=== PATIENT | female | born 1940 | race Caucasian/White ===

== ENCOUNTER 2017-06-10 11:48 | Outpatient (RCR) | payer MEDICARE, OTHER, SELFPAY ==
[2017-06-08 00:40] VITALS: BP 94/60; PULSE 75; O2SAT 94; BMI 27.4
== END 2017-07-08 23:59 ==
LOC: PR 11:48
PROVIDERS: Family Provider Family Medicine; PCP Family Medicine; Visit Provider Internal Medicine Critical Care Medicine
DX: J44.9 Chronic obstructive pulmonary disease, unspecified (principal); F17.201 Nicotine dependence, unspecified, in remission; R06.09 Other forms of dyspnea; J30.9 Allergic rhinitis, unspecified
CPT/HCPCS: 97150; G0424

== ENCOUNTER → 2017-09-11 10:51 | Outpatient (CLI) | payer MEDICARE, OTHER, SELFPAY ==
[2017-09-16 09:10] LABS: Alternaria tenuis <0.10 kU/L (Class 0); Ash, White <0.10 kU/L (Class 0); Aspergillus fumigatus <0.10 kU/L (Class 0); Bermuda Grass <0.10 kU/L (Class 0); Birch <0.10 kU/L (Class 0); Black Walnut <0.10 kU/L (Class 0); Cat Hair / Dander,Stand <0.10 kU/L (Class 0); Cedar, Mountain <0.10 kU/L (Class 0); Cladosporium herbarum <0.10 kU/L (Class 0); Cockroach, American <0.10 kU/L (Class 0); Cottonwood <0.10 kU/L (Class 0); D farinae Mite <0.10 kU/L (Class 0); D pteronyssinus <0.10 kU/L (Class 0); Dog Epithelia <0.10 kU/L (Class 0); Elm, American White <0.10 kU/L (Class 0); Immunoglobulin E 31 IU/mL (0-100); Maple/Box Elder <0.10 kU/L (Class 0); Mulberry, White <0.10 kU/L (Class 0); Oak, White <0.10 kU/L (Class 0); Pecan <0.10 kU/L (Class 0); Penicillium Notatum <0.10 kU/L (Class 0); Pigweed, Rough <0.10 kU/L (Class 0); Ragweed, Short/Common <0.10 kU/L (Class 0); Russian Thistle <0.10 kU/L (Class 0); Sheep Sorrel <0.10 kU/L (Class 0); Sycamore, American <0.10 kU/L (Class 0); Timothy Grass <0.10 kU/L (Class 0)
[2017-09-16 11:23] LABS: Mouse Urine <0.10 kU/L (Class 0)
== END ==
PROVIDERS: Family Provider Family Medicine; PCP Family Medicine; Visit Provider Internal Medicine Critical Care Medicine
DX: J30.9 Allergic rhinitis, unspecified (principal)
CPT/HCPCS: 36415; 82785; 86003

== ENCOUNTER 2017-10-26 07:31 | Day surgery (SDC) | payer MEDICARE, OTHER, SELFPAY ==
[2017-10-26] VITALS (7 sets, daily range): BP systolic 146–171; BP diastolic 86–118; PULSE 77–85; RESP 18; TEMP 36.4–36.7; O2SAT 93–99; BMI 28.4
--- NOTE | 2017-10-26 08:50 | RAD_ITS ---
STUDY: X-RAY - LUMBAR SPINE REASON FOR EXAM: Female, 76 years old. Radiofrequency ablation. TECHNIQUE: 7 coned-down view(s) of the lumbar spine were obtained intraoperatively. COMPARISON: None FINDINGS: Intraoperative imaging provided for right L3-S1 radiofrequency ablation. RAD/L/S Spine Min 4 Views IMPRESSION: Intraoperative imaging provided for right L3-S1 radiofrequency ablation. Electronically Signed: Ari Ward MD at 10:43 EDT Tel [phone], Service support ,
[2017-10-26] MEDS: MethylPREDNISolone Acetate 80 MG/ML Vial (09:00)
[2017-10-26] MEDS: Bupivacaine 0.25% 30 ML Vial (09:00)
--- NOTE | 2017-10-26 12:44 | PCM.OPRPT ---
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 Report of Operation Date of Procedure: 10/26/17 Pre-Operative Diagnosis: Lumbosacral spondylosis, lumbosacral degenerative disc disease, lumbar facet arthropathy Post-Operative Diagnosis: Lumbosacral spondylosis, lumbosacral degenerative disc disease, lumbar facet arthropathy Surgery/Procedure Performed:: Right-sided lumbar radiofrequency ablation of the medial branch L3, L4, L5, S1 Description of Surgical Findings:: PROCEDURE: Right-sided radiofrequency ablation of the medial branch L3, L4, L5, S1 PREOPERATIVE DIAGNOSES: Lumbosacral spondylosis, lumbosacral degenerative disc disease, lumbar facet arthropathy POSTOPERATIVE DIAGNOSES: Lumbosacral spondylosis, lumbosacral degenerative disc disease, lumbar facet arthropathy ANESTHESIA: MAC COMPLICATIONS: None BLOOD LOSS: Minimal PROCEDURE IN DETAIL: History and physical today was reviewed. Risks and benefits of procedure explained. The patient understood, agreed to the procedure and informed consent was obtained. IV inserted per routine protocol. The patient was taken to the operating room, placed in the prone position with a pillow positioned underneath the abdomen. The right side of the lower back was prepped and draped in a sterile fashion using iodine x 3. Under fluoroscopy guidance, on an oblique view, the L3 through S1 vertebral bodies were visualized. The skin and subcutaneous tissue was anesthetized with approximately 10 mL of 1% lidocaine using a 25-gauge regular needle. Under direct visualization with fluoroscopy at approximately 25-degree angle, starting on the right L3, ending on the right S1 passing through the L4-L5 using a 20-gauge 15 cm with a 10 mm curved active tip radiofrequency ablation needle the needle passed through the skin. The tip of the needle was maneuvered and directed towards the superior and medial gutter of the transverse process at the vicinity of the medial branch. Once the tip of the needle was in contact with the bone, the needle pulled approximately 2 mm up the bone. The stylet of each needle was then removed. After negative aspiration of blood with CSF and confirmation of AP as well as oblique view, radiofrequency ablation probe was then inserted at each level. Impedance was then recorded at L3 to be 304, at L4 302, at L5 289, at S1 278 ohm. Motor-evoked potential was then initiated to 1.5 volt without any motor response at each corresponding level. The probe was then removed intact and a total of 6 mL preservative-free 1% lidocaine was injected in divided doses between those 4 levels after negative aspiration of blood with CSF. The radiofrequency ablation probe was then reinserted after confirmation of AP, oblique as well as lateral view. Radiofrequency ablation was then initiated to 80 degrees Celsius for 90 seconds at each level. Once concluded, the probe was then removed intact and a total of 6 mL of preservative-free 0.25% Marcaine with 40 mg Depo-Medrol was injected in divided doses between those 4 levels. The needles were then removed intact. The patient experienced no signs or symptoms of intrathecal, intravascular injection. The patient experienced no paraesthesia. The procedure was completed without any apparent difficulty, any complication. The patient appeared to tolerate well. Sensory as well as motor exam was unchanged from prior to procedure. ASSESSMENT AND PLAN: This is a 76-year-old Female with lumbosacral spondylosis, lumbosacral degenerative disc disease, lumbar facet arthropathy, status post right-sided radiofrequency ablation of the medial branch L3 through S1. The patient will continue her current medications. The patient will follow up in approximately 2 weeks for reevaluation.
== END 2017-10-26 09:59 | disposition home or self-care (01) ==
LOC: SDC 07:32 → AC 07:32
PROVIDERS: Family Provider Family Medicine; PCP Family Medicine; Visit Provider Anesthesiology Pain Medicine
PROC: (CPT 64635; principal; 2017-10-26 08:45)
DX: M51.16 Intervertebral disc disorders with radiculopathy, lumbar region (principal); M47.26 Other spondylosis with radiculopathy, lumbar region; M53.3 Sacrococcygeal disorders, not elsewhere classified; M79.1 Myalgia; E03.9 Hypothyroidism, unspecified; E55.9 Vitamin D deficiency, unspecified; J44.9 Chronic obstructive pulmonary disease, unspecified; F41.9 Anxiety disorder, unspecified; F32.9 Major depressive disorder, single episode, unspecified; E78.00 Pure hypercholesterolemia, unspecified; I10 Essential (primary) hypertension; Z87.891 Personal history of nicotine dependence; Z79.51 Long term (current) use of inhaled steroids; Z79.891 Long term (current) use of opiate analgesic; Z79.899 Other long term (current) drug therapy
CPT/HCPCS: 01936; 64635; 64636; 72110; 76000; J7120

== ENCOUNTER → 2018-05-04 10:44 | Outpatient (CLI) | payer MEDICARE, OTHER, SELFPAY ==
[2018-05-04 11:26] VITALS: PULSE 100; PULSE 102; PULSE 104; PULSE 82; PULSE 88; PULSE 90; PULSE 91; PULSE 99; O2SAT 89; O2SAT 90; O2SAT 96
--- NOTE | 2018-05-04 16:08 | PCM.PSN.6M ---
PSN 6 Minute Walk Test - 6 Minute Walk Test 6 Minute Walk Test: 6 Minute Walk Test PSN:6-Minute Walk Test Start: 05/04/18 11:17 Freq: Status: Active Protocol: RESP.6MINW Document 05/04/18 11:26 JLA (Rec: 05/04/18 11:30 JLA [id number]) 6 Minute Walk Test Date Performed 05/04/18 Time Performed 11:00 Height 5 ft 4 in Weight: 69.539 kg Weight in Pounds 153.[address]: Chano Bowman Assistive device used: Cane Pre-test Oxygen Delivery Method Room Air Pulse Ox (%) 96 Pulse Rate (60-100 beats/min) 82 Dyspnea Julien Scale (0-10) 0 Exertion Julien Scale (6-20) 6 1st minute Oxygen Delivery Method Room Air Pulse Ox (%) 90 Pulse Rate (60-100 beats/min) 88 2nd minute Oxygen Delivery Method Room Air Pulse Ox (%) 90 Pulse Rate (60-100 beats/min) 99 3rd minute Oxygen Delivery Method Room Air Pulse Ox (%) 89 Pulse Rate (60-100 beats/min) 100 4th minute Oxygen Delivery Method Room Air Pulse Ox (%) 90 Pulse Rate (60-100 beats/min) 102 H 5th minute Oxygen Delivery Method Room Air Pulse Rate (60-100 beats/min) 90 Dyspnea Julien Scale (0-10) 102 6th minute Oxygen Delivery Method Room Air Pulse Ox (%) 89 Pulse Rate (60-100 beats/min) 104 H Dyspnea Julien Scale (0-10) 2 Exertion Julien Scale (6-20) 13 Post-test Oxygen Delivery Method Room Air Pulse Ox (%) 96 Pulse Rate (60-100 beats/min) 91 Full Laps Walked 9 Partial Lap, Number of Tiles Walked 0 Total Distance Walked (ft) 531 - Interpretation Interpretation: The patient was able to ambulate only 531 feet over the course of 6 minutes on room air with the assistance of a cane. The patient did have significant desaturation from a baseline of 96%, to as low as 89% with ambulation. Some reflexive tachycardia was noted. These findings are consistent with a respiratory limitation exercise tolerance. - Recommendations Recommendations: No supplemental oxygen is indicated at this time. However, patient will need to be followed closely given level of desaturation.
--- OUTSIDE RECORDS SUMMARY | 2018-06-16 02:30 | XMS RPT_ITS ---
:1940 Author Organization OHIP Support Name Relationship Address Phone ROMERODIONICIO Unavailable [address] + [address] [place] [address] R Unavailable Unavailable Unavailable ROMERO, DIONICIO Unavailable [address] + [address] [place] [address] R Unavailable Unavailable Unavailable ROMERO, DIONICIO Unavailable [address] + [address] [place] [address] R Unavailable Unavailable Unavailable ROMERO, DIONICIO Unavailable [address] + [address] [place] [address] R Unavailable Unavailable Unavailable ROMERO, DIONICIO Unavailable [address] + [address] [place] [address] R Unavailable Unavailable Unavailable ROMERO, DIONICIO Unavailable [address] + [address] [place] [address] R Unavailable Unavailable Unavailable ROMERO, DIONICIO Unavailable [address] + [address] [place] [address] R Unavailable Unavailable Unavailable ROMERO, DIONICIO Unavailable [address] [phone] [address] [place] [address] R Unavailable Unavailable Unavailable ROMERO, DIONICIO Unavailable [address] [phone] [address] [place] [address] R Unavailable Unavailable Unavailable ROMERO, DIONICOI Unavailable [address] [phone] [address] [place] [address] R Unavailable Unavailable Unavailable ROMERO, DIONICIO Unavailable [address] [phone] [address] [place] [address] R Unavailable Unavailable Unavailable ROMERO, DIONICIO Unavailable [address] + [place] [address] ROMERO, DIONICIO Unavailable [address] + [place] [address] ROMERO, DIONICIO Unavailable [address] [phone] [address] [place] [address] R Unavailable Unavailable Unavailable ROMERO, DIONICIO Unavailable [address] [phone] [address] [place] [address] R Unavailable Unavailable Unavailable ROMERO, DIONICIO Unavailable [address] [phone] [address] [place] [address] R Unavailable Unavailable Unavailable ROMERO, DIONICIO Unavailable [address] + [address] [place] [address] R Unavailable Unavailable Unavailable Care Team Providers Name Role Phone DEIRDRE VENTURA, JESSICA Bates Attending Unavailable DEIRDRE VENTURA, JESSICA Bates Referring Unavailable CEBUL , DOUG Lacey III Primary Care Unavailable CEBUL III, DOUG Lacey Attending Unavailable CEBUL III, DOUG A Referring Unavailable CEBUL III, DOUG A Referring Unavailable CEBUL III, DOUG Lacey Attending Unavailable CEBUL III, DOUG A Referring Unavailable CEBUL III, DOUG A Referring Unavailable Cebul Cipriano Attending Unavailable Cebul III, Doug Primary Care Unavailable Cebul Cipriano Attending Unavailable Cebul III, Doug Primary Care Unavailable Melodiebul Cipriano Consulting Unavailable Chano Bowman D.O. Attending Unavailable Chano Bowman D.O. Referring Unavailable Cebul III, Doug Primary Care Unavailable Chano Bowman D.O. Attending Unavailable Chano Bowman D.O. Referring Unavailable Cebul III, Doug Primary Care Unavailable Win Espinosa Attending Unavailable Chano Bowman D.O. Referring Unavailable CebulCipriano Attending Unavailable Cebul III, Doug Referring Unavailable Nahomy Arvizu Attending Unavailable Chano Bowman D.O. Attending Unavailable Cebul III, Doug Referring Unavailable Chano Bowman D.O. Attending Unavailable Cebul III, Doug Primary Care Unavailable Star Ardon Attending Unavailable Star Ardon Referring Unavailable Cebul III, Doug Primary Care Unavailable Chano Bowman D.O. Attending Unavailable Cebul III, Doug Referring Unavailable Chano Bowman D.O. Attending Unavailable Chano Bowman D.O. Referring Unavailable Cebul III, Doug Primary Care Unavailable CebulCipriano Attending Unavailable Cebul III, Doug Referring Unavailable Chano Bowman D.O. Attending Unavailable Chano Bowman D.O. Referring Unavailable Doug Ruiz III Primary Care Unavailable Chano Bowman D.O. Attending Unavailable Chano Bowman D.O. Referring Unavailable Doug Ruiz III Primary Care Unavailable PROBLEMS PROBLEMS DATE TYPE CONDITION / CODE ATTENDING STATUS SOURCE 05/19/2018 Unknown R92.8 - Other Cipriano Ruiz Active [place] abnormal and Community inconclusive Hospital findings on Repository diagnostic imaging of breast / R92.8(ICD-10) 05/05/2018 Active Inconclusive NA Active [facility] mammogram / [facility] [place] R92.2(ICD-10) Repository 05/21/2018 Unknown J44.9 - Chronic Win Espinosa Active [place] obstructive Community pulmonary disease, Hospital unspecified / Repository J44.9(ICD-10) 04/15/2018 Active Encounter for NA Active [facility] screening [facility] [place] mammogram for Repository malignant neoplasm of breast / Z12.31(ICD-10) 11/11/2017 Active Other fci NA Active [facility] (current) drug [place] therapy / Repository Z79.899(ICD-10) 11/11/2017 Active Hypothyroidism, NA Active [facility] unspecified / [place] E03.9(ICD-10) Repository 11/11/2017 Active Chronic NA Active [facility] obstructive [place] pulmonary disease, Repository unspecified / J44.9(ICD-10) 09/11/2017 Unknown J30.9 - Allergic Chano Bowman, Active [place] rhinitis, D.O. Community unspecified / Hospital J30.9(ICD-10) Repository 09/11/2017 Unknown F17.201 - Nicotine Chano Bowman, Active [place] dependence, [facility] Community unspecified, in Hospital remission / Repository F17.201(ICD-10) 06/08/2017 Unknown R06.09 - Other Chano Bowman, Active [place] forms of dyspnea / D.O. Community R06.09(ICD-10) Hospital Repository 05/07/2017 Unknown CHRONIC Chano Brown, Active [place] OBSTRUCTIVE D.O. Community PULMONARY DISEASE, Hospital UNSPECIFIED / Repository J44.9(ICD-10) 05/07/2017 Unknown NICOTINE Chano Bowman, Active [place] DEPENDENCE, D.O. Community UNSPECIFIED, IN Hospital REMISSION / Repository F17.201(ICD-10) 05/07/2017 Unknown OTHER FORMS OF Chano Brown, Active [place] DYSPNEA / D.O. Community R06.09(ICD-10) Hospital Repository 05/07/2017 Unknown ALLERGIC RHINITIS, Chano Bowman, Active [place] UNSPECIFIED / D.O. Community J30.9(ICD-10) Hospital Repository PROCEDURES PROCEDURES No Procedure Records FoundRESULTS RESULTS SURGERY VISIT REPORT Observed: 05/25/2018 Status: F Source: [place] 4:42 PM [facility] REPOSITORY [facility] [address] [place] [address]. [address] [place] [address] OFFICE VISIT Date of Service: 05/25/18 MR#: [id number] Acct: [id number] Name: JOSETTE ROMERO Rep #: [id number] : 1940 Provider: Cipriano Ruiz MD Age/Sex: 77/F Location: [facility] Status: Signed Intake Intake Visit Reasons: breast path Chief Complaint: abn mammo/us right breast Aluminum Siding Mechanic Required: No Is patient in pain?: No Allergies acetaminophen [From Tavist] Allergy (Verified 05/25/18 15:35) Unknown clemastine fumarate [From Tavist] Allergy (Verified 05/25/18 15:35) Unknown fosfomycin tromethamine [From Monurol] Allergy (Verified 05/25/18 15:35) Unknown pseudoephedrine HCl [From Tavist] Allergy (Verified 05/25/18 15:35) Unknown celecoxib [From Celebrex] Adverse Reaction (Verified 05/25/18 15:35) Upset Stomach doxycycline Adverse Reaction (Verified 05/25/18 15:35) Other simvastatin [From Zocor] Adverse Reaction (Verified 05/25/18 15:35) Pain in joints Medications Atorvastatin Calcium [Lipitor] 20 mg PO QHS 09/09/14 [History Confirmed 05/14/18] Bimatoprost [Lumigan Opthalmic] 1 drp EACH EYE QHS 09/09/14 [History Confirmed 05/14/18] Levothyroxine [Synthroid] 112 mcg PO DAILY 09/09/14 [History Confirmed 05/14/18] Calcium Carb/Vitamin D [Os-Shiva 500MG + D] 1 tab PO TIDCM #30 tab 09/14/14 [Rx Confirmed 05/14/18] Senna/Docusate Sodium [Senokot-S] 1 tab PO BID PRN 05/22/17 [History Confirmed 05/14/18] montelukast 10 mg tablet 10 mg PO QDAY #90 tab 09/11/17 [Rx Confirmed 05/14/18] Lisinopril [Prinivil] 10 mg PO DAILY 10/22/17 [History Confirmed 05/14/18] budesonide-formoterol HFA 160 mcg-4.5 mcg/actuation aerosol inhaler 2 puff INHALATION BID #3 ea 10/28/17 [Rx Confirmed 05/14/18] tiotropium bromide 2.5 mcg/actuation mist for inhalation 2 puff INHALATION QDAY #3 ea 10/28/17 [Rx Confirmed 05/14/18] tizanidine PO BID PRN 12/15/17 [History Confirmed 05/14/18] albuterol sulfate HFA 90 mcg/actuation aerosol inhaler 2 puff INHALATION Q4H PRN PRN #1 inhaler 12/18/17 [Rx Confirmed 05/14/18] albuterol sulfate 2.5 mg/3 mL (0.083 %) solution for nebulization 2.5 mg INHALATION Q6H PRN #120 vial 03/18/18 [Rx Confirmed 05/14/18] alendronate 70 mg tablet 70 mg PO QWEEK 05/14/18 [History Confirmed 05/14/18] bimatoprost 0.01 % eye drops 1 drp OPHTHALMIC QPM 05/14/18 [History Confirmed 05/14/18] buspirone 5 mg tablet 5 mg PO TID 05/14/18 [History Confirmed 05/14/18] citalopram 10 mg tablet 10 mg PO DAILY 05/14/18 [History Confirmed 05/14/18] hydrocortisone 1 % topical cream 1 applic TOPICAL BID 05/14/18 [History Confirmed 05/14/18] lactulose 20 gram oral packet 20 g PO BID 05/14/18 [History Confirmed 05/14/18] latanoprost 0.005 % eye drops 1 drp OPHTHALMIC QPM 05/14/18 [History Confirmed 05/14/18] melatonin 5 mg capsule mg PO cap 05/14/18 [History Confirmed 05/14/18] tolterodine ER 4 mg capsule,extended release 24 hr 4 mg PO DAILY 05/14/18 [History Confirmed 05/14/18] Is last menstrual period known: No Post menopausal: Yes Patient : No PFSH Medical History Abnormal mammogram of right breast (Acute) Hip fracture requiring operative repair (Resolved) Pure hypercholesterolemia (Chronic) Pleural effusion (Acute) Osteoarthritis (Chronic) Glaucoma (Chronic) Essential (primary) hypertension (Chronic) Diverticulosis of colon (without mention of hemorrhage) (Chronic) Other disorders of bone and cartilage (Chronic) Benign positional vertigo (Chronic) Apical lung scarring (Chronic) Anxiety (Chronic) Allergic rhinitis (Chronic) MIRELES (dyspnea on exertion) (Chronic) Tobacco dependence in remission (Chronic) Closed fracture of left hip requiring operative repair (Acute) COPD, mild (Chronic) MCI (mild cognitive impairment) (Chronic) Depression (Chronic) Hyperlipidemia (Chronic) Hypothyroidism (Chronic) Broken wrist (Acute) Cracked pelvis (Acute) Fracture of vertebra (Acute) Tailbone injury (Acute) Surgical History History of arthroscopic knee surgery (Acute) History of colonoscopy (Acute) History of hemorrhoidectomy (Acute) Status post hip surgery (Acute) Family History Father Heart disease Myocardial infarction Mother Breast cancer Aunt Breast cancer Daughter Breast cancer Social History Smoking Status: Former smoker how long ago did patient quit smokin, 1p/day second hand exposure: Yes alcohol intake: current alcohol intake frequency: a few times a month Alcohol type: wine substance use type: does not use HPI HPI HPI: JOSETTE ROMERO, is a 77 F who presents to the office today for surgical follow-up status post stereotactic needle core right breast biopsy. I saw this patient on May 14, 2018 with the following report HPI HPI: JOSETTE ROMERO, is a 77 F who presents to the office today for for surgical consultation regarding an abnormal mammogram with microcalcifications on the right. The patient is referred by Dr. Doug Ruiz III and a written copy of my surgical consult recommendations will be returned to him. The patient especially requests me to assist. 77-year-old female. Mother and a maternal aunt had breast cancer. The patient is G0. Menarche at age 16. No previous breast biopsies. No nipple discharge. No bleeding. She does take hormone replacement therapy and is adamant that she requires that. The patient had screening mammograms at the [facility]. Unremarkable on the left. On the right there is felt to be clustered calcifications on April 27 8018 she had diagnostic right mammogram. Coarse heterogenous pleomorphic calcifications in the 12:00 upper mid right breast. BI-RADS Category 4. Low suspicion Subsequently on May 19, 2018 I performed a stereotactic core right breast biopsy. Multiple microcalcifications were obtained in the specimen. Final pathology was notable for invasive ductal carcinoma nuclear grade 2 0.4 cm in greatest length. Focal microcalcifications. Estrogen receptor was 43% week. Progesterone receptor 0. HER-2/anthony 3+. She presents back today with her and daughter to discuss treatment options. It is of note that her daughter also has had breast cancer which was treated with a mastectomy sentinel lymph node biopsy. She has experience with the techniques. ROS General General: No weight change, appetite, fatigue, colon cancer, breast cancer or weakness HEENT HEENT: No difficulty swallowing, eye injury, eye surgery, swollen glands or hoarseness Endo Endocrine: Yes thyroid disease; no diabetes mellitus, thyroid cancer, Hair loss, heat intolerance or cold intolerance Breast Breast: Yes abnormal mammogram and abnormal US; no left breast lump, right breast lump, nipple discharge, breast pain or breast enlargement Musc Musculoskeletal: Yes back problems and arthritis; no rheumatoid arthritis, gout or joint pain Cardio Cardiovascular: Yes high blood pressure; no murmur, pacemaker, heart disease, atrial fibrillation, heart attack, heart stent, palpitations, shortness of breat with exertion or chest pain Psych Psychiatric: Yes depression and anxiety; no hearing voices Resp Respiratory: Yes shortness of breath, No sleep apnea, No cough, Yes COPD, No asthma, No emphysema, No wheezing Gastro Gastrointestinal: No abdominal pain, No nausea or vomiting, No diarrhea, No constipation, No blood in stool, No acid reflux, Yes hemorrhoids, No ulcers, No gallbladder problem, No black,tarry stools Fitz Hematologic: No blood thinners, No blood disorders, No bleeding, No anemia, No blood clots Neuro Neurologic: No weakness Exam Const General: cooperative, anxious Nutritional Appearance: average body habitus Orientation: alert, awake, oriented x3 HENMT Head: normal to inspection Chest Breast Palpation: No nipple discharge Other: Right breast: Very small 3 mm eschar upper mid right breast at biopsy site. Mild induration. No erythema. No palpable supraclavicular or axillary adenopathy. Left breast: No focal mass. No nipple discharge. No axillary or clavicular adenopathy Resp Other: Increased anterior posterior diameter. Diminished respiratory excursion. Clear with few scattered dry rales Cardio Rate: regular rate Rhythm: regular rhythm Heart Sounds: no murmurs GI Palpation: no hepatosplenomegaly Auscultation: normal bowel sounds Skin Other: Skin abrasion superficial laceration left upper arm clean Extrem General: no clubbing, cyanosis or edema Psych Other: Extraordinarily anxious Assessment AND Plan Problems 1. Malignant neoplasm of central portion of right breast in female, estrogen receptor positive C50.111; Z17.0 Plan 77-year-old female. She states that 24 hours after her breast biopsy she had nausea vomiting and hallucinations. She states that she tripped against a door causing the abrasion to the left arm. She wonders whether this is related to the Betadine prep that was used for her right stereotactic needle core biopsy or the 1% lidocaine. She did not have any immediate symptoms at the time of the procedure or within that same day. I have discussed her findings. The patient is very anxious because of her COPD and is not sure that she can tolerate surgery. She is not currently on oxygen at this time in the office. The vast majority of the microcalcifications were removed during stereotactic biopsy. I suspect that this is a very small focus. I do not believe that a mastectomy would be appropriate. I have offered her a stereotactic wire localization with lumpectomy and right axillary sentinel lymph node biopsy. In detail I have discussed the technique, benefits, risks, alternatives. The stereotactic wire localization will need to be performed with alcohol prep and no local anesthetic. I would anticipate not using any local anesthetic during the operative procedure. We would need to use care in the degree of vital dye utilized. She has had an opportunity to ask and have questions answered. At this point we will schedule and proceed at her discretion. She requests that this not be performed prior to the holidays. I appreciate the opportunity of assisting with her surgical care CC: Dr. Doug Ruiz, III Cipriano Ruiz M.D., F.A.C.S. Coding Level of Care Code Off vis,est,level 3 Diagnoses Malignant neoplasm of central portion of right breast in female, estrogen receptor positive C50.111; Z17.0 Breast location: central portion of breast Estrogen receptor status: positive Patient sex: female 05/25/18 1642 <Electronically signed by Cipriano Ruiz MD> Date Cipriano Ruiz MD Cosigner Signature: Date (if applicable) CC: Doug Ruiz III, MD OPERATIVE REPORT Observed: 05/19/2018 Status: F Source: [place] 11:22 AM [facility] Medical Records Department [address] [place] [address] Operative Report 05/19/18 1119 MR#: [id number] Acct: [id number] Name: JOSETTE ROMERO Rep #: [id number] : 1940 77 From: Cipriano Ruiz MD PCP: Doug Ruiz III, MD Status: REG CLI Y Location: [facility] Problem List (1) Abnormal mammogram of right breast Status: Acute Report of Operation Date of Procedure: 05/19/18 Pre-Operative Diagnosis: Microcalcifications upper mid right breast Post-Operative Diagnosis: Same Surgery/Procedure Performed:: Stereotactic needle core biopsy upper mid right breast Description of Surgical Findings:: Timeout and informed consent was obtained. 71-year-old female was taken to the stereotactic room placed on the table.The right breast was placed in the cc view. On fast view was obtained demonstrating the microcalcifications in question. Stereotactic images are obtained. Digital information is obtained on a single target site. The breast was prepped with Betadine. 1% lidocaine was used as a local anesthetic. A total of 8 cc was used. A small stab incision was created. An 8-gauge resolve needle was advanced to prefer depth. Prefire films were obtained demonstrating good localization. Device was fired. 5 cores were obtained. Specimen mammograms are obtained with multiple cores with calcifications consistent with the preoperative imaging. The cores were immediately placed within formalin. A mini marking clip was left at the 12 o'clock position. Final direct view demonstrating the marking clip to be in good position with now relative absence of the vast majority of the microcalcifications. She was released from the device. Pressure was held for hemostasis. Steri-Strips Telfa OpSite dressing applied. Ice pack applied. She was given activity wound care instructions. Further office follow-up can be based upon final pathology. Progress and prognosis are felt to be good. Cipriano Ruiz M.D., F.A.C.S. Type of Anesthesia:: Local 05/19/181121 <Electronically signed by Cipriano Ruiz MD> Date Cipriano Ruiz MD CC: Doug Ruiz III, MD; Cipriano Ruiz MD Signed BREAST BIOPSY Observed: 05/19/2018 Status: F Source: [facility] (CHOOSE SITE) 11:10 AM [facility] REPOSITORY Patient: JOSETTE ROMERO : 1940 (77/F) Acct Num: [id number] Phys: Cipriano Ruiz MD Unit Num: [id number] Loc: [facility] Specimen: [id number] Received: 05/19/18 - 114 Spec Type: BREAST BX TISSUES 1 TISSUES: Right breast, NOS COMMENT 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 Immunohistochemistry ([id number]) supports the above diagnosis. ER/MT/Hei0qwa studies are being performed on sections of tumor and the results from this study will be reported separately ([id number]). Case has been reviewed in consultation with Dr. Jerome who concurs with the above diagnosis. IDC:AM GROSS DESCRIPTION Received is one container labeled with the patient's name and not further designated. The specimen consists of multiple elongated fragments of lundberg-yellow fibroadipose tissue that in aggregate measure 5 x 3 x 0.1 cm. The entire specimen is submitted in two cassettes. / ROWENA:laura 05/19/18 TC:0 CPT: 41374 HEADER OPERATION: Right breast stereotactic biopsy PRE-OP DIAGNOSIS: Right breast calcifications upper mid breast TISSUE SUBMITTED: Right breast core tissue ISCHEMIC TIME: 1 minute FIXATION TIME: 8.5 hours MICROSCOPIC DESCRIPTION Slides are reviewed. MICROSCOPIC DIAGNOSIS Right breast, calcifications upper mid breast, stereotactic core biopsy: Invasive ductal carcinoma, nuclear grade 2 (0.4 cm in greatest length). Focal microcalcifications. See comment. SJ:laura 05/20/18 Signed Alvin Anaya 05/21/18 <signature on file> Performed By: #### PBRBX #### [facility] [address] [place], [address] IMMUNOHISTOCHEMISTRY Observed: 05/19/2018 Status: F Source: [place] 12:00 AM [facility] REPOSITORY Patient: JOSETTE ROMERO : 1940 (77/F) Acct Num: [id number] Phys: Sara VENTURA,Cipriano Unit Num: [id number] Loc: [facility] Specimen: [id number] Received: 05/20/18 - 1321 Spec Type: IMMUNO TISSUES 1 TISSUES: Right breast, NOS SPECIMEN INFORMATION: Tissue Source: Right breast Clinical Info: Right breast calcifications upper mid breast Specimen Number: [id number] #2 CPT code: 91835, 42826 x6, 25220 x3 METHODOLOGY: Deparaffinized sections of prefer/formalin-fixed tissue or PAP/DQ stained slides are incubated with monoclonal/polyclonal antibodies/oligonucleotide probes. Localization is made via biotin free immunoperoxidase method. Appropriate controls are performed and reacted as expected. Results on target cell population are indicated in the following table: RESULTS: ANTIBODY / CLONE RESULT Block 2 E-Cad (ECH-6) positive CK8 (67tcjeB19) positive CK5-6 (D5 AND 1684) negative Ki-67 (30-9) positive, low P53 (DO-7) positive, weak P40 (BC28) negative Calponin-1 (CC182V) negative MORPHOMETRIC ANALYSIS ER (clone 6F11) 43%, weak MT (clone 16/1E2) 0 Her-2Neu (clone CB11) 3+ The prognostic test for HER2 is performed on formalin-fixed paraffin embedded tissue. A 3+ (positive) staining pattern is defined as intense, homogeneous, complete, circumferential membranous staining in >10% of contiguous tumor cells. A similar weak (2+) staining pattern is interpreted as equivocal. BRETT follow- up testing is recommended for all equivocal cases. Positivity/negativity for ER/ MT is reported if > or < 1% of the tumor cells are immuno- reactive, respectively. The ASCO/CAP criteria is used for scoring. Reference: Journal of Clinical Oncology, 2013; 31:9748-0546 AND 2010; 16:2784- 2795. Duration of fixation : 8.5 Hrs; Sample Adequate: Yes. These assays have not been validated on decalcified tissues. Results should be interpreted with caution given the likelihood of false negativity on decalcified specimens. These tests were developed and their performance characteristics determined by [facility]. They may not have been cleared or approved by the U.S. Food and Drug Administration. The FDA has determined that such clearance or approval is not necessary. INTERPRETATION: Right breast calcifications upper mid breast, stereotactic core biopsy: Invasive ductal carcinoma, nuclear grade 2. Positive for estrogen receptors (favorable prognostic indicator). Negative for progesterone receptors (unfavorable prognostic indicator). Positive for overexpression of DRL2woc. SJ:laura 05/21/18 PHYSICIAN [facility] INSTIT[facility] [address] [address] Signed Alvin Anaya 05/21/18 <signature on file> Performed By: #### PIMM #### [facility] [address] [place] [address]. [place], [place], [address] SURGERY VISIT REPORT Observed: 05/14/2018 Status: F Source: [place] 2:27 PM [facility] REPOSITORY [facility] [address] [place] [address]. [address] [place] [address] OFFICE VISIT Date of Service: 05/14/18 MR#: [id number] Acct: [id number] Name: JOSETTE ROMERO Rep #: [id number] : 1940 Provider: Cipriano Ruiz MD Age/Sex: 77/F Location: [facility] Status: Signed Intake Vital Signs05/14/18 Height 5 ft 4 in 05/14/18 Weight: 157 lb 12 oz 05/14/18 Body Mass Index (BMI) 27.1 05/14/18 Blood Pressure 127/78 H Intake Visit Reasons: Rt Breast Abn Mammo [facility] 05/05 to bring disc Chief Complaint: abn mammo/us right breast Aluminum Siding Mechanic Required: No Is patient in pain?: No Allergies acetaminophen [From Tavist] Allergy (Verified 05/14/18 13:56) Unknown clemastine fumarate [From Tavist] Allergy (Verified 05/14/18 13:56) Unknown fosfomycin tromethamine [From Monurol] Allergy (Verified 05/14/18 13:56) Unknown pseudoephedrine HCl [From Tavist] Allergy (Verified 05/14/18 13:56) Unknown celecoxib [From Celebrex] Adverse Reaction (Verified 05/14/18 13:56) Upset Stomach doxycycline Adverse Reaction (Verified 05/14/18 13:56) Other simvastatin [From Zocor] Adverse Reaction (Verified 05/14/18 13:56) Pain in joints Medications Atorvastatin Calcium [Lipitor] 20 mg PO QHS 09/09/14 [History Confirmed 05/14/18] Bimatoprost [Lumigan Opthalmic] 1 drp EACH EYE QHS 09/09/14 [History Confirmed 05/14/18] Levothyroxine [Synthroid] 112 mcg PO DAILY 09/09/14 [History Confirmed 05/14/18] Calcium Carb/Vitamin D [Os-Shiva 500MG + D] 1 tab PO TIDCM #30 tab 09/14/14 [Rx Confirmed 05/14/18] Senna/Docusate Sodium [Senokot-S] 1 tab PO BID PRN 05/22/17 [History Confirmed 05/14/18] montelukast 10 mg tablet 10 mg PO QDAY #90 tab 09/11/17 [Rx Confirmed 05/14/18] Lisinopril [Prinivil] 10 mg PO DAILY 10/22/17 [History Confirmed 05/14/18] budesonide-formoterol HFA 160 mcg-4.5 mcg/actuation aerosol inhaler 2 puff INHALATION BID #3 ea 10/28/17 [Rx Confirmed 05/14/18] tiotropium bromide 2.5 mcg/actuation mist for inhalation 2 puff INHALATION QDAY #3 ea 10/28/17 [Rx Confirmed 05/14/18] tizanidine PO BID PRN 12/15/17 [History Confirmed 05/14/18] albuterol sulfate HFA 90 mcg/actuation aerosol inhaler 2 puff INHALATION Q4H PRN PRN #1 inhaler 12/18/17 [Rx Confirmed 05/14/18] albuterol sulfate 2.5 mg/3 mL (0.083 %) solution for nebulization 2.5 mg INHALATION Q6H PRN #120 vial 03/18/18 [Rx Confirmed 05/14/18] alendronate 70 mg tablet 70 mg PO QWEEK 05/14/18 [History Confirmed 05/14/18] bimatoprost 0.01 % eye drops 1 drp OPHTHALMIC QPM 05/14/18 [History Confirmed 05/14/18] buspirone 5 mg tablet 5 mg PO TID 05/14/18 [History Confirmed 05/14/18] citalopram 10 mg tablet 10 mg PO DAILY 05/14/18 [History Confirmed 05/14/18] hydrocortisone 1 % topical cream 1 applic TOPICAL BID 05/14/18 [History Confirmed 05/14/18] lactulose 20 gram oral packet 20 g PO BID 05/14/18 [History Confirmed 05/14/18] latanoprost 0.005 % eye drops 1 drp OPHTHALMIC QPM 05/14/18 [History Confirmed 05/14/18] melatonin 5 mg capsule mg PO cap 05/14/18 [History Confirmed 05/14/18] tolterodine ER 4 mg capsule,extended release 24 hr 4 mg PO DAILY 05/14/18 [History Confirmed 05/14/18] Is last menstrual period known: No Post menopausal: Yes Patient : No PFSH Medical History Abnormal mammogram of right breast (Acute) Hip fracture requiring operative repair (Resolved) Pure hypercholesterolemia (Chronic) Pleural effusion (Acute) Osteoarthritis (Chronic) Glaucoma (Chronic) Essential (primary) hypertension (Chronic) Diverticulosis of colon (without mention of hemorrhage) (Chronic) Other disorders of bone and cartilage (Chronic) Benign positional vertigo (Chronic) Apical lung scarring (Chronic) Anxiety (Chronic) Allergic rhinitis (Chronic) MIRELES (dyspnea on exertion) (Chronic) Tobacco dependence in remission (Chronic) Closed fracture of left hip requiring operative repair (Acute) COPD, mild (Chronic) MCI (mild cognitive impairment) (Chronic) Depression (Chronic) Hyperlipidemia (Chronic) Hypothyroidism (Chronic) Broken wrist (Acute) Cracked pelvis (Acute) Fracture of vertebra (Acute) Tailbone injury (Acute) Surgical History History of arthroscopic knee surgery (Acute) History of colonoscopy (Acute) History of hemorrhoidectomy (Acute) Status post hip surgery (Acute) Family History Father Heart disease Myocardial infarction Mother Breast cancer Aunt Breast cancer Daughter Breast cancer Social History Smoking Status: Former smoker how long ago did patient quit smokin, 1p/day second hand exposure: Yes alcohol intake: current alcohol intake frequency: a few times a month Alcohol type: wine substance use type: does not use HPI HPI HPI: JOSETTE ROMERO, is a 77 F who presents to the office today for for surgical consultation regarding an abnormal mammogram with microcalcifications on the right. The patient is referred by Dr. Doug Ruiz III and a written copy of my surgical consult recommendations will be returned to him. The patient especially requests me to assist. 77-year-old female. Mother and a maternal aunt had breast cancer. The patient is G0. Menarche at age 16. No previous breast biopsies. No nipple discharge. No bleeding. She does take hormone replacement therapy and is adamant that she requires that. The patient had screening mammograms at the [facility]. Unremarkable on the left. On the right there is felt to be clustered calcifications on April 27 8018 she had diagnostic right mammogram. Coarse heterogenous pleomorphic calcifications in the 12:00 upper mid right breast. BI-RADS Category 4. Low suspicion ROS General General: No weight change, appetite, fatigue, colon cancer, breast cancer or weakness HEENT HEENT: No difficulty swallowing, eye injury, eye surgery, swollen glands or hoarseness Endo Endocrine: Yes thyroid disease; no diabetes mellitus, thyroid cancer, Hair loss, heat intolerance or cold intolerance Breast Breast: Yes abnormal mammogram and abnormal US; no left breast lump, right breast lump, nipple discharge, breast pain or breast enlargement Musc Musculoskeletal: Yes back problems and arthritis; no rheumatoid arthritis, gout or joint pain Cardio Cardiovascular: Yes high blood pressure; no murmur, pacemaker, heart disease, atrial fibrillation, heart attack, heart stent, palpitations, shortness of breat with exertion or chest pain Psych Psychiatric: Yes depression and anxiety; no hearing voices Resp Respiratory: Yes shortness of breath, No sleep apnea, No cough, Yes COPD, No asthma, No emphysema, No wheezing Gastro Gastrointestinal: No abdominal pain, No nausea or vomiting, No diarrhea, No constipation, No blood in stool, No acid reflux, Yes hemorrhoids, No ulcers, No gallbladder problem, No black,tarry stools Fitz Hematologic: No blood thinners, No blood disorders, No bleeding, No anemia, No blood clots Neuro Neurologic: No weakness Exam Chest Breast Palpation: No nipple discharge Other: Bilateral breasts: No focal mass no nipple discharge no axillary or clavicular adenopathy Cardio Heart Sounds: no murmurs Assessment AND Plan Problems 1. Abnormal mammogram of right breast R92.8 Plan I recommended the patient is sterile technique occur upper mid right breast biopsy and in detail discussed the technique, benefits, risks and alternatives. The patient is very much interested in returning to using her hormone replacement at your earliest convenience. I discussed with her that we would have to await pathology. She has had an opting to ask and have questions answered. We will schedule and expedite her care. Cc: Dr. Doug Ruiz M.D., F.A.C.S. Coding Level of Care Code Prob focused, straight fwd Diagnoses Abnormal mammogram of right breast R92.8 05/14/18 1427 <Electronically signed by Cipriano Ruiz MD> Date Cipriano Ruiz MD Cosigner Signature: Date (if applicable) CC: Doug Ruiz III, MD PROGRESS Observed: 05/05/2018 Status: COMPLETED Source: [place] 1:42 PM [facility] REPOSITORY HNO ID: [id number] Author: Anastacia Knightelizabeth Burnham Service: (none) Author Type: (none) Type: Progress Notes Filed: 05/05/2018 1:43 PM Note Text: Radiology Service Progress Note PATIENT NAME: Josette Romero DATE OF SERVICE: May 05, 2018 TIME: 1:42 PM PATIENT IDENTITY VERIFICATION COMPLETED USING TWO (2) METHODS: Patient confirmed name verbally and Date of . PATIENT GENDER DATA: Female. status: : No status: NO. PATIENT RELEVANT IMPLANT DATA REVIEWED: Not Applicable RADIOLOGY DEPARTMENT: [facility] diagnostic mammogram PERIPHERAL IV DATA: Not applicable SIGNED BY: Anastacia Burnham May 05, 2018 1:42 PM CNCO Observed: 05/05/2018 Status: COMPLETED Source: [place] 1:29 PM [facility] RE[facility]IT[facility] HNO ID: [id number] Author: Mammography Coordinator Service: (none) Author Type: Physician Type: Letter Filed: 05/06/2018 11:32 PM Note Text: May 05, 2018 PID: [id number] Josette Romero [address] [place], [place] [id number] Dear Ms. Romero, Your recent breast imaging exam on 05/05/2018 showed an abnormal area. At this time we recommend further evaluation. This does not necessarily mean that there is a serious problem in your breast, but it should not be ignored. Please contact your physician as soon as possible to discuss the results of this exam and decide what the next steps in your medical care should be. If you have already been notified of these findings, please disregard this letter. Thank you for allowing us to help in meeting your health care needs. Sincerely, Dr. Amato Interpreting Radiologist [facility] (Abnormal) [facility] RT Observed: 05/05/2018 Status: F Source: [place] 11:22 AM [facility] REPOSITORY * * *Final Report* * * DATE OF EXAM: May 05 2018 11:22AM [facility] 0626 - [facility] RT / PROCEDURE REASON: Inconclusive mammogram * * * * Physician Interpretation * * * * RESULT: #[id number] - [facility] RT UNILATERAL RIGHT DIGITAL DIAGNOSTIC MAMMOGRAM WITH CAD: 05/05/2018 HISTORY: Inconclusive Mammogram /Call back/abnormal mamm: Right Diagnostic Mammogram. RESULT: TECHNIQUE: The study was acquired using full field digital technology and interpreted from soft copy. Current study was also evaluated with a Computer Aided Detection (CAD). Comparison is made to exams dated: 04/15/2018 mammogram and 12/24/2015 mammogram - [facility]. There are scattered fibroglandular elements in right breast. There are a clustered coarse heterogeneous pleomorphic calcifications in the right breast at 12 o'clock middle depth. No other significant masses or calcifications are seen in the breast. IMPRESSION: SUSPICIOUS OF MALIGNANCY The clustered coarse heterogeneous pleomorphic calcifications in the right breast are at a low suspicion for malignancy. A stereotactic biopsy is recommended. SUMMARY: The patient indicated that she would contact her primary care physician in order to make the biopsy appt with Dr. Chiang. Santo humphreys/lucy:05/05/2018 13:29:12 Installation Coordinator(s): Anastacia Degroot RT(R)(M), [facility] letter sent: Abnormal Mammogram BI-RADS: 4a Suspicious abnormality - low suspicion for malignancy Multiple national specialty organizations have released breast cancer screening guidelines for women at average risk for developing breast cancer - guidelines that are based on both evidence and opinion, yet differ on when to start and how often to screen for breast cancer. With representation from Breast Imaging, Internal Medicine, Women's Health, Family Medicine, and Medical/Surgical Oncology, the [facility] has carefully reviewed the data and reached the following consensus: 1) All women should engage in shared decision-making with their providers to decide when to start and how often to screen; 2) All women should have the opportunity to start screening mammography at age 40; 3) For women ages 45-55, we recommend annual screening mammograms; 4) For women ages 55 and over, we support both the transition from an annual to a biennial interval if this aligns more with patient's values and preferences, or continuation with annual screening; 5) All women should discuss with their providers when to stop screening mammograms. Surveying Technician: Lucy Transcribe Date/Time: May 05 2018 11:22A Dictated by: SANTO AMATO MD This examination was interpreted and the report reviewed and electronically signed by: SANTO AMATO MD on May 05 2018 1:29PM EST [id number] 6 MINUTE WALK TEST Observed: 05/05/2018 Status: F Source: [place] 5:47 AM [facility] REPOSITORY [facility] Pulmonary Services/Neurology [address] [place] [address] MR#: [id number] Acct: [id number] Name: JOSETTE ROMERO Rep #: [id number] : 1940 77 From: Win Espinosa MD Referring Dr: Chano Bowman D.O. Date: Ordering Dr: Sex: F C Location: PSN PSN 6 Minute Walk Test - 6 Minute Walk Test 6 Minute Walk Test: 6 Minute Walk Test PSN:6-Minute Walk Test Start: 05/04/18 11:17 Freq: Status: Active Protocol: [id number] Document 05/04/18 11:26 JLA (Rec: 05/04/18 11:30 JLA [id number]) 6 Minute Walk Test Date Performed 05/04/18 Time Performed 11:00 Height 5 ft 4 in Weight: 69.539 kg Weight in Pounds 153.[address]: Chano Bowman Assistive device used: Cane Pre-test Oxygen Delivery Method Room Air Pulse Ox (%) 96 Pulse Rate (60-100 beats/min) 82 Dyspnea Julien Scale (0-10) 0 Exertion Julien Scale (6-20) 6 1st minute Oxygen Delivery Method Room Air Pulse Ox (%) 90 Pulse Rate (60-100 beats/min) 88 2nd minute Oxygen Delivery Method Room Air Pulse Ox (%) 90 Pulse Rate (60-100 beats/min) 99 3rd minute Oxygen Delivery Method Room Air Pulse Ox (%) 89 Pulse Rate (60-100 beats/min) 100 4th minute Oxygen Delivery Method Room Air Pulse Ox (%) 90 Pulse Rate (60-100 beats/min) 102 H 5th minute Oxygen Delivery Method Room Air Pulse Rate (60-100 beats/min) 90 Dyspnea Julien Scale (0-10) 102 6th minute Oxygen Delivery Method Room Air Pulse Ox (%) 89 Pulse Rate (60-100 beats/min) 104 H Dyspnea Julien Scale (0-10) 2 Exertion Julien Scale (6-20) 13 Post-test Oxygen Delivery Method Room Air Pulse Ox (%) 96 Pulse Rate (60-100 beats/min) 91 Full Laps Walked 9 Partial Lap, Number of Tiles Walked 0 Total Distance Walked (ft) 531 - Interpretation Interpretation: The patient was able to ambulate only 531 feet over the course of 6 minutes on room air with the assistance of a cane. The patient did have significant desaturation from a baseline of 96%, to as low as 89% with ambulation. Some reflexive tachycardia was noted. These findings are consistent with a respiratory limitation exercise tolerance. - Recommendations Recommendations: No supplemental oxygen is indicated at this time. However, patient will need to be followed closely given level of desaturation. 05/05/18 0547 <Electronically signed by Win Espinosa MD> Date Win Espinosa MD CC: Date Dictated: 05/04/18 1608 Date Transcribed: 05/04/181607 Surveying Technician: Win Espinosa Signed CNCO Observed: 04/15/2018 Status: COMPLETED Source: [place] 12:19 PM [facility] [place] REPOSITORY [facility] ID: [id number] Author: Mammography Coordinator Service: (none) Author Type: Physician Type: Letter Filed: 04/19/2018 11:50 PM Note Text: April 15, 2018 PID: [id number] Josette Romero [address] [place] [address] Dear Ms. Romero, Your recent breast imaging exam on 04/15/2018 showed a possible finding that requires additional imaging studies for a complete evaluation. Most such findings are probably benign (not cancer). Please call [phone] or [phone] to schedule an appointment for your additional imaging if you have not already done so. Your breast images and report will be kept on file here as part of your permanent medical record and are available for your continuing care. Thank you for allowing us to help in meeting your health care needs. Sincerely, Dr. Shahid Interpreting Radiologist [facility] (Additional imaging) JUAN [facility] SCREENING Observed: 04/15/2018 Status: F Source: [place] [id number]:35 AM [facility] REPOSITORY * * *Final Report* * * DATE OF EXAM: Apr 15 2018 10:35AM [facility] 0581 - [facility] SCREENING / PROCEDURE REASON: Screening for breast cancer * * * * Physician Interpretation * * * * RESULT: #[id number] - [facility] SCREENING BILATERAL DIGITAL SCREENING MAMMOGRAM WITH CAD: 04/15/2018 HISTORY: Screening Mammogram - patient reports NO breast symptoms /priors available for comparison. RESULT: TECHNIQUE: The study was acquired using full field digital technology and interpreted from soft copy. Current study was also evaluated with a Computer Aided Detection (CAD). Comparison is made to exams dated: 12/24/2015 mammogram and 08/10/2012 mammogram - [facility]. There are scattered fibroglandular elements in both breasts. There is a cluster of calcifications in the right breast upper inner aspect middle depth. No other significant masses, calcifications, or other findings are seen in either breast. IMPRESSION: INCOMPLETE: NEEDS ADDITIONAL IMAGING EVALUATION The cluster of calcifications in the right breast is indeterminate. Magnification views are recommended. There is a possible focal asymmetry associated with the calcifications. Missy Shahid M.D., jr/penrad:04/15/2018 12:19:25 Installation Coordinator: Lesley BURNHAM(George)(Isaac), [facility] letter sent: Additional Imaging Needed Mammogram BI-RADS: 0 Incomplete: needs additional imaging evaluation If this report indicates you need additional imaging, and it has NOT yet been performed, please call , to schedule. We sincerely thank you for choosing the [facility] for your breast imaging needs. Multiple national specialty organizations have released breast cancer screening guidelines for women at average risk for developing breast cancer - guidelines that are based on both evidence and opinion, yet differ on when to start and how often to screen for breast cancer. With representation from Breast Imaging, Internal Medicine, Women's Health, Family Medicine, and Medical/Surgical Oncology, the [facility] has carefully reviewed the data and reached the following consensus: 1) All women should engage in shared decision-making with their providers to decide when to start and how often to screen; 2) All women should have the opportunity to start screening mammography at age 40; 3) For women ages 45-55, we recommend annual screening mammograms; 4) For women ages 55 and over, we support both the transition from an annual to a biennial interval if this aligns more with patient's values and preferences, or continuation with annual screening; 5) All women should discuss with their providers when to stop screening mammograms. Surveying Technician: Lucy Transcribe Date/Time: Apr 15 2018 10:09A Dictated by: MISSY SHAHID MD This examination was interpreted and the report reviewed and electronically signed by: MISSY SHAHID MD on Apr 15 2018 12:19PM EST [id number] PROGRESS Observed: 04/15/2018 Status: COMPLETED Source: [place] 10:14 AM [facility] REPOSIT[facility] HNO ID: [id number] Author: Aliyah Burnham Service: (none) Author Type: (none) Type: Progress Notes Filed: 04/15/2018 10:16 AM Note Text: Radiology Service Progress Note PATIENT NAME: Josette Romero DATE OF SERVICE: April 15, 2018 TIME: 10:14 AM PATIENT IDENTITY VERIFICATION COMPLETED USING TWO (2) METHODS: Patient confirmed name verbally and Date of . PATIENT GENDER DATA: Female. status: : No status: NO. PATIENT RELEVANT IMPLANT DATA REVIEWED: Not Applicable RADIOLOGY DEPARTMENT: [facility] DATA: Not applicable SIGNED BY: Aliyah Burnham April 15, 2018 10:14 AM PROGRESS Observed: 03/25/2018 Status: COMPLETED Source: [place] 10:27 AM [facility] REPOSIT[facility] HNO ID: [id number] Author: Doug Ruiz III Service: (none) Author Type: Physician Type: Progress Notes Filed: 03/25/2018 12:21 PM Note Text: SUBJECTIVE: This is a 77 year old female that is here today for 1. flu shot and discussed shingles shot 2. mother and aunt had breast cancer. discussion re: need for screening mamms. Pt is interested in treating positive results 3. hypertension-- 4. difficulty staying asleep but not taking melatonin prior to sleep 5. has tried OTC meds for rectal pain w/o benefit. Insurance co will not pay for prescription med unless all OTC have been tried and unsuccessfu. Epic suggests that a covered option exists--written in orders 6. LS spine arthritis under care of Dr Espinal for pain management. 7. celexa 10mg daily was tried for tx of hot flashes, but she had no benefit after 1 wk and stopped the med (mostly due to listed possible side effects though she did not have any side effects). She has hot flashes with sweating affecting sleep. PAST MEDICAL HISTORY Diagnosis Date - Adjustment reaction with anxiety and depression 10/11/2013 - Allergic rhinitis - Apical lung scarring 03/16/2014 - BPV (benign positional vertigo) 10/11/2013 - Chronic obstructive pulmonary disease (COPD) (HCC) - Disorder of bone and cartilage, unspecified - Diverticulosis of colon (without mention of hemorrhage) - Essential hypertension 04/14/2016 - Glaucoma - Pleural effusion, right 03/16/2014 - Pure hypercholesterolemia - Tobacco dependence in remission - Unspecified hypothyroidism Current Outpatient Prescriptions on File Prior to Visit: citalopram hydrobromide (CELEXA) 10 mg tablet Take 1 tablet by mouth once daily. lactulose (DUPHALAC, CONSTULOSE) 10 gram/15 mL solution TAKE 30 ML BY MOUTH TWICE DAILY NEEDED (CONSTIPATION). tiZANidine (ZANAFLEX) 2 mg tablet busPIRone (BUSPAR) 5 mg tablet Take 1 tablet by mouth three times daily. as needed for anxiety hydrocortisone (HEMORRHOIDAL HC) 25 mg suppository 1 SUPPOSITORY BY RECTAL ROUTE TWICE DAILY NEEDED (HEMMORRHOIDS/RECTAL PAIN). levothyroxine (SYNTHROID) 112 mcg tablet TAKE 1 TABLET BY MOUTH EVERY DAY lisinopril (PRINIVIL) 10 mg tablet Take 1 tablet by mouth once daily. atorvastatin (LIPITOR) 20 mg tablet TAKE 1 TABLET BY MOUTH ONCE DAILY. latanoprost (XALATAN) 0.005 % ophthalmic solution 1 Drop daily at bedtime. brimonidine 0.2 % drop, timolol maleate 0.5 % drop 1 Drop once daily. budesonide-formoterol (SYMBICORT) 160-4.5 mcg/actuation inhaler Inhale 2 Puffs as instructed twice daily. montelukast (SINGULAIR) 10 mg tablet Take 1 tablet by mouth daily at bedtime. fluticasone (FLONASE) 50 mcg/actuation nasal spray Use 2 Sprays in each nostril once daily. tolterodine ER (DETROL LA) 4 mg 24 hr capsule Take 1 capsule by mouth once daily. Melatonin 5 mg tab 5 mg by mouth 1-2 hours prior to bedtime TIOTROPIUM BROMIDE (SPIRIVA RESPIMAT INHALATION) Inhale as instructed. COMPOUNDED PRESCRIPTION Nebulizer supplies: Dx: J44.9 ipratropium-albuterol (DUONEB) 0.5 mg-3 mg(2.5 mg base)/3 mL nebu Inhale 3 mL as instructed four times daily. DX: J44.9 albuterol HFA (PROAIR HFA) 90 mcg/actuation inhaler Inhale 2 Puffs as instructed every 4 hours as needed. For wheezing/shortness of breath. atorvastatin (LIPITOR) 20 mg tablet Take 20 mg by mouth once daily. tidkgtt-ijtmrmrkq-ipsijww D3 500 mg(1,250mg) -200 unit per tablet Take 1 tablet by mouth three times daily. oxyCODONE ER (OXYCONTIN) 20 mg 12 hr tablet Take 1 tablet by mouth every 12 hours. alendronate (FOSAMAX) 70 mg tablet Take 1 tablet by mouth once each week. COMPOUNDED PRESCRIPTION 1 Each four times daily. NEBULIZER FOR HOME USE. DX: J44.9 ibuprofen (MOTRIN) 600 mg tablet Take 1 tablet by mouth every 6 hours as needed for Pain. Bimatoprost (LUMIGAN) 0.01 % OPHTHALMIC Drop 1 drop bith eyes at night. No current facility-administered medications on file prior to visit. FAMILY HISTORY Problem Relation Age of Onset - Heart Father 54 [place] - Breast Cancer Mother - Breast Cancer Maternal Aunt - Breast Cancer Daughter - None Brother - None Brother - None Brother Social History Substance Use Topics - Smoking status: Former Smoker Packs/day: 0.50 Years: 20.00 Types: Cigarettes Quit date: 09/09/2014 - Smokeless tobacco: Never Used Comment: 4 or 5 cigs qd - Alcohol use Yes Comment: occasionally BP 127/90 Pulse 95 Resp 18 Wt 71.2 kg (157 lb) BMI 27.81 kg/m? . OBJECTIVE: APPEARANCE Well appearing, alert, in no acute distress, well-hydrated, well nourished. and Appearance: well dressed well groomed, cooperative and pleasant Behavior: good eye contact Speech: fluent and coherent Mood: euthymic Affect: appropriate Perceptions: none Thought process: goal directed Thought Content: normal Intelligence level: normal Insight: good Judgment: good ASSESSMENT: COPD--stable hypertension--at goal post menopause with hot flashes int. hemorrhoids with rectal pain ch insomnia LS spine degenerative dis. FHx of breast ca PLAN: recommend shingrix when available screening mammograms melatonin 10mg every evening hydroxyzine 25mg as needed for resistant insomnia premarin 0.3mg daily flu shot given hydrocortisone-pramipaxole 1 % cream per rectum daily as needed return to office 6 mos and as needed 30 min visit--all questions answered GOOD Carcamo MD Observed: 03/25/2018 Status: COMPLETED Source: [place] 10:20 AM [facility] Office Visit (FAMPWS) JOSETTE ROMERO ([id number]) 1940 F Date Time Provider Department 03/25/18 10:20 AM DOUG RUIZ III During your visit today, we recorded the following information about you: Pulse Respiration Blood pressure Weight 95/minute 18/minute 127/90 71.2 kg [facility] [place] [place] 03/25/2018 12:21 PM Signed 77 year old female here for INACTIVATED INFLUENZA VACCINE. 7293-9859 Season Patient is identified by name and date of : Yes [] CONTRAINDICATIONS color enhanced section Age less than 6 months? No Allergy to eggs, chicken, chicken feathers, or chicken dander? No Allergy to thimerosal (a preservative) or formaldehyde, gelatin? No History of severe reaction to any vaccine component or a previous dose of influenza vaccination? No History of Guillain-[place] Syndrome within 6 weeks after a previous influenza vaccine? No Patient is not moderately or severely ill? No Current temperature greater or equal to 100.4F? No History of Bone Marrow Transplant prior 6 months or solid organ transplant in the past 3 months ? No History of fainting after a prior injection or medical procedure? No- ? If patient has fainted in the past, the CDC recommends sitting or lying down for 15 minutes after the vaccination. [] VERIFICATION color enhanced section Was the answer Yes for any of the above contraindications? No contraindications present. Acceptable to proceed with vaccine. Patient/guardian agrees the above answers are true to the best of their knowledge? Yes Flu vaccine information sheet given? Yes See immunization activity in [facility] for details of immunizations adminstered today. Patient age: [age] year old For The 5214-6103 Flu Season 6-35 months old: Fluzone 0.25 ml - IM (Preservative Free) 3 years of age: Fluzone 0.5 ml - IM (Preservative Free) 3 years and older: Fluzone 0.5 ml- IM-(with Preservatives) 65+ years old: 2-49 years old Fluzone High-Dose 0.5 ml - IM (Preservative Free) FLUMIST- intranasal REMEMBER: If patient is less than 9 years of age and this is the first vaccine of Influenza to be received in any flu season, they should receive a second dose in one months time. Doug Ruiz III MD 03/25/2018 12:21 PM Signed SUBJECTIVE: This is a 77 year old female that is here today for 1. flu shot and discussed shingles shot 2. mother and aunt had breast cancer. discussion re: need for screening mamms. Pt is interested in treating positive results 3. hypertension-- 4. difficulty staying asleep but not taking melatonin prior to sleep 5. has tried OTC meds for rectal pain w/o benefit. Insurance co will not pay for prescription med unless all OTC have been tried and unsuccessfu. [facility] suggests that a covered option exists--written in orders 6. LS spine arthritis under care of Dr Espinal for pain management. 7. celexa 10mg daily was tried for tx of hot flashes, but she had no benefit after 1 wk and stopped the med (mostly due to listed possible side effects though she did not have any side effects). She has hot flashes with sweating affecting sleep. PAST MEDICAL HISTORY Diagnosis Date - Adjustment reaction with anxiety and depression 10/11/2013 - Allergic rhinitis - Apical lung scarring 03/16/2014 - BPV (benign positional vertigo) 10/11/2013 - Chronic obstructive pulmonary disease (COPD) (HCC) - Disorder of bone and cartilage, unspecified - Diverticulosis of colon (without mention of hemorrhage) - Essential hypertension 04/14/2016 - Glaucoma - Pleural effusion, right 03/16/2014 - Pure hypercholesterolemia - Tobacco dependence in remission - Unspecified hypothyroidism Current Outpatient Prescriptions on File Prior to Visit: citalopram hydrobromide (CELEXA) 10 mg tablet Take 1 tablet by mouth once daily. lactulose (DUPHALAC, CONSTULOSE) 10 gram/15 mL solution TAKE 30 ML BY MOUTH TWICE DAILY NEEDED (CONSTIPATION). tiZANidine (ZANAFLEX) 2 mg tablet busPIRone (BUSPAR) 5 mg tablet Take 1 tablet by mouth three times daily. as needed for anxiety hydrocortisone (HEMORRHOIDAL HC) 25 mg suppository 1 SUPPOSITORY BY RECTAL ROUTE TWICE DAILY NEEDED (HEMMORRHOIDS/RECTAL PAIN). levothyroxine (SYNTHROID) 112 mcg tablet TAKE 1 TABLET BY MOUTH EVERY DAY lisinopril (PRINIVIL) 10 mg tablet Take 1 tablet by mouth once daily. atorvastatin (LIPITOR) 20 mg tablet TAKE 1 TABLET BY MOUTH ONCE DAILY. latanoprost (XALATAN) 0.005 % ophthalmic solution 1 Drop daily at bedtime. brimonidine 0.2 % drop, timolol maleate 0.5 % drop 1 Drop once daily. budesonide-formoterol (SYMBICORT) 160-4.5 mcg/actuation inhaler Inhale 2 Puffs as instructed twice daily. montelukast (SINGULAIR) 10 mg tablet Take 1 tablet by mouth daily at bedtime. fluticasone (FLONASE) 50 mcg/actuation nasal spray Use 2 Sprays in each nostril once daily. tolterodine ER (DETROL LA) 4 mg 24 hr capsule Take 1 capsule by mouth once daily. Melatonin 5 mg tab 5 mg by mouth 1-2 hours prior to bedtime TIOTROPIUM BROMIDE (SPIRIVA RESPIMAT INHALATION) Inhale as instructed. COMPOUNDED PRESCRIPTION Nebulizer supplies: Dx: J44.9 ipratropium-albuterol (DUONEB) 0.5 mg-3 mg(2.5 mg base)/3 mL nebu Inhale 3 mL as instructed four times daily. DX: J44.9 albuterol HFA (PROAIR HFA) 90 mcg/actuation inhaler Inhale 2 Puffs as instructed every 4 hours as needed. For wheezing/shortness of breath. atorvastatin (LIPITOR) 20 mg tablet Take 20 mg by mouth once daily. ckucnju-fijjfonec-ratnpww D3 500 mg(1,250mg) -200 unit per tablet Take 1 tablet by mouth three times daily. oxyCODONE ER (OXYCONTIN) 20 mg 12 hr tablet Take 1 tablet by mouth every 12 hours. alendronate (FOSAMAX) 70 mg tablet Take 1 tablet by mouth once each week. COMPOUNDED PRESCRIPTION 1 Each four times daily. NEBULIZER FOR HOME USE. DX: J44.9 ibuprofen (MOTRIN) 600 mg tablet Take 1 tablet by mouth every 6 hours as needed for Pain. Bimatoprost (LUMIGAN) 0.01 % OPHTHALMIC Drop 1 drop bith eyes at night. No current facility-administered medications on file prior to visit. FAMILY HISTORY Problem Relation Age of Onset - Heart Father 54 ND - Breast Cancer Mother - Breast Cancer Maternal Aunt - Breast Cancer Daughter - None Brother - None Brother - None Brother Social History Substance Use Topics - Smoking status: Former Smoker Packs/day: 0.50 Years: 20.00 Types: Cigarettes Quit date: 09/09/2014 - Smokeless tobacco: Never Used Comment: 4 or 5 cigs qd - Alcohol use Yes Comment: occasionally BP 127/90 Pulse 95 Resp 18 Wt 71.2 kg (157 lb) BMI 27.81 kg/m? . OBJECTIVE: APPEARANCE Well appearing, alert, in no acute distress, well- hydrated, well nourished. and Appearance: well dressed well groomed, cooperative and pleasant Behavior: good eye contact Speech: fluent and coherent Mood: euthymic Affect: appropriate Perceptions: none Thought process: goal directed Thought Content: normal Intelligence level: normal Insight: good Judgment: good ASSESSMENT: COPD--stable hypertension--at goal post menopause with hot flashes int. hemorrhoids with rectal pain ch insomnia LS spine degenerative dis. FHx of breast ca PLAN: recommend shingrix when available screening mammograms melatonin 10mg every evening hydroxyzine 25mg as needed for resistant insomnia premarin 0.3mg daily flu shot given hydrocortisone-pramipaxole 1 % cream per rectum daily as needed return to office 6 mos and as needed 30 min visit--all questions answered GOOD Carcamo MD, III MD 03/25/2018 11:01 AM Signed PLAN: recommend shingrix when available screening mammograms melatonin 10mg every evening hydroxyzine 25mg as needed for resistant insomnia premarin 0.3mg daily flu shot given hydrocortisone-pramipaxole 1 % cream per rectum daily as needed return to office 6 mos and as needed Doug Ruiz III MD Referring Provider: SELF [[id number]] Allergies As of Date: 03/25/2018 Noted Allergy Reaction CELEBREX (CELECOXIB) 05/13/2005 DICLOFENAC 05/01/2017 1 - Mental Status Change DOXYCYCLINE 05/13/2005 2 - Rash Comments: photosensitivity MONUROL (FOSFOMYCIN TROMETHAMINE) 05/13/2005 TAVIST D [Other] 05/13/2005 ZOCOR (SIMVASTATIN) 05/13/2005 14 - Other: See Comments Comments: bone pain Date Reviewed: 03/25/2018 Reviewed by: Gerri ([facility]) KRYS Alcaraz - Fully Assessed Reason for Visit: Recheck [92] Flu shot [Other] Imm/Inj [58] Cmt: Flu Vaccine Reason For Visit History Recorded Primary Visit Diagnosis:Chronic insomnia [F51.04] Other Visit Diagnoses:Need for vaccination [Z23] Screening for breast cancer [Z12.31] Internal hemorrhoids [K64.8] Hot flash, menopausal [N95.1] Chronic obstructive pulmonary disease, unspecified COPD type (HCC) [J44.9] Order(s):INFLUENZA SEASONAL HIGH DOSE AGE 65+ [05141SGT] Order #: [id number] JUAN RAMON SCREENING [[id number]] Order #: [id number] FUTURE hydrOXYzine HCl (ATARAX) 25 mg tabletTake 1 tablet by mouth at bedtime as needed (sleep).Disp: 30 tabletRfl: 3 hydrocortisone (PROCTOCORT) 1 % crpe1 application by RECTAL route twice daily as needed.Disp: 28.4 gRfl: 3 estrogens conjugated (PREMARIN) 0.3 mg tabletTake 1 tablet by mouth once daily.Disp: 30 tabletRfl: 3 Prescriptions as of 03/25/2018 Sig: CITALOPRAM 10 MG TABLET Take 1 tablet by mouth once d* LACTULOSE 10 GRAM/15 ML ORAL * TAKE 30 ML BY MOUTH TWICE DELMAR* TIZANIDINE 2 MG TABLET BUSPIRONE 5 MG TABLET Take 1 tablet by mouth three * HYDROCORTISONE ACETATE 25 MG * 1 SUPPOSITORY BY RECTAL ROUTE* LEVOTHYROXINE 112 MCG TABLET TAKE 1 TABLET BY MOUTH EVERY * LISINOPRIL 10 MG TABLET Take 1 tablet by mouth once d* ATORVASTATIN 20 MG TABLET TAKE 1 TABLET BY MOUTH ONCE D* LATANOPROST 0.005 % EYE DROPS 1 Drop daily at bedtime. BRIMONIDINE 0.2% - TIMOLOL 0.* 1 Drop once daily. BUDESONIDE-FORMOTEROL HFA 160* Inhale 2 Puffs as instructed * MONTELUKAST 10 MG TABLET Take 1 tablet by mouth daily * FLUTICASONE 50 MCG/ACTUATION * Use 2 Sprays in each nostril * TOLTERODINE ER 4 MG CAPSULE,E* Take 1 capsule by mouth once * MELATONIN 5 MG TABLET 5 mg by mouth 1-2 hours prior* SPIRIVA RESPIMAT INHALATION Inhale as instructed. COMPOUNDED PRESCRIPTION Nebulizer supplies: Dx: J* IPRATROPIUM-ALBUTEROL 0.5 MG-* Inhale 3 mL as instructed fou* ALBUTEROL SULFATE HFA 90 MCG/* Inhale 2 Puffs as instructed * ATORVASTATIN 20 MG TABLET Take 20 mg by mouth once bk* CALCIUM CARBONATE 500 MG (1,2* Take 1 tablet by mouth three * OXYCODONE ER 20 MG TABLET,CRU* Take 1 tablet by mouth every * ALENDRONATE 70 MG TABLET Take 1 tablet by mouth once e* COMPOUNDED PRESCRIPTION 1 Each four times daily. NEBU* IBUPROFEN 600 MG TABLET Take 1 tablet by mouth every * BIMATOPROST 0.01 % EYE DROPS 1 drop bith eyes at night. HYDROXYZINE HCL 25 MG TABLET Take 1 tablet by mouth at bed* HYDROCORTISONE 1 % TOPICAL CR* 1 application by RECTAL route* CONJUGATED ESTROGENS 0.3 MG T* Take 1 tablet by mouth once d* Problem List As Of Date 03/25/2018 Noted Resolved Hypothyroidism [E03.9] Osteoporosis [M81.0] INVALID FOR* Vitamin D deficiency [E55.9] INVALID FOR* COPD (chronic obstructive pulmonary disease) (H*INVALID FOR* Adjustment reaction with anxiety and depression*INVALID FOR* BPV (benign positional vertigo) [H81.10] INVALID FOR* Pleural effusion, right [J90] INVALID FOR*07/04/2016 Apical lung scarring [J98.4] INVALID FOR* Hyperlipidemia LDL goal <100 [E78.5] INVALID FOR* Family history of breast cancer in mother [Z80.*INVALID FOR* Vertebral compression fracture (HCC) [M48.50XA] INVALID FOR*11/11/2016 Diverticulosis of large intestine without hemor*INVALID FOR* Impaired fasting glucose [R73.01] INVALID FOR* Chronic prescription opiate use [Z79.891] INVALID FOR* Essential hypertension [I10] INVALID FOR* Degeneration of lumbar intervertebral disc [M51*INVALID FOR* Lumbar spondylosis [M47.816] INVALID FOR* Hot flashes [R23.2] INVALID FOR* Closed fracture of hip (HCC) [S72.009A] INVALID FOR* 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] INVALID FOR* Diverticulosis of colon [K57.30] INVALID FOR* Glaucoma [H40.9] INVALID FOR* Mild cognitive disorder [F09] INVALID FOR* Osteoarthritis [M19.90] INVALID FOR* Disorder of bone and cartilage [M89.9, M94.9] INVALID FOR* Pure hypercholesterolemia [E78.00] INVALID FOR* Other instructions from your clinician: PLAN: recommend shingrix when available screening mammograms melatonin 10mg every evening hydroxyzine 25mg as needed for resistant insomnia premarin 0.3mg daily flu shot given hydrocortisone-pramipaxole 1 % cream per rectum daily as needed return to office 6 mos and as needed Doug Ruiz III MD Prescriptions ordered this encounter Disp Refills Start End HYDROXYZINE HCL 25 MG TABLET 30 t* 3 03/25/2018 Route: ORAL Sig: Take 1 tablet by mouth at bedtime as needed (sleep). HYDROCORTISONE 1 % TOPICAL CREAM WIT* 28.4* 3 03/25/2018 Route: RECTAL Si application by RECTAL route twice daily as needed. CONJUGATED ESTROGENS 0.3 MG TABLET 30 t* 3 03/25/2018 Route: ORAL Sig: Take 1 tablet by mouth once daily. Encounter Status:Closed by DOUG RUIZ III, MD on 03/25/18 PROGRESS Observed: 03/25/2018 Status: COMPLETED Source: [place] 10:19 AM [facility] HNO ID: [id number] Author: Gerri Alcaraz MA Service: (none) Author Type: Pointer Helper Type: Progress Notes Filed: 03/25/2018 12:21 PM Note Text: 77 year old female here for INACTIVATED INFLUENZA VACCINE. [id number] Season Patient is identified by name and date of : Yes [] CONTRAINDICATIONS color enhanced section Age less than 6 months? No Allergy to eggs, chicken, chicken feathers, or chicken dander? No Allergy to thimerosal (a preservative) or formaldehyde, gelatin? No History of severe reaction to any vaccine component or a previous dose of influenza vaccination? No History of Guillain-[place] Syndrome within 6 weeks after a previous influenza vaccine? No Patient is not moderately or severely ill? No Current temperature greater or equal to 100.4F? No History of Bone Marrow Transplant prior 6 months or solid organ transplant in the past 3 months ? No History of fainting after a prior injection or medical procedure? No- ? If patient has fainted in the past, the CDC recommends sitting or lying down for 15 minutes after the vaccination. [] VERIFICATION color enhanced section Was the answer Yes for any of the above contraindications? No contraindications present. Acceptable to proceed with vaccine. Patient/guardian agrees the above answers are true to the best of their knowledge? Yes Flu vaccine information sheet given? Yes See immunization activity in [facility] for details of immunizations adminstered today. Patient age: [age] year old For The Flu Season 6-35 months old: Fluzone 0.25 ml - IM (Preservative Free) 3 years of age: Fluzone 0.5 ml - IM (Preservative Free) 3 years and older: Fluzone 0.5 ml- IM-(with Preservatives) 65+ years old: 2-49 years old Fluzone High-Dose 0.5 ml - IM (Preservative Free) FLUMIST- intranasal REMEMBER: If patient is less than 9 years of age and this is the first vaccine of Influenza to be received in any flu season, they should receive a second dose in one months time. PULMONARY VISIT REPORT Observed: 12/15/2017 Status: F Source: [place] 2:08 PM [facility] [address] [place] [address] OFFICE VISIT Date of Service: 12/15/17 MR#: [id number] Acct: [id number] Name: JOSETTE ROMERO Cecily Rep #: [id number] : 1940 Provider: Chano Bowman D.O. Age/Sex: 77/F Location: [facility] Status: Signed Assessment AND Plan 1. COPD (chronic obstructive pulmonary disease) J44.9 Plan The patient has stable stage IV COPD on her current triple therapy inhaler regimen. This will be continued without change. She is not a candidate for re- enrollment in pulmonary rehabilitation. I have recommended that the patient repeat a 6 minute walk test prior to her follow-up office visit with us. 2. Allergic rhinitis J30.9 Plan Continue Singulair and Flonase. 3. Tobacco dependence in remission F17.201 Plan Ongoing tobacco cessation strongly encouraged. Plan Detail Follow Up 6 Months (DMB) HPI HPI Comments Details: The patient is a 77-year-old female who presents to the clinic today for a routine scheduled follow-up office visit. If you recall, the patient initially presented to me in 2016 as a transfer of care from her previous pulmonary provider, Dr. House. She has a smoking history that includes 1 pack per day 20 years, having quit completely in September 2014. She has a chronic, nonproductive cough, along with seasonal allergic rhinitis. She is currently on a triple therapy inhaler regimen, with Symbicort and Spiriva. Pulmonary function testing completed in April 2015 revealed the presence of a very severe large airways obstructive ventilatory defect with associated response to aerosolized bronchodilators. PFTs from February 2017 revealed a partially reversible very severe large airways obstructive ventilatory defect with asymmetric reduction in diffusing capacity and air trapping. 6 minute walk test revealed significant oxygen desaturation from 98-90% with ambulation. There was also evidence of impaired walk distance. The patient was previously enrolled in pulmonary rehab but experienced a mechanical fall half-way through the program and had to be discharged. She was told that she could not re- enroll in the program without a significant change in her pulmonary function. The patient did have a negative RAST test completed in September 2017. Patient reports overall stability in her breathing quality. She remains compliant with her triple therapy inhaler regimen including Symbicort, Spiriva and as needed albuterol. Her rescue inhaler use is quite infrequent in nature. She does report a great deal of fatigue when she exerts herself physically. Her weight has been stable. She denies chest pain, dizziness or lightheadedness. 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: No Accompanied by: Self Is patient in pain?: No Allergies acetaminophen [From Tavist] Allergy (Verified 12/15/17 13:37) Unknown clemastine fumarate [From Tavist] Allergy (Verified 12/15/17 13:37) Unknown fosfomycin tromethamine [From Monurol] Allergy (Verified 12/15/17 13:37) Unknown pseudoephedrine HCl [From Tavist] Allergy (Verified 12/15/17 13:37) Unknown celecoxib [From Celebrex] Adverse Reaction (Verified 12/15/17 13:37) Upset Stomach doxycycline Adverse Reaction (Verified 12/15/17 13:37) Other simvastatin [From Zocor] Adverse Reaction (Verified 12/15/17 13:37) Pain in joints Medications Atorvastatin Calcium [Lipitor] 20 mg PO QHS 09/09/14 [History Confirmed 12/15/17] Bimatoprost [Lumigan Opthalmic] 1 drp EACH EYE QHS 09/09/14 [History Confirmed 12/15/17] Levothyroxine [Synthroid] 112 mcg PO DAILY 09/09/14 [History Confirmed 12/15/17] Calcium Carb/Vitamin D [Os-Shiva 500MG + D] 1 tab PO TIDCM #30 tab 09/14/14 [Rx Confirmed 12/15/17] Albuterol Inhaler [Ventolin Hfa] 2 puff INHALATION Q4H PRN PRN #1 inhaler 09/27/14 [Rx Confirmed 12/15/17] Hydrocodone Bitart/Apap 5-325 [Berea 5/325] 1 - 2 tab PO Q8H PRN PRN #12 tab 05/22/17 [Rx Confirmed 12/15/17] Senna/Docusate Sodium [Senokot-S] 1 tab PO BID PRN 05/22/17 [History Confirmed 12/15/17] montelukast 10 mg tablet 10 mg PO QDAY #90 tab 09/11/17 [Rx Confirmed 12/15/17] fluticasone 50 mcg/actuation nasal spray,suspension 2 spray INTRANASAL QDAY #16 g 09/25/17 [Rx Confirmed 12/15/17] Albuterol Aerosols [Ventolin Aerosols] 2.5 mg INHALATION Q6H PRN PRN 10/22/17 [History Confirmed 12/15/17] Lisinopril [Prinivil] 10 mg PO DAILY 10/22/17 [History Confirmed 12/15/17] budesonide-formoterol HFA 160 mcg-4.5 mcg/actuation aerosol inhaler 2 puff INHALATION BID #3 ea 10/28/17 [Rx Confirmed 12/15/17] tiotropium bromide 2.5 mcg/actuation mist for inhalation 2 puff INHALATION QDAY #3 ea 10/28/17 [Rx Confirmed 12/15/17] tizanidine PO BID PRN 12/15/17 [History Confirmed 12/15/17] [facility] Medical History Pure hypercholesterolemia (Chronic) Pleural effusion (Acute) Osteoarthritis (Chronic) Glaucoma (Chronic) Essential (primary) hypertension (Chronic) Diverticulosis of colon (without mention of hemorrhage) (Chronic) Other disorders of bone and cartilage (Chronic) Benign positional vertigo (Chronic) Apical lung scarring (Chronic) Anxiety (Chronic) Allergic rhinitis (Chronic) MIRELES (dyspnea on exertion) (Chronic) Tobacco dependence in remission (Chronic) Closed fracture of left hip requiring operative repair (Acute) COPD, mild (Chronic) MCI (mild cognitive impairment) (Chronic) Depression (Chronic) Hyperlipidemia (Chronic) Hypothyroidism (Chronic) Broken wrist (Acute) Cracked pelvis (Acute) Fracture of vertebra (Acute) Tailbone injury (Acute) Surgical History Hip fracture requiring operative repair (Resolved) Family History Father Heart disease Myocardial infarction Mother Breast cancer Aunt Breast cancer Daughter Breast cancer Social History Smoking Status: Former smoker how long ago did patient quit smokin, 1p/day second hand exposure: Yes alcohol intake: current alcohol intake frequency: a few times a month Alcohol type: wine substance use type: does not use Review of Systems Const CONSTITUTIONAL: Positive fatigue; negative anorexia, body ache, chills, daytime sleepiness, fever(s), night sweats, oral thrush, stops breathing during sleep, weight loss, sleeping in chair, weight loss, weight gain, frequent colds, seasonal allergies, other, headache(s) or orthopnea EETM Ear Nose Throat Mouth: Positive hearing normal and nasal discharge; negative hard of hearing, hoarseness, dry mouth in morning, change in vision, itchy eyes, eye pain, swallowing Difficulty, ear pain, nose bleed, headache(s), mouth pain, nasal congestion, post nasal drip, sinus pain, sinus pressure, sore throat or other Cardio Cardiovascular: Negative chest pain, chest pain at rest, chest pain with activity, irregular heart rhythm, edema, shortness of breath when lying down, palpitations, murmur or other Resp Respiratory: Positive as per HPI, shortness of breath shortness of breath: Positive with activity, wheezing, cough cough: Positive non-productive and inhalers; negative pain with cough, chest congestion, chest tightness, pain on inspiration, increase use of rescue inhalers, snoring, apnea or other Gastro Gastrointestional: Negative bloody stools, change in appetite, difficulty swallowing, reflux, hematemesis, melena stool, loose stool, constipation or other Genitourinary: Negative blood in urine, nocturia, pain with urination or other Musc Musculoskeletal: Negative body pain, back pain, neck pain or other Skin/Breast Skin/Breast: Negative dry skin, itching, rash, unusual bruising, breast lump or other Neuro Neurological: Negative restless legs, confusion, weakness or other Psych Psychocological: Negative abnormal sleep pattern, anxiety, thoughts of hurting self/others, hopelessness or other Lymph Lymphatic: Negative easy bleeding, easy bruising, swollen lymph nodes or other Exam Const Constitutional: Positive conversant, cooperative, in no acute respiratory distress, well developed, well nourished and good hygiene Head Head: Positive normocephalic and atraumatic; negative cyanosis of lips/distal nose Eyes Eye: Positive clear conjunctiva; negative nystagmus or scleral abnormality Ears Ear: Positive hearing normal and external ears normal; negative hard of hearing Nose Nose: Positive external nose normal; negative epistaxis Mouth Mouth: Positive oral mucosae normal and posterior oropharynx is adequate; negative no lesions or post nasal drip Mallampati Score: II: Mallampati Score Neck Neck: Positive normal visual inspection and trachea midline; negative lymphadenopathy Chest Wall Chest: Positive symmetric chest movement Normal AP diameter. Resp lung sounds: Positive diminished diminished: Positive global and prolonged expiratory time; negative wheezes, rhonchi or rales Cardio Cardiac: Positive regular rate, regular rhythm, S1 normal and S2 normal; negative rub, gallop or murmur GI GI: Positive normal bowel sounds Soft without distention Genitourinary: Positive deferred Musc Musculoskeletal: Positive using an assistive device for ambulation Skin Pulmonary Skin Exam: Positive intact; negative lesion, ulcers, dermal atrophy or rash Pulses Pulse: Yes Pedal pulses present: Extremities Extremities: No clubbing, No cyanosis, No edema Neuro Neurologic: Yes conversant, Yes no focal neuro deficits, Yes cooperative Lymph Lymphatic: No lymphadenopathy Psych Appearance: Positive grossly normal Mental Status: Positive mental status grossly normal Mood: Positive congruent mood Affect: Positive normal affect Coding Level of Care Code Off vis,est,level 3 Diagnoses COPD (chronic obstructive pulmonary disease) J44.9 Allergic rhinitis J30.9 Tobacco dependence in remission F17.201 12/15/17 1408 <Electronically signed by Chano Bowman DO> Date Chano Brown DO Cosigner Signature: Date (if applicable) CC: Doug Ruiz III, MD PROGRESS Observed: 11/14/2017 Status: COMPLETED Source: [place] 3:07 PM [facility] [place] REPOSITORY O ID: [id number] Author: Doug Ruiz III Service: (none) Author Type: Physician Type: Progress Notes Filed: 11/14/2017 3:07 PM Note Text: Josette, The lab results are normal. It may be that estrogen deficiency is causing your hot flashes. Let us try a low dose of citalopram 10mg daily for the next 3 weeks to see if it makes a difference with your symptoms. This does not contain estrogen and therefore would not increase risk for breast, uterine, or ovarian cancer. Prescription will be sent to the local pharmacy. Give us a progress report in 3-4 weeks. SED RATE WESTERGREN Collected: 11/11/2017 Status: F Source: [place] 3:21 PM [facility] REPOSITORY TYPE CODE TESTS RESULT OUT OF REFERENCE UNITS RANGE LAB WSR 0-20 mm/hr Sed Rate Westergren 2 Performed By: #### WSR, TSH, FT4 #### [facility] [address] [phone] TSH Collected: 11/11/2017 Status: F Source: [place] 3:21 PM [facility] REPOSITORY TYPE CODE TESTS RESULT OUT OF RANGE REFERENCE UNITS LAB TSH 0.400-5.500 uU/mL TSH 3.980 Performed By: #### WSR, TSH, FT4 #### [facility] [address] [place] [address] FREE T4 Collected: 11/11/2017 Status: F Source: [place] 3:21 PM [facility] REPOSITORY TYPE CODE TESTS RESULT OUT OF RANGE REFERENCE UNITS LAB FT4 0.9-1.7 ng/dL High Free T4 1.8 Performed By: #### WSR, TSH, FT4 #### [facility] [address] [address] HEMOGLOBIN A1C Collected: 11/11/2017 Status: F Source: [place] 3:21 PM [facility] REPOSITORY TYPE CODE TESTS RESULT OUT OF REFERENCE UNITS RANGE LAB HGBA1C 4.3-5.6 % High Hemoglobin A1c 6.1 LAB HBA0 mg/dL Est. Average Glucose 128 Result Comment: eAG: (Estimated average glucose) is a calculated value from HgbA1c and is wholesale representative of the average blood glucose level in the last 2-3 month period. Performed By: #### HBA1C #### [facility] [address] [place], [place] [address] CNOV Observed: 11/11/2017 Status: COMPLETED Source: [place] 2:40 PM [facility] REPOSITORY Office Visit (FAMPWS) JOSETTE ROMERO ([id number]) 1940 F Date Time Provider Department 11/11/17 2:40 PM DOUG RUIZ III During your visit today, we recorded the following information about you: Pulse Respiration Blood pressure Weight 80/minute 20/minute 124/72 70.8 kg Doug Ruiz III MD 11/11/2017 6:55 PM Signed SUBJECTIVE: This is a 76 year old female that is here today for 1. hot flashes, episodically. Difficulty sleeping due to hot flash. s/p thyroidectomy--admits to regularly take potassium med. Face turns brilliant red 2. hypertension 3. hyperlipidemia 4. ch constipation 5. recent paint mixer machine scared her about being on ativan and hydrocodone.(3-4 /day). s/p nerve ablation in back with modest benefit in pain control. 6. ch anxiety--does not use ativan daily. 7. allergies--on rescue inhaler prn 8. easy fatigability. Known COPD, s/p pul. rehab. SpO2 98 while awake. PAST MEDICAL HISTORY Diagnosis Date - Adjustment reaction with anxiety and depression 10/11/2013 - Allergic rhinitis - Apical lung scarring 03/16/2014 - BPV (benign positional vertigo) 10/11/2013 - Chronic obstructive pulmonary disease (COPD) (HCC) - Disorder of bone and cartilage, unspecified - Diverticulosis of colon (without mention of hemorrhage) - Essential hypertension 04/14/2016 - Glaucoma - Pleural effusion, right 03/16/2014 - Pure hypercholesterolemia - Tobacco dependence in remission - Unspecified hypothyroidism Current Outpatient Prescriptions on File Prior to Visit: hydrocortisone (HEMORRHOIDAL HC) 25 mg suppository 1 SUPPOSITORY BY RECTAL ROUTE TWICE DAILY NEEDED (HEMMORRHOIDS/RECTAL PAIN). levothyroxine (SYNTHROID) 112 mcg tablet TAKE 1 TABLET BY MOUTH EVERY DAY lisinopril (PRINIVIL) 10 mg tablet Take 1 tablet by mouth once daily. atorvastatin (LIPITOR) 20 mg tablet TAKE 1 TABLET BY MOUTH ONCE DAILY. latanoprost (XALATAN) 0.005 % ophthalmic solution 1 Drop daily at bedtime. brimonidine 0.2 % drop, timolol maleate 0.5 % drop 1 Drop once daily. budesonide-formoterol (SYMBICORT) 160-4.5 mcg/actuation inhaler Inhale 2 Puffs as instructed twice daily. montelukast (SINGULAIR) 10 mg tablet Take 1 tablet by mouth daily at bedtime. fluticasone (FLONASE) 50 mcg/actuation nasal spray Use 2 Sprays in each nostril once daily. tolterodine ER (DETROL LA) 4 mg 24 hr capsule Take 1 capsule by mouth once daily. Melatonin 5 mg tab 5 mg by mouth 1-2 hours prior to bedtime TIOTROPIUM BROMIDE (SPIRIVA RESPIMAT INHALATION) Inhale as instructed. lactulose (DUPHALAC, CONSTULOSE) 10 gram/15 mL solution TAKE 30 ML BY MOUTH TWICE DAILY NEEDED (CONSTIPATION). COMPOUNDED PRESCRIPTION Nebulizer supplies: Dx: J44.9 ipratropium-albuterol (DUONEB) 0.5 mg-3 mg(2.5 mg base)/3 mL nebu Inhale 3 mL as instructed four times daily. DX: J44.9 albuterol HFA (PROAIR HFA) 90 mcg/actuation inhaler Inhale 2 Puffs as instructed every 4 hours as needed. For wheezing/shortness of breath. atorvastatin (LIPITOR) 20 mg tablet Take 20 mg by mouth once daily. nzsnjac-yxbtmgllc-eyohryd D3 500 mg(1,250mg) -200 unit per tablet Take 1 tablet by mouth three times daily. oxyCODONE ER (OXYCONTIN) 20 mg 12 hr tablet Take 1 tablet by mouth every 12 hours. alendronate (FOSAMAX) 70 mg tablet Take 1 tablet by mouth once each week. COMPOUNDED PRESCRIPTION 1 Each four times daily. NEBULIZER FOR HOME USE. DX: J44.9 ibuprofen (MOTRIN) 600 mg tablet Take 1 tablet by mouth every 6 hours as needed for Pain. Bimatoprost (LUMIGAN) 0.01 % OPHTHALMIC Drop 1 drop bith eyes at night. baclofen (LIORESAL) 10 mg tablet Take 1 tablet by mouth twice daily. (Patient not taking: Reported on 11/11/2017 ) No current facility-administered medications on file prior to visit. FAMILY HISTORY Problem Relation Age of Onset - Heart Father 54 ND - Breast Cancer Mother - Breast Cancer Maternal Aunt - Breast Cancer Daughter - None Brother - None Brother - None Brother Social History Substance Use Topics - Smoking status: Former Smoker Packs/day: 0.50 Years: 20.00 Types: Cigarettes Quit date: 09/09/2014 - Smokeless tobacco: Never Used Comment: 4 or 5 cigs qd - Alcohol use Yes Comment: occasionally BP 124/72 Pulse 80 Resp 20 Wt 70.8 kg (156 lb) BMI 27.63 kg/m? . OBJECTIVE: APPEARANCE Well appearing, alert, in no acute distress, well- hydrated, well nourished. NECK Supple, no adenopathy; thyroid symmetric, normal size, no bruits HEART RRR with normal S1 and S2, no murmurs, no gallops, no JVD appreciated LUNG clear to auscultation ABDOMEN soft, non-tender, non-distended, without organomegaly or palpable masses, no tenderness to palpation Appearance: well dressed well groomed, cooperative and pleasant Behavior: good eye contact Speech: fluent and coherent Mood: euthymic Affect: appropriate Perceptions: none Thought process: goal directed Thought Content: preoccupations with hot flashes Intelligence level: normal Insight: fair Judgment: fair ASSESSMENT: anxiety hypertension--at goal hyperlipidemia--at goal obesity allergic rhinitis COPD--stable ch prescription opiate use hypothyroidism PLAN: discontinue ativan and start buspirone 5mg three times/day as needed for sleep or anxiety same other medications healthy diet and regular exercise T4, TSH, ESR GOOD Carcamo MD, III MD 11/11/2017 3:06 PM Addendum PLAN: discontinue ativan and start buspirone 5mg three times/day as needed for sleep or anxiety same other medications healthy diet and regular exercise T4, TSH Doug Ruiz III MD Referring Provider: DOUG RUIZ III [[id number]] Allergies As of Date: 11/11/2017 Noted Allergy Reaction CELEBREX (CELECOXIB) 05/13/2005 DICLOFENAC 05/01/2017 1 - Mental Status Change DOXYCYCLINE 05/13/2005 2 - Rash Comments: photosensitivity MONUROL (FOSFOMYCIN TROMETHAMINE) 05/13/2005 TAVIST D [Other] 05/13/2005 ZOCOR (SIMVASTATIN) 05/13/2005 14 - Other: See Comments Comments: bone pain Date Reviewed: 11/11/2017 Reviewed by: Zuleika Chicas) KRYS Harrison - Fully Assessed Primary Visit Diagnosis:Acquired hypothyroidism [E03.9] Other Visit Diagnoses:Adjustment reaction with anxiety and depression [F43.23] Chronic obstructive pulmonary disease, unspecified COPD type (HCC) [J44.9] Chronic prescription opiate use [Z79.891] Essential hypertension [I10] Order(s):busPIRone (BUSPAR) 5 mg tabletTake 1 tablet by mouth three times daily. as needed for anxietyDisp: 40 tabletRfl: 5 TSH BLD [SQTSH] Order #: [id number] FUTURE T4 FREE/FREE THYROX [SQFT4] Order #: [id number] FUTURE lactulose (DUPHALAC, CONSTULOSE) 10 gram/15 mL solutionTAKE 30 ML BY MOUTH TWICE DAILY NEEDED (CONSTIPATION).Disp: 473 mLRfl: 2 SED RATE WESTERGREN [SQWSR] Order #: [id number] FUTURE Prescriptions as of 11/11/2017 Sig: LACTULOSE 10 GRAM/15 ML ORAL * TAKE 30 ML BY MOUTH TWICE DELMAR* HYDROCORTISONE ACETATE 25 MG * 1 SUPPOSITORY BY RECTAL ROUTE* LEVOTHYROXINE 112 MCG TABLET TAKE 1 TABLET BY MOUTH EVERY * LISINOPRIL 10 MG TABLET Take 1 tablet by mouth once d* ATORVASTATIN 20 MG TABLET TAKE 1 TABLET BY MOUTH ONCE D* LATANOPROST 0.005 % EYE DROPS 1 Drop daily at bedtime. BRIMONIDINE 0.2% - TIMOLOL 0.* 1 Drop once daily. BUDESONIDE-FORMOTEROL HFA 160* Inhale 2 Puffs as instructed * MONTELUKAST 10 MG TABLET Take 1 tablet by mouth daily * FLUTICASONE 50 MCG/ACTUATION * Use 2 Sprays in each nostril * TOLTERODINE ER 4 MG CAPSULE,E* Take 1 capsule by mouth once * MELATONIN 5 MG TABLET 5 mg by mouth 1-2 hours prior* SPIRIVA RESPIMAT INHALATION Inhale as instructed. COMPOUNDED PRESCRIPTION Nebulizer supplies: Dx: J* IPRATROPIUM-ALBUTEROL 0.5 MG-* Inhale 3 mL as instructed fou* ALBUTEROL SULFATE HFA 90 MCG/* Inhale 2 Puffs as instructed * ATORVASTATIN 20 MG TABLET Take 20 mg by mouth once bk* CALCIUM CARBONATE 500 MG (1,2* Take 1 tablet by mouth three * OXYCODONE ER 20 MG TABLET,CRU* Take 1 tablet by mouth every * ALENDRONATE 70 MG TABLET Take 1 tablet by mouth once e* COMPOUNDED PRESCRIPTION 1 Each four times daily. NEBU* IBUPROFEN 600 MG TABLET Take 1 tablet by mouth every * BIMATOPROST 0.01 % EYE DROPS 1 drop bith eyes at night. TIZANIDINE 2 MG TABLET BUSPIRONE 5 MG TABLET Take 1 tablet by mouth three * BACLOFEN 10 MG TABLET Take 1 tablet by mouth twice * Patient not taking: Reported on 11/11/2017 Problem List As Of Date 11/11/2017 Noted Resolved Hypothyroidism [E03.9] Osteoporosis [M81.0] INVALID FOR* Vitamin D deficiency [E55.9] INVALID FOR* COPD (chronic obstructive pulmonary disease) (H*INVALID FOR* Adjustment reaction with anxiety and depression*INVALID FOR* BPV (benign positional vertigo) [H81.10] INVALID FOR* Pleural effusion, right [J90] INVALID FOR*07/04/2016 Apical lung scarring [J98.4] INVALID FOR* Hyperlipidemia LDL goal <100 [E78.5] INVALID FOR* Family history of breast cancer in mother [Z80.*INVALID FOR* Vertebral compression fracture (HCC) [M48.50XA] INVALID FOR*11/11/2016 Diverticulosis of large intestine without hemor*INVALID FOR* Impaired fasting glucose [R73.01] INVALID FOR* Chronic prescription opiate use [Z79.891] INVALID FOR* Essential hypertension [I10] INVALID FOR* Degeneration of lumbar intervertebral disc [M51*INVALID FOR* Lumbar spondylosis [M47.816] INVALID FOR* Other instructions from your clinician: PLAN: discontinue ativan and start buspirone 5mg three times/day as needed for sleep or anxiety same other medications healthy diet and regular exercise T4, TSH Doug Ruiz III MD Prescriptions ordered this encounter Disp Refills Start End BUSPIRONE 5 MG TABLET 40 t* 5 11/11/2017 Route: ORAL Sig: Take 1 tablet by mouth three times daily. as needed for anxiety LACTULOSE 10 GRAM/15 ML ORAL SOLUTION 473 * 2 11/11/2017 Sig: TAKE 30 ML BY MOUTH TWICE DAILY NEEDED (CONSTIPATION). Medications Discontinued During This Encounter lactulose (DUPHALAC, CONSTULOSE) 10 * 473 * 2 03/10/2017 11/11/2017 Sig: TAKE 30 ML BY MOUTH TWICE DAILY NEEDED (CONSTIPATION). Disc: Reason for discontinue is not on file. Encounter Status:Closed by DOUG RUIZ III, MD on 11/11/17 PROGRESS Observed: 11/11/2017 Status: COMPLETED Source: [place] 2:38 PM [facility] [place] REPOSITORY O ID: [id number] Author: Doug Ruiz III Service: (none) Author Type: Physician Type: Progress Notes Filed: 11/11/2017 6:55 PM Note Text: SUBJECTIVE: This is a 76 year old female that is here today for 1. hot flashes, episodically. Difficulty sleeping due to hot flash. s/p thyroidectomy--admits to regularly take potassium med. Face turns brilliant red 2. hypertension 3. hyperlipidemia 4. ch constipation 5. recent paint mixer machine scared her about being on ativan and hydrocodone.(3-4 /day). s/p nerve ablation in back with modest benefit in pain control. 6. ch anxiety--does not use ativan daily. 7. allergies--on rescue inhaler prn 8. easy fatigability. Known COPD, s/p pul. rehab. SpO2 98 while awake. PAST MEDICAL HISTORY Diagnosis Date - Adjustment reaction with anxiety and depression 10/11/2013 - Allergic rhinitis - Apical lung scarring 03/16/2014 - BPV (benign positional vertigo) 10/11/2013 - Chronic obstructive pulmonary disease (COPD) (HCC) - Disorder of bone and cartilage, unspecified - Diverticulosis of colon (without mention of hemorrhage) - Essential hypertension 04/14/2016 - Glaucoma - Pleural effusion, right 03/16/2014 - Pure hypercholesterolemia - Tobacco dependence in remission - Unspecified hypothyroidism Current Outpatient Prescriptions on File Prior to Visit: hydrocortisone (HEMORRHOIDAL HC) 25 mg suppository 1 SUPPOSITORY BY RECTAL ROUTE TWICE DAILY NEEDED (HEMMORRHOIDS/RECTAL PAIN). levothyroxine (SYNTHROID) 112 mcg tablet TAKE 1 TABLET BY MOUTH EVERY DAY lisinopril (PRINIVIL) 10 mg tablet Take 1 tablet by mouth once daily. atorvastatin (LIPITOR) 20 mg tablet TAKE 1 TABLET BY MOUTH ONCE DAILY. latanoprost (XALATAN) 0.005 % ophthalmic solution 1 Drop daily at bedtime. brimonidine 0.2 % drop, timolol maleate 0.5 % drop 1 Drop once daily. budesonide-formoterol (SYMBICORT) 160-4.5 mcg/actuation inhaler Inhale 2 Puffs as instructed twice daily. montelukast (SINGULAIR) 10 mg tablet Take 1 tablet by mouth daily at bedtime. fluticasone (FLONASE) 50 mcg/actuation nasal spray Use 2 Sprays in each nostril once daily. tolterodine ER (DETROL LA) 4 mg 24 hr capsule Take 1 capsule by mouth once daily. Melatonin 5 mg tab 5 mg by mouth 1-2 hours prior to bedtime TIOTROPIUM BROMIDE (SPIRIVA RESPIMAT INHALATION) Inhale as instructed. lactulose (DUPHALAC, CONSTULOSE) 10 gram/15 mL solution TAKE 30 ML BY MOUTH TWICE DAILY NEEDED (CONSTIPATION). COMPOUNDED PRESCRIPTION Nebulizer supplies: Dx: J44.9 ipratropium-albuterol (DUONEB) 0.5 mg-3 mg(2.5 mg base)/3 mL nebu Inhale 3 mL as instructed four times daily. DX: J44.9 albuterol HFA (PROAIR HFA) 90 mcg/actuation inhaler Inhale 2 Puffs as instructed every 4 hours as needed. For wheezing/shortness of breath. atorvastatin (LIPITOR) 20 mg tablet Take 20 mg by mouth once daily. tcrbcsw-gqynsfsrv-pvimezu D3 500 mg(1,250mg) -200 unit per tablet Take 1 tablet by mouth three times daily. oxyCODONE ER (OXYCONTIN) 20 mg 12 hr tablet Take 1 tablet by mouth every 12 hours. alendronate (FOSAMAX) 70 mg tablet Take 1 tablet by mouth once each week. COMPOUNDED PRESCRIPTION 1 Each four times daily. NEBULIZER FOR HOME USE. DX: J44.9 ibuprofen (MOTRIN) 600 mg tablet Take 1 tablet by mouth every 6 hours as needed for Pain. Bimatoprost (LUMIGAN) 0.01 % OPHTHALMIC Drop 1 drop bith eyes at night. baclofen (LIORESAL) 10 mg tablet Take 1 tablet by mouth twice daily. (Patient not taking: Reported on 11/11/2017 ) No current facility-administered medications on file prior to visit. FAMILY HISTORY Problem Relation Age of Onset - Heart Father 54 ND - Breast Cancer Mother - Breast Cancer Maternal Aunt - Breast Cancer Daughter - None Brother - None Brother - None Brother Social History Substance Use Topics - Smoking status: Former Smoker Packs/day: 0.50 Years: 20.00 Types: Cigarettes Quit date: 09/09/2014 - Smokeless tobacco: Never Used Comment: 4 or 5 cigs qd - Alcohol use Yes Comment: occasionally BP 124/72 Pulse 80 Resp 20 Wt 70.8 kg (156 lb) BMI 27.63 kg/m? . OBJECTIVE: APPEARANCE Well appearing, alert, in no acute distress, well-hydrated, well nourished. NECK Supple, no adenopathy; thyroid symmetric, normal size, no bruits HEART RRR with normal S1 and S2, no murmurs, no gallops, no JVD appreciated LUNG clear to auscultation ABDOMEN soft, non-tender, non-distended, without organomegaly or palpable masses, no tenderness to palpation Appearance: well dressed well groomed, cooperative and pleasant Behavior: good eye contact Speech: fluent and coherent Mood: euthymic Affect: appropriate Perceptions: none Thought process: goal directed Thought Content: preoccupations with hot flashes Intelligence level: normal Insight: fair Judgment: fair ASSESSMENT: anxiety hypertension--at goal hyperlipidemia--at goal obesity allergic rhinitis COPD--stable ch prescription opiate use hypothyroidism PLAN: discontinue ativan and start buspirone 5mg three times/day as needed for sleep or anxiety same other medications healthy diet and regular exercise T4, TSH, ESR Doug Ruiz III MD OPERATIVE REPORT Observed: 10/26/2017 Status: F Source: YIMI 12:48 PM [facility] REPOSIT[facility] Medical Records Department [address] [place] [address] Operative Report 10/26/17 1244 MR#: [id number] Acct: [id number] Name: JOSETTE ROMERO Rep #: [id number] : 1940 76 From: Star Ardon MD PCP: Doug Ruiz III, MD [place] [facility] [place] [facility] 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 Report of Operation Date of Procedure: 10/26/17 Pre-Operative Diagnosis: Lumbosacral spondylosis, lumbosacral degenerative disc disease, lumbar facet arthropathy Post-Operative Diagnosis: Lumbosacral spondylosis, lumbosacral degenerative disc disease, lumbar facet arthropathy Surgery/Procedure Performed:: Right-sided lumbar radiofrequency ablation of the medial branch L3, L4, L5, S1 Description of Surgical Findings:: PROCEDURE: Right-sided radiofrequency ablation of the medial branch L3, L4, L5, S1 PREOPERATIVE DIAGNOSES: Lumbosacral spondylosis, lumbosacral degenerative disc disease, lumbar facet arthropathy POSTOPERATIVE DIAGNOSES: Lumbosacral spondylosis, lumbosacral degenerative disc disease, lumbar facet arthropathy ANESTHESIA: MAC COMPLICATIONS: None BLOOD LOSS: Minimal PROCEDURE IN DETAIL: History and physical today was reviewed. Risks and benefits of procedure explained. The patient understood, agreed to the procedure and informed consent was obtained. IV inserted per routine protocol. The patient was taken to the operating room, placed in the prone position with a pillow positioned underneath the abdomen. The right side of the lower back was prepped and draped in a sterile fashion using iodine x 3. Under fluoroscopy guidance, on an oblique view, the L3 through S1 vertebral bodies were visualized. The skin and subcutaneous tissue was anesthetized with approximately 10 mL of 1% lidocaine using a 25-gauge regular needle. Under direct visualization with fluoroscopy at approximately 25-degree angle, starting on the right L3, ending on the right S1 passing through the L4-L5 using a 20-gauge 15 cm with a 10 mm curved active tip radiofrequency ablation needle the needle passed through the skin. The tip of the needle was maneuvered and directed towards the superior and medial gutter of the transverse process at the vicinity of the medial branch. Once the tip of the needle was in contact with the bone, the needle pulled approximately 2 mm up the bone. The stylet of each needle was then removed. After negative aspiration of blood with CSF and confirmation of AP as well as oblique view, radiofrequency ablation probe was then inserted at each level. Impedance was then recorded at L3 to be 304, at L4 302, at L5 289, at S1 278 ohm. Motor-evoked potential was then initiated to 1.5 volt without any motor response at each corresponding level. The probe was then removed intact and a total of 6 mL preservative- free 1% lidocaine was injected in divided doses between those 4 levels after negative aspiration of blood with CSF. The radiofrequency ablation probe was then reinserted after confirmation of AP, oblique as well as lateral view. Radiofrequency ablation was then initiated to 80 degrees Celsius for 90 seconds at each level. Once concluded, the probe was then removed intact and a total of 6 mL of preservative-free 0.25% Marcaine with 40 mg Depo-Medrol was injected in divided doses between those 4 levels. The needles were then removed intact. The patient experienced no signs or symptoms of intrathecal, intravascular injection. The patient experienced no paraesthesia. The procedure was completed without any apparent difficulty, any complication. The patient appeared to tolerate well. Sensory as well as motor exam was unchanged from prior to procedure. ASSESSMENT AND PLAN: This is a 76-year-old Female with lumbosacral spondylosis, lumbosacral degenerative disc disease, lumbar facet arthropathy, status post right-sided radiofrequency ablation of the medial branch L3 through S1. The patient will continue her current medications. The patient will follow up in approximately 2 weeks for reevaluation. 10/26/17 1248 <Electronically signed by Star Ardon MD> Date Star Ardon MD CC: Doug Ruiz III, MD; Star Ardon Signed L/S SPINE MIN 4 Observed: 10/26/2017 Status: F Source: YIMI VIEWS 1:07 AM [facility] REPOSITORY [facility] Imaging Services [address] [place] [address] L/S Spine Min 4 Views MR#: [id number] Acct: [id number] Name: JOSETTE ROMERO Rep #: [id number] : 1940 F 76 From: Ari Ward MD PCP: Doug Ruiz III, MD Status: [facility] Study: L/S Spine Min 4 Views Date of Exam: 10/26/17 Exam# [id number] Ordering Dr: Star Ardon MD STUDY: X-RAY - LUMBAR SPINE REASON FOR EXAM: Female, 76 years old. Radiofrequency ablation. TECHNIQUE: 7 coned-down view(s) of the lumbar spine were obtained intraoperatively. COMPARISON: None FINDINGS: Intraoperative imaging provided for right L3-S1 radiofrequency ablation. RAD/L/S Spine Min 4 Views IMPRESSION: Intraoperative imaging provided for right L3-S1 radiofrequency ablation. Electronically Signed: Ari Ward MD at 10:43 EDT Tel [phone], Service support , CC: Doug Ruiz III, MD; Star Ardon Surveying Technician: Signed CNPTOUTREACH Observed: 10/13/2017 Status: COMPLETED Source: [place] 12:00 AM [facility] REPOSITORY Patient Outreach ([facility]) JOSETTE ROMERO ([id number]) 1940 F Date Time Provider Department 10/13/17 [facility] During your visit today, we recorded the following information about you: Allergies As of Date: 10/13/2017 Noted Allergy Reaction CELEBREX (CELECOXIB) 05/13/2005 DICLOFENAC 05/01/2017 1 - Mental Status Change DOXYCYCLINE 05/13/2005 2 - Rash Comments: photosensitivity MONUROL (FOSFOMYCIN TROMETHAMINE) 05/13/2005 TAVIST D [Other] 05/13/2005 ZOCOR (SIMVASTATIN) 05/13/2005 14 - Other: See Comments Comments: bone pain Date Reviewed: 09/04/2017 Reviewed by: Simone Anderson) Jose - Fully Assessed Visit Diagnosis:Medication management [Z79.899] Order(s):HGB A1C [[id number]] Order #: [id number] FUTURE Prescriptions as of 10/13/2017 Sig: HYDROCORTISONE ACETATE 25 MG * 1 SUPPOSITORY BY RECTAL ROUTE* LORAZEPAM 0.5 MG TABLET Take 1 tablet by mouth twice * LEVOTHYROXINE 112 MCG TABLET TAKE 1 TABLET BY MOUTH EVERY * BACLOFEN 10 MG TABLET Take 1 tablet by mouth twice * Patient not taking: Reported on 11/11/2017 LISINOPRIL 10 MG TABLET Take 1 tablet by mouth once d* ATORVASTATIN 20 MG TABLET TAKE 1 TABLET BY MOUTH ONCE D* LATANOPROST 0.005 % EYE DROPS 1 Drop daily at bedtime. BRIMONIDINE 0.2% - TIMOLOL 0.* 1 Drop once daily. BUDESONIDE-FORMOTEROL HFA 160* Inhale 2 Puffs as instructed * MONTELUKAST 10 MG TABLET Take 1 tablet by mouth daily * FLUTICASONE 50 MCG/ACTUATION * Use 2 Sprays in each nostril * TOLTERODINE ER 4 MG CAPSULE,E* Take 1 capsule by mouth once * MELATONIN 5 MG TABLET 5 mg by mouth 1-2 hours prior* SPIRIVA RESPIMAT INHALATION Inhale as instructed. X LACTULOSE 10 GRAM/15 ML ORAL * TAKE 30 ML BY MOUTH TWICE DELMAR* COMPOUNDED PRESCRIPTION Nebulizer supplies: Dx: J* IPRATROPIUM-ALBUTEROL 0.5 MG-* Inhale 3 mL as instructed fou* ALBUTEROL SULFATE HFA 90 MCG/* Inhale 2 Puffs as instructed * ATORVASTATIN 20 MG TABLET Take 20 mg by mouth once bk* CALCIUM CARBONATE 500 MG (1,2* Take 1 tablet by mouth three * OXYCODONE ER 20 MG TABLET,CRU* Take 1 tablet by mouth every * ALENDRONATE 70 MG TABLET Take 1 tablet by mouth once e* COMPOUNDED PRESCRIPTION 1 Each four times daily. NEBU* IBUPROFEN 600 MG TABLET Take 1 tablet by mouth every * BIMATOPROST 0.01 % EYE DROPS 1 drop bith eyes at night. Problem List As Of Date 10/13/2017 Noted Resolved Hypothyroidism [E03.9] Osteoporosis [M81.0] INVALID FOR* Vitamin D deficiency [E55.9] INVALID FOR* COPD (chronic obstructive pulmonary disease) (H*INVALID FOR* Adjustment reaction with anxiety and depression*INVALID FOR* BPV (benign positional vertigo) [H81.10] INVALID FOR* Pleural effusion, right [J90] INVALID FOR*07/04/2016 Apical lung scarring [J98.4] INVALID FOR* Hyperlipidemia LDL goal <100 [E78.5] INVALID FOR* Family history of breast cancer in mother [Z80.*INVALID FOR* Vertebral compression fracture (HCC) [M48.50XA] INVALID FOR*11/11/2016 Diverticulosis of large intestine without hemor*INVALID FOR* Impaired fasting glucose [R73.01] INVALID FOR* Chronic prescription opiate use [Z79.891] INVALID FOR* Essential hypertension [I10] INVALID FOR* 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 [place] [address] OFFICE VISIT Date of Service: 09/11/17 MR#: [id number] Acct: [id number] Name: JOSETTE ROMERO Rep #: [id number] : 1940 Provider: Chano Bowman D.O. Age/Sex: 76/F Location: [facility].[facility] Status: Signed Assessment AND Plan 1. COPD (chronic obstructive pulmonary disease) J44.9 Plan The patient has evidence of stage IV COPD is currently on a triple therapy inhaler regimen. She was recently treated for an exacerbation and is improving clinically. We will plan to continue her current inhaler regimen. I do feel that the patient would benefit clinically from re-enrollment in pulmonary rehabilitation. At this time, given the advanced stage of her COPD, I do not feel that her FEV1 will have changed much from pulmonary function testing last completed in February 2017. However, the patient was benefiting from pulmonary rehabilitation and had to be discharged from the program prematurely due to a fall that she sustained. Recommend reenrollment in the program if able. 2. Allergic rhinitis J30.9 Plan Continue Flonase and Singulair as prescribed. Given the patient's ongoing complaints of sneezing and itchy/watery eyes, we will also plan to obtain a serum RAST test. Orders Orders: 3. Tobacco dependence in remission F17.201 Plan Ongoing tobacco cessation strongly encouraged. Plan Detail Other Medications Refilled: Follow Up 3 Months (DMB) HPI HPI Comments Details: The patient is a 76-year-old female who presents to the clinic today for a routine scheduled follow-up office visit. If you recall, the patient initially presented to me in 2016 as a transfer of care from her previous pulmonary provider, Dr. House. She has a smoking history that includes 1 pack per day 20 years, having quit completely in September 2014. She has a chronic, nonproductive cough, along with seasonal allergic rhinitis. She is currently on a triple therapy inhaler regimen, with Symbicort and Spiriva. Pulmonary function testing completed in April 2015 revealed the presence of a very severe large airways obstructive ventilatory defect with associated response to aerosolized bronchodilators. PFTs from February 2017 revealed a partially reversible very severe large airways obstructive ventilatory defect with asymmetric reduction in diffusing capacity and air trapping. 6 minute walk test revealed significant oxygen desaturation from 98-90% with ambulation. There was also evidence of impaired walk distance. Today, the patient reports that she was recently seen at the urgent care and treated for presumptive bronchitis with a Z-Juliano and prednisone, which she recently completed. She reports now feeling better from a respiratory standpoint. She has a residual cough which continues. She remains compliant with her triple therapy inhaler regimen. She is requesting a refill of her Singulair. She is also utilizing Flonase in her home environment. She does report sneezing and itchy/watery eyes despite using the aforementioned medications. The patient does have a dog as a pet in her home environment. The patient was previously enrolled in pulmonary rehab but experienced a mechanical fall half-way through the program and had to be discharged. She was told that she could not re-enroll in the program without a significant change in her pulmonary function. She denies the presence of fevers, chills or night sweats. Her weight has been stable. She denies chest pain, dizziness or lightheadedness. Intake Vital Signs09/11/17 Height 5 ft 2 in 09/11/17 Weight: 157 lb Intake Visit Reasons: 6 M FU Accompanied by: Allergies acetaminophen [From Tavist] Allergy (Verified 09/11/17 10:09) Unknown clemastine fumarate [From Tavist] Allergy (Verified 09/11/17 10:09) Unknown fosfomycin tromethamine [From Monurol] Allergy (Verified 09/11/17 10:09) Unknown pseudoephedrine HCl [From Tavist] Allergy (Verified 09/11/17 10:09) Unknown celecoxib [From Celebrex] Adverse Reaction (Verified 09/11/17 10:09) Upset Stomach doxycycline Adverse Reaction (Verified 09/11/17 10:09) Other simvastatin [From Zocor] Adverse Reaction (Verified 09/11/17 10:09) Pain in joints Medications Atorvastatin Calcium [Lipitor] 20 mg PO QHS 09/09/14 [History Confirmed 09/11/17] Bimatoprost [Lumigan Opthalmic] 1 drp EACH EYE QHS 09/09/14 [History Confirmed 09/11/17] Levothyroxine [Synthroid] 112 mcg PO DAILY 09/09/14 [History Confirmed 09/11/17] Calcium Carb/Vitamin D [Os-Shiva 500MG + D] 1 tab PO TIDCM #30 tab 09/14/14 [Rx Confirmed 09/11/17] Lorazepam [Ativan] 0.5 mg PO TID PRN PRN 09/14/14 [History Confirmed 09/11/17] Albuterol Inhaler [Ventolin Hfa] 2 puff INHALATION Q4H PRN PRN #1 inhaler 09/27/14 [Rx Confirmed 09/11/17] Budesonide/Formoterol 160/4.5 [Symbicort 160/4.5 Mcg Inhaler (SP)] 2 puff INHALATION BID 05/22/17 [History Confirmed 09/11/17] Hydrocodone Bitart/Apap 5-325 [Berea 5/325] 1 - 2 tab PO Q8H PRN PRN #12 tab 05/22/17 [Rx Confirmed 09/11/17] Senna/Docusate Sodium [Senokot-S] 1 tab PO BID PRN 05/22/17 [History Confirmed 09/11/17] tiotropium bromide 2.5 mcg/actuation mist for inhalation 2 puff INHALATION QDAY #4 g 08/04/17 [Rx Confirmed 09/11/17] montelukast 10 mg tablet 10 mg PO QDAY #90 tab 09/11/17 [Rx Confirmed 09/11/17] [facility] Medical History Pure hypercholesterolemia (Chronic) Pleural effusion (Acute) Osteoarthritis (Chronic) Glaucoma (Chronic) Essential (primary) hypertension (Chronic) Diverticulosis of colon (without mention of hemorrhage) (Chronic) Other disorders of bone and cartilage (Chronic) Benign positional vertigo (Chronic) Apical lung scarring (Chronic) Anxiety (Chronic) Allergic rhinitis (Chronic) MIRELES (dyspnea on exertion) (Chronic) Tobacco dependence in remission (Chronic) Closed fracture of left hip requiring operative repair (Acute) COPD, mild (Chronic) MCI (mild cognitive impairment) (Chronic) Depression (Chronic) Hyperlipidemia (Chronic) Hypothyroidism (Chronic) Broken wrist (Acute) Cracked pelvis (Acute) Fracture of vertebra (Acute) Tailbone injury (Acute) Surgical History Hip fracture requiring operative repair (Resolved) Family History Father Heart disease Myocardial infarction Mother Breast cancer Aunt Breast cancer Daughter Breast cancer Social History Smoking Status: Former smoker how long ago did patient quit smokin, 1p/day second hand exposure: Yes alcohol intake: current alcohol intake frequency: a few times a month Alcohol type: wine substance use type: does not use Review of Systems Const CONSTITUTIONAL: Negative anorexia, body ache, chills, daytime sleepiness, fever(s), night sweats, oral thrush, stops breathing during sleep, weight loss, sleeping in chair, fatigue, weight loss, weight gain, frequent colds, seasonal allergies, other, headache(s) or orthopnea EETM Ear Nose Throat Mouth: Positive hearing normal; negative hard of hearing, hoarseness, dry mouth in morning, change in vision, itchy eyes, eye pain, swallowing Difficulty, ear pain, nose bleed, headache(s), mouth pain, nasal congestion, nasal discharge, post nasal drip, sinus pain, sinus pressure, sore throat or other Cardio Cardiovascular: Negative chest pain, chest pain at rest, chest pain with activity, irregular heart rhythm, edema, shortness of breath when lying down, palpitations, murmur or other Resp Respiratory: Positive as per HPI, shortness of breath, wheezing and cough cough: Positive productive color: Positive yellow; negative pain with cough, chest congestion, chest tightness, pain on inspiration, inhalers, increase use of rescue inhalers, snoring, apnea or other Gastro Gastrointestional: Negative bloody stools, change in appetite, difficulty swallowing, reflux, hematemesis, melena stool, loose stool, constipation or other Genitourinary: Negative blood in urine, nocturia, pain with urination or other Musc Musculoskeletal: Negative body pain, back pain, neck pain or other Skin/Breast Skin/Breast: Negative dry skin, itching, rash, unusual bruising, breast lump or other Neuro Neurological: Negative restless legs, confusion, weakness or other Psych Psychocological: Negative abnormal sleep pattern, anxiety, thoughts of hurting self/others, hopelessness or other Lymph Lymphatic: Negative easy bleeding, easy bruising, swollen lymph nodes or other Exam Const Constitutional: Positive conversant, cooperative, in no acute respiratory distress, well developed, well nourished and good hygiene Head Head: Positive normocephalic and atraumatic; negative cyanosis of lips/distal nose Eyes Eye: Positive clear conjunctiva; negative nystagmus or scleral abnormality Ears Ear: Positive hearing normal and external ears normal; negative hard of hearing Nose Nose: Positive external nose normal; negative epistaxis Mouth Mouth: Positive oral mucosae normal and posterior oropharynx is adequate; negative no lesions or post nasal drip Mallampati Score: II: Mallampati Score Neck Neck: Positive normal visual inspection and trachea midline; negative lymphadenopathy Chest Wall Chest: Positive symmetric chest movement Normal AP diameter. Resp lung sounds: Positive diminished diminished: Positive global and prolonged expiratory time; negative wheezes, rhonchi or rales Cardio Cardiac: Positive regular rate, regular rhythm, S1 normal and S2 normal; negative rub, gallop or murmur GI GI: Positive normal bowel sounds Soft without distention Genitourinary: Positive deferred Musc Musculoskeletal: Positive using an assistive device for ambulation Skin Pulmonary Skin Exam: Positive intact; negative lesion, ulcers, dermal atrophy or rash Pulses Pulse: Yes Pedal pulses present: Extremities Extremities: No clubbing, No cyanosis, No edema Neuro Neurologic: Yes conversant, Yes no focal neuro deficits, Yes cooperative Lymph Lymphatic: No lymphadenopathy Psych Appearance: Positive grossly normal Mental Status: Positive mental status grossly normal Mood: Positive congruent mood Affect: Positive normal affect Coding Level of Care Code Off vis,est,level 3 Diagnoses COPD (chronic obstructive pulmonary disease) J44.9 Allergic rhinitis J30.9 Tobacco dependence in remission F17.201 09/11/17 1117 <Electronically signed by Chano Bowman DO> Date Chano Bowman DO Cosigner Signature: Date (if applicable) CC: Doug Ruiz III, MD ALLERGEN RESP. AREA 5 Collected: 09/11/2017 Status: F Source: [place] 10:54 AM [facility] REPOS[facility] Order Comment: Reason for Exam: Allergies Reason for exam? Allergies TYPE CODE TESTS RESULT OUT OF RANGE REFERENCE UNITS LAB L5500.8000 0-100 IU/mL Normal TOTAL igE 31 LAB L5500.9900 . Normal RAST COMMENT Comment Result Comment: Levels of Specific IgE Class Description of Class ----- < 0.10 0 Negative 0.10 - 0.31 0/I Equivocal/Low 0.32 - 0.55 I Low 0.56 - 1.40 II Moderate 1.41 - 3.90 III High 3.91 - 19.00 IV Very High 19.01 - 100.00 V Very High >100.00 Very High LAB L5510.0040 Class 0 kU/L CAT HAIR/DANDER Normal <0.10 LAB L5510.0070 Class 0 kU/L DOG EPITHELIA Normal <0.10 LAB L5520.0020 Class 0 kU/L D FARINAE MITE Normal <0.10 LAB L5520.0030 Class 0 kU/L D PTERONYSSINUS Normal <0.10 LAB L5540.0020 Class 0 kU/L BERMUDA GRASS Normal <0.10 LAB L5540.0190 Class 0 kU/L CELESTINO GRASS Normal <0.10 LAB L5550.0020 Class 0 kU/L ALTERNARIA TEN Normal <0.10 LAB L5550.0040 Class 0 kU/L ASPERGILLUS FUM Normal <0.10 LAB L5550.0140 Class 0 kU/L CLADOSPOR HERB Normal <0.10 LAB L5550.0340 Class 0 kU/L PEN Notatum Normal <0.10 LAB L5555.0380 Class 0 kU/L COCKROACH,AMER Normal <0.10 LAB L5555.0410 Class 0 kU/L Mouse Urine Normal <0.10 Result Comment: Performed at: [facility] Lab[address] [id number] Perfume Maker: Tomás Maravilla MD, Phone: [phone] LAB L5560.0050 Class 0 kU/L JUAN, Normal WHITE <0.10 LAB L5560.0100 Class 0 kU/L BIRCH Normal <0.10 LAB L5560.0110 Class 0 kU/L CEDAR, Normal MOUNTAIN <0.10 LAB L5560.0140 Class 0 kU/L Normal COTTONWOOD <0.10 LAB L5560.0170 Class 0 kU/L ELM,AMER Normal WHITE <0.10 LAB L5560.0310 Class 0 kU/L Normal MAPLE/BOX ELDER <0.10 LAB L5560.0371 Class 0 kU/L Normal MULBERRY, WHITE <0.10 LAB L5560.0400 Class 0 kU/L OAK, Normal WHITE <0.10 LAB L5560.0440 Class 0 kU/L PECAN Normal <0.10 LAB L5560.0550 Class 0 kU/L Normal SYCAMORE, AMER <0.10 LAB L5560.0570 Class 0 kU/L BLACK Normal WALNUT <0.10 LAB L5580.0210 Class 0 kU/L PIGWEED, Normal ROUGH <0.10 LAB L5580.0260 Class 0 kU/L RAGWEED Normal SH/COM <0.10 LAB L5580.0320 Class 0 kU/L SHEEP Normal SORREL <0.10 LAB L5580.0360 Class 0 kU/L EGYPTIAN Normal THISTLE <0.10 Performed By: #### L5500.0700 #### [facility] (refer to report for specific site) refer to report for address and phone number PROGRESS Observed: 09/04/2017 Status: COMPLETED Source: [place] 6:01 PM [facility] HNO ID: [id number] Author: Simone Ervin (Na) Jose Service: (none) Author Type: Nurse Practitioner Type: Progress Notes Filed: 09/09/2017 6:04 PM Note Text: Subjective HPI Patient presents with: Cough and Chest Congestion x 4 days Hx of COPD OTC cold/cough medication with minimal relief. Review of Systems Constitutional: Negative for chills, fever and malaise/fatigue. HENT: Positive for congestion and sore throat. Negative for ear pain. Eyes: Negative for discharge and redness. Respiratory: Positive for cough and wheezing. Negative for hemoptysis, sputum production and shortness of breath. Gastrointestinal: Negative for abdominal pain, diarrhea, nausea and vomiting. Skin: Negative for rash. Neurological: Negative for headaches. PAST MEDICAL HISTORY Diagnosis Date - Adjustment reaction with anxiety and depression 10/11/2013 - Apical lung scarring 03/16/2014 - BPV (benign positional vertigo) 10/11/2013 - Chronic obstructive pulmonary disease (COPD) (HCC) - Disorder of bone and cartilage, unspecified - Diverticulosis of colon (without mention of hemorrhage) - Essential hypertension 04/14/2016 - Glaucoma - Pleural effusion, right 03/16/2014 - Pure hypercholesterolemia - Unspecified hypothyroidism PAST SURGICAL HISTORY Procedure Laterality Date - COLONOSCOP W/ OR W/O [facility] SPEC 06/17/91 Colonoscopy - COLONOSCOP W/ OR W/O [facility] SPEC 08/27/2009 Colonoscopy - HEMORRHOIDECT INTER/EXTER SIMP ALLERGIES Celebrex [Celecoxib]; Diclofenac; Doxycycline; Monurol [Fosfomycin Tromethamine]; Tavist D [Other]; Zocor [Simvastatin] MEDICATIONS LORazepam (ATIVAN) 0.5 mg tab Take 1 tablet by mouth twice daily as needed for up to 50 days. baclofen (LIORESAL) 10 mg tablet Take 1 tablet by mouth twice daily. lisinopril (PRINIVIL) 10 mg tablet Take 1 tablet by mouth once daily. atorvastatin (LIPITOR) 20 mg tablet TAKE 1 TABLET BY MOUTH ONCE DAILY. latanoprost (XALATAN) 0.005 % ophthalmic solution 1 Drop daily at bedtime. brimonidine 0.2 % drop, timolol maleate 0.5 % drop 1 Drop once daily. budesonide-formoterol (SYMBICORT) 160-4.5 mcg/actuation inhaler Inhale 2 Puffs as instructed twice daily. montelukast (SINGULAIR) 10 mg tablet Take 1 tablet by mouth daily at bedtime. fluticasone (FLONASE) 50 mcg/actuation nasal spray Use 2 Sprays in each nostril once daily. tolterodine ER (DETROL LA) 4 mg 24 hr capsule Take 1 capsule by mouth once daily. Melatonin 5 mg tab 5 mg by mouth 1-2 hours prior to bedtime TIOTROPIUM BROMIDE (SPIRIVA RESPIMAT INHALATION) Inhale as instructed. lactulose (DUPHALAC, CONSTULOSE) 10 gram/15 mL solution TAKE 30 ML BY MOUTH TWICE DAILY NEEDED (CONSTIPATION). COMPOUNDED PRESCRIPTION Nebulizer supplies: Dx: J44.9 ipratropium-albuterol (DUONEB) 0.5 mg-3 mg(2.5 mg base)/3 mL nebu Inhale 3 mL as instructed four times daily. DX: J44.9 albuterol HFA (PROAIR HFA) 90 mcg/actuation inhaler Inhale 2 Puffs as instructed every 4 hours as needed. For wheezing/shortness of breath. atorvastatin (LIPITOR) 20 mg tablet Take 20 mg by mouth once daily. nrdqtef-sazwkwepx-bspzbum D3 500 mg(1,250mg) -200 unit per tablet Take 1 tablet by mouth three times daily. oxyCODONE ER (OXYCONTIN) 20 mg 12 hr tablet Take 1 tablet by mouth every 12 hours. hydrocortisone (HEMORRHOIDAL HC) 25 mg suppository 1 Suppository by RECTAL route twice daily as needed (Hemmorrhoids/Rectal Pain). levothyroxine (SYNTHROID) 112 mcg tablet TAKE 1 TABLET BY MOUTH EVERY DAY alendronate (FOSAMAX) 70 mg tablet Take 1 tablet by mouth once each week. COMPOUNDED PRESCRIPTION 1 Each four times daily. NEBULIZER FOR HOME USE. DX: J44.9 ibuprofen (MOTRIN) 600 mg tablet Take 1 tablet by mouth every 6 hours as needed for Pain. Bimatoprost (LUMIGAN) 0.01 % OPHTHALMIC Drop 1 drop bith eyes at night. FAMILY HISTORY Problem Relation Age of Onset - Heart Father 54 [place] - Breast Cancer Mother - Breast Cancer Maternal Aunt - Breast Cancer Daughter - None Brother - None Brother - None Brother Social History Substance Use Topics - Smoking status: Former Smoker Packs/day: 0.50 Years: 20.00 Types: Cigarettes Quit date: 09/09/2014 - Smokeless tobacco: Never Used Comment: 4 or 5 cigs qd - Alcohol use Yes Comment: occasionally Objective Physical Exam Constitutional: She is well-developed, well-nourished, and in no distress. HENT: Head: Normocephalic. Right Ear: Tympanic membrane, external ear and ear canal normal. Left Ear: Tympanic membrane, external ear and ear canal normal. Nose: Rhinorrhea present. Right sinus exhibits no maxillary sinus tenderness and no frontal sinus tenderness. Left sinus exhibits no maxillary sinus tenderness and no frontal sinus tenderness. Mouth/Throat: Posterior oropharyngeal erythema (injected with PND) present. Eyes: Conjunctivae are normal. Neck: Normal range of motion. Neck supple. Cardiovascular: Normal rate, regular rhythm and normal heart sounds. Pulmonary/Chest: Effort normal and breath sounds normal. No respiratory distress. She has no wheezes. Abdominal: Soft. She exhibits no distension. There is no tenderness. Lymphadenopathy: She has no cervical adenopathy. Skin: Skin is warm and dry. No rash noted. Nursing note and vitals reviewed. ASSESSMENT/PLAN: 1. COPD with exacerbation (HCC) - ICD9: 491.21, ICD10: J44.1 -Prednisone -Zpak -Bromfed -supportive care, rest, fluids, analgesics PRN -F/u with pcp in 3-5 days or sooner if symptoms are not improving or worsening Prescription instructions reviewed with patient as applicable. Patient advised if symptoms do not improve or if symptoms worsen sooner, to contact their primary care physician. Potential red flag symptoms discussed with the patient. Reviewed appropriate action plan to take if red flag symptoms occur. Patient agreeable to treatment plan. Simone Thomas APRN.CHERISE CNOV Observed: 09/04/2017 Status: COMPLETED Source: [place] 5:30 PM [facility] Office Visit (WSTR) JOSETTE ROMERO ([id number]) 1940 F Date Time Provider Department 09/04/17 5:30 PM SIMONE THOMAS ([employer]BLE MECH[employer]IC HELPER) [facility] During your visit today, we recorded the following information about you: Temperature Pulse Respiration Blood pressure 97.7 degrees 79/minute 16/minute 140/90 Weight 73.5 kg Simone Thomas APRN.CNP 09/09/2017 6:04 PM Signed Subjective HPI Patient presents with: Cough and Chest Congestion x 4 days Hx of COPD OTC cold/cough medication with minimal relief. Review of Systems Constitutional: Negative for chills, fever and malaise/fatigue. HENT: Positive for congestion and sore throat. Negative for ear pain. Eyes: Negative for discharge and redness. Respiratory: Positive for cough and wheezing. Negative for hemoptysis, sputum production and shortness of breath. Gastrointestinal: Negative for abdominal pain, diarrhea, nausea and vomiting. Skin: Negative for rash. Neurological: Negative for headaches. PAST MEDICAL HISTORY Diagnosis Date - Adjustment reaction with anxiety and depression 10/11/2013 - Apical lung scarring 03/16/2014 - BPV (benign positional vertigo) 10/11/2013 - Chronic obstructive pulmonary disease (COPD) (HCC) - Disorder of bone and cartilage, unspecified - Diverticulosis of colon (without mention of hemorrhage) - Essential hypertension 04/14/2016 - Glaucoma - Pleural effusion, right 03/16/2014 - Pure hypercholesterolemia - Unspecified hypothyroidism PAST SURGICAL HISTORY Procedure Laterality Date - COLONOSCOP W/ OR W/O [facility] SPEC 06/17/91 Colonoscopy - COLONOSCOP W/ OR W/O [facility] SPEC 08/27/2009 Colonoscopy - HEMORRHOIDECT INTER/EXTER SIMP ALLERGIES Celebrex [Celecoxib]; Diclofenac; Doxycycline; Monurol [Fosfomycin Tromethamine]; Tavist D [Other]; Zocor [Simvastatin] MEDICATIONS LORazepam (ATIVAN) 0.5 mg tab Take 1 tablet by mouth twice daily as needed for up to 50 days. baclofen (LIORESAL) 10 mg tablet Take 1 tablet by mouth twice daily. lisinopril (PRINIVIL) 10 mg tablet Take 1 tablet by mouth once daily. atorvastatin (LIPITOR) 20 mg tablet TAKE 1 TABLET BY MOUTH ONCE DAILY. latanoprost (XALATAN) 0.005 % ophthalmic solution 1 Drop daily at bedtime. brimonidine 0.2 % drop, timolol maleate 0.5 % drop 1 Drop once daily. budesonide-formoterol (SYMBICORT) 160-4.5 mcg/actuation inhaler Inhale 2 Puffs as instructed twice daily. montelukast (SINGULAIR) 10 mg tablet Take 1 tablet by mouth daily at bedtime. fluticasone (FLONASE) 50 mcg/actuation nasal spray Use 2 Sprays in each nostril once daily. tolterodine ER (DETROL LA) 4 mg 24 hr capsule Take 1 capsule by mouth once daily. Melatonin 5 mg tab 5 mg by mouth 1-2 hours prior to bedtime TIOTROPIUM BROMIDE (SPIRIVA RESPIMAT INHALATION) Inhale as instructed. lactulose (DUPHALAC, CONSTULOSE) 10 gram/15 mL solution TAKE 30 ML BY MOUTH TWICE DAILY NEEDED (CONSTIPATION). COMPOUNDED PRESCRIPTION Nebulizer supplies: Dx: J44.9 ipratropium-albuterol (DUONEB) 0.5 mg-3 mg(2.5 mg base)/3 mL nebu Inhale 3 mL as instructed four times daily. DX: J44.9 albuterol HFA (PROAIR HFA) 90 mcg/actuation inhaler Inhale 2 Puffs as instructed every 4 hours as needed. For wheezing/shortness of breath. atorvastatin (LIPITOR) 20 mg tablet Take 20 mg by mouth once daily. uhpgrbe-kncjiayom-mklgjfz D3 500 mg(1,250mg) -200 unit per tablet Take 1 tablet by mouth three times daily. oxyCODONE ER (OXYCONTIN) 20 mg 12 hr tablet Take 1 tablet by mouth every 12 hours. hydrocortisone (HEMORRHOIDAL HC) 25 mg suppository 1 Suppository by RECTAL route twice daily as needed (Hemmorrhoids/Rectal Pain). levothyroxine (SYNTHROID) 112 mcg tablet TAKE 1 TABLET BY MOUTH EVERY DAY alendronate (FOSAMAX) 70 mg tablet Take 1 tablet by mouth once each week. COMPOUNDED PRESCRIPTION 1 Each four times daily. NEBULIZER FOR HOME USE. DX: J44.9 ibuprofen (MOTRIN) 600 mg tablet Take 1 tablet by mouth every 6 hours as needed for Pain. Bimatoprost (LUMIGAN) 0.01 % OPHTHALMIC Drop 1 drop bith eyes at night. FAMILY HISTORY Problem Relation Age of Onset - Heart Father 54 ND - Breast Cancer Mother - Breast Cancer Maternal Aunt - Breast Cancer Daughter - None Brother - None Brother - None Brother Social History Substance Use Topics - Smoking status: Former Smoker Packs/day: 0.50 Years: 20.00 Types: Cigarettes Quit date: 09/09/2014 - Smokeless tobacco: Never Used Comment: 4 or 5 cigs qd - Alcohol use Yes Comment: occasionally Objective Physical Exam Constitutional: She is well-developed, well-nourished, and in no distress. HENT: Head: Normocephalic. Right Ear: Tympanic membrane, external ear and ear canal normal. Left Ear: Tympanic membrane, external ear and ear canal normal. Nose: Rhinorrhea present. Right sinus exhibits no maxillary sinus tenderness and no frontal sinus tenderness. Left sinus exhibits no maxillary sinus tenderness and no frontal sinus tenderness. Mouth/Throat: Posterior oropharyngeal erythema (injected with PND) present. Eyes: Conjunctivae are normal. Neck: Normal range of motion. Neck supple. Cardiovascular: Normal rate, regular rhythm and normal heart sounds. Pulmonary/Chest: Effort normal and breath sounds normal. No respiratory distress. She has no wheezes. Abdominal: Soft. She exhibits no distension. There is no tenderness. Lymphadenopathy: She has no cervical adenopathy. Skin: Skin is warm and dry. No rash noted. Nursing note and vitals reviewed. ASSESSMENT/PLAN: 1. COPD with exacerbation (HCC) - ICD9: 491.21, ICD10: J44.1 -Prednisone -Zpak -Bromfed -supportive care, rest, fluids, analgesics PRN -F/u with pcp in 3-5 days or sooner if symptoms are not improving or worsening Prescription instructions reviewed with patient as applicable. Patient advised if symptoms do not improve or if symptoms worsen sooner, to contact their primary care physician. Potential red flag symptoms discussed with the patient. Reviewed appropriate action plan to take if red flag symptoms occur. Patient agreeable to treatment plan. AISHWARYA Pratt APRN.CNP 09/04/2017 6:06 PM Signed Understanding COPD What is COPD? COPD stands for chronic obstructive pulmonary (lung) disease. COPD is a general term used for several lung diseases. The most common diseases in this group are chronic bronchitis and emphysema. Chronic asthma may also be included in this group. While some patients with COPD have only chronic bronchitis or emphysema, most patients have a combination of both. COPD adds to the work of the heart. Diseased lungs may reduce the amount of oxygen that goes to the blood. High blood pressure in blood vessels from the heart to the lungs makes it difficult for the heart to pump. Lung disease can also cause the body to produce too many red blood cells which may make the blood thicker and harder to pump. Patients who have COPD with low oxygen levels may develop an enlarged heart (cor pulmonale). This condition weakens the heart and causes increased shortness of breath and swelling in the legs and feet. Chronic bronchitis Chronic bronchitis is irritation and inflammation (swelling) of the lining in the bronchial tubes (air passages). The irritation causes coughing and an excess amount of mucus in the airways. The swelling makes it difficult to get air in and out of the lungs. The small, hair-like structures on the inside of the airways (called cilia) may be damaged by the irritation. The cilia are then unable to help clean mucus from the airways. Bronchitis is generally considered to be chronic when you have: a productive cough (cough up mucus) and shortness of breath that lasts about 3 months or more each year for 2 or more years in a row. Your doctor may define chronic bronchitis differently. Emphysema Emphysema is the destruction, or breakdown, of the robles of the alveoli (air sacs) located at the end of the bronchial tubes. The damaged alveoli are not able to exchange oxygen and carbon dioxide between the lungs and the blood. The bronchioles lose their elasticity and collapse when you exhale, trapping air in the lungs. The trapped air keeps fresh air and oxygen from entering the lungs. Who is affected by COPD? Emphysema and chronic bronchitis affect approximately 16 million people in the [place], or close to 11 percent of the population. Symptoms of COPD ? Shortness of breath ? Shortness of breath with mild exercise (walking, using the stairs, etc.) ? Chronic, productive cough (with mucus) ? A feeling of ANDquot;tightnessANDquot; in the chest ? Wheezing What causes COPD? The two primary causes of COPD are cigarette smoking and alpha1-antitrypsin (AAT) deficiency. Air pollution and occupational dusts may also contribute to COPD, especially when the person exposed to these substances is a cigarette smoker. Cigarette smoke causes COPD by irritating the airways and creating inflammation that narrows the airways, making it more difficult to breathe. Cigarette smoke also causes the cilia to stop working properly so mucus and trapped particles are not cleaned from the airways. As a result, chronic cough and excess mucus production develop, leading to chronic bronchitis. In some people, chronic bronchitis and infections can lead to destruction of the small airways, or emphysema. AAT deficiency, an inherited disorder, can also lead to emphysema. Alpha antitrypsin (AAT) is a protective material produced in the liver and transported to the lungs to help combat inflammation. When there is not enough of the chemical AAT, the body is no longer protected from an enzyme in the white blood cells. How is COPD diagnosed? To diagnose COPD, the physician needs to know: ? Do you smoke? ? Have you had chronic exposure to dust or air pollutants? ? Do other members of your family have lung disease? ? Are you short of breath? ? Do you get short of breath with exercise? ? Do you have chronic cough and/or wheezing? ? Do you cough up excess mucus? To help with the diagnosis, the physician will conduct a thorough physical exam which includes: ? Listening to your lungs and heart ? Checking your blood pressure and pulse ? Examining your nose and throat ? Checking your feet and ankles for swelling Laboratory and other tests Several laboratory and other tests are needed to confirm a diagnosis of COPD. These tests may include: ? Chest X-ray to look for lung changes that could be caused by COPD ? Spirometry and pulmonary function tests (PFTs) to determine lung volume and air flow ? Pulse oximetry to measure the saturation of oxygen in the blood ? Arterial blood gases (ABGs) to determine the amount of oxygen and carbon dioxide in the blood ? Exercise testing to determine if the oxygen level in the blood drops during exercise Treatment In the beginning stages of COPD, there is minimal shortness of breath that may be noticed only during exercise. As the disease progresses, shortness of breath may worsen and you may need to wear an oxygen device. To help control other symptoms of COPD, the following treatments and lifestyle changes may be prescribed. ? Quitting smoking ? Avoiding cigarette smoke and other irritants ? Taking medications including: a. bronchodilators b. anti-inflammatory agents c. oxygen d. antibiotics ? Maintaining a healthy diet ? Following a structured exercise program ? Preventing respiratory infections ? Controlling stress If your COPD progresses, you may be eligible to be evaluated for lung volume reduction surgery or lung transplantation. You may also be eligible to participate in certain clinical trials (research studies). Ask your health care providers about studies being conducted in your hospital. What is the outlook? Although COPD can not be cured, its symptoms can be treated and your quality of life can be improved. Your prognosis or outlook for the future will depend on how well your lungs are functioning, your symptoms, and how well you respond to and follow your treatment plan. Referring Provider: SELF [[id number]] Allergies As of Date: 09/04/2017 Noted Allergy Reaction CELEBREX (CELECOXIB) 05/13/2005 DICLOFENAC 05/01/2017 1 - Mental Status Change DOXYCYCLINE 05/13/2005 2 - Rash Comments: photosensitivity MONUROL (FOSFOMYCIN TROMETHAMINE) 05/13/2005 TAVIST D [Other] 05/13/2005 ZOCOR (SIMVASTATIN) 05/13/2005 14 - Other: See Comments Comments: bone pain Date Reviewed: 09/04/2017 Reviewed by: Simone Ervin (Na) Jose - Fully Assessed Reason for Visit: Cough [28] Chest Congestion [236] Primary Visit Diagnosis:COPD with exacerbation (HCC) [J44.1] Order(s):predniSONE (DELTASONE) 10 mg tabletTake 4 tabs daily for 3 days, then 2 tabs daily for 3 days, then 1 tab daily for 3 days with food.Disp: 21 tabletRfl: 0 azithromycin (ZITHROMAX Z-JULIANO) 250 mg tabletTake 2 tablets day one, then, 1 tablet daily until gone.Disp: 1 PackageRfl: 0 Newhgmutjffrfdz-Acktgtqzb-GF (BROMFED DM) 2-30-10 mg/5 mL syrupTake 10 mL by mouth four times daily as needed for up to 7 days.Disp: 240 mLRfl: 0 Prescriptions as of 09/04/2017 Sig: PREDNISONE 10 MG TABLET Take 4 tabs daily for 3 days,* AZITHROMYCIN 250 MG TABLET Take 2 tablets day one, then,* BROMPHENIRAMINE-PSEUDOEPHEDRI* Take 10 mL by mouth four time* LORAZEPAM 0.5 MG TABLET Take 1 tablet by mouth twice * BACLOFEN 10 MG TABLET Take 1 tablet by mouth twice * LISINOPRIL 10 MG TABLET Take 1 tablet by mouth once d* ATORVASTATIN 20 MG TABLET TAKE 1 TABLET BY MOUTH ONCE D* LATANOPROST 0.005 % EYE DROPS 1 Drop daily at bedtime. BRIMONIDINE 0.2% - TIMOLOL 0.* 1 Drop once daily. BUDESONIDE-FORMOTEROL HFA 160* Inhale 2 Puffs as instructed * MONTELUKAST 10 MG TABLET Take 1 tablet by mouth daily * FLUTICASONE 50 MCG/ACTUATION * Use 2 Sprays in each nostril * TOLTERODINE ER 4 MG CAPSULE,E* Take 1 capsule by mouth once * MELATONIN 5 MG TABLET 5 mg by mouth 1-2 hours prior* SPIRIVA RESPIMAT INHALATION Inhale as instructed. LACTULOSE 10 GRAM/15 ML ORAL * TAKE 30 ML BY MOUTH TWICE DELMAR* COMPOUNDED PRESCRIPTION Nebulizer supplies: Dx: J* IPRATROPIUM-ALBUTEROL 0.5 MG-* Inhale 3 mL as instructed fou* ALBUTEROL SULFATE HFA 90 MCG/* Inhale 2 Puffs as instructed * ATORVASTATIN 20 MG TABLET Take 20 mg by mouth once bk* CALCIUM CARBONATE 500 MG (1,2* Take 1 tablet by mouth three * OXYCODONE ER 20 MG TABLET,CRU* Take 1 tablet by mouth every * HYDROCORTISONE ACETATE 25 MG * 1 Suppository by RECTAL route* LEVOTHYROXINE 112 MCG TABLET TAKE 1 TABLET BY MOUTH EVERY * ALENDRONATE 70 MG TABLET Take 1 tablet by mouth once e* COMPOUNDED PRESCRIPTION 1 Each four times daily. NEBU* IBUPROFEN 600 MG TABLET Take 1 tablet by mouth every * BIMATOPROST 0.01 % EYE DROPS 1 drop bith eyes at night. 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 COPD stands for chronic obstructive pulmonary (lung) disease. COPD is a general term used for several lung diseases. The most common diseases in this group are chronic bronchitis and emphysema. Chronic asthma may also be included in this group. While some patients with COPD have only chronic bronchitis or emphysema, most patients have a combination of both. COPD adds to the work of the heart. Diseased lungs may reduce the amount of oxygen that goes to the blood. High blood pressure in blood vessels from the heart to the lungs makes it difficult for the heart to pump. Lung disease can also cause the body to produce too many red blood cells which may make the blood thicker and harder to pump. Patients who have COPD with low oxygen levels may develop an enlarged heart (cor pulmonale). This condition weakens the heart and causes increased shortness of breath and swelling in the legs and feet. Chronic bronchitis Chronic bronchitis is irritation and inflammation (swelling) of the lining in the bronchial tubes (air passages). The irritation causes coughing and an excess amount of mucus in the airways. The swelling makes it difficult to get air in and out of the lungs. The small, hair-like structures on the inside of the airways (called cilia) may be damaged by the irritation. The cilia are then unable to help clean mucus from the airways. Bronchitis is generally considered to be chronic when you have: a productive cough (cough up mucus) and shortness of breath that lasts about 3 months or more each year for 2 or more years in a row. Your doctor may define chronic bronchitis differently. Emphysema Emphysema is the destruction, or breakdown, of the robles of the alveoli (air sacs) located at the end of the bronchial tubes. The damaged alveoli are not able to exchange oxygen and carbon dioxide between the lungs and the blood. The bronchioles lose their elasticity and collapse when you exhale, trapping air in the lungs. The trapped air keeps fresh air and oxygen from entering the lungs. Who is affected by COPD? Emphysema and chronic bronchitis affect approximately 16 million people in the [place], or close to 11 percent of the population. Symptoms of COPD ? Shortness of breath ? Shortness of breath with mild exercise (walking, using the stairs, etc.) ? Chronic, productive cough (with mucus) ? A feeling of tightness in the chest ? Wheezing What causes COPD? The two primary causes of COPD are cigarette smoking and alpha1-antitrypsin (AAT) deficiency. Air pollution and occupational dusts may also contribute to COPD, especially when the person exposed to these substances is a cigarette smoker. Cigarette smoke causes COPD by irritating the airways and creating inflammation that narrows the airways, making it more difficult to breathe. Cigarette smoke also causes the cilia to stop working properly so mucus and trapped particles are not cleaned from the airways. As a result, chronic cough and excess mucus production develop, leading to chronic bronchitis. In some people, chronic bronchitis and infections can lead to destruction of the small airways, or emphysema. AAT deficiency, an inherited disorder, can also lead to emphysema. Alpha antitrypsin (AAT) is a protective material produced in the liver and transported to the lungs to help combat inflammation. When there is not enough of the chemical AAT, the body is no longer protected from an enzyme in the white blood cells. How is COPD diagnosed? To diagnose COPD, the physician needs to know: ? Do you smoke? ? Have you had chronic exposure to dust or air pollutants? ? Do other members of your family have lung disease? ? Are you short of breath? ? Do you get short of breath with exercise? ? Do you have chronic cough and/or wheezing? ? Do you cough up excess mucus? To help with the diagnosis, the physician will conduct a thorough physical exam which includes: ? Listening to your lungs and heart ? Checking your blood pressure and pulse ? Examining your nose and throat ? Checking your feet and ankles for swelling Laboratory and other tests Several laboratory and other tests are needed to confirm a diagnosis of COPD. These tests may include: ? Chest X-ray to look for lung changes that could be caused by COPD ? Spirometry and pulmonary function tests (PFTs) to determine lung volume and air flow ? Pulse oximetry to measure the saturation of oxygen in the blood ? Arterial blood gases (ABGs) to determine the amount of oxygen and carbon dioxide in the blood ? Exercise testing to determine if the oxygen level in the blood drops during exercise Treatment In the beginning stages of COPD, there is minimal shortness of breath that may be noticed only during exercise. As the disease progresses, shortness of breath may worsen and you may need to wear an oxygen device. To help control other symptoms of COPD, the following treatments and lifestyle changes may be prescribed. ? Quitting smoking ? Avoiding cigarette smoke and other irritants ? Taking medications including: a. bronchodilators b. anti-inflammatory agents c. oxygen d. antibiotics ? Maintaining a healthy diet ? Following a structured exercise program ? Preventing respiratory infections ? Controlling stress If your COPD progresses, you may be eligible to be evaluated for lung volume reduction surgery or lung transplantation. You may also be eligible to participate in certain clinical trials (research studies). Ask your health care providers about studies being conducted in your hospital. What is the outlook? Although COPD can not be cured, its symptoms can be treated and your quality of life can be improved. Your prognosis or outlook for the future will depend on how well your lungs are functioning, your symptoms, and how well you respond to and follow your treatment plan. Prescriptions ordered this encounter Disp Refills Start End PREDNISONE 10 MG TABLET 21 t* 0 09/04/2017 09/13/2017 Sig: Take 4 tabs daily for 3 days, then 2 tabs daily for 3 days, then 1 tab daily for 3 days with food. AZITHROMYCIN 250 MG TABLET 1 Pa* 0 09/04/2017 09/09/2017 Sig: Take 2 tablets day one, then, 1 tablet daily until gone. [id number] 2* 240 * 0 09/04/2017 09/11/2017 Route: ORAL Sig: Take 10 mL by mouth four times daily as needed for up to 7 days. Disposition: Return if symptoms worsen or fail to improve. Follow-up and Disposition History Recorded Encounter Status:Closed by SIMONE THOMAS on 09/09/17 PROGRESS Observed: 08/16/2017 Status: COMPLETED Source: [place] 4:03 PM [facility] REPOSITORY HNO ID: [id number] Author: Nazia (Cherise) Older Service: (none) Author Type: Nurse Practitioner Type: Progress Notes Filed: 08/16/2017 4:39 PM Note Text: CC: Patient presents with: Sore Throat: 3 days HPI: Josette Romero is a 76 year old female who presents to the office with complaint of sore throat since last night. Symptoms are staying the same. Associated symptoms includes rhinorrhea and intermittent right ear pain. Chronic cough, wheezing and SOB secondary to COPD that are no worse than usual Denies nasal congestion, facial pain/pressure, headache, fever. Treatments tried include gargling with salt water and Ibuprofen with temporary relief of symptoms. Sick contacts: no. History of asthma, frequent episodes of bronchitis, chronic bronchitis, bronchiectasis or COPD: Yes COPD Smoker: No Seasonal/environmental allergies: Yes. Takes Claritin and Singulair, symptoms improve temporarily after taking The ROS is otherwise negative. The patient's pmh, medications, allergies, and past visits are reviewed. PHYSICAL EXAM: BP 112/76 Pulse 92 Temp 36.7 ?C (98 ?F) (Tympanic) Resp 24 Wt 70.8 kg (156 lb) BMI 27.63 kg/m2 General appearance: healthy, alert, cooperative, pleasant, in no acute distress Head: Normocephalic Eyes: conjunctiva pink and moist, no icterus, sclera white, non-injected Ears: Right ear: External ear/canal- Normal, TM - clear with good landmarks. Left ear: External ear/canal- Normal, TM - clear with good landmarks Nose: clear, no sinus tenderness. Oropharynx: Posterior pharynx mildly injected. No exudates or tonsillar hypertrophy. Neck:supple and no adenopathy Heart: Negative. RRR without obvious murmur, gallop, or rubs. No ectopy. Lungs: clear to auscultation, without rales or wheeze, good air exchange ASSESSMENT/PLAN: 1. Sore throat - ICD9: 462, ICD10: J02.9 - suspect secondary to post nasal drip - Rapid Strep negative in the office today - Discussed supportive care treatment with fluids, rest and analgesia. - The patient may also use warm salt water gargles, throat lozenges and/or OTC throat spray as needed. - The patient should follow up in 5-7 days if symptoms persist or worsen - RAPID STREP TEST B/O Prescription instructions reviewed with patient as applicable. Potential red flag symptoms discussed with the patient. Reviewed appropriate action plan to take if red flag symptoms occur. Patient agreeable to treatment plan. Nazia Pierre CNP CNOV Observed: 08/16/2017 Status: COMPLETED Source: [place] 3:30 PM [facility] REPOSITORY Office Visit ([facility]) JOSETTE ROMERO ([id number]) 1940 F Date Time Provider Department 08/16/17 3:30 PM NAZIA PIERRE (CHERISE) [facility] During your visit today, we recorded the following information about you: Temperature Pulse Respiration Blood pressure 98 degrees 92/minute 24/minute 112/76 Weight 70.8 kg Nazia Pierre CNP 08/16/2017 4:39 PM Signed CC: Patient presents with: Sore Throat: 3 days HPI: Josette E Heather is a 76 year old female who presents to the office with complaint of sore throat since last night. Symptoms are staying the same. Associated symptoms includes rhinorrhea and intermittent right ear pain. Chronic cough, wheezing and SOB secondary to COPD that are no worse than usual Denies nasal congestion, facial pain/pressure, headache, fever. Treatments tried include gargling with salt water and Ibuprofen with temporary relief of symptoms. Sick contacts: no. History of asthma, frequent episodes of bronchitis, chronic bronchitis, bronchiectasis or COPD: Yes COPD Smoker: No Seasonal/environmental allergies: Yes. Takes Claritin and Singulair, symptoms improve temporarily after taking The ROS is otherwise negative. The patient's pmh, medications, allergies, and past visits are reviewed. PHYSICAL EXAM: BP 112/76 Pulse 92 Temp 36.7 ?C (98 ?F) (Tympanic) Resp 24 Wt 70.8 kg (156 lb) BMI 27.63 kg/m2 General appearance: healthy, alert, cooperative, pleasant, in no acute distress Head: Normocephalic Eyes: conjunctiva pink and moist, no icterus, sclera white, non-injected Ears: Right ear: External ear/canal- Normal, TM - clear with good landmarks. Left ear: External ear/canal- Normal, TM - clear with good landmarks Nose: clear, no sinus tenderness. Oropharynx: Posterior pharynx mildly injected. No exudates or tonsillar hypertrophy. Neck:supple and no adenopathy Heart: Negative. RRR without obvious murmur, gallop, or rubs. No ectopy. Lungs: clear to auscultation, without rales or wheeze, good air exchange ASSESSMENT/PLAN: 1. Sore throat - ICD9: 462, ICD10: J02.9 - suspect secondary to post nasal drip - Rapid Strep negative in the office today - Discussed supportive care treatment with fluids, rest and analgesia. - The patient may also use warm salt water gargles, throat lozenges and/or OTC throat spray as needed. - The patient should follow up in 5-7 days if symptoms persist or worsen - RAPID STREP TEST B/O Prescription instructions reviewed with patient as applicable. Potential red flag symptoms discussed with the patient. Reviewed appropriate action plan to take if red flag symptoms occur. Patient agreeable to treatment plan. CHERISE Thomas CNP 08/16/2017 4:10 PM Signed General: - Home care is usually sufficient. - Use gargles to relieve throat pain. Prepare double-strength tea, hot or cold, or a salt-water solution (1 teaspoon salt in 8 oz. warm water). Use to gargle as often as you wish. - Use a cool-mist, ultrasonic humidifier to increase air moisture. This will relieve the dry, tight feeling in the throat. Clean humidifier daily. - Replace your toothbrush. It may harbor germs. - Until infection is gone, use separate washcloths; don't share food. - It is not abnormal for a viral infection to be symptomatic for a week. Medication: - For minor discomfort, you may use non-prescription drugs such as acetaminophen. Don't give aspirin to a child for any viral illness. Studies link its use with the development of Marshall's syndrome. - Non-prescription throat lozenges may help ease discomfort. Activity: -Limited activity is necessary until symptoms disappear. Diet: - Extra fluids are necessary. Drink at least 8 glasses of fluid daily, more for high fevers. - If swallowing solid food is painful, try a liquid or soft diet for a few days. Notify our office if the following occur during treatment: breathing or swallowing difficulty, fever or severe headache, thick mucus drainage from the nose, skin rash, dark urine, chest pain, or cough that produces green, yellow, brown, or bloody sputum. Referring Provider: SELF [200] Allergies As of Date: 08/16/2017 Noted Allergy Reaction CELEBREX (CELECOXIB) 05/13/2005 DICLOFENAC 05/01/2017 1 - Mental Status Change DOXYCYCLINE 05/13/2005 2 - Rash Comments: photosensitivity MONUROL (FOSFOMYCIN TROMETHAMINE) 05/13/2005 TAVIST D [Other] 05/13/2005 ZOCOR (SIMVASTATIN) 05/13/2005 14 - Other: See Comments Comments: bone pain Date Reviewed: 08/16/2017 Reviewed by: Mariela Lambert LPN - Fully Assessed Reason for Visit: Sore Throat [200] Cmt: 3 days Primary Visit Diagnosis:Sore throat [J02.9] Order(s):RAPID STREP TEST B/O [[id number]] Order #: [id number] Prescriptions as of 08/16/2017 Sig: LORAZEPAM 0.5 MG TABLET Take 1 tablet by mouth twice * BACLOFEN 10 MG TABLET Take 1 tablet by mouth twice * LISINOPRIL 10 MG TABLET Take 1 tablet by mouth once d* ATORVASTATIN 20 MG TABLET TAKE 1 TABLET BY MOUTH ONCE D* LATANOPROST 0.005 % EYE DROPS 1 Drop daily at bedtime. BRIMONIDINE 0.2% - TIMOLOL 0.* 1 Drop once daily. BUDESONIDE-FORMOTEROL HFA 160* Inhale 2 Puffs as instructed * MONTELUKAST 10 MG TABLET Take 1 tablet by mouth daily * FLUTICASONE 50 MCG/ACTUATION * Use 2 Sprays in each nostril * TOLTERODINE ER 4 MG CAPSULE,E* Take 1 capsule by mouth once * MELATONIN 5 MG TABLET 5 mg by mouth 1-2 hours prior* SPIRIVA RESPIMAT INHALATION Inhale as instructed. LACTULOSE 10 GRAM/15 ML ORAL * TAKE 30 ML BY MOUTH TWICE DELMAR* COMPOUNDED PRESCRIPTION Nebulizer supplies: Dx: J* IPRATROPIUM-ALBUTEROL 0.5 MG-* Inhale 3 mL as instructed fou* ALBUTEROL SULFATE HFA 90 MCG/* Inhale 2 Puffs as instructed * ATORVASTATIN 20 MG TABLET Take 20 mg by mouth once bk* CALCIUM CARBONATE 500 MG (1,2* Take 1 tablet by mouth three * OXYCODONE ER 20 MG TABLET,CRU* Take 1 tablet by mouth every * HYDROCORTISONE ACETATE 25 MG * 1 Suppository by RECTAL route* LEVOTHYROXINE 112 MCG TABLET TAKE 1 TABLET BY MOUTH EVERY * ALENDRONATE 70 MG TABLET Take 1 tablet by mouth once e* COMPOUNDED PRESCRIPTION 1 Each four times daily. NEBU* IBUPROFEN 600 MG TABLET Take 1 tablet by mouth every * BIMATOPROST 0.01 % EYE DROPS 1 drop bith eyes at night. Problem List As Of Date 08/16/2017 Noted Resolved Hypothyroidism [E03.9] Osteoporosis [M81.0] INVALID FOR* Vitamin D deficiency [E55.9] INVALID FOR* COPD (chronic obstructive pulmonary disease) (H*INVALID FOR* Adjustment reaction with anxiety and depression*INVALID FOR* BPV (benign positional vertigo) [H81.10] INVALID FOR* Pleural effusion, right [J90] INVALID FOR*07/04/2016 Apical lung scarring [J98.4] INVALID FOR* Hyperlipidemia LDL goal <100 [E78.5] INVALID FOR* Family history of breast cancer in mother [Z80.*INVALID FOR* Vertebral compression fracture (HCC) [M48.50XA] INVALID FOR*11/11/2016 Diverticulosis of large intestine without hemor*INVALID FOR* Impaired fasting glucose [R73.01] INVALID FOR* Chronic prescription opiate use [Z79.891] INVALID FOR* Essential hypertension [I10] INVALID FOR* Degeneration of lumbar intervertebral disc [M51*INVALID FOR* Lumbar spondylosis [M47.816] INVALID FOR* Other instructions from your clinician: General: - Home care is usually sufficient. - Use gargles to relieve throat pain. Prepare double-strength tea, hot or cold, or a salt-water solution (1 teaspoon salt in 8 oz. warm water). Use to gargle as often as you wish. - Use a cool-mist, ultrasonic humidifier to increase air moisture. This will relieve the dry, tight feeling in the throat. Clean humidifier daily. - Replace your toothbrush. It may harbor germs. - Until infection is gone, use separate washcloths; don't share food. - It is not abnormal for a viral infection to be symptomatic for a week. Medication: - For minor discomfort, you may use non-prescription drugs such as acetaminophen. Don't give aspirin to a child for any viral illness. Studies link its use with the development of Marshall's syndrome. - Non-prescription throat lozenges may help ease discomfort. Activity: -Limited activity is necessary until symptoms disappear. Diet: - Extra fluids are necessary. Drink at least 8 glasses of fluid daily, more for high fevers. - If swallowing solid food is painful, try a liquid or soft diet for a few days. Notify our office if the following occur during treatment: breathing or swallowing difficulty, fever or severe headache, thick mucus drainage from the nose, skin rash, dark urine, chest pain, or cough that produces green, yellow, brown, or bloody sputum. Encounter Status:Closed by NAZIA PIERRE CNP on 08/16/17 MT - INDIVIDUAL Observed: 06/11/2017 Status: F Source: [facility] [facility] 6:47 AM [facility] Pulmonary Rehab Reports [address] [place] [address] MT - Individual Treatment Plan MR#: [id number] Acct: [id number] Name: JOSETTE ROMERO Rep #: [id number] : 1940 76 From: Kole Stone FRAMING MANAGER, [employer] D[employer] TRAINING INSTRUCTOR, BS PCP: Sara FUNK MD,Doug Exercise - 60-Day Assessment - Current Level Mode:: Treadmill, NuStep, Arm Ergometer Frequency (x/week): 3 - Has missed since 05/20/17 due to wrist fracture Duration:: 35 Aerobic Exercise [30-60 min 3-7x/week]:: Not progressing Target heart rate: 102 - THRR 87-102 max HR 109 Julien MET Level:: 4 - Home Exercise Home Exercise:: No Disease Management - 60-Day - Medications Medication list reviewed:: Yes Taking medications 100% of the time:: Met Medication reassessment: Yes Pt demonstrates correct technique timing for MDI, Yes Pt demonstrates correct technique timing for DPI, Yes Pt demonstrates correct technique timing for NEB, Yes Pt demonstrates correct technique timing for spacer - Bronchial Hygiene Bronchial Hygiene Plan: Yes Pt demonstrates correctly for effective cough - returned demnstration of proper stock cough technique., Yes Pt demo correct for device - returns demonstration of acapella use, Yes Pt demo correct for improved hydration, Yes Pt demo correct for hand hygiene, Yes Pt demo correct for verbalize when to call MD Psychosocial - 60-Day - Assessment Depression reassess: Management of stress: Met, Management of depression: Met, Practicing interventions: Met Tobacco - 60-Day Assessment - Program Goals Tobacco Program Goals: Complete smoking cessation. Attend education classes. Improve Knowledge Test score - Stage of Change Stages of Change:: Action - Learning Barriers Learning Barriers: Participates in education - Family Support Do you have family support?: Yes - Tobacco Use Tobacco Use: Non-smoker Do you use smokeless tobacco?: No - Intervention Smoking Cessation Referral:: No Individual Education/Counseling:: No Education Schedule Given:: Yes - Education Gave Education Materials For:: Pulmonary Disease, Risk Factors, Breathing Techniques, Medical Compliance, Pulmonary A AND P, Exacerbation Signs AND Symptoms, Stress AND Relaxation Nutrition/Wt Mgmt - 60-Day - Weight Management Weight Assessment:: Wt stable Weight:: 71.62 kg Weight Goals Progress:: Not progressing Patient Health Questionnaire 60-Day Re-eval Assessment 1. Little interest or pleasure in doing things: Not at all 2. Feeling down, depressed, or hopeless: Not at all 3. Trouble falling or staying asleep, or sleeping too much: Not at all 4. Feeling tired or having little energy: Not at all 5. Poor appetite or overeating: Not at all 6. Feeling bad about yourself -- or that you are a failure or have let yourself or your family down: Not at all 7. Trouble concentrating on things, such as reading the newspaper or watching television: Not at all 8. Moving or speaking so slowly that other people could have noticed. Or the opposite - being so fidgety or restless that you have been moving around a lot more than usual: Not at all 9. Thoughts that you would be better off , or of hurting yourself in some way: Not at all How difficult have these problems made it for you to do your work, take care of things at home, or get along with other people?: Not difficult at all Total Score: 0 COPD Assessment Test [CAT] - Questions Never cough = 0, Cough all the time = 5: 0 No phlegm = 0, Chest full of phlegm = 5: 1 No chest tightness = 0, Chest very tight = 5: 0 No breathless w/exertion = 0, Very breathless w/exertion = 5: 1 No limitations w/activity = 0, Very limited w/activity = 5: 1 Confident leaving home = 0, Not at all confident = 5: 0 Sleep soundly = 0, Don't sleep soundly = 5: 0 Lots of energy = 0, No energy at all = 5: 1 Total CAT score:: 4 Self-Efficacy 60-Day Re-eval Assessment We would like to know how confident you are in doing certain activities. Please select your confidence level for:: Select your confidence level for the following using the scale 1-10 where 1 is not at all confident and 10 is totally confident. Your score is the average of all 6 responses. Fatigue: How confident are you that you can keep the fatigue caused by your disease from interfering with the things you want to do? Select Number: 10 Physical Discomfort or Pain: How confident are you that you can keep the physical discomfort or pain of your disease from interfering with the things you want to do? Select Number: 9 Emotional Distress: How confident are you that you can keep the emotional distress caused by your disease from interfering with the things you want to do? Select Number: 10 Other Symptoms or Health Problems: How confident are you that you can keep other symptoms or health problems from interfering with the things you want to do? Select Number: 10 Different Tasks and Activities: How confident are you that you can do the different tasks and activities needed to manage your health condition so as to reduce your need to see a doctor? Select Number: 10 Medication: How confident are you that you can do things other than just taking medication to reduce how much your illness affects your everyday life? Select Number: 10 Total Score:: 9 06/04/17 0718 <Electronically signed by Kole Stone CRT, RCP, BS> Date Kole Stone CRT, RCP, DINESH Outcome assessment reviewed. Exercise plan approved as documented. Treatment plan and goals support patient needs/abilities. Continue with current plan. I certify the patient demonstrates improvement and remains willing and capable of participation. the patient continues to benefit from pulmonary services/training. The patient may continue at current intensity, endurance and modality and progress per protocol. 06/11/17 0647<Electronically signed by Todd Manrique MD> Cosigner Signature: Date Todd Manrique MD CC: Signed OBSOLETE Observed: 06/02/2017 Status: COMPLETED Source: [place] 12:00 AM [facility] Refill ([facility]) JOSETTE ROMERO ([id number]) 1940 F Date Time Provider Department 06/02/17 [facility] During your visit today, we recorded the following information about you: Erica White Psr 06/02/2017 10:46 AM Signed Patient has been identified by name and date of : Yes RX INSTRUCTIONS: patient has 1 tab left Patient aware RX will be sent to pharmacy. No need to notify patient. Erica White Psr Vijay Vásquez, SIGNALS ANALYST, SIGNALS ANALYST 06/02/2017 11:58 AM Signed Ok to fill as written. [facility] website checked and validated. All prescriptions have been APPROPRIATELY filled. No suspicious activity was identified.- 06/02/2017 by CHERISE Dotson CNP Kathryn Rowland Ma 06/02/2017 12:17 PM Signed The following prescriptions have been called to [facility] pharmacy 06/02/2017 at 12:17 PM by Emily Reveles Ma. I spoke with MARGARITO in the pharmacy. Signed Prescriptions Disp Refills LORazepam (ATIVAN) 0.5 mg tab 100 tablet 0 Sig: Take 1 tablet by mouth twice daily as needed for up to 50 days. TONY Class: C-IV ROMMEL: No Authorizing Provider: VIJAY VÁSQUEZ (CHERISE) Allergies As of Date: 06/02/2017 Noted Allergy Reaction CELEBREX (CELECOXIB) 05/13/2005 DICLOFENAC 05/01/2017 1 - Mental Status Change DOXYCYCLINE 05/13/2005 2 - Rash Comments: photosensitivity MONUROL (FOSFOMYCIN TROMETHAMINE) 05/13/2005 BRYCE Cavazos [Other] 05/13/2005 ZOCOR (SIMVASTATIN) 05/13/2005 14 - Other: See Comments Comments: bone pain Date Reviewed: 05/01/2017 Reviewed by: Natty Hinojosa Ma - Fully Assessed Reason for Visit: Refill Request [94] Primary Visit Diagnosis:Adjustment reaction with anxiety and depression [F43.23] Order(s):LORazepam (ATIVAN) 0.5 mg tabTake 1 tablet by mouth twice daily as needed for up to 50 days.Disp: 100 tabletRfl: 0 Prescriptions as of 06/02/2017 Sig: LORAZEPAM 0.5 MG TABLET Take 1 tablet by mouth twice * BACLOFEN 10 MG TABLET Take 1 tablet by mouth twice * LISINOPRIL 10 MG TABLET Take 1 tablet by mouth once d* ATORVASTATIN 20 MG TABLET TAKE 1 TABLET BY MOUTH ONCE D* LATANOPROST 0.005 % EYE DROPS 1 Drop daily at bedtime. BRIMONIDINE 0.2% - TIMOLOL 0.* 1 Drop once daily. BUDESONIDE-FORMOTEROL HFA 160* Inhale 2 Puffs as instructed * MONTELUKAST 10 MG TABLET Take 1 tablet by mouth daily * FLUTICASONE 50 MCG/ACTUATION * Use 2 Sprays in each nostril * TOLTERODINE ER 4 MG CAPSULE,E* Take 1 capsule by mouth once * MELATONIN 5 MG TABLET 5 mg by mouth 1-2 hours prior* SPIRIVA RESPIMAT INHALATION Inhale as instructed. LACTULOSE 10 GRAM/15 ML ORAL * TAKE 30 ML BY MOUTH TWICE DELMAR* COMPOUNDED PRESCRIPTION Nebulizer supplies: Dx: J* IPRATROPIUM-ALBUTEROL 0.5 MG-* Inhale 3 mL as instructed fou* ALBUTEROL SULFATE HFA 90 MCG/* Inhale 2 Puffs as instructed * ATORVASTATIN 20 MG TABLET Take 20 mg by mouth once bk* CALCIUM CARBONATE 500 MG (1,2* Take 1 tablet by mouth three * OXYCODONE ER 20 MG TABLET,CRU* Take 1 tablet by mouth every * HYDROCORTISONE ACETATE 25 MG * 1 Suppository by RECTAL route* LEVOTHYROXINE 112 MCG TABLET TAKE 1 TABLET BY MOUTH EVERY * ALENDRONATE 70 MG TABLET Take 1 tablet by mouth once e* COMPOUNDED PRESCRIPTION 1 Each four times daily. NEBU* IBUPROFEN 600 MG TABLET Take 1 tablet by mouth every * BIMATOPROST 0.01 % EYE DROPS 1 drop bith eyes at night. Problem List As Of Date 06/02/2017 Noted Resolved Hypothyroidism [E03.9] Osteoporosis [M81.0] INVALID FOR* Vitamin D deficiency [E55.9] INVALID FOR* COPD (chronic obstructive pulmonary disease) (H*INVALID FOR* Adjustment reaction with anxiety and depression*INVALID FOR* BPV (benign positional vertigo) [H81.10] INVALID FOR* Pleural effusion, right [J90] INVALID FOR*07/04/2016 Apical lung scarring [J98.4] INVALID FOR* Hyperlipidemia LDL goal <100 [E78.5] INVALID FOR* Family history of breast cancer in mother [Z80.*INVALID FOR* Vertebral compression fracture (HCC) [M48.50XA] INVALID FOR*11/11/2016 Diverticulosis of large intestine without hemor*INVALID FOR* Impaired fasting glucose [R73.01] INVALID FOR* Chronic prescription opiate use [Z79.891] INVALID FOR* Essential hypertension [I10] INVALID FOR* Degeneration of lumbar intervertebral disc [M51*INVALID FOR* Lumbar spondylosis [M47.816] INVALID FOR* Prescriptions ordered this encounter Disp Refills Start End LORAZEPAM 0.5 MG TABLET 100 * 0 06/02/2017 07/22/2017 Class: Call Rx Route: ORAL Sig: Take 1 tablet by mouth twice daily as needed for up to 50 days. Medications Discontinued During This Encounter LORazepam (ATIVAN) 0.5 mg tab 100 * 0 04/14/2017 06/02/2017 Class: Call Rx Route: ORAL Sig: Take 1 tablet by mouth twice daily as needed. Disc: Reason for discontinue is not on file. Encounter Status:Closed by EMILY RVEELES MA on 06/02/17 OBSOLETE Observed: 05/28/2017 Status: COMPLETED Source: [place] 12:00 AM [facility] JOSETTE ROMERO ([id number]) 1940 F Date Time Provider Department 05/28/17 DOUG RUIZ III During your visit today, we recorded the following information about you: Trent Millan LPN 05/28/2017 1:21 PM Signed Last ov 05/01/17 Upcoming appt 10/29/16 Last refill 03/24/17 Given 60 with 2 refills. Trent Millan LPN Allergies As of Date: 05/28/2017 Noted Allergy Reaction CELEBREX (CELECOXIB) 05/13/2005 DICLOFENAC 05/01/2017 1 - Mental Status Change DOXYCYCLINE 05/13/2005 2 - Rash Comments: photosensitivity MONUROL (FOSFOMYCIN TROMETHAMINE) 05/13/2005 BRYCE Cavazos [Other] 05/13/2005 ZOCOR (SIMVASTATIN) 05/13/2005 14 - Other: See Comments Comments: bone pain Date Reviewed: 05/01/2017 Reviewed by: Natty Hinojosa Ma - Fully Assessed Reason for Visit: Refill Request [94] Order(s):baclofen (LIORESAL) 10 mg tabletTake 1 tablet by mouth twice daily.Disp: 60 tabletRfl: 5 Prescriptions as of 05/28/2017 Sig: BACLOFEN 10 MG TABLET Take 1 tablet by mouth twice * LISINOPRIL 10 MG TABLET Take 1 tablet by mouth once d* ATORVASTATIN 20 MG TABLET TAKE 1 TABLET BY MOUTH ONCE D* LATANOPROST 0.005 % EYE DROPS 1 Drop daily at bedtime. BRIMONIDINE 0.2% - TIMOLOL 0.* 1 Drop once daily. BUDESONIDE-FORMOTEROL HFA 160* Inhale 2 Puffs as instructed * MONTELUKAST 10 MG TABLET Take 1 tablet by mouth daily * FLUTICASONE 50 MCG/ACTUATION * Use 2 Sprays in each nostril * TOLTERODINE ER 4 MG CAPSULE,E* Take 1 capsule by mouth once * MELATONIN 5 MG TABLET 5 mg by mouth 1-2 hours prior* LORAZEPAM 0.5 MG TABLET Take 1 tablet by mouth twice * SPIRIVA RESPIMAT INHALATION Inhale as instructed. LACTULOSE 10 GRAM/15 ML ORAL * TAKE 30 ML BY MOUTH TWICE DELMAR* COMPOUNDED PRESCRIPTION Nebulizer supplies: Dx: J* IPRATROPIUM-ALBUTEROL 0.5 MG-* Inhale 3 mL as instructed fou* ALBUTEROL SULFATE HFA 90 MCG/* Inhale 2 Puffs as instructed * ATORVASTATIN 20 MG TABLET Take 20 mg by mouth once bk* CALCIUM CARBONATE 500 MG (1,2* Take 1 tablet by mouth three * OXYCODONE ER 20 MG TABLET,CRU* Take 1 tablet by mouth every * HYDROCORTISONE ACETATE 25 MG * 1 Suppository by RECTAL route* LEVOTHYROXINE 112 MCG TABLET TAKE 1 TABLET BY MOUTH EVERY * ALENDRONATE 70 MG TABLET Take 1 tablet by mouth once e* COMPOUNDED PRESCRIPTION 1 Each four times daily. NEBU* IBUPROFEN 600 MG TABLET Take 1 tablet by mouth every * BIMATOPROST 0.01 % EYE DROPS 1 drop bith eyes at night. Problem List As Of Date 05/28/2017 Noted Resolved Hypothyroidism [E03.9] Osteoporosis [M81.0] INVALID FOR* Vitamin D deficiency [E55.9] INVALID FOR* COPD (chronic obstructive pulmonary disease) (H*INVALID FOR* Adjustment reaction with anxiety and depression*INVALID FOR* BPV (benign positional vertigo) [H81.10] INVALID FOR* Pleural effusion, right [J90] INVALID FOR*07/04/2016 Apical lung scarring [J98.4] INVALID FOR* Hyperlipidemia LDL goal <100 [E78.5] INVALID FOR* Family history of breast cancer in mother [Z80.*INVALID FOR* Vertebral compression fracture (HCC) [M48.50XA] INVALID FOR*11/11/2016 Diverticulosis of large intestine without hemor*INVALID FOR* Impaired fasting glucose [R73.01] INVALID FOR* Chronic prescription opiate use [Z79.891] INVALID FOR* Essential hypertension [I10] INVALID FOR* Degeneration of lumbar intervertebral disc [M51*INVALID FOR* Lumbar spondylosis [M47.816] INVALID FOR* Prescriptions ordered this encounter Disp Refills Start End BACLOFEN 10 MG TABLET 60 t* 5 05/28/2017 11/24/2017 Route: ORAL Sig: Take 1 tablet by mouth twice daily. Medications Discontinued During This Encounter baclofen (LIORESAL) 10 mg tablet 60 t* 2 03/24/2017 05/28/2017 Sig: TAKE 1 TABLET BY MOUTH TWICE DAILY. Disc: Reason for discontinue is not on file. Encounter Status:Closed by GERRI ALCARAZ CMA on 05/28/17 OBSOLETE Observed: 05/28/2017 Status: COMPLETED Source: [place] 12:00 AM [facility] Refill ([facility]) JOSETTE ROMERO ([id number]) 1940 F Date Time Provider Department 05/28/17 AARON GIBBS (NA) [facility] During your visit today, we recorded the following information about you: Allergies As of Date: 05/28/2017 Noted Allergy Reaction CELEBREX (CELECOXIB) 05/13/2005 DICLOFENAC 05/01/2017 1 - Mental Status Change DOXYCYCLINE 05/13/2005 2 - Rash Comments: photosensitivity MONUROL (FOSFOMYCIN TROMETHAMINE) 05/13/2005 BRYCE Cavazos [Other] 05/13/2005 ZOCOR (SIMVASTATIN) 05/13/2005 14 - Other: See Comments Comments: bone pain Date Reviewed: 05/01/2017 Reviewed by: Natty Hinojosa Ma - Fully Assessed Reason for Visit: Refill Request [94] Prescriptions as of 05/28/2017 Sig: BACLOFEN 10 MG TABLET Take 1 tablet by mouth twice * LISINOPRIL 10 MG TABLET Take 1 tablet by mouth once d* ATORVASTATIN 20 MG TABLET TAKE 1 TABLET BY MOUTH ONCE D* LATANOPROST 0.005 % EYE DROPS 1 Drop daily at bedtime. BRIMONIDINE 0.2% - TIMOLOL 0.* 1 Drop once daily. BUDESONIDE-FORMOTEROL HFA 160* Inhale 2 Puffs as instructed * MONTELUKAST 10 MG TABLET Take 1 tablet by mouth daily * FLUTICASONE 50 MCG/ACTUATION * Use 2 Sprays in each nostril * TOLTERODINE ER 4 MG CAPSULE,E* Take 1 capsule by mouth once * MELATONIN 5 MG TABLET 5 mg by mouth 1-2 hours prior* LORAZEPAM 0.5 MG TABLET Take 1 tablet by mouth twice * SPIRIVA RESPIMAT INHALATION Inhale as instructed. LACTULOSE 10 GRAM/15 ML ORAL * TAKE 30 ML BY MOUTH TWICE DELMAR* COMPOUNDED PRESCRIPTION Nebulizer supplies: Dx: J* IPRATROPIUM-ALBUTEROL 0.5 MG-* Inhale 3 mL as instructed fou* ALBUTEROL SULFATE HFA 90 MCG/* Inhale 2 Puffs as instructed * ATORVASTATIN 20 MG TABLET Take 20 mg by mouth once bk* CALCIUM CARBONATE 500 MG (1,2* Take 1 tablet by mouth three * OXYCODONE ER 20 MG TABLET,CRU* Take 1 tablet by mouth every * HYDROCORTISONE ACETATE 25 MG * 1 Suppository by RECTAL route* LEVOTHYROXINE 112 MCG TABLET TAKE 1 TABLET BY MOUTH EVERY * ALENDRONATE 70 MG TABLET Take 1 tablet by mouth once e* COMPOUNDED PRESCRIPTION 1 Each four times daily. NEBU* IBUPROFEN 600 MG TABLET Take 1 tablet by mouth every * BIMATOPROST 0.01 % EYE DROPS 1 drop bith eyes at night. Problem List As Of Date 05/28/2017 Noted Resolved Hypothyroidism [E03.9] Osteoporosis [M81.0] INVALID FOR* Vitamin D deficiency [E55.9] INVALID FOR* COPD (chronic obstructive pulmonary disease) (H*INVALID FOR* Adjustment reaction with anxiety and depression*INVALID FOR* BPV (benign positional vertigo) [H81.10] INVALID FOR* Pleural effusion, right [J90] INVALID FOR*07/04/2016 Apical lung scarring [J98.4] INVALID FOR* Hyperlipidemia LDL goal <100 [E78.5] INVALID FOR* Family history of breast cancer in mother [Z80.*INVALID FOR* Vertebral compression fracture (HCC) [M48.50XA] INVALID FOR*11/11/2016 Diverticulosis of large intestine without hemor*INVALID FOR* Impaired fasting glucose [R73.01] INVALID FOR* Chronic prescription opiate use [Z79.891] INVALID FOR* Essential hypertension [I10] INVALID FOR* Degeneration of lumbar intervertebral disc [M51*INVALID FOR* Lumbar spondylosis [M47.816] INVALID FOR* Encounter Status:Closed by ANDERS ARRINGTON LPN on 05/29/17 MT - INDIVIDUAL Observed: 05/26/2017 Status: F Source: [facility] TREATMENT PLAN 5:15 PM [facility] RE[facility]IT[facility] Pulmonary Rehab Reports [address] [place] [address] MT - Individual Treatment Plan MR#: [id number] Acct: [id number] Name: JOSETTE ROMERO Rep #: [id number] : 1940 76 From: Kole Stone FRAMING MANAGER, SCUBA DIVE TRAINING INSTRUCTOR, BS PCP: Doug Ruiz III, MD Exercise - 30-Day Assessment - Exercise Prescription Mode:: Treadmill, Airdyne, NuStep, Arm Ergometer Frequency (x/week): 3 Duration:: 35 Aerobic Exercise [30-60 min 3-7x/week]:: Progressing Target heart rate: 102 - 87-102 w/max HR 116 Julien MET Level:: 3 - 3.0 to 3.5 METs - Home Exercise Home Exercise:: No Disease Management - 30-Day - Medications Medication list reviewed:: Yes Taking medications 100% of the time:: Met Medication reassessment: Yes Pt demonstrates correct technique timing for MDI, Yes Pt demonstrates correct technique timing for DPI, Yes Pt demonstrates correct technique timing for NEB, Yes Pt demonstrates correct technique timing for spacer - Bronchial Hygiene Bronchial Hygiene Plan: Yes Pt demonstrates correctly for effective cough - demonstrates proper STOCK cough technique, Yes Pt demo correct for device - returned demonstration of acapella use, Yes Pt demo correct for improved hydration, Yes Pt demo correct for hand hygiene - uses 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 Attend education classes. Improve Knowledge Test score - Stage of Change Stages of Change:: Action - Learning Barriers Learning Barriers: Participates in education - Family Support Do you have family support?: Yes - Tobacco Use Tobacco Use: Non-smoker Do you use smokeless tobacco?: No - Intervention Smoking Cessation Referral:: No Individual Education/Counseling:: No Education Schedule Given:: Yes - Education Gave Education Materials For:: Pulmonary Disease, Risk Factors, Breathing Techniques, Medical Compliance, Pulmonary A AND P, Exacerbation Signs AND Symptoms, Stress AND Relaxation Nutrition/Wt Mgmt - 30-Day - Weight Management Weight:: 71.441 kg Weight Goals Progress:: Progressing Patient Health Questionnaire 30-Day Re-eval Assessment 1. Little interest or pleasure in doing things: Not at all 2. Feeling down, depressed, or hopeless: Not at all 3. Trouble falling or staying asleep, or sleeping too much: Several days 4. Feeling tired or having little energy: Not at all 5. Poor appetite or overeating: Not at all 6. Feeling bad about yourself -- or that you are a failure or have let yourself or your family down: Not at all 7. Trouble concentrating on things, such as reading the newspaper or watching television: Not at all 8. Moving or speaking so slowly that other people could have noticed. Or the opposite - being so fidgety or restless that you have been moving around a lot more than usual: Not at all 9. Thoughts that you would be better off , or of hurting yourself in some way: Not at all How difficult have these problems made it for you to do your work, take care of things at home, or get along with other people?: Not difficult at all Total Score: 1 COPD Assessment Test [CAT] - Questions Never cough = 0, Cough all the time = 5: 0 No phlegm = 0, Chest full of phlegm = 5: 0 No chest tightness = 0, Chest very tight = 5: 2 No breathless w/exertion = 0, Very breathless w/exertion = 5: 1 No limitations w/activity = 0, Very limited w/activity = 5: 1 Confident leaving home = 0, Not at all confident = 5: 0 Sleep soundly = 0, Don't sleep soundly = 5: 1 Lots of energy = 0, No energy at all = 5: 1 Total CAT score:: 6 Self-Efficacy 30-Day Re-eval Assessment We would like to know how confident you are in doing certain activities. Please select your confidence level for:: Select your confidence level for the following using the scale 1-10 where 1 is not at all confident and 10 is totally confident. Your score is the average of all 6 responses. Fatigue: How confident are you that you can keep the fatigue caused by your disease from interfering with the things you want to do? Select Number: 8 Physical Discomfort or Pain: How confident are you that you can keep the physical discomfort or pain of your disease from interfering with the things you want to do? Select Number: 9 Emotional Distress: How confident are you that you can keep the emotional distress caused by your disease from interfering with the things you want to do? Select Number: 10 Other Symptoms or Health Problems: How confident are you that you can keep other symptoms or health problems from interfering with the things you want to do? Select Number: 9 Different Tasks and Activities: How confident are you that you can do the different tasks and activities needed to manage your health condition so as to reduce your need to see a doctor? Select Number: 8 Medication: How confident are you that you can do things other than just taking medication to reduce how much your illness affects your everyday life? Select Number: 10 Total Score:: 9 05/05/17 1149 <Electronically signed by Kole Stone CRT, RCP, BS> Date Kole Stone CRT, RCP, BS Outcome assessment reviewed. Exercise plan approved as documented. Treatment plan and goals support patient needs/abilities. Continue with current plan. I certify the patient demonstrates improvement and remains willing and capable of participation. the patient continues to benefit from pulmonary services/training. The patient may continue at current intensity, endurance and modality and progress per protocol. 05/26/17 8181<Electronically signed by Kulwant Gibbs MD> Cosigner Signature: Date Kulwant Gibbs MD CC: Signed ALLERGIES ALLERGIES DATE TYPE / CODE NAME / CODE REACTION SEVERITY SOURCE Drug pseudoephedrine Unknown Unknown [place] 8 Allergy/959407742( HCl/Z834995381(RXNOR [facility]) ) Hospital Repository Drug clemastine Unknown Unknown [place] 8 Allergy/913824317( fumarate/D777279303( Community SNOMED CT) RXNORM) Hospital Repository Drug fosfomycin Unknown Unknown [place] 8 Allergy/022791442( tromethamine/Y348276 Community SNOM[facility]) 468(RXNORM) Hospital Repository Drug acetaminophen/G27119 Unknown Unknown [place] 8 Allergy/388217531( 1605(RXNORM) Community SNOM[facility]) Hospital Repository Drug doxycycline/W7137783 Other Unknown [place] 8 Allergy/691741340( 48(RXNORM) Community SNOMED CT) Hospital Repository Drug simvastatin/H7254214 Pain in Unknown [place] 8 Allergy/136441464( 21(RXNORM) joints [facility] SN[facility]) Hospital Repository Drug celecoxib/U339922388 Upset Unknown [place] 8 Allergy/716962549( (RXNORM) Stomach [facility] SN[facility]) Hospital Repository DRUG DICLOFENAC Mental [facility] 7 INGREDI/794121569( Clinic Main SNOMED CT) [place] Repository Drug pseudoephedrine Unknown [place] 5 Allergy/620367713( HCl/D865438182(RXNOR [facility]) ) Hospital Repository Drug clemastine Unknown [place] 5 Allergy/927325156( fumarate/I295205498( Community SNOM[facility] CT) RXNORM) Hospital Repository Drug fosfomycin Unknown [place] 5 Allergy/847359620( tromethamine/D363354 Community SNOM[facility]) 468(RXNORM) Hospital Repository Drug acetaminophen/E66112 Unknown [place] 5 Allergy/783762594( 1605(RXNORM) Community SNOM[facility]) Hospital Repository Drug doxycycline/G1516573 Other [place] 5 Allergy/458146465( 48(RXNORM) Community SNOM[facility]) Hospital Repository Drug simvastatin/C7094160 Pain in [place] 5 Allergy/618135741( 21(RXNORM) joints [facility] SNOM[facility]) Hospital Repository Drug celecoxib/U485677054 Upset [place] 5 Allergy/140396625( (RXNORM) Stomach [facility] SN[facility]) Hospital Repository DRUG CELECOXIB [place] 5 INGREDI/156627152( Clinic Main SNOMED CT) [place] Repository DRUG DOXYCYCLINE [place] [address] INGREDI/019892173( Clinic Main SNOMED CT) [place] Repository DRUG FOSFOMYCIN [place] [address] INGREDI/486948781( TROMETHAMINE Clinic Main SNOMED CT) [place] Repository Miscellaneous OTHER [place] [address] Allergy/662063368( Clinic Main SNOMED CT) [place] Repository DRUG SIMVASTATIN OTHER: SEE C [place] [address] INGREDI/048389084( Clinic Main SNOMED CT) [place] Repository ENCOUNTERS ENCOUNTERS ADMIT/DISCHARGE ACCOUNT NUMBER ADMITTING ENCOUNTER LOCATION SOURCE CLASS 05/25/2018 [id number] Ambulatory BMSBuilding: [place] [facility] Repository 05/19/2018 [id number] Ambulatory BMSBuilding: [place] [facility]MS.[facility] Repository 05/19/2018 [id number] Ambulatory General acute hospital ding:[facility]IRAD Repository 05/14/2018/05/14/20 [id number] Ambulatory BMSBuilding: [place] 18 [facility]MS[facility] Repository 05/05/2018/05/05/20 [id number] Ambulatory [address] Repository 05/04/2018 [id number] Ambulatory BMSBuilding: [place] [facility] Repository 05/04/2018 [id number] Ambulatory General acute hospital ding:PSN Repository 04/15/2018/04/15/20 [id number] Ambulatory [address] Repository 03/25/2018/03/26/20 [id number] Ambulatory [address] Repository 12/15/2017/12/16/19 [id number] Ambulatory BMSBuilding: [place] 18 BMS.[facility] Repository 11/11/2017/11/12/19 [id number] Ambulatory [address] Repository 11/11/2017/11/13/19 [id number] Ambulatory [address] Repository 10/26/2017/10/27/19 [id number] Ambulatory [place] ding:SDC Repository 09/11/2017 [id number] Ambulatory General acute hospital ding:EPLAB Repository 09/11/2017/09/12/19 [id number] Ambulatory BMSBuilding: [place] 18 BMS[facility] Repository 09/09/2017 [id number] Ambulatory [facility] Repository 09/04/2017/09/11/19 [id number] Ambulatory [address] Repository 08/16/2017/08/18/19 [id number] Ambulatory [address] Repository 08/03/2017/09/30/19 [id number] Ambulatory BBuilding:[address] Repository 07/19/2017 [id number] Ambulatory General acute hospital ding:MT Repository 06/10/2017/07/08/19 [id number] Ambulatory [address] ding:[place] Repository 05/20/2017/06/07/20 [id number] Ambulatory [place] ding:[place] Repository 05/06/2017 [id number] Ambulatory General acute hospital ding:[place] Repository PAYERS PAYERS ENCOUNTER GUARANTOR PAYER SUBSCRIBER SOURCE 05/25/2018 DIONICIO Dempsey Primary JOSETTE E [place] JACOB DANIELS Insurance:MEDICARE FULLERDOB: [facility] PART A [facility] [id number], Number: Repository [place] [address]Jrb: [id number] Date:2018-05-24 () 05/25/2018 Secondary JOSETTE E [place] [facility] Number: [id number] [id number] Repository Date:7243-72-45[address]I, [place] [address]VJ: 05/25/2018 Tertiary NOT GIVENUNK [place] Insurance:SELF PAY [facility] [place] Number: Effective Repository Date:2018-05-25 05/19/2018 DIONICIO L Primary JOSETTE E [place] [id number] PATRICIA Insurance:MEDICARE FULLERDOB: Community [address]PO [address]OX PART A [facility] [id number], Number: [place]ository [place] [id number]: [id number] Date:2018-05-14 () 05/19/2018 Secondary JOSETTE E [place] Insurance:AARPPolicy FULLERDOB: Community Number: [id number] Hospital [id number] Repository Date:5572-68-03ZP [address], [place] [address]DI: 05/19/2018 Tertiary NOT GIVENUNK [place] Insurance:SELF PAY [facility] [place] Number: Effective Repository Date:2018-05-19 05/19/2018 DIONICIO L Primary JOSETTE E [place] [id number] [place] Insurance:MEDICARE FULLERDOB: Community [address]PO BOX PART A [facility] [id number], Number: [place]ository [place] [id number]: [id number] Date:2018-05-14 () 05/19/2018 Secondary JOSETTE E [place] Insurance:AARPPolicy FULLERDOB: Community Number: [id number] Hospital [id number] Repository Date:0803-31-64OI [address]VII[place]KG, [place] [address]ZV: 05/19/2018 Tertiary NOT GIVENUNK [place] Insurance:SELF PAY [facility] [place] Number: Effective Repository Date:2018-05-14 05/14/2018 DIONICIO L Primary JOSETTE E [place] [id number] [place] Insurance:MEDICARE FULLERDOB: Community [address]PO BOX PART A [facility] [id number], Number: Repository [place] [id number]: [id number] Date:2018-05-06 () 05/14/2018 Secondary JOSETTE E [place] Insurance:AARPPolicy FULLERDOB: Community Number: [id number] Hospital [id number] Repository Date:1410-46-30JU [address], [place] [address]QY: 05/14/2018 Tertiary NOT GIVENUNK [place] Insurance:SELF PAY [facility] [place] Number: Effective Repository Date:2018-05-13 05/04/2018 DIONICIO L Primary JOSETTE E [place] [id number] [place] Insurance:MEDICARE FULLERDOB: Community [address]PO BOX PART A [facility] [id number], Number: Repository [place] [id number]: [id number] Date:2017-12-15 () 05/04/2018 Secondary JOSETTE E [place] Insurance:AARPPolicy FULLERDOB: Community Number: [id number] Hospital [id number] Repository Date:4823-15-86EP [address], [place] [address]BW: 05/04/2018 Tertiary NOT GIVENUNK [place] Insurance:SELF PAY [facility] [place] Number: Effective Repository Date:2018-05-04 05/04/2018 DIONICIO L Primary JOSETTE E [place] [id number] [place] Insurance:MEDICARE FULLERDOB: Community DRPO BOX PART A [facility] [id number], Number: Repository [place] [address]Hck: [id number] Date:2017-12-15 () 05/04/2018 Secondary JOSETTE E [place] Insurance:AARPPolicy FULLERDOB: Community Number: [id number] Hospital [id number] Repository Date:5470-30-46LU [address]VFTPZMB, [place] [address]CN: 05/04/2018 Tertiary NOT GIVENUNK [place] Insurance:SELF PAY [facility] [place] Number: Effective Repository Date:2017-12-15 12/15/2017 Arvilla L Primary JOSETTE E [place] [id number] [place] Insurance:MEDICARE FULLERDOB: Community DrP [address] PART A [facility] [id number], Number: Repository [place] [address]Fom: [id number] Date:2017-09-11 () 12/15/2017 Secondary JOSETTE E [place] Insurance:AARPPolicy FULLERDOB: Community Number: [id number] Hospital [id number] Repository Date:6952-68-18WL [address], [place] [address]RN: 12/15/2017 Tertiary NOT GIVENUNK [place] Insurance:SELF PAY [facility] [place] Number: Effective Repository Date:2017-12-07 10/26/2017 Arvilla L Primary JOSETTE E [place] [id number] [place] Insurance:MEDICARE FULLERDOB: Community DrP O Box PART A [facility] [id number], Number: Repository [place] [id number]: [id number] Date:2017-10-21 () 10/26/2017 Secondary JOSETTE E [place] Insurance:AARPPolicy FULLERDOB: Community Number: [id number] Hospital [id number] Repository Date:2869-89-97RY [address], [place] [address]PH: 10/26/2017 Tertiary NOT GIVENUNK [place] Insurance:SELF PAY [facility] [place] Number: Effective Repository Date:2017-10-21 09/11/2017 Arvilla L Primary JOSETTE E [place] [id number] [place] Insurance:MEDICARE FULLERDOB: Community DrP [address] PART A [facility] [id number], Number: Repository [place] [address]Egl: [id number] Date:2017-09-11 () 09/11/2017 Secondary JOSETTE E [place] Insurance:AARPPolicy FULLERDOB: Community Number: [id number] Hospital [id number] Repository Date:8064-89-09RB [address]XQNBLC, [place] [address]XA: 09/11/2017 Tertiary NOT GIVENUNK [place] Insurance:SELF PAY [facility] [place] Number: Effective Repository Date:2017-09-11 09/11/2017 Dionicio L Primary JOSETTE E [place] [id number] [place] Insurance:MEDICARE FULLERDOB: Community [address]P [address] A BPolicy [id number], Number: Repository [place] [address]Ndr: [id number] Date:2017-05-18 () 09/11/2017 Secondary JOSETTE E [place] Insurance:AARPPolicy FULLERDOB: Community Number: [id number] Hospital [id number] Repository Date:7044-53-49OF [address]QCIGFJB, [place] [address]RI: 09/11/2017 Tertiary NOT GIVENUNK [place] Insurance:SELF PAY [facility] [place] Number: Effective Repository Date:2017-09-04 09/09/2017 Dionicio L Primary NOT GIVENUNK [place] [id number] [place] Insurance:SELF PAY [address], Number: Effective Repository [place] [id number]: Date:2017-09-09 () 08/03/2017 JOSETTE E Primary JOSETTE E [facility] FULLERDOB: Insurance:MEDICARE FULLERDOB: Foundation 1940P O PART BPolicy Number: [id number] O Repository [id number] [place] [address], Date:2017-08-[address] [place] [address], [place] [address]Zjq: 0947-00-73Ygij [place] [address]Cnb: Name:[facility] (HP)Tel: (999) Administrators LLCPO (HP) (WP) [address] [address]Mwfr[address]ztl, 000-[address] (WP) [place] [address]FO: 08/03/2017 Secondary JOSETTE E [facility] Insurance:[employer] [place] FULLERDOB: [facility] [id number] O Repository [facility] Number: [facility] [id number], Date:2017-08-03 - [place] [address]Vte: [id number] Name:[facility] Box ()Tel: [phone] 1964[address]Ohdnreb, [place] [address] ) [address]WP: 07/19/2017 Dionicio L Primary NOT GIVENUNK [place] [id number] [place] Insurance:SELF PAY [address], Number: Effective Repository [place] [id number]: Date:2017-07-09 () 06/10/2017 Arvilla L Primary JOSETTE E [place] [id number] [place] Insurance:MEDICARE FULLERDOB: Community [address]P [address] A [facility] [id number], Number: Repository [place] [id number]: [id number] Date:2006-11-06 () 06/10/2017 Secondary JOSETTE E [place] [facility] Number: [id number] Hospital [id number] Repository Date:1338-92-19KD [facility] [address]1712BSGBWKC, [place] [address]IR: 06/10/2017 Tertiary NOT GIVENUNK [place] Insurance:SELF PAY [facility] [place] Number: Effective Repository Date:2017-06-08 05/20/2017 Dionicio L Primary JOSETTE E [place] [id number] [place] Insurance:MEDICARE FULLERDOB: Community DrP [address] Box PART A [facility] [id number], Number: Repository [place] [id number]: [id number] Date:2006-11-06 () 05/20/2017 Secondary JOSETTE E [place] Insurance:AARPPolicy FULLERDOB: Community Number: [id number] Hospital [id number] Repository Date:6210-39-50BP [address]BPWRP, [place] [address]GO: 05/20/2017 Tertiary NOT GIVENUNK [place] Insurance:SELF PAY [facility] Effective Repository Date:2017-05-08 05/06/2017 DIONICIO Dempsey Primary JOSETTE E [place] JACOB SARGENTE Insurance:MEDICARE FULLERDOB: Community DRP [address] BOX PART A [facility] [id number], Number: [place] [address]Qmc: [id number] Date:2006-11-06 () 05/06/2017 Secondary JOSETTE E [place] Insurance:AARPPolicy FULLERDOB: [facility] Number: [id number] Hospital [id number] Repository Date:[facility] [address]3086DSIWJJI, [place] [address]QQ:
== END ==
PROVIDERS: Family Provider Family Medicine; PCP Family Medicine; Referring Provider Internal Medicine Critical Care Medicine; Visit Provider Internal Medicine Critical Care Medicine
DX: J44.9 Chronic obstructive pulmonary disease, unspecified (principal)
CPT/HCPCS: 94618

== ENCOUNTER → 2018-05-19 10:28 | Outpatient (CLI) | payer MEDICARE, OTHER, SELFPAY ==
[2018-05-14 13:55] VITALS: BMI 27.1
--- NOTE | 2018-05-19 | IMM_PTH ---
PATIENT: IGNACIA VELASQUEZ LOC: [facility] U#:[id number] AGE/SX: 84/F ROOM: RE05/19/[address]: Dr. Cipriano Ruiz MD : 1940 BED: DIS: SPEC #: [id number] RECD: 05/20/18 13:22 STATUS: ISHAN REQ #: [id number] TASIA: 05/19/18 00:[address]: Cipriano Ruiz DEPT: IMMUNOHISTOCHEMISTRY RECD BY: Desirae Noyola ENTERED: 05/20/18 13:26 SP TYPE: IMMUNO OTHR DR: Dr. Jomar Ruiz III, MD Tissues: Right breast, NOS Procedures: CALPONIN-1 (add) CK5-6 (add) CK8 (add) E-CAD (add) HER2 CARLENE (add) KI-67 (add) P53 (add) WV (add) P40 (add) ER (initial) PHYSICIAN & INSTITUTION [facility] [phone] SPECIMEN INFORMATION: Tissue Source: Right breast Clinical Info: Right breast calcifications upper mid breast Specimen Number: [id number] #2 CPT code: 41002, 73762 x6, 75089 x3 METHODOLOGY: Deparaffinized sections of prefer/formalin-fixed tissue or PAP/DQ stained slides are incubated with monoclonal/polyclonal antibodies/oligonucleotide probes. Localization is made via biotin free immunoperoxidase method. Appropriate controls are performed and reacted as expected. Results on target cell population are indicated in the following table: RESULTS: ANTIBODY / CLONE RESULT Block 2 E-Cad (ECH-6) positive CK8 (18ygrgH78) positive CK5-6 (D5 & 1684) negative Ki-67 (30-9) positive, low P53 (DO-7) positive, weak P40 (BC28) negative Calponin-1 (PN818C) negative MORPHOMETRIC ANALYSIS ER (clone 6F11) 43%, weak WV (clone 16/1E2) 0 Her-2Neu (clone CB11) 3+ The prognostic test for HER2 is performed on formalin-fixed paraffin embedded tissue. A 3+ (positive) staining pattern is defined as intense, homogeneous, complete, circumferential membranous staining in >10% of contiguous tumor cells. A similar weak (2+) staining pattern is interpreted as equivocal. BRETT follow-up testing is recommended for all equivocal cases. Positivity/negativity for ER/WV is reported if > or < 1% of the tumor cells are immuno- reactive, respectively. The ASCO/CAP criteria is used for scoring. Reference: Journal of Clinical Oncology, 2013; 31:6247-2320 & 2010; 16:7902-4446. Duration of fixation: 8.5 Hrs; Sample Adequate: Yes. These assays have not been validated on decalcified tissues. Results should be interpreted with caution given the likelihood of false negativity on decalcified specimens. These tests were developed and their performance characteristics determined by [facility]. They may not have been cleared or approved by the U.S. Food and Drug Administration. The FDA has determined that such clearance or approval is not necessary. INTERPRETATION: Right breast calcifications upper mid breast, stereotactic core biopsy: Invasive ductal carcinoma, nuclear grade 2. Positive for estrogen receptors (favorable prognostic indicator). Negative for progesterone receptors (unfavorable prognostic indicator). Positive for overexpression of MYO2wzn. SJ:laura 05/21/18
--- NOTE | 2018-05-19 11:10 | BRBX_PTH ---
PATIENT: IGNACIA VELASQUEZ LOC: [facility] U#:[id number] AGE/SX: 84/F ROOM: RE05/19/[address]: Dr. Cipriano Ruiz MD : 1940 BED: DIS: SPEC #: [id number] RECD: 05/19/18 11:42 STATUS: ISHAN KAMILLA #: [id number] TASIA: 05/19/18 11:[address]: Cipriano Ruiz DEPT: SURGICAL PATHOLOGY RECD BY: Roland Vivar ENTERED: 05/19/18 13:31 SP TYPE: BREAST BX OTHR DR: Dr. Jomar Ruiz III, MD Tissues: Right breast, NOS Procedures: Surgery Specimen Level IV HEADER OPERATION: Right breast stereotactic biopsy PRE-OP DIAGNOSIS: Right breast calcifications upper mid breast TISSUE SUBMITTED: Right breast core tissue ISCHEMIC TIME: 1 minute FIXATION TIME: 8.5 hours MICROSCOPIC DIAGNOSIS Right breast, calcifications upper mid breast, stereotactic core biopsy: Invasive ductal carcinoma, nuclear grade 2 (0.4 cm in greatest length). Focal microcalcifications. See comment. ROWENA:laura 05/20/18 COMMENT 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 Immunohistochemistry ([id number]) supports the above diagnosis. ER/DE/Xao5wue studies are being performed on sections of tumor and the results from this study will be reported separately ([id number]). Case has been reviewed in consultation with Dr. Jerome who concurs with the above diagnosis. IDC:AM MICROSCOPIC DESCRIPTION Slides are reviewed. GROSS DESCRIPTION Received is one container labeled with the patient's name and not further designated. The specimen consists of multiple elongated fragments of lundberg-yellow fibroadipose tissue that in aggregate measure 5 x 3 x 0.1 cm. The entire specimen is submitted in two cassettes. / ROWENA:laura 05/19/18 TC:0 CPT: [id number]
--- NOTE | 2018-05-19 11:19 | PCM.OPRPT ---
Problem List (1) Abnormal mammogram of right breast Status: Acute Report of Operation Date of Procedure: 05/19/18 Pre-Operative Diagnosis: Microcalcifications upper mid right breast Post-Operative Diagnosis: Same Surgery/Procedure Performed:: Stereotactic needle core biopsy upper mid right breast Description of Surgical Findings:: Timeout and informed consent was obtained. 71-year-old female was taken to the stereotactic room placed on the table.The right breast was placed in the cc view. On fast view was obtained demonstrating the microcalcifications in question. Stereotactic images are obtained. Digital information is obtained on a single target site. The breast was prepped with Betadine. 1% lidocaine was used as a local anesthetic. A total of 8 cc was used. A small stab incision was created. An 8-gauge resolve needle was advanced to prefer depth. Prefire films were obtained demonstrating good localization. Device was fired. 5 cores were obtained. Specimen mammograms are obtained with multiple cores with calcifications consistent with the preoperative imaging. The cores were immediately placed within formalin. A mini marking clip was left at the 12 o'clock position. Final direct view demonstrating the marking clip to be in good position with now relative absence of the vast majority of the microcalcifications. She was released from the device. Pressure was held for hemostasis. Steri-Strips Telfa OpSite dressing applied. Ice pack applied. She was given activity wound care instructions. Further office follow-up can be based upon final pathology. Progress and prognosis are felt to be good. Cipriano Ruiz M.D., F.A.C.S. Type of Anesthesia:: Local
--- OUTSIDE RECORDS SUMMARY | 2018-07-05 12:33 | XMS RPT_ITS ---
:1940 Author Organization OHIP Support Name Relationship Address Phone ROMERODIONICIO Unavailable [phone] [address] [place] [address] R Unavailable Unavailable Unavailable ROMERO, DIONICIO Unavailable [phone] [address] [place] [address] R Unavailable Unavailable Unavailable ROMERO, DIONCIIO Unavailable [phone] [address] [place] [address] R Unavailable Unavailable Unavailable ROMERO, DIONICIO Unavailable [phone] [address] [place] [address] R Unavailable Unavailable Unavailable ROMERO, DIONICIO Unavailable [phone] [address] [place] [address] R Unavailable Unavailable Unavailable ROMERO, DIONICIO Unavailable [phone] [address] [place] [address] R Unavailable Unavailable Unavailable ROMERO, DIONICIO Unavailable [phone] [address] [place] [address] R Unavailable Unavailable Unavailable ROMERO, DIONICIO Unavailable [phone] [address] [place] [address] R Unavailable Unavailable Unavailable ROMERO, DIONICIO Unavailable [phone] [address] [place] [address] R Unavailable Unavailable Unavailable ROMERO, DIONICIO Unavailable [address] [phone] [address] [place] [address] R Unavailable Unavailable Unavailable ROMERO, DIONICIO Unavailable [address] [phone] [address] [place] [address] R Unavailable Unavailable Unavailable ROMERO, DIONICIO Unavailable [address] [phone] [address] [place] [address] R Unavailable Unavailable Unavailable ROMERO, DIONICIO Unavailable [address] [phone] [address] [place] [address] R Unavailable Unavailable Unavailable DIONICIO ROMERO Unavailable [address] + [place] [address] DIONICIO ROMERO Unavailable [address] + [place] [address] DIONICIO ROMERO Unavailable [address] [phone] [address] [place] [address] R Unavailable Unavailable Unavailable Care Team Providers Name Role Phone DEIRDRE VENTURA, JESSICA Bates Attending Unavailable DIERDRE VENTURA, JESSICA Bates Referring Unavailable CEBUL , DOUG Lacey III Primary Care Unavailable CEBUL III, DOUG Lacey Attending Unavailable CEBUL III, DOUG A Referring Unavailable CEBUL III, DOUG A Referring Unavailable CEBUL III, DOUG A Attending Unavailable CEBUL III, DOUG A Referring Unavailable CEBUL III, DOUG A Referring Unavailable NICK MAO Attending Unavailable RoxielCipriano Attending Unavailable Cebul III, Doug Primary Care Unavailable CebulCipriano Attending Unavailable Cebul III, Doug Primary Care Unavailable Cebul Cipriano Consulting Unavailable Macy Richard.Phillip. Attending Unavailable Chano Bowman D.O. Referring Unavailable [...] Attending Unavailable Cebul III, Doug Referring Unavailable CebulCipriano Attending Unavailable Cebul III, Doug Primary Care Unavailable Sara Cipriano Referring Unavailable PROBLEMS PROBLEMS DATE TYPE CONDITION / CODE ATTENDING STATUS SOURCE 06/14/2018 Unknown J44.9 - Chronic Chano Brown, Active [facility] obstructive D.O. Community pulmonary disease, Hospital unspecified / Repository J44.9(ICD-10) 05/26/2018 Unknown C50.111 - Cipriano Ruiz Active [facility] Malignant neoplasm Community [facility] of right female Repository breast / C50.111(ICD-10) 05/26/2018 Unknown Z17.0 - Estrogen Cipriano Ruiz Active [facility] receptor positive Community status [ER+] / Hospital Z17.0(ICD-10) Repository 05/19/2018 Unknown R92.8 - Other Cipriano Ruiz Active [facility] abnormal and Community inconclusive Hospital findings on Repository diagnostic imaging of breast / R92.8(ICD-10) 05/05/2018 Active Inconclusive NA Active [facility] mammogram / [facility] [place] R92.2(ICD-10) Repository 04/15/2018 Active Encounter for NA Active [facility] screening [facility] [place] mammogram for Repository malignant neoplasm of breast / Z12.31(ICD-10) 11/11/2017 Active 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 Community unspecified / Hospital J30.9(ICD-10) Repository 09/11/2017 Unknown F17.201 - Nicotine Chano Bowman, Active [facility] dependence, D.O. Community unspecified, in Hospital remission / Repository F17.201(ICD-10) PROCEDURES PROCEDURES No Procedure Records FoundRESULTS RESULTS 12 LEAD ELECTROCARDIOGRAM Observed: 06/21/2018 Status: F Source: [facility] 9:58 AM [facility] REPOSITORY [facility] Cardiovascular Services [address] [place] [address] 12 Lead EKG 06/16/18 1131 MR#: [id number] Acct: [id number] Name: JOSETTE ROMERO Rep #: [id number] : 1940 77 From: Tl Jamil MD Attending Dr: Cipriano Ruiz MD Status: PRE SDC Ordering Dr: Cipriano Ruiz MD Date: 06/16/18 [place] [facility] [place] Sex: F C Admitted: Test Reason : PRE-OP Blood Pressure : / mmHG Vent. Rate : 071 BPM Atrial Rate : 071 BPM P-R Int : 198 ms QRS Dur : 082 ms QT Int : 384 ms P-R-T Axes : 052 -27 064 degrees QTc Int : 417 ms Normal sinus rhythm Minimal voltage criteria for LVH, may be normal variant Septal infarct , age undetermined Abnormal ECG Confirmed by TL JAMIL MD ([id number]), sports editor JONO ROME ([id number]) on 06/21/2018 9:57:47 AM Referred By: Cipriano Ruiz Confirmed By:TL JAMIL MD 06/21/18 0957 Date Tl Jamil MD CC: Doug Ruiz III, MD; Cipriano Ruiz MD Signed PROGRESS Observed: 06/19/2018 Status: COMPLETED Source: [place] 10:[address] [facility] REPOSITORY O ID: [id number] Author: Nick Mao Service: (none) Author Type: Physician Type: Progress Notes Filed: 06/19/2018 11:00 AM Note Text: Reason for Visit Patient presents with: Cough: bad cough started last night - low grade temp - Josette Romero is a 77 year old female who presents here today for Above Complaints.. Health Maintenance BP CONTROLLED (<130/80) HPI The patient has a pmhx. of copd late stages....she takes , symbicort, singulair, albuterol, She is upto date with her immunizations. She has a viral illness since Thursday, started as a sore throat, gargled with salt water, yesterday she started getting congestion, cough increased last night, more sputum production, which was ligher yellow, She is having more difficulty breathing, some mild grade fever, 99.4 in the morning. Saturations today are 91 percent Notes she usually needs a zpak and steroids to prevent it from getting any worse. No problem-specific Assessment AND Plan notes found for this encounter. PAST MEDICAL HISTORY Diagnosis Date - Adjustment [...] Tobacco dependence in remission - Unspecified hypothyroidism PAST SURGICAL HISTORY Procedure Laterality Date - COLONOSCOP W/ OR W/O [facility] SPEC 06/17/91 Colonoscopy - COLONOSCOP W/ OR W/O [facility] SPEC 08/27/2009 Colonoscopy - HEMORRHOIDECT INTER/EXTER SIMP - RADIOFREQUENCY ABLATION Right 10/26/2017 right sided lumbar, medial branch L3, L4, L5, S1 FAMILY HISTORY Problem Relation Age of Onset - Breast Cancer Mother - Heart Father 54 [place] - Breast Cancer Maternal Aunt - Breast Cancer Daughter ADOPTED? - None Brother - None Brother - None Brother Social History Substance Use Topics - Smoking status: Former Smoker Packs/day: 0.50 Years: 20.00 Types: Cigarettes Quit date: 09/09/2014 - Smokeless tobacco: Never Used Comment: 4 or 5 cigs qd - Alcohol use Yes Comment: occasionally Past medical history, appointments, medications, allergies reviewed. Pertinent Lab/Diagnostic Studies are reviewed and discussed today Current Outpatient Prescriptions: - busPIRone (BUSPAR) 5 mg tablet - atorvastatin (LIPITOR) 20 mg tablet - lisinopril (ZESTRIL, PRINIVIL) 10 mg tablet - estrogens conjugated (PREMARIN) 0.625 mg tablet - medroxyPROGESTERone (PROVERA, CYCRIN) 2.5 mg tablet - traZODone (DESYREL) 50 mg tablet - hydrOXYzine HCl (ATARAX) 25 mg tablet - hydrocortisone (PROCTOCORT) 1 % crpe - citalopram hydrobromide (CELEXA) 10 mg tablet - lactulose (DUPHALAC, CONSTULOSE) 10 gram/15 mL solution - tiZANidine (ZANAFLEX) 2 mg tablet - hydrocortisone (HEMORRHOIDAL HC) 25 mg suppository - levothyroxine (SYNTHROID) 112 mcg tablet - latanoprost (XALATAN) 0.005 % ophthalmic solution - brimonidine 0.2 % drop, timolol maleate 0.5 % drop - budesonide-formoterol (SYMBICORT) 160-4.5 mcg/actuation inhaler - montelukast (SINGULAIR) 10 mg tablet - fluticasone (FLONASE) 50 mcg/actuation nasal spray - tolterodine ER (DETROL LA) 4 mg 24 hr capsule - Melatonin 5 mg tab - TIOTROPIUM BROMIDE (SPIRIVA RESPIMAT INHALATION) - COMPOUNDED PRESCRIPTION - ipratropium-albuterol (DUONEB) 0.5 mg-3 mg(2.5 mg base)/3 mL nebu - albuterol HFA (PROAIR HFA) 90 mcg/actuation inhaler - twalpah-xfutyfiju-lyqmbiy D3 500 mg(1,250mg) -200 unit per tablet - oxyCODONE ER (OXYCONTIN) 20 mg 12 hr tablet - alendronate (FOSAMAX) 70 mg tablet - COMPOUNDED PRESCRIPTION - ibuprofen (MOTRIN) 600 mg tablet - Bimatoprost (LUMIGAN) 0.01 % OPHTHALMIC Drop Review of Systems CONSTITUTIONAL: No fevers, chills night sweats, unintended weight loss CARDIOVASCULAR: No chest pain, dyspnea, palpitations, orthopnea, PND, ankle edema. PULM: No dyspnea, unexplained cough. GI: No dysphagia/odynophagia, problematic reflux, constipation, diarrhea, changes in stool habits, hematochezia, melena. : No new urinary complaints, including dysuria, gross hematuria or pyuria. NEURO: No new balance problems, peripheral weakness/paresthesias or numbness of concern. Physical Exam BP 110/80 Pulse 88 Temp 36.8 ?C (98.2 ?F) (Temporal Artery) Wt 71.7 kg (158 lb) SpO2 91% BMI 27.99 kg/m? General appearance: Well appearing, alert, in no acute distress, well nourished. Skin: Skin color, texture, turgor normal, no suspicious rashes or lesions Head: Normocephalic, no masses, lesions, tenderness or abnormalities Eyes: Anicteric sclera. Pupils are equally round and reactive to light. Extraocular movements are intact. Lungs:decreasd air entry globally Heart: RRR without murmur, gallop, or rubs. Extremities: No deformities, edema, skin discoloration, clubbing or cyanosis. Good capillary refill. ASSESSMENT/PLAN: 1. Chronic obstructive pulmonary disease, unspecified COPD type (HCC) - ICD9: 496, ICD10: J44.9 To ER for worsening symptoms, mental status changes, SOB, or side effects of meds that are severe especially allergic reactions causing air way compromise. - PREDNISONE 10 MG TABLET - AZITHROMYCIN 250 MG TABLET - CODEINE 10 MG-GUAIFENESIN 100 MG/5 ML ORAL LIQUID NICK MAO MD CNOV Observed: 06/19/2018 Status: COMPLETED Source: [place] 10:00 AM [facility] REPOSITORY Office Visit (INTMWS) GREER ROMEROE Cecily ([id number]) 1940 F Date Time Provider Department 06/19/18 10:00 AM NICK MAO INTMWS During your visit today, we recorded the following information about you: Temperature Pulse Blood pressure Weight 98.2 degrees 88/minute 110/80 71.7 kg NICK MAO MD 06/19/2018 11:00 AM Signed Reason for Visit Patient presents with: Cough: bad cough started last night - low grade temp - Josettececily Romero is a 77 year old female who presents here today for Above Complaints.. Health Maintenance BP CONTROLLED (<130/80) HPI The patient has a pmhx. of copd late stages....she takes , symbicort, singulair, albuterol, She is upto date with her immunizations. She has a viral illness since Thursday, started as a sore throat, gargled with salt water, yesterday she started getting congestion, cough increased last night, more sputum production, which was ligher yellow, She is having more difficulty breathing, some mild grade fever, 99.4 in the morning. Saturations today are 91 percent Notes she usually needs a zpak and steroids to prevent it from getting any worse. No problem-specific Assessment AND Plan notes found for this encounter. PAST MEDICAL HISTORY Diagnosis Date - Adjustment [...] Tobacco dependence in remission - Unspecified hypothyroidism PAST SURGICAL HISTORY Procedure Laterality Date - COLONOSCOP W/ OR W/O [facility] SPEC 06/17/91 Colonoscopy - COLONOSCOP W/ OR W/O [facility] SPEC 08/27/2009 Colonoscopy - HEMORRHOIDECT INTER/EXTER SIMP - RADIOFREQUENCY ABLATION Right 10/26/2017 right sided lumbar, medial branch L3, L4, L5, S1 FAMILY HISTORY Problem Relation Age of Onset - Breast Cancer Mother - Heart Father 54 [place] - Breast Cancer Maternal Aunt - Breast Cancer Daughter ADOPTED? - None Brother - None Brother - None Brother Social History Substance Use Topics - Smoking status: Former Smoker Packs/day: 0.50 Years: 20.00 Types: Cigarettes Quit date: 09/09/2014 - Smokeless tobacco: Never Used Comment: 4 or 5 cigs qd - Alcohol use Yes Comment: occasionally Past medical history, appointments, medications, allergies reviewed. Pertinent Lab/Diagnostic Studies are reviewed and discussed today Current Outpatient Prescriptions: - busPIRone (BUSPAR) 5 mg tablet - atorvastatin (LIPITOR) 20 mg tablet - lisinopril (ZESTRIL, PRINIVIL) 10 mg tablet - estrogens conjugated (PREMARIN) 0.625 mg tablet - medroxyPROGESTERone (PROVERA, CYCRIN) 2.5 mg tablet - traZODone (DESYREL) 50 mg tablet - hydrOXYzine HCl (ATARAX) 25 mg tablet - hydrocortisone (PROCTOCORT) 1 % crpe - citalopram hydrobromide (CELEXA) 10 mg tablet - lactulose (DUPHALAC, CONSTULOSE) 10 gram/15 mL solution - tiZANidine (ZANAFLEX) 2 mg tablet - hydrocortisone (HEMORRHOIDAL HC) 25 mg suppository - levothyroxine (SYNTHROID) 112 mcg tablet - latanoprost (XALATAN) 0.005 % ophthalmic solution - brimonidine 0.2 % drop, timolol maleate 0.5 % drop - budesonide-formoterol (SYMBICORT) 160-4.5 mcg/actuation inhaler - montelukast (SINGULAIR) 10 mg tablet - fluticasone (FLONASE) 50 mcg/actuation nasal spray - tolterodine ER (DETROL LA) 4 mg 24 hr capsule - Melatonin 5 mg tab - TIOTROPIUM BROMIDE (SPIRIVA RESPIMAT INHALATION) - COMPOUNDED PRESCRIPTION - ipratropium-albuterol (DUONEB) 0.5 mg-3 mg(2.5 mg base)/3 mL nebu - albuterol HFA (PROAIR HFA) 90 mcg/actuation inhaler - bryerwz-sxbcixoao-ulhxhuc D3 500 mg(1,250mg) -200 unit per tablet - oxyCODONE ER (OXYCONTIN) 20 mg 12 hr tablet - alendronate (FOSAMAX) 70 mg tablet - COMPOUNDED PRESCRIPTION - ibuprofen (MOTRIN) 600 mg tablet - Bimatoprost (LUMIGAN) 0.01 % OPHTHALMIC Drop Review of Systems CONSTITUTIONAL: No fevers, chills night sweats, unintended weight loss CARDIOVASCULAR: No chest pain, dyspnea, palpitations, orthopnea, PND, ankle edema. PULM: No dyspnea, unexplained cough. GI: No dysphagia/odynophagia, problematic reflux, constipation, diarrhea, changes in stool habits, hematochezia, melena. : No new urinary complaints, including dysuria, gross hematuria or pyuria. NEURO: No new balance problems, peripheral weakness/paresthesias or numbness of concern. Physical Exam BP 110/80 Pulse 88 Temp 36.8 ?C (98.2 ?F) (Temporal Artery) Wt 71.7 kg (158 lb) SpO2 91% BMI 27.99 kg/m? General appearance: Well appearing, alert, in no acute distress, well nourished. Skin: Skin color, texture, turgor normal, no suspicious rashes or lesions Head: Normocephalic, no masses, lesions, tenderness or abnormalities Eyes: Anicteric sclera. Pupils are equally round and reactive to light. Extraocular movements are intact. Lungs:decreasd air entry globally Heart: RRR without murmur, gallop, or rubs. Extremities: No deformities, edema, skin discoloration, clubbing or cyanosis. Good capillary refill. ASSESSMENT/PLAN: 1. Chronic obstructive pulmonary disease, unspecified COPD type (HCC) - ICD9: 496, ICD10: J44.9 To ER for worsening symptoms, mental status changes, SOB, or side effects of meds that are severe especially allergic reactions causing air way compromise. - PREDNISONE 10 MG TABLET - AZITHROMYCIN 250 MG TABLET - CODEINE 10 MG-GUAIFENESIN 100 MG/5 ML ORAL LIQUID NICK MAO MD Referring Provider: SELF [200] Allergies As of Date: 06/19/2018 Noted Allergy Reaction CELEBREX (CELECOXIB) 05/13/2005 DICLOFENAC 05/01/2017 1 - Mental Status Change DOXYCYCLINE 05/13/2005 2 - Rash Comments: photosensitivity MONUROL (FOSFOMYCIN TROMETHAMINE) 05/13/2005 TAVIST D [Other] 05/13/2005 ZOCOR (SIMVASTATIN) 05/13/2005 14 - Other: See Comments Comments: bone pain Date Reviewed: 06/19/2018 Reviewed by: Argelia Zelaya Battery Service Technician - Fully Assessed Reason for Visit: Cough [28] Cmt: bad cough started last night - low grade temp - Reason For Visit History Recorded Primary Visit Diagnosis:Chronic obstructive pulmonary disease, unspecified COPD type (HCC) [J44.9] Other Visit Diagnosis:COPD with exacerbation (HCC) [J44.1] Order(s):predniSONE (DELTASONE) 10 mg tabletTake 4 tabs daily for 3 days, then 2 tabs daily for 3 days, then 1 tab daily for 3 days with food.Disp: 21 tabletRfl: 0 azithromycin (ZITHROMAX Z-JULIANO) 250 mg tabletTake 2 tablets by mouth day one, then 1 tablet daily until gone.Disp: 1 PackageRfl: 0 codeine-guaiFENesin (ROBITUSSIN AC) 10-100 mg/5 mL syrupTake 5-10 mL by mouth four times daily as needed for Cough for up to 7 days. May cause drowsiness.Disp: 120 mLRfl: 0 Prescriptions as of 06/19/2018 Sig: BUSPIRONE 5 MG TABLET TAKE 1 TABLET BY MOUTH THREE * ATORVASTATIN 20 MG TABLET TAKE 1 TABLET BY MOUTH ONCE D* LISINOPRIL 10 MG TABLET TAKE 1 TABLET BY MOUTH ONCE D* CONJUGATED ESTROGENS 0.625 MG* Take 1 tablet by mouth once d* MEDROXYPROGESTERONE 2.5 MG TA* Take 1 tablet by mouth once d* TRAZODONE 50 MG TABLET Take 1 tablet by mouth daily * HYDROXYZINE HCL 25 MG TABLET Take 1 tablet by mouth at bed* HYDROCORTISONE 1 % TOPICAL CR* 1 application by RECTAL route* CITALOPRAM 10 MG TABLET Take 1 tablet by mouth once d* LACTULOSE 10 GRAM/15 ML ORAL * TAKE 30 ML BY MOUTH TWICE DELMAR* TIZANIDINE 2 MG TABLET HYDROCORTISONE ACETATE 25 MG * 1 SUPPOSITORY BY RECTAL ROUTE* LEVOTHYROXINE 112 MCG TABLET TAKE 1 TABLET BY MOUTH EVERY * LATANOPROST 0.005 % EYE DROPS 1 Drop [...] MCG/* Inhale 2 Puffs as instructed * CALCIUM CARBONATE 500 MG (1,2* Take 1 [...] DROPS 1 drop bith eyes at night. 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 AZITHROMYCIN 250 MG TABLET 1 Pa* 0 06/19/2018 Sig: Take 2 tablets by mouth day one, then 1 tablet daily until gone. CODEINE 10 MG-GUAIFENESIN 100 MG/5 M* 120 * 0 06/19/2018 06/26/2018 Class: Print RX Route: ORAL Sig: Take 5-10 mL by mouth four times daily as needed for Cough for up to 7 days. May cause drowsiness. Medications Discontinued During This Encounter predniSONE (DELTASONE) 10 mg tablet 21 t* 0 09/04/2017 06/19/2018 Sig: Take 4 tabs daily for 3 days, then 2 tabs daily for 3 days, then 1 tab daily for 3 days with food. Disc: Reason for discontinue is not on file. Encounter Status:Closed by NICK MAO MD on 06/19/18 CHEST PA AND LATERAL Observed: 06/16/2018 Status: F Source: [place] 11:04 AM [facility] REPOSITORY [facility] Imaging Services [address] [place] [address] Chest PA and Lateral MR#: [id number] Acct: [id number] Name: JOSETTE ROMERO Rep #: [id number] : 1940 F 77 From: Ari Ward MD PCP: Doug Ruiz III, MD Status: PRE [facility] [place] Study: Chest PA and Lateral Date of Exam: 06/16/18 Exam# [id number] Ordering Dr: Cipriano Ruiz MD STUDY: X-RAY CHEST REASON FOR EXAM: Female, 77 years old. Preoperative evaluation. TECHNIQUE: PA and lateral views of the chest. COMPARISON: Comparison is made with prior study dated September 14, 2014. FINDINGS: Mild residual blunting of the left costophrenic angle. Mild elevation of the anterior aspect of the right hemidiaphragm. No acute abnormality is seen. Normal size heart. Normal mediastinum and sylvia. Normal visualized pulmonary arteries. There is atherosclerotic calcification of the aortic arch with tortuosity. There is demineralization of the osseous structures. Loss of height of a mid dorsal vertebrae. Increased kyphosis. Normal visualized ribs, clavicles, and shoulders. There is no demonstrated abnormality of the visualized soft tissue structures of the upper abdomen. RAD/Chest PA and Lateral IMPRESSION: Residual blunting of the left cost phrenic angle. No acute abnormality is seen. Electronically Signed: Ari Ward MD at 11:27 EST Tel [phone], Service support , CC: Doug Ruiz III, MD; Cipriano Ruiz MD [employer] Cream Warmer: Signed CBC-COMPLETE BLOOD CNT Collected: 06/16/2018 Status: F Source: [place] NO DIFF 10:58 AM [facility] REPOSITORY TYPE CODE TESTS RESULT OUT OF RANGE REFERENCE UNITS LAB L100.1000 4.4-11.0 K/mm3 Normal WBC 7.1 LAB L100.1200 4.2-5.4 M/mm3 Normal RBC 4.83 LAB L100.1300 12.0-15.0 g/dl Normal HGB 14.4 LAB L100.1400 37-47 % Normal HCT 45.6 LAB L100.1500 81-99 fL Normal MCV 94.4 LAB L100.1600 27.0-32.0 pg Normal MCH 29.8 LAB L100.1700 32-36 g/gl Low MCHC 31.6 LAB L100.1810 11.6-14.6 % Normal RDW CV 12.4 LAB L100.1820 35.1-43.9 fl Normal RDW SD 43.0 LAB L100.1900 150-450 K/mm3 Normal PLT 280 LAB L100.2000 6.2-12.0 fl Normal MPV 9.9 Performed By: #### L100.0500 #### [facility] [address] [place], [address] COMPREHENSIVE METABOLIC Collected: 06/16/2018 Status: F Source: [place] PROFIL 10:58 AM [facility] REPOSITORY TYPE CODE TESTS RESULT OUT OF RANGE REFERENCE UNITS LAB L501.0100 74-106 mg/dL Normal GLU 94 Result Comment: Please note revised GLUCOSE reference range effective 2017. LAB L501.1000 7-18 mg/dL Normal BUN 18 LAB L501.1100 0.55-1.02 mg/dL Normal CREAT,SERUM 0.89 Result Comment: The validity of the calculated GFR AND GFRAA in patients over 70 years has not been determined. Clinical correlation is essential. LAB L501.1110 >60 mL/min Normal EST GFR 65 Result Comment: Non- GFR Calc LAB L501.1115 >60 mL/min Normal EST GFR - AA 79 Result Comment: GFR Calc LAB L501.1300 10-20 RATIO High BUN/CRE 20.2 LAB L501.1500 6.4-8.2 g/dL T Normal PROT 7.1 LAB L501.1800 3.2-5.0 g/dL Normal ALB 3.5 LAB L501.1950 2.2-4.2 g/dL Normal GLOB 3.6 LAB L501.2000 0.9-2.4 RATIO Normal A/G 1.0 LAB L501.2200 8.5-10.1 mg/dL CA Normal 9.1 LAB L501.4100 15-37 U/L Low AST 12 LAB L501.4305 45-117 U/L Normal ALK P 53 LAB L501.4405 13-56 U/L Normal ALT 18 LAB L501.4600 0.20-1.00 mg/dL T Normal BILI 0.40 LAB L501.5300 136-145 mmol/L NA Normal 142 LAB L501.5600 3.5-5.1 mmol/L K Normal 3.8 LAB L501.5900 98-107 mmol/L CL Normal 106 LAB L501.6100 21.0-32.0 mmol/L Normal CO2 28.0 LAB L501.6200 5-15 Normal GAP 8 Performed By: #### L500.4050 #### [facility] [address] [facility]. [place], [place], [address] PULMONARY VISIT REPORT Observed: 06/14/2018 Status: F Source: [place] 1:38 PM [facility] REPOSITORY [facility] [address] [place] [address] OFFICE VISIT Date of Service: 06/14/18 MR#: [id number] Acct: [id number] Name: EVAJOSETTE E Rep #: [id number] : 1940 Provider: Chano Bowman D.O. Age/Sex: 77/F [facility] Status: Signed Assessment AND Plan 1. COPD (chronic obstructive pulmonary disease) J44.9 Plan The patient has known stage IV COPD and is currently on a triple therapy inhaler regimen. She is not a candidate for re-enrollment in pulmonary rehabilitation. Her current inhaler regimen will be continued without change. A new spacer has been provided at today's office visit. Given her significant oxygen desaturation noted with exertion on her last 6-minute walk test, recommend repeating an ambulatory oximetry study in 6 months prior to her follow-up office visit. The patient has been advised to call this office with any worsening in her breathing quality and/or increased reliance on her short acting beta agonist. Orders Orders: 2. Tobacco dependence in remission F17.201 Plan Ongoing [...] pulmonary rehab but experienced a mechanical fall intermediate through the program and had to be discharged. She was told that she could not re- enroll in the program without a significant change in her pulmonary function. The patient did have a negative RAST test completed in September 2017. The patient has been maintained on a triple therapy inhaler regimen including Symbicort, Spiriva and as needed albuterol. A repeat 6-minute walk test completed in April 2018 revealed no need for supplemental oxygen. She did, however, demonstrate significant exertional oxygen desaturation with ambulation. Today, the patient reports overall stability in her breathing quality. She remains compliant with the use of her triple therapy inhaler regimen. While the patient does utilize her rescue inhaler, she does not require it on a daily basis. She does report baseline exertional dyspnea, unchanged from previous, along with intermittent wheezing. She denies the presence of chest tightness. Her weight has been stable. Her appetite is good. She is not requesting any medication refills. However, she is in need of a new spacer. She is currently scheduled to undergo a lumpectomy next Thursday with Dr. Ruiz. She has not required evaluation in the emergency department or urgent care for breathing related issues recently. She denies fevers, chills or night sweats. She additionally denies the presence of chest pain, dizziness or lightheadedness. Intake Vital Signs06/14/18 Height 5 ft 4 in 06/14/18 Weight: 157 lb Intake Visit Reasons: 6 M FU Mental Health Social Worker Required: No Accompanied by: Self Is patient in pain?: Yes Allergies acetaminophen [From Tavist] Allergy (Verified 06/14/18 12:01) Unknown clemastine fumarate [From Tavist] Allergy (Verified 06/14/18 12:01) Unknown fosfomycin tromethamine [From Monurol] Allergy (Verified 06/14/18 12:01) Unknown pseudoephedrine HCl [From Tavist] Allergy (Verified 06/14/18 12:01) Unknown celecoxib [From Celebrex] Adverse Reaction (Verified 06/14/18 12:01) Upset Stomach doxycycline Adverse Reaction (Verified 06/14/18 12:01) Other simvastatin [From Zocor] Adverse Reaction (Verified 06/14/18 12:01) Pain in joints Medications Atorvastatin Calcium [Lipitor] 20 mg PO QHS 09/09/14 [History Confirmed 06/14/18] Bimatoprost [Lumigan Opthalmic] 1 drp EACH EYE QHS 09/09/14 [History Confirmed 06/14/18] Levothyroxine [Synthroid] 112 mcg PO DAILY 09/09/14 [History Confirmed 06/14/18] Calcium Carb/Vitamin D [Os-Shiva 500MG + D] 1 tab PO TIDCM #30 tab 09/14/14 [Rx Confirmed 06/14/18] Senna/Docusate Sodium [Senokot-S] 1 tab PO BID PRN 05/22/17 [History Confirmed 06/14/18] montelukast 10 mg tablet 10 mg PO QDAY #90 tab 09/11/17 [Rx Confirmed 06/14/18] Lisinopril [Prinivil] 10 mg PO DAILY 10/22/17 [History Confirmed 06/14/18] budesonide-formoterol HFA 160 mcg-4.5 mcg/actuation aerosol inhaler 2 puff INHALATION BID #3 ea 10/28/17 [Rx Confirmed 06/14/18] tiotropium bromide 2.5 mcg/actuation mist for inhalation 2 puff INHALATION QDAY #3 ea 10/28/17 [Rx Confirmed 06/14/18] tizanidine PO BID PRN 12/15/17 [History Confirmed 06/14/18] albuterol sulfate HFA 90 mcg/actuation aerosol inhaler 2 puff INHALATION Q4H PRN PRN #1 inhaler 12/18/17 [Rx Confirmed 06/14/18] albuterol sulfate 2.5 mg/3 mL (0.083 %) solution for nebulization 2.5 mg INHALATION Q6H PRN #120 vial 03/18/18 [Rx Confirmed 06/14/18] alendronate 70 mg tablet 70 mg PO QWEEK 05/14/18 [History Confirmed 06/14/18] bimatoprost 0.01 % eye drops 1 drp OPHTHALMIC QPM 05/14/18 [History Confirmed 06/14/18] buspirone 5 mg tablet 5 mg PO TID 05/14/18 [History Confirmed 06/14/18] citalopram 10 mg tablet 10 mg PO DAILY 05/14/18 [History Confirmed 06/14/18] hydrocortisone 1 % topical cream 1 applic TOPICAL BID 05/14/18 [History Confirmed 06/14/18] lactulose 20 gram oral packet 20 g PO BID 05/14/18 [History Confirmed 06/14/18] latanoprost 0.005 % eye drops 1 drp OPHTHALMIC QPM 05/14/18 [History Confirmed 06/14/18] melatonin 5 mg capsule mg PO cap 05/14/18 [History Confirmed 06/14/18] tolterodine ER 4 mg capsule,extended release 24 hr 4 mg PO DAILY 05/14/18 [History Confirmed 06/14/18] [facility] Medical History Breast cancer, right (Acute) Abnormal mammogram of right breast (Acute) Hip [...] breath shortness of breath: Positive with activity, wheezing and cough cough: Positive non-productive; negative pain with cough, chest congestion, chest tightness, pain on inspiration, inhalers, increase use of rescue inhalers, snoring, apnea or other Gastro Gastrointestional: Negative bloody stools, change in appetite, difficulty swallowing, reflux, hematemesis, melena stool, loose stool, constipation or other Genitourinary: Negative blood in urine, nocturia, pain with urination or other Musc Musculoskeletal: Positive back pain; negative body pain, neck pain or other Skin/Breast Skin/Breast: [...] Resp lung sounds: Positive diminished diminished: Positive bialteral and prolonged expiratory time; negative wheezes, rhonchi or rales Cardio Cardiac: Positive regular rate, regular rhythm, S1 normal and S2 normal; negative rub, gallop or murmur GI GI: Positive normal bowel sounds Soft without distention Genitourinary: Positive deferred Musc Musculoskeletal: Positive steady gait Skin Pulmonary Skin Exam: Positive intact; negative [...] Diagnoses COPD (chronic obstructive pulmonary disease) J44.9 Tobacco dependence in remission F17.201 06/14/18 1338 <Electronically signed by Chano Bowman DO> Date Chano Bowman DO Cosigner Signature: Date (if applicable) CC: Doug Ruiz III, MD SURGERY VISIT REPORT Observed: 05/25/2018 Status: F Source: [place] 4:42 PM [facility] REPOSITORY [facility] [address] [place] [address]. [address] [place] [address] OFFICE VISIT Date of Service: 05/25/18 MR#: [id number] Acct: [id number] Name: JOSETTE ROMERO Rep #: [id number] : 1940 Provider: Cipriano Ruiz MD Age/Sex: 77/F Location: [facility] Status: Signed Intake Intake Visit Reasons: breast path Chief Complaint: abn mammo/us right breast Mental Health Social Worker Required: No Is patient in pain?: No [...] The patient had screening mammograms at the [facility]. Unremarkable on the left. On the right [...] receptor was 43% week. Progesterone receptor 0. HER-2/anhtony 3+. She presents back today with her [...] of assisting with her surgical care CC: GOOD Alves M.D., F.A.C.S. Coding Level of Care Code [...] OPERATIVE REPORT Observed: 05/19/2018 Status: F Source: [place] 11:22 AM [facility] Medical Records Department [address] [place] [address] Operative Report 05/19/18 1119 MR#: [id number] Acct: [id number] Name: JOSETTE ROMERO Rep #: [id number] : 1940 77 From: Cipriano Ruiz MD PCP: Doug Ruiz III, MD Status: REG CLI Y Location: [facility] Problem List (1) Abnormal mammogram of right [...] BREAST BIOPSY Observed: 05/19/2018 Status: F Source: [place] (CHOOSE SITE) 11:10 AM [facility] REPOSITORY Patient: JOSETTE ROMERO : 1940 (77/F) Acct Num: [id number] Phys: Cipriano Ruiz MD Unit Num: [id number] Loc: BIR Specimen: [id number] Received: 05/19/181141 Spec Type: BREAST BX TISSUES 1 TISSUES: Right breast, NOS COMMENT 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 Immunohistochemistry ([id number]) supports the above diagnosis. ER/KS/Eja3oeu studies are being performed on sections of tumor and the results from this study will be reported separately ([id number]). Case has been reviewed in consultation with Dr. Jerome who concurs with the above diagnosis. IDC:AM GROSS DESCRIPTION Received is one container labeled with the patient's name and not further designated. The specimen consists of multiple elongated fragments of lundberg-yellow fibroadipose tissue that in aggregate measure 5 x 3 x 0.1 cm. The entire specimen is submitted in two cassettes. / SJ:laura 05/19/18 TC:0 CPT: 25822 HEADER OPERATION: Right breast stereotactic biopsy PRE-OP [...] on file> Performed By: #### PBRBX #### [facility] [address] [place], [address] IMMUNOHISTOCHEMISTRY Observed: 05/19/2018 Status: F Source: [place] 12:00 AM [facility] REPOSITORY Patient: JOSETTE ROMERO : 1940 (77/F) Acct Num: [id number] Phys: Cipriano Ruiz MD Unit Num: [id number] Loc: [facility] Specimen: [id number] Received: 05/20/18 - 1322 Spec Type: IMMUNO TISSUES 1 TISSUES: Right breast, NOS SPECIMEN INFORMATION: Tissue Source: Right breast Clinical Info: Right breast calcifications upper mid breast Specimen Number: [id number] #2 CPT code: 63535, 60772 x6, 96045 x3 METHODOLOGY: Deparaffinized sections of prefer/formalin-fixed tissue or PAP/DQ stained slides are incubated with monoclonal/polyclonal antibodies/oligonucleotide probes. Localization is made via biotin free immunoperoxidase method. Appropriate controls are performed and reacted as expected. Results on target cell population are indicated in the following table: RESULTS: ANTIBODY / CLONE RESULT Block 2 E-Cad (ECH-6) positive CK8 (44ggfaT58) positive CK5-6 (D5 AND 1684) negative Ki-67 (30-9) positive, low P53 (DO-7) positive, weak P40 (BC28) negative Calponin-1 (TW170S) negative MORPHOMETRIC ANALYSIS ER (clone 6F11) 43%, weak KS (clone 16/1E2) 0 Her-2Neu (clone CB11) 3+ The prognostic test for HER2 is performed on formalin-fixed paraffin embedded tissue. A 3+ (positive) staining pattern is defined as intense, homogeneous, complete, circumferential membranous staining in >10% of contiguous tumor cells. A similar weak (2+) staining pattern is interpreted as equivocal. BRETT follow- up testing is recommended for all equivocal cases. Positivity/negativity for ER/ KS is reported if > or < 1% of the tumor cells are immuno- reactive, respectively. The ASCO/CAP criteria is used for scoring. Reference: Journal of Clinical Oncology, 2013; 31:8182-9166 AND 2009; 16:2784- 2795. Duration of fixation : 8.5 Hrs; Sample Adequate: Yes. These assays have not been validated on decalcified tissues. Results should be interpreted with caution given the likelihood of false negativity on decalcified specimens. These tests were developed and their performance characteristics determined by [facility]. They may not have been cleared or approved by the U.S. Food and Drug Administration. The FDA has determined that such clearance or approval is not necessary. INTERPRETATION: Right breast calcifications upper mid breast, stereotactic core biopsy: Invasive ductal carcinoma, nuclear grade 2. Positive for estrogen receptors (favorable prognostic indicator). Negative for progesterone receptors (unfavorable prognostic indicator). Positive for overexpression of RJQ1lzh. SJ:laura 05/21/18 PHYSICIAN AND INSTITUTION [address] [address] Signed Alvin Anaya 05/21/18 <signature on file> Performed By: #### PIMM #### [facility] [address] [place] [address]. [place], [address] SURGERY VISIT REPORT Observed: 05/14/2018 Status: F Source: [place] 2:27 PM [facility] REPOSITORY [facility] [address] [place] [address] OFFICE VISIT Date of Service: 05/14/18 MR#: [id number] Acct: [id number] Name: JOSETTE ROMERO Rep #: [id number] : 1940 Provider: Cipriano Ruiz MD Age/Sex: 77/F Location: [facility] Status: Signed Intake Vital Signs05/14/18 Height 5 ft 4 in 05/14/18 Weight: 157 lb 12 oz 05/14/18 Body Mass Index (BMI) 27.1 05/14/18 Blood Pressure 127/78 H Intake Visit Reasons: Rt Breast Abn Mammo [facility] 05/05 to bring disc Chief Complaint: abn mammo/us right breast Mental Health Social Worker Required: No Is patient in pain?: No [...] The patient is referred by Dr. Doug Ruiz, III and a written copy of my [...] The patient had screening mammograms at the [facility]. Unremarkable on the left. On the right [...] Abnormal mammogram of right breast R92.8 05/14/18 9468 <Electronically signed by Cipriano Ruiz MD> Date [facility] Signature: Date (if applicable) CC: Doug Ruiz III, MD PROGRESS Observed: 05/05/2018 Status: COMPLETED Source: [place] 1:42 PM [facility] REPOSITORY HNO ID: [id number] Author: Anastacia Burnham Service: (none) Author Type: (none) Type: [...] DATA REVIEWED: Not Applicable RADIOLOGY DEPARTMENT: [facility] diagnostic mammogram PERIPHERAL IV DATA: Not applicable SIGNED BY: Anastacia Burnham May 05, 2018 1:42 PM [facility] Observed: 05/05/2018 Status: COMPLETED Source: [place] 1:29 PM [facility] REPOSITORY HNO ID: [id number] Author: Mammography Coordinator Service: (none) Author Type: Physician Type: Letter Filed: 05/06/2018 11:32 PM Note Text: May 05, 2018 PID: [id number] Josette Romero [address] [place] [address] Dear Ms. Romero, Your recent breast imaging [...] care needs. Sincerely, Dr. Amato Interpreting Radiologist [facility] (Abnormal) [facility] RT Observed: 05/05/2018 Status: F Source: [place] 11:[address] [facility] REPOSITORY * * *Final Report* * * DATE OF EXAM: May 05 2018 11:22AM WRW 0626 - [facility] DIAGNOSTIC RT / PROCEDURE REASON: Inconclusive mammogram * * * * Physician Interpretation * * * * RESULT: #[id number] - [facility] DIAGNOSTIC RT UNILATERAL RIGHT DIGITAL DIAGNOSTIC MAMMOGRAM WITH CAD: 05/05/2018 HISTORY: Inconclusive Mammogram /Call back/abnormal mamm: Right Diagnostic Mammogram. RESULT: TECHNIQUE: The study was acquired using full field digital technology and interpreted from soft copy. Current study was also evaluated with a Computer Aided Detection (CAD). Comparison is made to exams dated: 04/15/2018 mammogram and 12/24/2015 mammogram - [facility]. There are scattered fibroglandular elements in [...] the biopsy appt with Dr. Chiang. Santo Amato M.D. tab/penrad:05/05/2018 13:29:12 Junior Estimator(s): Anastacia Degroot, RT(R)(M), [facility] letter sent: Abnormal Mammogram BI-RADS: 4a Suspicious [...] Medicine, and Medical/Surgical Oncology, the [facility] has carefully reviewed the data [...] their providers when to stop screening mammograms. Bonbon Cream Warmer: Lucy Transcribe Date/Time: May 05 2018 11:22A Dictated by: SANTO AMATO MD This examination was interpreted and the report reviewed and electronically signed by: SANTO AMATO MD on May 05 2018 1:29PM EST [id number] 6 MINUTE WALK TEST Observed: 05/05/2018 Status: F Source: [place] 5:47 AM [facility] REPOSITORY [facility] Pulmonary Services/Neurology [address] [place] [address] [place] [address] MR#: [id number] Acct: [id number] Name: JOSETTE ROMERO Rep #: [id number] : 1940 77 From: Win Espinosa MD Referring Dr: Chano Bowman D.O. Date: Ordering Dr: Sex: F C Location: PSN PSN 6 Minute Walk Test - 6 Minute Walk Test 6 Minute Walk Test: 6 Minute Walk Test PSN:6-Minute Walk Test Start: 05/04/18 11:17 Freq: Status: Active Protocol: RESP.6MINW Document 05/04/18 11:26 JLAbhijit (Rec: 05/04/18 11:30 Abhijit [id number]) 6 Minute Walk Test Date Performed 05/04/18 [...] Date Dictated: 05/04/18 1608 Date Transcribed: 05/04/181607 Bonbon Cream Warmer: Win Espinosa Signed [facility]CO Observed: 04/15/2018 Status: COMPLETED Source: [place] 12:19 PM [facility] REPOSITORY HNO ID: [id number] Author: Mammography Coordinator Service: (none) Author Type: Physician Type: Letter Filed: 04/19/2018 11:50 PM Note Text: April 15, 2018 PID: [id number] Josette Romero [address] [place] [address] Dear Ms. Romero, Your recent breast imaging exam on 04/15/2018 showed a possible finding that requires additional imaging studies for a complete evaluation. Most such findings are probably benign (not cancer). Please call [phone] or [phone] to schedule an appointment for your additional imaging if you have not already done so. Your breast images and report will be kept on file here as part of your permanent medical record and are available for your continuing care. Thank you for allowing us to help in meeting your health care needs. Sincerely, Dr. Shahid Interpreting Radiologist [facility] (Additional imaging) [facility] SCREENING Observed: 04/15/2018 Status: F Source: [place] 10:[address] [facility] REPOSITORY * * *Final Report* * * DATE OF EXAM: Apr 15 2018 10:35AM WO 0581 - [facility] SCREENING / PROCEDURE REASON: Screening for breast cancer * * * * Physician Interpretation * * * * RESULT: #[id number] - [facility] SCREENING BILATERAL DIGITAL SCREENING MAMMOGRAM WITH CAD: 04/15/2018 HISTORY: Screening Mammogram - patient reports NO breast symptoms /priors available for comparison. RESULT: TECHNIQUE: The study was acquired using full field digital technology and interpreted from soft copy. Current study was also evaluated with a Computer Aided Detection (CAD). Comparison is made to exams dated: 12/24/2015 mammogram and 08/10/2012 mammogram - [facility]. There are scattered fibroglandular elements in [...] the calcifications. Missy Shahid M.D., jr/penrad:04/15/2018 12:19:25 Junior Estimator: Lesley BURNHAM(R)(M), [facility] letter sent: Additional Imaging Needed Mammogram BI-RADS: 0 Incomplete: needs additional imaging evaluation If this report indicates you need additional imaging, and it has NOT yet been performed, please call , to schedule. We sincerely thank you for choosing the [facility] for your breast imaging needs. [...] Medicine, and Medical/Surgical Oncology, the [facility] has carefully reviewed the data [...] their providers when to stop screening mammograms. Bonbon Cream Warmer: Lucy Transcribe Date/Time: Apr 15 2018 10:09A Dictated by: MISSY SHAHID MD This examination was interpreted and the report reviewed and electronically signed by: MISSY SHAHID MD on Apr 15 2018 12:19PM EST [id number] PROGRESS Observed: 04/15/2018 Status: COMPLETED Source: [place] 10:14 AM [facility] REPOSITORY HNO ID: [id number] Author: Aliyah Burnham Service: (none) Author Type: [...] DATA REVIEWED: Not Applicable RADIOLOGY DEPARTMENT: [facility] IV DATA: Not applicable SIGNED BY: Aliyah Burnham April 15, 2018 10:14 AM PROGRESS Observed: 03/25/2018 Status: COMPLETED Source: [place] 10:27 AM [facility] REPOSITORY HNO ID: [id number] Author: Doug Ruiz III Service: (none) Author [...] all OTC have been tried and unsuccessfu. [facility] suggests that a covered option exists--written [...] Take 20 mg by mouth once daily. tyiptcr-sruoggyng-ekwceoh D3 500 mg(1,250mg) -200 unit per tablet [...] Age of Onset - Heart Father 54 [place] - Breast Cancer Mother - Breast Cancer [...] Carcamo MD Observed: 03/25/2018 Status: COMPLETED Source: [place] 10:20 AM [facility] REPOSITORY Office Visit (FAMPWS) JOSETTE ROMERO ([id number]) 1940 F Date Time Provider Department 03/25/18 10:20 AM DOUG RUIZ III FAMPWS During your visit today, we recorded the following information about you: Pulse Respiration Blood pressure Weight 95/minute 18/minute 127/90 71.2 kg Gerri Corrigan CMA, KRYS 03/25/2018 12:21 PM Signed 77 year old female here for INACTIVATED INFLUENZA VACCINE. 3031-0194 Season Patient is identified by name and date of : Yes [] CONTRAINDICATIONS color enhanced section Age less than 6 months? No Allergy to eggs, chicken, chicken feathers, or chicken dander? No Allergy to thimerosal (a preservative) or formaldehyde, gelatin? No History of severe reaction to any vaccine component or a previous dose of influenza vaccination? No History of Guillain-[place] Syndrome within 6 weeks after a previous [...] sheet given? Yes See immunization activity in [facility] for details of immunizations adminstered today. Patient age: [age] year old For The 8387-8221 Flu Season 6-35 months old: Fluzone 0.25 [...] all OTC have been tried and unsuccessfu. [facility] suggests that a covered option exists--written [...] Take 20 mg by mouth once daily. nggpaca-jcvetitbv-bzciixt D3 500 mg(1,250mg) -200 unit per tablet [...] Age of Onset - Heart Father 54 [place] - Breast Cancer Mother - Breast Cancer [...] pain Date Reviewed: 03/25/2018 Reviewed by: Gerri ([facility]) KRYS Corrigan - Fully Assessed Reason for Visit: Recheck [92] Flu shot [Other] Imm/Inj [58] Cmt: Flu Vaccine Reason For Visit History Recorded Primary Visit Diagnosis:Chronic insomnia [F51.04] Other Visit Diagnoses:Need for vaccination [Z23] Screening for breast cancer [Z12.31] Internal hemorrhoids [K64.8] Hot flash, menopausal [N95.1] Chronic obstructive pulmonary disease, unspecified COPD type (HCC) [J44.9] Order(s):INFLUENZA SEASONAL HIGH DOSE AGE 65+ [39142OLF] Order #: [id number] [facility] SCREENING [[id number]] Order #: [id number] FUTURE hydrOXYzine HCl (ATARAX) 25 mg tabletTake [...] 03/25/18 PROGRESS Observed: 03/25/2018 Status: COMPLETED Source: [place] 10:[address] [facility] REPOSITORY O ID: [id number] Author: Gerri (Battery Service Technician) KRYS Corrigan Service: (none) Author Type: Patient Access Type: Progress Notes Filed: 03/25/2018 12:21 PM Note Text: 77 year old female here for INACTIVATED INFLUENZA VACCINE. 7198-6910 Season Patient is identified by name and date of : Yes [] CONTRAINDICATIONS color enhanced section Age less than 6 months? No Allergy to eggs, chicken, chicken feathers, or chicken dander? No Allergy to thimerosal (a preservative) or formaldehyde, gelatin? No History of severe reaction to any vaccine component or a previous dose of influenza vaccination? No History of Guillain-[place] Syndrome within 6 weeks after a previous [...] sheet given? Yes See immunization activity in [facility] for details of immunizations adminstered today. Patient age: [age] year old For The 7678-4795 Flu Season 6-35 months old: Fluzone 0.25 [...] VISIT REPORT Observed: 12/15/2017 Status: F Source: [place] 2:08 PM [facility] REPOSITORY Pulmonary Medicine of [address] [place] [address] OFFICE VISIT Date of Service: 12/15/17 MR#: [id number] Acct: [id number] Name: JOSETTE ROMERO Rep #: [id number] : 1940 Provider: Chano Bowman D.O. Age/Sex: 77/F [facility] Status: Signed Assessment AND Plan 1. COPD [...] pulmonary rehab but experienced a mechanical fall intermediate through the program and had to be [...] lb Intake Visit Reasons: 3 M FU Mental Health Social Worker Required: No Accompanied by: Self Is patient [...] 09/27/14 [Rx Confirmed 12/15/17] Hydrocodone Bitart/Apap 5-325 [[place] 5/325] 1 - 2 tab PO Q8H [...] PO BID PRN 12/15/17 [History Confirmed 12/15/17] PFSH Medical History Pure hypercholesterolemia (Chronic) Pleural effusion [...] MD PROGRESS Observed: 11/14/2017 Status: COMPLETED Source: ANIAK 3:07 PM [facility] REPOSITORY O ID: [id number] Author: Doug Ruiz III Service: (none) Author [...] progress report in 3-4 weeks. SED RATE WINSOMEERGREN Collected: 11/11/2017 Status: F Source: ANIAK 3:21 PM [facility] REPOSITORY TYPE CODE TESTS RESULT OUT OF REFERENCE UNITS RANGE LAB WSR 0-20 mm/hr Sed Rate Westergren 2 Performed By: #### WSR, TSH, FT4 #### [facility] [address] [place], [place] [address] TSH Collected: 11/11/2017 Status: F Source: ANIAK 3:21 PM [facility] REPOSITORY TYPE CODE TESTS RESULT OUT OF RANGE REFERENCE UNITS LAB TSH 0.400-5.500 uU/mL TSH 3.980 Performed By: #### WSR, TSH, FT4 #### [facility] [address] [place], [place] [address] FREE T4 Collected: 11/11/2017 Status: F Source: ANIAK 3:21 PM [facility] REPOSITORY TYPE CODE TESTS RESULT OUT OF RANGE REFERENCE UNITS LAB FT4 0.9-1.7 ng/dL High Free T4 1.8 Performed By: #### WSR, TSH, FT4 #### [facility] [address] [place], [place] [address] HEMOGLOBIN A1C Collected: 11/11/2017 Status: F Source: ANIAK 3:21 PM [facility] REPOSITORY TYPE CODE TESTS RESULT OUT OF REFERENCE UNITS RANGE LAB HGBA1C 4.3-5.6 % High Hemoglobin A1c 6.1 LAB HBA0 mg/dL Est. Average Glucose 128 Result Comment: eAG: (Estimated average glucose) is a calculated value from HgbA1c and is medical device sales representative of the average blood glucose level in the last 2-3 month period. Performed By: #### HBA1C #### [facility] [employer] [address] [place], [place] [address] CNOV Observed: 11/11/2017 Status: COMPLETED Source: ANIAK 2:40 PM [facility] REPOSITORY Office Visit (FAMPWS) JOSETTE ROMERO ([id number]) 1940 F Date Time Provider Department 11/11/17 2:40 PM DOUG RUIZ III FAMPWS During your visit today, we recorded the [...] 3. hyperlipidemia 4. 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 rxvmdhz-exmqsdeya-ducwnza D3 500 mg(1,250mg) -200 unit per tablet [...] Age of Onset - Heart Father 54 [place] - Breast Cancer Mother - Breast Cancer [...] III MD Referring Provider: DOUG RUIZ III [[id number]] Allergies As of Date: 11/11/2017 Noted Allergy [...] tabletRfl: 5 TSH BLD [SQTSH] Order #: [id number] FUTURE T4 FREE/FREE THYROX [SQFT4] Order #: [id number] FUTURE lactulose (DUPHALAC, CONSTULOSE) 10 gram/15 mL solutionTAKE 30 ML BY MOUTH TWICE DAILY NEEDED (CONSTIPATION).Disp: 473 mLRfl: 2 SED RATE WESTERGREN [SQWSR] Order #: [id number] FUTURE Prescriptions as of 11/11/2017 Sig: LACTULOSE [...] 11/11/17 PROGRESS Observed: 11/11/2017 Status: COMPLETED Source: ANIAK 2:[address] [facility] REPOSITORY HNO ID: [id number] Author: Doug Ruiz III Service: (none) Author Type: Physician Type: Progress Notes Filed: 11/11/2017 6:55 PM Note Text: SUBJECTIVE: This is a 76 year old female that is here today for 1. hot flashes, episodically. Difficulty sleeping due to hot flash. s/p thyroidectomy--admits to regularly take potassium med. Face turns brilliant red 2. hypertension 3. hyperlipidemia 4. 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 uqsmzxc-odszkqwon-eyjrbkz D3 500 mg(1,250mg) -200 unit per tablet [...] Age of Onset - Heart Father 54 [place] - Breast Cancer Mother - Breast Cancer [...] OPERATIVE REPORT Observed: 10/26/2017 Status: F Source: [place] 12:48 PM [facility] REPOSITORY [facility] Medical Records Department [address] [place] [address] Operative Report 10/26/17 1244 MR#: [id number] Acct: [id number] Name: JOSETTE ROMERO Rep #: [id number] : 1940 76 From: Star Ardon MD PCP: Doug Ruiz III, MD Status: DEP [facility] Y Location: [facility] Problem List (1) DDD (degenerative disc disease), [...] MIN 4 Observed: 10/26/2017 Status: F Source: [place] VIEWS 1:07 AM [facility] REPOSITORY [facility] Imaging Services [address] [place] [address] L/S Spine Min 4 Views MR#: [id number] Acct: [id number] Name: JOSETTE ROMERO Rep #: [id number] : 1940 F 76 From: Ari Ward MD PCP: Doug Ruiz III, MD Status: [facility] Study: L/S Spine Min 4 Views Date of Exam: 10/26/17 Exam# [id number] Ordering Dr: Star Ardon MD STUDY: X-RAY [...] Ari Ward MD at 10:43 EDT Tel [phone], Service support , CC: Doug Ruiz III, MD; Star Ardon Bonbon Cream Warmer: Signed CNPTOUTREA Observed: 10/13/2017 Status: COMPLETED Source: ANIAK 12:[address] [facility] REPOSITORY Patient Outreach (INTMWH) JOSETTE ROMERO ([id number]) 1940 F Date Time Provider Department 10/13/17 DOUG RUIZ III [facility] During your visit today, we recorded the following information about you: Allergies As of Date: 10/13/2017 Noted Allergy Reaction CELEBREX (CELECOXIB) 05/13/2005 DICLOFENAC 05/01/2017 1 - Mental Status Change DOXYCYCLINE 05/13/2005 2 - Rash Comments: photosensitivity MONUROL (FOSFOMYCIN TROMETHAMINE) 05/13/2005 BRYCE Cavazos [Other] 05/13/2005 ZOCOR (SIMVASTATIN) 05/13/2005 14 - Other: See Comments Comments: bone pain Date Reviewed: 09/04/2017 Reviewed by: Simone Thomas - Fully Assessed Visit Diagnosis:Medication management [Z79.899] Order(s):HGB A1C [ZFCUH1K] Order #: [id number] FUTURE Prescriptions as of 10/13/2017 Sig: HYDROCORTISONE [...] VISIT REPORT Observed: 09/11/2017 Status: F Source: YIMI 11:17 AM [facility] REPOSITORY [facility] [address] [place] [address] OFFICE VISIT Date of Service: 09/11/17 MR#: [id number] Acct: [id number] Name: JOSETTE ROMERO Rep #: [id number] : 1940 Provider: Chano Bowman D.O. Age/Sex: 76/F Location: [facility].PM[facility] Status: Signed Assessment AND Plan 1. COPD [...] pulmonary rehab but experienced a mechanical fall intermediate through the program and had to be [...] 05/22/17 [History Confirmed 09/11/17] Hydrocodone Bitart/Apap 5-325 [[place] 5/325] 1 - 2 tab PO Q8H PRN PRN #12 tab 05/22/17 [Rx Confirmed 09/11/17] Senna/Docusate Sodium [Senokot-S] 1 tab PO BID PRN 05/22/17 [History Confirmed 09/11/17] tiotropium bromide 2.5 mcg/actuation mist for inhalation 2 puff INHALATION QDAY #4 g 08/04/17 [Rx Confirmed 09/11/17] montelukast 10 mg tablet 10 mg PO QDAY #90 tab 09/11/17 [Rx Confirmed 09/11/17] PFS Medical History Pure hypercholesterolemia (Chronic) Pleural effusion [...] 09/11/2017 Status: F Source: YIMI 10:54 AM [facility] REPOSITORY Order Comment: Reason for Exam: Allergies [...] Urine Normal <0.10 Result Comment: Performed at: [address] [id number] Senior Market Research Analyst: Tomás Maravilla MD, Phone: [phone] LAB L5560.0050 Class 0 kU/L JUAN, Normal [...] SORREL <0.10 LAB L5580.0360 Class 0 kU/L ISRAELI Normal THISTLE <0.10 Performed By: #### L5500.0700 #### [facility] (refer to report for specific site) refer to report for address and phone number PROGRESS Observed: 09/04/2017 Status: COMPLETED Source: ANIAK 6:01 PM [facility] REPOSITORY HNO ID: [id number] Author: Simone Ervin (Otoniel) Jose Service: (none) Author Type: Nurse Practitioner [...] Laterality Date - COLONOSCOP W/ OR W/O [facility] SPEC 06/17/91 Colonoscopy - COLONOSCOP W/ OR W/O [facility] SPEC 08/27/2009 Colonoscopy - HEMORRHOIDECT [...] Take 20 mg by mouth once daily. mzkrfgy-avznqawyu-ylqezfu D3 500 mg(1,250mg) -200 unit per tablet [...] Age of Onset - Heart Father 54 [place] - Breast Cancer Mother - Breast Cancer [...] Patient agreeable to treatment plan. Simone Thomas APRN.CNP CNOV Observed: 09/04/2017 Status: COMPLETED Source: ANIAK 5:30 PM [facility] REPOSITORY Office Visit (WSTR) JOSETTE ROMERO ([id number]) 1940 F Date Time Provider Department 09/04/17 5:30 PM SIMONE THOMAS (SILK SPOOLER) [facility] During your visit today, we recorded the [...] Laterality Date - COLONOSCOP W/ OR W/O [facility] SPEC 06/17/91 Colonoscopy - COLONOSCOP W/ OR W/O [facility] SPEC 08/27/2009 Colonoscopy - HEMORRHOIDECT [...] Take 20 mg by mouth once daily. efpmrts-swhvzilqu-qvdzpbt D3 500 mg(1,250mg) -200 unit per tablet [...] Age of Onset - Heart Father 54 [place] - Breast Cancer Mother - Breast Cancer [...] Patient agreeable to treatment plan. Simone Thomas APRN.NEELA Thomas APRN.CNP 09/04/2017 6:06 PM Signed Understanding COPD [...] Date Reviewed: 09/04/2017 Reviewed by: Simone Ervin (Clerical Car Checker) Jose - Fully Assessed Reason for Visit: [...] tablet daily until gone.Disp: 1 PackageRfl: 0 Wwbopfubisyredl-Uxkleyyvf-VF (BROMFED DM) 2-30-10 mg/5 mL syrupTake 10 [...] one, then, 1 tablet daily until gone. MGTFUWJSAGEJSJC-PYNFIUNWDIHDJCX-BJ 2* 240 * 0 09/04/2017 09/11/2017 Route: ORAL Sig: Take 10 mL by mouth four times daily as needed for up to 7 days. Disposition: Return if symptoms worsen or fail to improve. Follow-up and Disposition History Recorded Encounter Status:Closed by SIMONE THOMAS on 09/09/17 PROGRESS Observed: 08/16/2017 Status: COMPLETED Source: ANIAK 4:[address] [facility] REPOSITORY HNO ID: [id number] Author: Nazia Begum) Older Service: (none) Author Type: Nurse Practitioner [...] CNP CNOV Observed: 08/16/2017 Status: COMPLETED Source: ANIAK 3:30 PM [facility] REPOSITORY Office Visit (WSTR) JOSETTE ROMERO ([id number]) 1940 F Date Time Provider Department 08/16/17 3:30 PM NAZIA PIERRE) [facility] During your visit today, we recorded the following information about you: Temperature Pulse Respiration Blood pressure 98 degrees 92/minute 24/minute 112/76 Weight 70.8 kg aNzia Pierre CNP 08/16/2017 4:39 PM Signed CC: [...] symptoms occur. Patient agreeable to treatment plan. NEELA Thomas CNP 08/16/2017 4:10 PM Signed General: [...] Diagnosis:Sore throat [J02.9] Order(s):RAPID STREP TEST B/O [[id number]] Order #: [id number] Prescriptions as of 08/16/2017 Sig: LORAZEPAM 0.5 [...] Status:Closed by NAZIA PIERRE CNP on 08/16/17 ALLERGIES ALLERGIES DATE TYPE / CODE NAME / CODE REACTION SEVERITY SOURCE Drug pseudoephedrine Unknown Unknown [place] 9 Allergy/888720202( HCl/H657892380(RXNOR Community SNOMED [facility]) M) Hospital Repository Drug clemastine Unknown Unknown [place] 9 Allergy/862270196( fumarate/O305353202( Community SNOMED CT) RXNORM) Hospital Repository Drug fosfomycin Unknown Unknown [place] 9 Allergy/880594085( tromethamine/H285528 Community SNOMED [facility]) 468(RXNORM) Hospital Repository Drug acetaminophen/D03418 Unknown Unknown [place] 9 Allergy/405937117( 1605(RXNORM) Community SNOM[facility] CT) Hospital Repository Drug doxycycline/X9847632 Other Unknown [place] 9 Allergy/827203587( 48(RXNORM) Community SNOMED [facility]) Hospital Repository Drug simvastatin/J8188439 Pain in Unknown [place] 9 Allergy/621524168( 21(RXNORM) joints Community SNOM[facility]) Hospital Repository Drug celecoxib/X910662662 Upset Unknown [place] 9 Allergy/852800877( (RXNORM) Stomach [facility] SNOM[facility]) Hospital Repository DRUG DICLOFENAC [facility] [place] [facility] INGREDI/251884888( Clinic Main SNOMED CT) [place] Repository DRUG CELECOXIB [place] INGREDI/595414662( Clinic Main SNOMED CT) [place] Rep[place] DRUG DOXYCYCLINE RASH [place] INGREDI/661813636( Clinic Main SNOMED CT) [place] Rep[facility] DRUG FOSFOMYCIN [place] INGREDI/356073777( TROMETHAMINE Clinic Main SNOMED CT) [place] Rep[place] Miscellaneous OTHER [place] [facility] Allergy/660128275( Clinic Main SNOMED CT) [place] Rep[place] DRUG SIMVASTATIN OTHER: SEE C [place] INGREDI/712180604( Clinic Main SNOMED CT) [place] Repository ENCOUNTERS ENCOUNTERS ADMIT/DISCHARGE ACCOUNT NUMBER ADMITTING ENCOUNTER LOCATION SOURCE CLASS 07/09/2018 [id number] Ambulatory [facility] ding:[place] Repository 06/19/2018/06/22/19 [id number] Ambulatory [address] Repository 06/14/2018/06/14/19 [id number] Ambulatory BMSBuilding: [place] 19 [facility] Repository 05/25/2018/05/25/20 [id number] Ambulatory BMSBuilding: [place] 18 [facility] Repository 05/19/2018 [id number] Ambulatory BMSBuilding: [place] BMS.CF.On license of [facility] Repository 05/19/2018 [id number] Ambulatory [facility] ding:BIRAD Repository 05/14/2018/05/14/20 [id number] Ambulatory BMSBuilding: [place] 18 BMS.On license of [facility] Repository 05/05/2018/05/05/20 [id number] Ambulatory [address] Repository 05/04/2018 [id number] Ambulatory BMSBuilding: Zanoni [facility] Repository 05/04/2018 [id number] Ambulatory [facility] ding:PSN Repository 04/15/2018/04/15/20 [id number] Ambulatory [address] Repository 03/25/2018/03/26/20 [id number] Ambulatory [address] Repository 12/15/2017/12/16/19 [id number] Ambulatory BMSBuilding: [place] 18 BMS.[facility] Repository 11/11/2017/11/12/19 [id number] Ambulatory [address] Repository 11/11/2017/11/13/19 [id number] Ambulatory [address] Repository 10/26/2017/10/27/19 [id number] Ambulatory [address] ding:SDC Repository 09/11/2017 [id number] Ambulatory [facility] ding:EPLAB Repository 09/11/2017/09/12/19 [id number] Ambulatory BMSBuilding: [place] 18 BMS.[facility] Repository 09/09/2017 [id number] Ambulatory [facility] Repository 09/04/2017/09/11/19 [id number] Ambulatory [address] Repository 08/16/2017/08/18/19 [id number] Ambulatory [address] Repository 08/03/2017/09/30/19 [id number] Ambulatory BBuilding:[address] Repository 07/19/2017 [id number] Ambulatory [facility] ding:KS Repository PAYERS PAYERS ENCOUNTER GUARANTOR PAYER SUBSCRIBER SOURCE 07/09/2018 DIONICIO L Primary JOSETTE E Yimi [id number] PAT[place]ICIA Insurance:MEDICARE FULLERDOB: Community DRPO BOX PART A [facility] [id number], Number: Repository [place] [address]Uxi: [id number] Date:2018-05-28 () 07/09/2018 Secondary JOSETTE E [place] Insurance:AARPPolicy FULLERDOB: Community Number: [id number] [facility] [id number] Repository Date:0629-45-14[address], [place] [address]KH: 07/09/2018 Tertiary NOT GIVENUNK [place] Insurance:SELF PAY [facility] Number: Effective Repository Date:2018-05-28 06/14/2018 DIONICIO L Primary JOSETTE E Yimi [id number] [place]IA Insurance:MEDICARE FULLERDOB: Community [address] A [facility] [id number], Number: Repository [place] [address]Bud: [id number] Date:2017-12-15 () 06/14/2018 Secondary JOSETTE E [place] Insurance:AARPPolicy FULLERDOB: Community Number: [id number] Hospital [id number] Repository Date:7397-76-30[address], [place] [address]BM: 06/14/2018 Tertiary NOT GIVENUNK [place] Insurance:SELF PAY [facility] Number: Effective Repository Date:2018-06-10 05/25/2018 DIONICIO L Primary JOSETTE E [place] [id number] [place]IA Insurance:MEDICARE FULLERDOB: Community [address] A [facility] [id number], Number: Repository [place] [address]Fdn: [id number] Date:2018-05-24 () 05/25/2018 Secondary JOSETTE E Y[place] Insurance:AARPPolicy FULLERDOB: Community Number: [id number] Hospital [id number] Repository Date:2990-29-14ZV [address], [place] [address]SC: 05/25/2018 Tertiary NOT GIVENUNK [place] Insurance:SELF PAY [facility] Number: Effective Repository Date:2018-05-25 05/19/2018 DIONICIO L Primary JOSETTE E Y[place] [id number] [place] Insurance:MEDICARE FULLERDOB: Community [address] A [facility] [id number], Number: Repository [place] [address]Yhk: [id number] Date:2018-05-14 () 05/19/2018 Secondary JOSETTE E Y[place] Insurance:AARPPolicy FULLERDOB: Community Number: [id number] Hospital [id number] Repository Date:1218-04-47FA [facility] [address], [place] [address]GB: 05/19/2018 Tertiary NOT GIVENUNK Yimi Insurance:SELF PAY [facility] Number: Effective Repository Date:2018-05-19 05/19/2018 DIONICIO L Primary JOSETTE E Yimi [id number] [place] Insurance:MEDICARE FULLERDOB: Community [address] A [facility] [id number], Number: Repository [place] [address]Eii: [id number] Date:2018-05-14 () 05/19/2018 Secondary JOSETTE E Yimi Insurance:AARPPolicy FULLERDOB: Community Number: [id number] Hospital [id number] Repository Date:7048-41-46DZ [address], [place] [address]MV: 05/19/2018 Tertiary NOT GIVENUNK [place] Insurance:SELF PAY [facility] Number: Effective Repository Date:2018-05-14 05/14/2018 DIONICIO L Primary JOSETTE E [place] [id number] [place] Insurance:MEDICARE FULLERDOB: Community [address] A [facility] [id number], Number: Repository [place] [address]Jit: [id number] Date:2018-05-06 () 05/14/2018 Secondary JOSETTE E [place] Insurance:AARPPolicy FULLERDOB: Community Number: [id number] Hospital [id number] Repository Date:5313-32-11LH [address], [place] [address]IJ: 05/14/2018 Tertiary NOT GIVENUNK Y[place] Insurance:SELF PAY [facility] Number: Effective Repository Date:2018-05-13 05/04/2018 DIONICIO L Primary JOSETTE E [place] [id number] PATRICIA Insurance:MEDICARE FULLERDOB: Community [facility] BOX PART A [facility] [id number], Number: Repository [place] [address]Sab: [id number] Date:2017-12-15 () 05/04/2018 Secondary JOSETTE E Yimi Insurance:AARPPolicy FULLERDOB: Community Number: [id number] Hospital [id number] Repository Date:4963-74-10IM [address], [place] [address]NN: 05/04/2018 Tertiary NOT GIVENUNK [place] Insurance:SELF PAY [facility] Number: Effective Repository Date:2018-05-04 05/04/2018 DIONICIO L Primary JOSETTE E Yimi [id number] [place] Insurance:MEDICARE FULLERDOB: Community [facility] BOX [address] A [facility] [id number], Number: Repository [place] [address]Yva: [id number] Date:2017-12-15 () 05/04/2018 Secondary JOSETTE E [place]oni Insurance:AARPPolicy FULLERDOB: Community Number: [id number] Hospital [id number] Repository Date:2709-92-76SI [address], [place] [address]VE: 05/04/2018 Tertiary NOT GIVENUNK [place] Insurance:SELF PAY [facility] Number: Effective Repository Date:2017-12-15 12/15/2017 Dionicio L Primary JOSETTE E Z[place]oni [id number] Patricia Insurance:MEDICARE FULLERDOB: Community [address] [facility] [id number], Number: Repository [place] [address]Sxb: [id number] Date:2017-09-11 () 12/15/2017 Secondary JOSETTE E Z[place]oni Insurance:AARPPolicy FULLERDOB: Community Number: [id number] Hospital [id number] Repository Date:0083-46-10TN [address], [place] [address]DB: 12/15/2017 Tertiary NOT GIVENUNK Yimi Insurance:SELF PAY [facility] Number: Effective Repository Date:2017-12-07 10/26/2017 [place] L Primary JOSETTE E Yimi [id number] Patricia Insurance:MEDICARE FULLERDOB: Community [address] [facility] [id number], Number: Repository [place] [id number]: [id number] Date:2017-10-21 () 10/26/2017 Secondary JOSETTE E Z[place]oni Insurance:AARPPolicy FULLERDOB: Community Number: [id number] Hospital [id number] Repository Date:7278-49-60QM [address], [place] [address]XO: 10/26/2017 Tertiary NOT GIVENUNK [place] Insurance:SELF PAY [facility] Number: Effective Repository Date:2017-10-21 09/11/2017 Dionicio L Primary JOSETTE E Yimi [id number] Patricia Insurance:MEDICARE FULLERDOB: Community [address] [facility] [id number], Number: Repository [place] [address]Ngu: [id number] Date:2017-09-11 () 09/11/2017 Secondary JOSETTE E Yimi Insurance:AARPPolicy FULLERDOB: Community Number: [id number] Hospital [id number] Repository Date:0633-69-02XX [address]OM[place]FP, [place] [address]GQ: 09/11/2017 Tertiary NOT GIVENUNK [place] Insurance:SELF PAY [facility] Number: Effective Repository Date:2017-09-11 09/11/2017 Dionicio L Primary JOSETTE E Z[place]oni [id number] Patricia Insurance:MEDICARE FULLERDOB: Community [address] BPolicy [id number], Number: Repository [place] [address]Vrn: [id number] Date:2017-05-18 (HP) 09/11/2017 Secondary JOSETTE E Zanoni Insurance:AARPPolicy FULLERDOB: [facility] Number: [id number] Hospital [id number] Repository Date:9785-15-80EG [address]BB[place]TC, [place] [address]RC: 09/11/2017 Tertiary NOT GIVENUNK Yimi Insurance:SELF PAY [facility] Number: Effective Repository Date:2017-09-04 09/09/2017 Dionicio L Primary NOT GIVENUNK [place] [id number] Patricia Insurance:SELF PAY [facility] Dr[address], Number: Effective Repository [place] [id number]: Date:2017-09-09 () 08/03/2017 JOSETTE E Primary JOSETTE E [facility] FULLERDOB: Insurance:MEDICARE FULLERDOB: Foundation 1940P O PART BPolicy Number: [id number] O Repository [id number] [place] [address], Date:2017-08-[address] [place] [address], [place] [address]Axd: 4518-95-65Phry [place] [address]Dyw: Name:[facility] (HP)Tel: ([phone]) Administrators LLCPO (HP) (WP) [address] [address]phj[address], 000-0000 (WP) [place] [address]JU: 08/03/2017 Secondary JOSETTE E [facility] Insurance:[employer] LE[place] EVADOB: [facility] HEALTH-SECONDARY [id number] O Repository [facility] Number: VALE [id number], Date:2017-08-03 - [place] [address]Pmf: [id number] Name:CPO Chawla ()Tel: ([phone]) [phone], [place] [phone] () [address]WP: 07/19/2017 Dionicio Dempsey Primary NOT GIVENUNK Yimi Gomez Insurance:SELF PAY Community [facility] O [address], Number: Effective Repository [place] [address]Zyx: Date:2017-07-09 ()
== END ==
PROVIDERS: Family Provider Family Medicine; PCP Family Medicine; Visit Provider Surgery
DX: C50.811 Malignant neoplasm of overlapping sites of right female breast (principal); M19.90 Unspecified osteoarthritis, unspecified site; I10 Essential (primary) hypertension; F41.9 Anxiety disorder, unspecified; J44.9 Chronic obstructive pulmonary disease, unspecified; F32.9 Major depressive disorder, single episode, unspecified; E03.9 Hypothyroidism, unspecified; E78.5 Hyperlipidemia, unspecified; Z87.891 Personal history of nicotine dependence; Z79.51 Long term (current) use of inhaled steroids; Z79.899 Other long term (current) drug therapy
CPT/HCPCS: 19081; 88305; 88341; 88342; J7050

== ENCOUNTER 2018-07-09 07:48 | Day surgery (SDC) | payer MEDICARE, OTHER, SELFPAY ==
[2018-05-25 16:41] VITALS: BMI 27.1
--- NOTE | 2018-06-16 11:11 | RAD_ITS ---
STUDY: X-RAY CHEST REASON FOR EXAM: Female, 77 years old. Preoperative evaluation. TECHNIQUE: PA and lateral views of the chest. COMPARISON: Comparison is made with prior study dated September 14, 2014. FINDINGS: Mild residual blunting of the left costophrenic angle. Mild elevation of the anterior aspect of the right hemidiaphragm. No acute abnormality is seen. Normal size heart. Normal mediastinum and sylvia. Normal visualized pulmonary arteries. There is atherosclerotic calcification of the aortic arch with tortuosity. There is demineralization of the osseous structures. Loss of height of a mid dorsal vertebrae. Increased kyphosis. Normal visualized ribs, clavicles, and shoulders. There is no demonstrated abnormality of the visualized soft tissue structures of the upper abdomen. RAD/Chest PA and Lateral IMPRESSION: Residual blunting of the left cost phrenic angle. No acute abnormality is seen. Electronically Signed: Ari Ward MD at 11:27 EST Tel [phone], Service support ,
--- NOTE | 2018-06-16 11:14 | EKG12_ITS ---
Test Reason : PRE-OP Blood Pressure : / mmHG Vent. Rate : 071 BPM Atrial Rate : 071 BPM P-R Int : 198 ms QRS Dur : 082 ms QT Int : 384 ms P-R-T Axes : 052 -27 064 degrees QTc Int : 417 ms Normal sinus rhythm Minimal voltage criteria for LVH, may be normal variant Septal infarct , age undetermined Abnormal ECG Confirmed by JORDAN VENTURA, ELIECER ([id number]), make up editor JONO ROME ([id number]) on 06/21/2018 9:57:47 AM Referred By: Cipriano Ruiz Confirmed By:ELIECER ORTEGA MD
[2018-06-16 11:49] LABS: Hematocrit 45.6 % (37-47); Hemoglobin 14.4 g/dl (12.0-15.0); Mean Corp Hgb Conc 31.6 g/gl (32-36); Mean Corpuscular Hgb 29.8 pg (27.0-32.0); Mean Corpuscular Volume 94.4 fL (81-99); Mean Platelet Vol. 9.9 fl (6.2-12.0); Platelet Count 280 K/mm3 (150-450); RBC Distribution Width CV 12.4 % (11.6-14.6); Red Blood Count 4.83 M/mm3 (4.2-5.4); White Blood Count 7.1 K/mm3 (4.4-11.0)
[2018-06-16 11:53] LABS: Scan Indicated on CBC? Y/N NO
[2018-06-16 12:34] LABS: AST(SGOT) 12 U/L (15-37); Alanine Aminotransfer ALT/SGPT 18 U/L (13-56); Albumin, Serum 3.5 g/dL (3.2-5.0); Alkaline Phosphatase 53 U/L (45-117); Anion Gap 8 (5-15); BUN 18 mg/dL (7-18); BUN/Creat Ratio 20.2 RATIO (10-20); Calcium,Total 9.1 mg/dL (8.5-10.1); Chloride 106 mmol/L (98-107); Creatinine, Serum 0.89 mg/dL (0.55-1.02); EST Glomerular Filtration Rate 65 mL/min (>60); Est Glom Filt Rate - Afr Amer 79 mL/min (>60); Globulin 3.6 g/dL (2.2-4.2); Glucose 94 mg/dL (74-106); Potassium 3.8 mmol/L (3.5-5.1); Protein, Total 7.1 g/dL (6.4-8.2); Sodium Level 142 mmol/L (136-145)
[2018-06-30 10:24] VITALS: BMI 27.1
[2018-07-09] VITALS (12 sets, daily range): BP systolic 107–159; BP diastolic 50–83; PULSE 67–97; RESP 16–20; TEMP 36.2–36.6; O2SAT 92–99; BMI 26.8
--- NOTE | 2018-07-09 | IMM_PTH ---
PATIENT: IGNACIA VELASQUEZ LOC: [facility] [place] U#:[id number] AGE/SX: 77/F ROOM: RE07/09/[address]: Dr. Cipriano Ruiz MD : 1940 BED: DIS: 07/09/2018 SPEC #: [id number] RECD: 07/13/18 13:54 STATUS: ISHAN REAbdullahi #: [id number] TASIA: 07/09/18 00:[address]: Cipriano Ruiz DEPT: IMMUNOHISTOCHEMISTRY RECD BY: Desirae Noyola ENTERED: 07/13/18 13:56 SP TYPE: IMMUNO OTHR DR: Dr. Jomar Ruiz III, MD Tissues: A - Axillary lymph node, NOS Procedures: CK7 (add) Pankeratin (initial) PHYSICIAN & INSTITUTION [place] [id number] SPECIMEN INFORMATION: Tissue Source: A - Right axillary sentinel lymph node, biopsy Clinical Info: Malignant neoplasm of central portion right breast Specimen Number: [id number] CPT code: 84531, 18686 METHODOLOGY: Deparaffinized sections of prefer/formalin-fixed tissue or PAP/DQ stained slides are incubated with monoclonal/polyclonal antibodies/oligonucleotide probes. Localization is made via biotin free immunoperoxidase method. Appropriate controls are performed and reacted as expected. Results on target cell population are indicated in the following table: RESULTS: ANTIBODY / CLONE RESULT Block A AE1-3 (AE1/AE3/PCK26) negative CK7 (OV-TL12/30) negative These tests were developed and their performance characteristics determined by [facility]. They may not have been cleared or approved by the U.S. Food and Drug Administration. The FDA has determined that such clearance or approval is not necessary. INTERPRETATION: A. Right axillary sentinel lymph node, biopsy: One out of one lymph node negative for carcinoma. AM:laura 07/14/18
--- NOTE | 2018-07-09 | AXNB_PTH ---
PATIENT: IGNACIA VELASQUEZ LOC: [facility] [place] U#:[id number] AGE/SX: 77/F ROOM: RE07/09/[address]: Dr. Cipriano Ruiz MD : 1940 BED: DIS: 07/09/2018 SPEC #: [id number] RECD: 07/09/18 11:14 STATUS: ISHAN FOUNTAINAbdullahi #: [id number] TASIA: 07/09/18 00:[address]: Cipriano Ruiz DEPT: SURGICAL PATHOLOGY RECD BY: Desirae Noyola ENTERED: 07/09/18 11:42 SP TYPE: AX NODE BX OTHR DR: Dr. Jomar Ruiz III, MD Tissues: A - Axillary lymph node, NOS B - Right breast, NOS Procedures: Frozen Section (charge) Surgery Specimen Level V HEADER OPERATION: Breast lumpectomy, sentinel node biopsy, needle localization, Neoprobe PRE-OP DIAGNOSIS: Malignant neoplasm of central portion of right breast TISSUE SUBMITTED: A - [place] node sent for FS at 1109, B - Right breast tissue, long suture - lateral, short suture - superior, wire - anterior FROZEN SECTION DIAGNOSIS A. Right axillary sentinel lymph node, biopsy: One out of one lymph node, negative for carcinoma. AM: 07/09/18 MICROSCOPIC DIAGNOSIS A. Right axillary sentinel lymph node, biopsy: One out of one lymph node negative for carcinoma. B. 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 See cancer checklist below. AM: 07/14/18 COMMENT B. INVASIVE BREAST CANCER SUMMARY: Procedure: Excision with wire guidance Specimen: Partial breast Specimen integrity: Single intact specimen. Specimen size: 7 x 5 x 2 cm Specimen laterality: Right breast Invasive tumor size: Tumor is 9 x 2.6 x 2 mm Tumor focality: Single focus Macroscopic and Microscopic extent of tumor: Skin: Free of carcinoma. Nipple: No present. Skeletal muscle: No present. Histologic type of invasive carcinoma: Invasive ductal carcinoma Histologic Grade (Kathi grade): Glandular/tubular differentiation score: 1 Nuclear pleomorphism score: 2 Mitotic count score: 2 Overall grade: Grade 1 (total score of 5) Margins: Uninvolved by invasive carcinoma. Distance from closest margin (anterior margin) - 8 mm Lymph-Vascular invasion: Not identified Dermal lymph-vascular invasion: Not identified Ductal carcinoma in situ (DCIS): Estimated size (extent) of DCIS: 2 x 2 x 1 mm Number of blocks with DCIS: 2 out of 10 blocks Architectural patterns: Cribriform with focal central necrosis. Nuclear grade: Grade 2 Necrosis: Present, focal Lobular carcinoma in situ (LCIS): Not present Lymph nodes: Number of sentinel lymph nodes examined: 1 Total number of lymph nodes examined (sentinel and nonsentinel): 1 No evidence of macrometastases, micrometastases or isolated tumor cells. See specimen A. Microcalcifications: Present focally in association with carcinoma. Treatment effect: Unknown Additional pathologic findings: Biopsy cavity with associated reactive change. Focal intraductal hyperplasia with mild atypia. Ancillary studies: Previously performed on same tumor ([id number] / [id number]). ER: positive, 43%, weak OK: negative Her2 anthony: 3+ (IHC) PATHOLOGIC STAGE: pT1b N0(sn) Mx The above summary is in compliance with [employer] [place] [employer] (CAP) Cancer Protocols Checklist and [place] Joint Committee on Cancer (AJCC), Staging Manual, 8th Ed. Case has been reviewed in consultation with Dr. Anaya who concurs with the above diagnosis. IDC:[id number] MICROSCOPIC DESCRIPTION Slides are reviewed. GROSS DESCRIPTION A - Received fresh for frozen section consultation labeled with the patient's name is a specimen designated right axillary sentinel lymph nodes. The specimen consists of an irregular fragment of lundberg-yellow fibrofatty tissue measuring 3.5 x 2.5 x 1 cm. Sections reveal a single nodule measuring 1.5 cm in greatest dimension. The nodule is bisected and submitted entirely for frozen section consultation in two blocks. B - Received fresh for OR consultation labeled with the patient's name is a specimen designated right breast tissue. The specimen consists of an irregular fragment of lundberg-yellow fibrofatty tissue measuring 7 x 5 x 2 cm and containing an ellipse of skin measuring 2.5 x 0.8 cm and weighing 42.4 gm. The specimen is differentially inked as follows: anterior - yellow, posterior - black, superior - blue, inferior - green, medial - red and lateral - orange. Serial sections reveal a biopsy cavity measuring 1.2 x 1 x 0.5 cm and located 0.8 cm from its closest (anterior) margin of resection. The biopsy cavity is surrounded by indurated tissue. No distinct mass lesion is identified. The proximity of the lesion to the margin is conveyed to the surgeon intraoperatively. Digital Marketing Specialist sections are submitted in ten cassettes as follows: 1 - skin, 2 & 3 - perpendicular inked margins, 4-6 - biopsy cavity surrounded by indurated tissue, 7-10 - fraud representative sections of uninvolved breast parenchyma adjacent to and away from biopsy cavity and surrounding induration (#7 & 8 are adjacent to indurated area). / AM:laura 07/12/18 TC:0 CPT: 96425 x2, 95843, 19737
--- NOTE | 2018-07-09 07:49 | NM_ITS ---
PROCEDURE: NUCLEAR MEDICINE Injection Porter Node - RIGHT breast(s). REASON FOR EXAM: Female, 77 years old. Right breast cancer. TECHNIQUE: Porter node localization using radionuclide methods of the RIGHT breast(s) was performed following subcutaneous administration of 1.1 mCi of of sulfur colloid Tc-99m. FINDINGS: 1.1 mCi of technetium labeled sulfur colloid was injected in 4 equal aliquots at the biopsy site. NM/Lymph Node Injection Only IMPRESSION: Subcutaneous injection of 1.1 mCi of technetium sulfur colloid at the biopsy site. Electronically Signed: Ari Ward MD at 9:08 EST , Service support ,
--- NOTE | 2018-07-09 10:32 | BI_ITS ---
SURGICAL BREAST SPECIMEN RADIOGRAPH CLINICAL: Document presence of tissue clip marker in biopsy specimen. FINDINGS: Specimen shows presence of tissue clip marker. Electronically Signed: Ari Ward MD at 13:14 EST , Service support , BI/Breast Biopsy Specimen
--- NOTE | 2018-07-09 10:35 | DCINST_ITS ---
Discharge Diet: No Restrictions Discharge Activity: May Not Drive - for 2-3 days or while taking narcotic pain meds. May shower in (days): 1 Lifting Restrictions: 10 pounds for 1 week. Call your doctor if your incision/area has: Continuous Slow Oozing, Sudden In creased Bleeding Call your doctor if you observe: Fever of 101 or Higher Suture Line Care: Avoid Pulling/Pushing, Avoid Pinching/Bending Remove Dressing in (days):: 1 - Remove bulky dressing tomorrow. May leave any opsite dressing for 3-4 days. Keep dressing in place until your follow-up appointment. Additional Dressing/Incision Instructions:: Remove bulky dressing tomorrow. May leave any opsite dressing for 3-4 days. You may leave any steri strips for one week please Allergies/Adverse Reactions: Allergies acetaminophen [From Tavist] Allergy (Verified 06/30/18 10:23) Unknown clemastine fumarate [From Tavist] Allergy (Verified 06/30/18 10:23) Unknown fosfomycin tromethamine [From Monurol] Allergy (Verified 06/30/18 10:23) Unknown pseudoephedrine HCl [From Tavist] Allergy (Verified 06/30/18 10:23) Unknown celecoxib [From Celebrex] Adverse Reaction (Verified 06/30/18 10:23) Upset Stomach doxycycline Adverse Reaction (Verified 06/30/18 10:23) Other simvastatin [From Zocor] Adverse Reaction (Verified 06/30/18 10:23) Pain in joints Medications to take at Discharge Atorvastatin Calcium [Lipitor] 20 mg PO QHS 09/09/14 Levothyroxine [Synthroid] 112 mcg PO DAILY 09/09/14 Senna/Docusate Sodium [Senokot-S] 1 tab PO BID PRN 05/22/17 montelukast 10 mg tablet 10 mg PO QDAY #90 tab 09/11/17 Lisinopril [Prinivil] 5 mg PO DAILY 10/22/17 budesonide-formoterol HFA 160 mcg-4.5 mcg/actuation aerosol inhaler 2 puff INHALATION BID #3 ea 10/28/17 tiotropium bromide 2.5 mcg/actuation mist for inhalation 2 puff INHALATION QDAY #3 ea 10/28/17 albuterol sulfate HFA 90 mcg/actuation aerosol inhaler 2 puff INHALATION Q4H PRN PRN #1 inhaler 12/18/17 albuterol sulfate 2.5 mg/3 mL (0.083 %) solution for nebulization 2.5 mg INHALATION Q6H PRN #120 vial 03/18/18 buspirone 5 mg tablet 5 mg PO TID PRN 05/14/18 hydrocortisone 1 % topical cream 1 applic TOPICAL BID PRN 05/14/18 latanoprost 0.005 % eye drops 1 drp OPHTHALMIC QPM 05/14/18 melatonin 5 mg capsule 10 mg PO QHS PRN cap 05/14/18 Baclofen 10 mg PO TID PRN 06/15/18 Brimonidine 0.15% [Alphagan P 0.15%] 1 drp EACH EYE BID 06/15/18 Hydrocodone/Acetaminophen [Hydrocodon-Acetaminophen 5-325] 1 ea PO TID PRN 06/15/18 Hydrocodone Bitart/Apap 5-325 [[place] 5MG-325MG] 1 tablet PO Q6H PRN PRN 3 Days #10 tablet 07/09/18 The following prescriptions were given: Hydrocodone Bitart/Apap 5-325 [[place] 5MG-325MG] 1 tablet PO Q6H PRN PRN 3 Days #10 tablet PRN Reason: Pain Primary Care Physician: Jomar Ruiz III, MD [Primary Care Provider] - Please Follow Up With: Cipriano Ruiz MD When: [phone] Office appt. in one week please
--- NOTE | 2018-07-09 10:35 | PCM.OPRPT ---
Problem List (1) Breast cancer, right Status: Acute Qualifiers: Breast location: central portion of breast Estrogen receptor status: positive Patient sex: female Qualified Code(s): C50.111 - Malignant neoplasm of central portion of right female breast; Z17.0 - Estrogen receptor positive status [ER+] Report of Operation Date of Procedure: 07/09/18 Pre-Operative Diagnosis: Invasive ductal carcinoma retroareolar right breast Post-Operative Diagnosis: Same Surgery/Procedure Performed:: Stereotactic wire localization right breast. Wire localized right breast lumpectomy with right axillary blue dye and nuclear tracer sentinel lymph node biopsy Description of Surgical Findings:: Timeout and informed consent was obtained. 77-year-old female was taken to the stereotactic room placed prone on the table of the right breast was placed in the cc view the marking clip and residual microcalcifications were rapidly identified. Stereotactic images were obtained. Digital information was obtained on a single target site. The breast was prepped with Betadine. 1% lidocaine was used as a local anesthetic. A Kopan's needle was advanced to depth was 15 mm. On fast images demonstrated excellent localizations. Sterile dressings were applied. The patient was subsequently taken the operative room for definitive surgical resection. Blood loss minimal no apparent complication. The patient was taken to the operating room. Previously she had undergone nuclear medicine tracer injection around the tumor site per radiology. She underwent general anesthesia. The right arm was carefully wrapped at soft roll and placed at right angles of the table. The right breast and axilla were sterilely prepped and draped. 2 cc of isosulfan blue dye was injected retrogradely on the right. Massage was performed for 3 minutes. An oblique incision was made the right axilla sharp dissection carried down through the subcu tissue the neoprobe was used but admittedly was difficult to focus in. The blue dye was much more reliable identifying the blue lymph node the neoprobe confirmed I used sharp dissection electrocautery dissection hemoclips to dissect the lymph node free. I then did use neoprobe to inspect the remainder of the axilla with no additional active lymph nodes identified. By visualization and palpation I cannot see any additional lymph nodes. At age 77 I elected not to turn this into more of a extensive dissection. That lower wound was closed in layers with multiple interrupted 3-0 Vicryl and then a running septic or 4 Monocryl. A transverse elliptical excision was made at the site of the wire localization. Electrocautery dissection was performed circumferentially completely down around the wire localized area. That specimen was excised. A long suture was placed laterally and a short suture superiorly the wire exited anteriorly. Hemostasis was assured with electrocautery.. That wound also was closed with deep layer of interrupted 3-0 Vicryl and the superficial layer of running septic or 4-0 Monocryl in interrupted 4-0 Monocryl. Steri-Strips Telfa bulky dry dressing was applied. Sponge and instrument and needle counts were reported the surgeon be correct. Blood loss minimal. Specimens include the right axillary sentinel node which was reported negative. It also included the right breast mass wire localized. Drains none. The patient was taken to the recovery area in satisfactory condition without apparent complication. Cipriano Ruiz M.D., F.A.C.S. Type of Anesthesia:: General Anesthesiologist: Matt Diaz
[2018-07-09] MEDS: Isosulfan Blue 1% 5 ML Vial (10:45)
[2018-07-09] MEDS: Albuterol 2.5 MG/3 ML VIAL.NEB. INHALATION (13:45)
== END 2018-07-09 15:13 | disposition home or self-care (01) ==
LOC: SDC 07:48 → AC 07:49
PROVIDERS: Family Provider Family Medicine; PCP Family Medicine; Referring Provider Surgery; Visit Provider Surgery
PROC: (CPT 19301; principal; 2018-07-09 10:15)
DX: D05.11 Intraductal carcinoma in situ of right breast (principal); M19.90 Unspecified osteoarthritis, unspecified site; I10 Essential (primary) hypertension; F41.9 Anxiety disorder, unspecified; J44.9 Chronic obstructive pulmonary disease, unspecified; F32.9 Major depressive disorder, single episode, unspecified; E78.5 Hyperlipidemia, unspecified; E03.9 Hypothyroidism, unspecified; Z17.0 Estrogen receptor positive status [ER+]; Z87.891 Personal history of nicotine dependence; Z79.51 Long term (current) use of inhaled steroids; Z79.899 Other long term (current) drug therapy
CPT/HCPCS: 00400; 19301; 38500; 19281; 36415; 38792; 71046; 76098; 80053; 85027; 88305; 88307; 88331; 88341; 88342; 93005; 94640; A9541; J7120; J2405; Q9968

== ENCOUNTER → 2018-10-21 | Outpatient (CLI) | payer MEDICARE, OTHER, SELFPAY ==
[2018-08-02 10:59] VITALS: BMI 26.5
[2018-10-14 14:02] VITALS: BMI 24.0
--- NOTE | 2018-10-21 13:06 | BD_ITS ---
STUDY: DUAL ENERGY X-RAY ABSORPTIOMETRY / DXA REASON FOR EXAM: Female, 77 years old. The patient is postmenopausal. Loss of height. TECHNIQUE: Bone Mineral Density (BMD) measurements of lumbar spine and right hip were obtained. The patient has a left total hip replacement. COMPARISON: None. FINDINGS: Lumbar Spine (L1-L4): g/cm2 (0.819) / T-score (-2.9) / Z-score (-1.1) Findings are suggestive of osteoporosis with a high fracture risk. Increased kyphosis. 50% loss of height of a mid dorsal vertebrae. Right Femur Total: g/cm2 (0.614) / T-score (-3.1) / Z-score (-1.3) Right Femoral Neck: g/cm2 (0.654) / T-score (-2.8) / Z-score (-0.8) BD/Dexa Bone Density Study IMPRESSION: The patient is considered osteoporotic as outlined below according to World Job Organization (WHO) criteria with a high fracture risk. Reference Information: The T-score is the number of standard deviations above or below the standard which is normal for young adults at their peak bone mineral density. The World Health Organization (WHO) interprets the T-scores as follows: Above -1 Normal bone density Between -1 and -2.5 Osteopenia Equal to / or below -2.5 Osteoporosis As a practical clinical guideline, osteopenia may be graded as follows: Mild -1 through -1.5 Moderate -1.6 through -2.0 Severe -2.1 through -2.4 The Z-score is the number of standard deviations above or below age-matched controls. A Z-score of less than -1.5 would be considered abnormal. References: 1. NIH Osteoporosis and Related Bone Diseases http://www.osteo.org 2. International Society for Clinical Densitometry http://www.iscd.org 3. National Osteoporosis Foundation http://www.nof.org Electronically Signed: Ari Ward, at 15:28 EDT , Service support ,
== END | disposition home or self-care (01) ==
LOC: OPBD 12:54
PROVIDERS: Family Provider Family Medicine; PCP Family Medicine; Referring Provider Nurse Practitioner Family; Visit Provider Nurse Practitioner Family
DX: M81.0 Age-related osteoporosis without current pathological fracture (principal)
CPT/HCPCS: 77080

== ENCOUNTER → 2018-12-07 | Outpatient (CLI) | payer MEDICARE, OTHER, SELFPAY ==
[2018-06-14 13:14] VITALS: BMI 27.1
[2018-08-02 10:59] VITALS: BMI 26.5
[2018-11-22 14:37] VITALS: BMI 25.8
[2018-12-07 11:25] VITALS: PULSE 103; PULSE 104; PULSE 105; PULSE 108; PULSE 97; PULSE 98; O2SAT 89; O2SAT 90; O2SAT 92; O2SAT 93
--- NOTE | 2018-12-07 11:28 | CPS ---
Patient walked entire test on room air without breaks. SpO2 did drop to 88% for a couple seconds while walking during the 4th minute then came back up to 89%. Discussed with patient the importance to have SpO2 staying above 88% and possbile oxygen usage at home. Patient does not want to have oxygen at home at this time and wants to discuss it further with Dr. Bowman. Patient can not remember when she sees him next but believes it is within the next month. Explained that this is something that should be discussed sooner rather than later and offered to call Dr. Bowman to see if he was available to speak with her today. Patient pleasantly refused and said she would like to wait.
--- NOTE | 2018-12-07 13:10 | PCM.PSN.6M ---
PSN 6 Minute Walk Test - 6 Minute Walk Test 6 Minute Walk Test: 6 Minute Walk Test PSN:6-Minute Walk Test Start: 12/07/18 11:25 Freq: Status: Active Protocol: RESP.6MINW Document 12/07/18 11:25 SAIMAALIA (Rec: 12/07/18 11:34 [id number]) 6 Minute Walk Test Date Performed 12/07/18 Time Performed 11:00 Height 5 ft 3 in Weight: 140 lb Weight in Pounds 140.[address]: Chano Bowman Assistive device used: Cane Pre-test Oxygen Delivery Method Room Air Pulse Ox (%) 90 Pulse Rate (60-100 beats/min) 97 Dyspnea Julien Scale (0-10) 0 Exertion Julien Scale (6-20) 6 1st minute Oxygen Delivery Method Room Air Pulse Ox (%) 89 Pulse Rate (60-100 beats/min) 103 H 2nd minute Oxygen Delivery Method Room Air Pulse Ox (%) 92 Pulse Rate (60-100 beats/min) 104 H 3rd minute Oxygen Delivery Method Room Air Pulse Ox (%) 89 Pulse Rate (60-100 beats/min) 104 H 4th minute Oxygen Delivery Method Room Air Pulse Ox (%) 89 Pulse Rate (60-100 beats/min) 105 H 5th minute Oxygen Delivery Method Room Air Pulse Ox (%) 89 Pulse Rate (60-100 beats/min) 105 H 6th minute Oxygen Delivery Method Room Air Pulse Ox (%) 89 Pulse Rate (60-100 beats/min) 108 H Dyspnea Julien Scale (0-10) 1 Exertion Julien Scale (6-20) 13 Post-test Oxygen Delivery Method Room Air Pulse Ox (%) 93 Pulse Rate (60-100 beats/min) 98 Full Laps Walked 11 Partial Lap, Number of Tiles Walked 20 Total Distance Walked (ft) 669 12/07/18 11:28 Cardiopulmonary Services by Mariela Duff Patient walked entire test on room air without breaks. SpO2 did drop to 88% for a couple seconds while walking during the 4th minute then came back up to 89%. Discussed with patient the importance to have SpO2 staying above 88% and possbile oxygen usage at home. Patient does not want to have oxygen at home at this time and wants to discuss it further with Dr. Bowman. Patient can not remember when she sees him next but believes it is within the next month. Explained that this is something that should be discussed sooner rather than later and offered to call Dr. Bowman to see if he was available to speak with her today. Patient pleasantly refused and said she would like to wait. Initialized on 12/07/18 11:28 - END OF NOTE - Interpretation Interpretation: The patient ambulated 669 feet over the course of 6 minutes beginning on room air with the use of a cane. Pretesting oxygen saturation was noted to be 90% on room air. With ambulation, the frank oxygen saturation was 89%. - Recommendations Recommendations: There is no indication for the use of supplemental oxygen at this time. However, close interval follow-up is recommended, given the patient's low resting oxygen saturation on room air.
== END | disposition home or self-care (01) ==
LOC: PSN 10:55
PROVIDERS: Family Provider Family Medicine; PCP Family Medicine; Referring Provider Internal Medicine Critical Care Medicine; Visit Provider Internal Medicine Critical Care Medicine
DX: J44.9 Chronic obstructive pulmonary disease, unspecified (principal)
CPT/HCPCS: 94618

== ENCOUNTER → 2019-05-10 09:48 | Outpatient (CLI) | payer MEDICARE, OTHER, SELFPAY ==
[2018-08-02 10:59] VITALS: BMI 26.5
[2019-01-26 13:14] VITALS: BMI 26.9
[2019-03-30 10:33] VITALS: BMI 26.9
--- NOTE | 2019-05-10 09:50 | BI_ITS ---
MAMMOGRAPHY - BILATERAL SCREENING REASON FOR EXAM: Female, 78 years old. Routine annual screening examination. PERTINENT HISTORY: Personal history of breast cancer. TECHNIQUE: Digital bilateral breast whitley (3D mammographic acquisition) in the CC and MLO projections. 2-D mediolateral oblique (MLO) and craniocaudad (CC) views of both breasts were obtained. CAD: Full Field Digital Mammography with Computer Added Detection was performed. COMPARISON: Comparison is made with prior outside examination dated April 15, 2018. FINDINGS: Breast Composition: There are scattered areas of fibroglandular density. There are no dominant masses or suspicious calcifications. Since prior study, the patient underwent lumpectomy for the calcifications in the upper outer quadrant of the right breast. Postoperative scarring at the biopsy site. Stable appearance of the 7.3 mm well-defined nodule in the inferior medial aspect of the right breast. No other significant abnormalities are identified. BI/SCREEN MAMM (CAD) W/WHITLEY BILAT IMPRESSION: Stable bilateral screening mammogram. Yearly follow-up mammogram recommended. (A) ASSESSMENT CATEGORY: BIRADS Category 2: Benign. A letter regarding these results will be sent to the patient by the facility within 30 days. Approximately 10% of breast cancers are not detected by mammography. A normal mammogram should not delay biopsy of a clinically suspicious abnormality. [id number] Electronically Signed: Ari Ward, at 11:28 EST , Service support ,
== END ==
PROVIDERS: Family Provider Family Medicine; PCP Family Medicine; Referring Provider Student in an Organized Health Care Education/Training Program; Visit Provider Student in an Organized Health Care Education/Training Program
DX: Z12.31 Encounter for screening mammogram for malignant neoplasm of breast (principal)
CPT/HCPCS: 77063; 77067

== ENCOUNTER → 2019-08-25 | Outpatient (CLI) | payer MEDICARE, OTHER, SELFPAY ==
[2018-08-02 10:59] VITALS: BMI 26.5
[2019-08-08 07:47] VITALS: BMI 29.0
--- NOTE | 2019-08-25 12:23 | RAD_ITS ---
STUDY: X-RAY CHEST REASON FOR EXAM: Female, 78 years old. SOB;COPD TECHNIQUE: PA and lateral views of the chest. COMPARISON: Comparison is made with prior examination dated June 16, 2018. FINDINGS: Mild degree of increased markings at the lung bases slightly more prominent on the right side suggestive of a mild degree of atelectasis superimposed on mild scarring. There is no demonstrated pleural abnormality. Normal size heart. Normal mediastinum and sylvia. Normal visualized pulmonary arteries. There is atherosclerotic calcification of the aortic arch with tortuosity. There is demineralization of the osseous structures. 50% loss of height of a mid dorsal vertebrae. Levoscoliosis of the lumbar spine. Normal visualized ribs, clavicles, and shoulders. There is no demonstrated abnormality of the visualized soft tissue structures of the upper abdomen. RAD/Chest PA and Lateral IMPRESSION: Mild increased markings at the lung bases slightly more prominent on the right side suggestive of linear atelectasis on basilar scarring. Electronically Signed: Ari Ward, at 15:55 EDT , Service support ,
[2019-08-25 13:05] LABS: Absolute Neutrophil Count 5.2 X10^3/uL (2.0-7.7); Basophil# 0.04 X10^3/uL; Basophil% 0.5 % (0-1); Eosinophil# 0.21 X10^3/uL; Eosinophils% 2.9 % (0-5); Hematocrit 44.2 % (37-47); Hemoglobin 13.9 g/dL (12.0-15.0); Mean Corp Hgb Conc 31.4 g/dL (32-36); Mean Corpuscular Hgb 30.2 pg (27.0-32.0); Mean Corpuscular Volume 95.9 fL (81-99); Mean Platelet Vol. 9.3 fl (6.2-12.0); Monocyte# 0.99 X10^3/uL; Monocyte% 13.6 % (0-10); NRBC Flagged by Analyzer 0 % (0-5); Neutrophil # 5.21 X10^3/uL (2.7-7.7); Neutrophil % 71.6 % (47-70); Platelet Count 264 K/mm3 (150-450); RBC Distribution Width CV 12.1 % (11.6-14.6); RBC Distribution Width SD 42.6 fl (35.1-43.9); Red Blood Count 4.61 M/mm3 (4.2-5.4); White Blood Count 7.3 K/mm3 (4.4-11.0)
[2019-08-25 13:41] LABS: Anion Gap 7 (5-15); BUN 14 mg/dL (7-18); BUN/Creat Ratio 10.6 RATIO (10-20); Calcium,Total 9.6 mg/dL (8.5-10.1); Chloride 102 mmol/L (98-107); Creatinine, Serum 1.32 mg/dL (0.55-1.02); EST Glomerular Filtration Rate 41 mL/min (>60); Est Glom Filt Rate - Afr Amer 50 mL/min (>60); Glucose 160 mg/dL (74-106); Potassium 3.5 mmol/L (3.5-5.1); Sodium Level 141 mmol/L (136-145)
[2019-08-26 00:11] LABS: Base Excess 7 mmol/L (-2 to +2); Bicarbonate 30.8 mmol/L (22-26); Blood Gas Specimen Type ART; O2 Delivery Device Nasal Can; PO2 50 mmHG (75-100); SITE L Radial; SO2 86 % (95-99); Time Given 1334; Total Carbon Dioxide 32 mmol/L; pCO2 45.9 mmHg (35-45); pH 7.44 (7.35-7.45)
== END | disposition home or self-care (01) ==
PROVIDERS: PCP Family Medicine; Referring Provider Nurse Practitioner Acute Care; Visit Provider Nurse Practitioner Acute Care
DX: J44.9 Chronic obstructive pulmonary disease, unspecified (principal); J96.91 Respiratory failure, unspecified with hypoxia; R06.02 Shortness of breath; R53.83 Other fatigue
CPT/HCPCS: 36415; 36600; 71046; 80048; 82803; 83880; 85025

== ENCOUNTER → 2020-01-17 13:01 | Outpatient (CLI) | payer MEDICARE, OTHER, SELFPAY ==
[2018-08-02 10:59] VITALS: BMI 26.5
[2019-12-06 13:34] VITALS: BMI 29.9
--- NOTE | 2020-01-17 13:05 | RAD_ITS ---
STUDY: X-RAY - THORACIC SPINE REASON FOR EXAM: Female, 79 years old. PAIN IN LOWER LUMBAR RADIATING UP INTO THORACIC SPINE. PATIENT STATES HAS HAD FALLS IN THE PAST, NOTHING RECENT. TECHNIQUE: 3 view(s) of the thoracic spine were obtained. COMPARISON: None. FINDINGS: There is an increase in the normal thoracic kyphosis. There is no substantial scoliosis. There is demineralization of the thoracic spine with endplate spondylosis. There is multilevel disc space narrowing of the thoracic spine. 60% loss of height of a lower dorsal vertebrae. Atherosclerotic calcification of the aortic arch. RAD/Thoracic Spine 3 Views IMPRESSION: Loss of height of a lower dorsal vertebrae. Multilevel disc space narrowing and spondylosis as well as demineralization of the thoracic vertebrae. Electronically Signed: Ari Ward, at 15:04 EDT , Service support ,
--- NOTE | 2020-01-17 13:15 | RAD_ITS ---
STUDY: X-RAY - LUMBAR SPINE REASON FOR EXAM: Female, 79 years old. PAIN IN LOWER LUMBAR RADIATING UP INTO THORACIC SPINE. PATIENT STATES HAS HAD FALLS IN THE PAST, NOTHING RECENT. TECHNIQUE: 5 view(s) of the lumbar spine were obtained including oblique views. COMPARISON: None FINDINGS: Normal lumbar lordosis. There is no substantial scoliosis. There is a normal alignment of the vertebrae. There is multilevel endplate spondylosis of the lumbar vertebrae. There is multi-level degenerative disc disease with multi-level disc space narrowing. Possibly 50% loss of height of the L4 vertebrae and 30% loss of height of the L5 vertebrae. Facet joint osteoarthritis. Prior left hip pinning. There is atherosclerotic calcification of the abdominal aorta without a demonstrated aneurysm. RAD/L/S Spine Min 4 Views IMPRESSION: Degenerative changes of the spine, as detailed above. Loss of height of the L4 and L5 vertebrae. Electronically Signed: Ari Ward, at 15:01 EDT , Service support ,
== END ==
PROVIDERS: PCP Family Medicine; Referring Provider Anesthesiology Pain Medicine; Visit Provider Anesthesiology Pain Medicine
DX: M51.34 Other intervertebral disc degeneration, thoracic region (principal); M51.37 Other intervertebral disc degeneration, lumbosacral region
CPT/HCPCS: 72072; 72110

== ENCOUNTER → 2020-05-11 10:54 | Outpatient (CLI) | payer MEDICARE, OTHER, SELFPAY ==
[2018-08-02 10:59] VITALS: BMI 26.5
[2019-12-06 13:34] VITALS: BMI 29.9
[2020-04-17 10:02] VITALS: BMI 28.7
--- NOTE | 2020-05-11 10:55 | BI_ITS ---
MAMMOGRAPHY - BILATERAL SCREENING REASON FOR EXAM: Female, 79 years old. Routine annual screening examination. PERTINENT HISTORY: Personal history of breast cancer. Mother with breast cancer. Aunt with breast cancer. TECHNIQUE: Digital bilateral breast whitley (3D mammographic acquisition) in the CC and MLO projections. 2-D mediolateral oblique (MLO) and craniocaudad (CC) views of both breasts were obtained. CAD: Full Field Digital Mammography with Computer Added Detection was performed. COMPARISON: Comparison is made with prior study dated 05/10/2019 and 07/09/2018. FINDINGS: Breast Composition: There are scattered areas of fibroglandular density. There are no dominant masses or suspicious calcifications. Stable architectural distortion in the upper deep central portion of the right breast in keeping with prior right lumpectomy. Stable well-defined nodular density in the inferior medial portion of the right breast most likely representing a small lymph node. No other significant abnormalities are identified. There has been no significant change since the prior study. BI/SCREEN MAMM (CAD) W/WHITLEY BILAT IMPRESSION: Stable bilateral screening mammogram. Yearly follow-up mammogram recommended. (A) ASSESSMENT CATEGORY: BIRADS Category 2: Benign. A letter regarding these results will be sent to the patient by the facility within 30 days. Approximately 10% of breast cancers are not detected by mammography. A normal mammogram should not delay biopsy of a clinically suspicious abnormality. [id number] Electronically Signed: Ari Ward, at 12:27 EST , Service support ,
== END ==
PROVIDERS: PCP Family Medicine; Referring Provider Internal Medicine Medical Oncology; Visit Provider Internal Medicine Medical Oncology
DX: Z12.31 Encounter for screening mammogram for malignant neoplasm of breast (principal); Z85.3 Personal history of malignant neoplasm of breast
CPT/HCPCS: 77063; 77067

== ENCOUNTER 2020-10-22 11:57 | Day surgery (SDC) | payer MEDICARE, OTHER, SELFPAY ==
[2018-08-02 10:59] VITALS: BMI 26.5
[2020-10-17 09:08] VITALS: BMI 28.7
[2020-10-22] VITALS (12 sets, daily range): BP systolic 106–166; BP diastolic 60–97; PULSE 78–91; RESP 18–20; TEMP 36.4–36.8; O2SAT 9–99; BMI 28.0
[2020-10-22] MEDS: Lactated Ringers 1,000 ML 100 ML IV (12:48)
[2020-10-22] MEDS: Cefazolin 2 GM in 0.9% Normal Saline 100 ML IV (14:17)
--- NOTE | 2020-10-22 14:25 | RAD_ITS ---
INDICATION: INSERTION, SPINAL CORD STIM EXAMINATION/TECHNIQUE: X-RAY - XR Spine Lumbar 9 Views COMPARISON: None. FINDINGS: Intraoperative imaging provided for neurostimulator insertion. RAD/Lumbar Spine 2 or 3 Views IMPRESSION: Intraoperative imaging provided for neurostimulator insertion. Electronically Signed: Nicholas Barroso MD at 23:43 EDT Tel , Service support ,
[2020-10-22] MEDS: Bupivacaine Mpf 0.5% 30 ML VIAL (15:39)
[2020-10-22] MEDS: Lidocaine 2% (20 ml mdv) 20 ML Vial (15:39)
--- NOTE | 2020-10-22 16:10 | PCM.OPRPT ---
Report of Operation Date of Procedure: 10/22/20 Description of Surgical Findings:: Pre-Operative Diagnosis: Lumbosacral radiculopathy, lumbosacral degenerative disc disease, lumbosacral spinal stenosis Post-Operative Diagnosis: Lumbosacral radiculopathy, lumbosacral degenerative disc disease, lumbosacral spinal stenosis Surgery/Procedure Performed:: 1. Spinal cord stimulator thoracolumbar leads placement x2 #2 spinal cord stimulator Medtronic intellus generator placement #3 spinal cord stimulator generator pocket creation at the right gluteal region #4 spinal cord stimulator simple programming, 5-intraoperative fluoroscopic interpretation ANESTHESIA: MAC COMPLICATIONS: None BLOOD LOSS: Minimal less than 20 cc Implanted device: Spinal cord stimulator lead [id number] lot number [id number], lead #2 [id number] lot number [id number] Medtronic spinal cord stimulator generator intellus serial number [id number] PROCEDURE IN DETAIL: History and physical today was reviewed. Risks and benefits of procedure explained. The patient understood, agreed to procedure, informed consent was obtained. IV inserted per routine protocol. The patient was taken to the operating room, placed in the prone position with a pillow positioned underneath the abdomen. A 2 g of Ancef IV piggyback was infused per anesthesia. The lower back and left gluteal area was prepped and draped in a sterile fashion using iodine x3 Ioban was placed. The C-arm was brought in position for AP view at the L2-3 vertebral bodies under direct visualization fluoroscopy on a true AP view the L2-3 interlaminar space was identified skin and subcutaneous tissue and size approximately 10 cc of a mix of 2% lidocaine and 0.25% Marcaine using a 25-gauge regular needle followed by a 25-gauge 3-1/2 inch spinal needle towards the interlaminar space at L2-3, the skin and subcutaneous tissue were then anesthetized and using an 11-gauge blade was then taken down to the skin and subcutaneous tissue using a 14-gauge 3-1/2 inch Touhy needle provided by the [employer] kit the needle was passed through the skin towards the interlaminar space at L2-3 and a paramedian approach the needle was then advanced under direct visualization fluoroscopy towards the interlaminar space at L2-3 [id number] technique was then carried to air towards the interlaminar space at L2-3 once the tip of the needle was in the epidural space and loss of resistance was encountered to air and after confirmation of AP as well as oblique view of the spinal cord stimulator lead was then advanced under direct visualization fluoroscopy to be at the tip of the lead at T8 and the bottom of the lead around mid T10 after confirmation of AP as well as lateral view to confirm correct placement of the lead in the posterior compartment of the epidural space the previous procedure was then repeated to a level above at L1-2 interlaminar space the second lead was then inserted under direct visualization with fluoroscopy to be at the mid T8 and mid T10 area the leads were were then connected to the external neurostimulator and patient was then awakened to confirm satisfactory coverage of the painful area once satisfactory coverage was then achieved the stylette of each needle was then removed and the skin and subcutaneous tissue on to the left of the paramedian needles was then taken anesthetized with a total of 10 cc of the previous mixture of 0.25% Marcaine and 2% lidocaine using a 25-gauge regular needle the incision was then taken down through the skin and subcutaneous tissue towards the fascia making sure hemostasis was then maintained via cautery, the spinal cord stimulator leads were then passed through the above incision and secured using the anchor and sutured down with a 2-0 silk to the fascia at that level the spinal cord stimulator leads were then tunneled via a tunneler provided by the [employer] kit towards the previously incised spinal cord stimulator battery at the left gluteal region skin and subcutaneous tissue were anesthetized with approximately 10 cc of a mix of 2% lidocaine and 0.25% Marcaine using a 25 gauge regular needle, skin and subcutaneous tissue was then taken down with the 11-gauge blade hemostasis was maintained with Bovie and direct pressure the incision was then taken down to the fascia and the battery was then secured with the 2-0 silk sutures that were the spinal cord stimulator leads the upper lead was then marked the new until spinal cord stimulator battery was then provided Via [employer] kit the battery was then reattached of the spinal cord stimulator make ensure that the top lead is attached to the top position from 0-7 electrodes and the bottom from 8-15 electrodes once impedance was then checked to be in the proper average number the intellus battery was then inserted into the pocket and impedance with when checked again the pocket was then inspected to confirm hemostasis in place, the intellus battery was then secured to the fascia using a 2-0 silk to the upper eyes of the battery confirming an upward writing of the intellus facing posterior, once complete confirmation the battery was then placed in the position and the the mid paramedian and the gluteal incisions were then closed primarily through a 3-0 Vicryl in a running fashion followed by a 4-0 Vicryl to the skin, hemostasis was then maintained during the procedure the skin was then covered with a Steri-Strips and bacitracin patient was then returned into the supine position in a stable condition and returned to recovery in a stable condition patient experienced no signs or symptoms of intrathecal or intravascular injection patient experienced no paresthesia the procedure was completed without any apparent difficulty any complication the patient appeared to tolerate well, motor as well as sensory function was unchanged from prior to the procedure ESTIMATED BLOOD LOSS: Minimal less than 25 mL ASSESSMENT AND PLAN: This is a 79-year-old female with lumbosacral radiculopathy lumbosacral degenerative disc disease lumbosacral spinal stenosis status post 1. Spinal cord stimulator thoracolumbar leads placement x2 #2 spinal cord stimulator Medtronic intellus generator placement #3 spinal cord stimulator generator pocket creation at the right gluteal region #4 spinal cord stimulator simple programming, 5-intraoperative fluoroscopic interpretation patient will continue her current medications a prescription was provided to the patient Keflex 500 mg 1 p.o. every 8 hours for 7 days, [place] 5-325 mg one p.o. every 4 hours as needed postoperative pain, postop instruction were given in writing to the patient and her as well as verbally and in writing, patient will follow approximately 1 week for reevaluation
--- NOTE | 2020-10-22 16:36 | SUR.PHASEI ---
Pt brought over to pacu on room air. no report was given that pt wears 4L NC cont. pt on room air and tolerating room air until second dose of iv pain medication was given. pt asked where oxygen was at. informed pt that they were on room air until now. 4L NC applied. tolerating well.
== END 2020-10-22 17:44 | disposition home or self-care (01) ==
LOC: SDC 12:01 → AC 12:11
PROVIDERS: PCP Family Medicine; Referring Provider Anesthesiology Pain Medicine; Visit Provider Anesthesiology Pain Medicine
PROC: (CPT 63685; principal; 2020-10-22 13:35)
DX: M51.17 Intervertebral disc disorders with radiculopathy, lumbosacral region (principal); M48.07 Spinal stenosis, lumbosacral region; M47.27 Other spondylosis with radiculopathy, lumbosacral region; E03.9 Hypothyroidism, unspecified; J44.9 Chronic obstructive pulmonary disease, unspecified; F41.9 Anxiety disorder, unspecified; F32.9 Major depressive disorder, single episode, unspecified; I10 Essential (primary) hypertension; Z87.891 Personal history of nicotine dependence; Z79.51 Long term (current) use of inhaled steroids; Z79.891 Long term (current) use of opiate analgesic; Z79.899 Other long term (current) drug therapy; Z99.81 Dependence on supplemental oxygen
CPT/HCPCS: 01936; 63650 ×2; 63685; 95971; 72100; 76000; C1820; J7120

== ENCOUNTER → 2021-01-04 12:30 | Outpatient (CLI) | payer MEDICARE, OTHER, SELFPAY ==
[2018-08-02 10:59] VITALS: BMI 26.5
[2020-12-05 08:42] VITALS: BMI 28.1
[2020-12-06 15:39] VITALS: BMI 28.3
[2021-01-04 13:00] VITALS: PULSE 100; PULSE 101; PULSE 105; PULSE 106; PULSE 107; PULSE 109; PULSE 110; PULSE 111; O2SAT 86; O2SAT 90; O2SAT 91; O2SAT 92; O2SAT 93; O2SAT 94; O2SAT 95; O2SAT 97
--- NOTE | 2021-01-04 13:02 | CPS ---
Patient wears 3-4 lpm O2 at home. Patient came in on own portable concentrator. Room Air reading SpO2 93% after 10+ minutes. Started testing on room air but by the 1st minute patient's SpO2 dropped to 84%-88%. Stopped patient and placed on 3 lpm O2 and recovered before finishing testing on 3 lpm O2. Patient stopped walking at 5 1/2 minutes due to her legs feeling weak and her back hurting.
--- NOTE | 2021-01-05 07:06 | PCM.PSN.6M ---
PSN 6 Minute Walk Test 6 Minute Walk Test 6 Minute Walk Test: 6 Minute Walk Test PSN:6-Minute Walk Test Start: 01/04/21 13:00 Freq: Status: Active Protocol: RESP.6MINW Document 01/04/21 13:00 OLIVA (Rec: 01/04/21 13:05 OLIVA [id number]) 6 Minute Walk Test Date Performed 01/04/21 Time Performed 12:30 Height 5 ft 4 in Weight: 69.853 kg Weight in Pounds 154.[address]: Chano Bowman Assistive device used: Cane Pre-test Oxygen Delivery Method Room Air Pulse Ox (%) 93 Pulse Rate (60-100 beats/min) 101 H Dyspnea Julien Scale (0-10) 0 Exertion Julien Scale (6-20) 6 1st minute Oxygen Delivery Method Room Air Pulse Ox (%) 86 Pulse Rate (60-100 beats/min) 106 H 2nd minute Oxygen Flow Rate (L/min) (L/min) 3 Oxygen Delivery Method Nasal Cannula Pulse Ox (%) 95 Pulse Rate (60-100 beats/min) 105 H 3rd minute Oxygen Flow Rate (L/min) (L/min) 3 Oxygen Delivery Method Nasal Cannula Pulse Ox (%) 92 Pulse Rate (60-100 beats/min) 109 H 4th minute Oxygen Flow Rate (L/min) (L/min) 3 Oxygen Delivery Method Nasal Cannula Pulse Ox (%) 91 Pulse Rate (60-100 beats/min) 110 H 5th minute Oxygen Flow Rate (L/min) (L/min) 3 Oxygen Delivery Method Nasal Cannula Pulse Ox (%) 90 Pulse Rate (60-100 beats/min) 111 H Dyspnea Julien Scale (0-10) 3 Exertion Julien Scale (6-20) 14 6th minute Oxygen Flow Rate (L/min) (L/min) 3 Oxygen Delivery Method Nasal Cannula Pulse Ox (%) 94 Pulse Rate (60-100 beats/min) 107 H Post-test Oxygen Flow Rate (L/min) (L/min) 3 Oxygen Delivery Method Nasal Cannula Pulse Ox (%) 97 Pulse Rate (60-100 beats/min) 100 Full Laps Walked 10 Partial Lap, Number of Tiles Walked 45 Total Distance Walked (ft) 635 01/04/21 13:02 Cardiopulmonary Services by Mariela Duff Patient wears 3-4 lpm O2 at home. Patient came in on own portable concentrator. Room Air reading SpO2 93% after 10+ minutes. Started testing on room air but by the 1st minute patient's SpO2 dropped to 84%-88%. Stopped patient and placed on 3 lpm O2 and recovered before finishing testing on 3 lpm O2. Patient stopped walking at 5 1/2 minutes due to her legs feeling weak and her back hurting. Initialized on 01/04/21 13:02 - END OF NOTE Interpretation Interpretation: The patient ambulated 635 feet over the course of 6 minutes beginning on room air with the use of a cane. Pretesting oxygen saturation was noted to be 93% on room air. With ambulation, the frank oxygen saturation was 86% at minute 1 of testing. The patient was placed on 3 L/min of supplemental oxygen and was able to complete the remainder of the test while maintaining appropriate oxygen saturations. Recommendations Recommendations: 3 L/min of supplemental oxygen should be utilized with exertion.
== END ==
PROVIDERS: PCP Internal Medicine; Referring Provider Internal Medicine Critical Care Medicine; Visit Provider Internal Medicine Critical Care Medicine
DX: J96.11 Chronic respiratory failure with hypoxia (principal)
CPT/HCPCS: 94618

== ENCOUNTER 2021-06-25 15:40 | Outpatient (CLI) | payer MEDICARE, OTHER, SELFPAY ==
[2018-08-02 10:59] VITALS: BMI 26.5
--- NOTE | 2021-06-25 15:41 | BI_ITS ---
MAMMOGRAPHY - BILATERAL SCREENING REASON FOR EXAM: Female, 80 years old. Routine annual screening examination. PERTINENT HISTORY: Personal history of breast cancer. Prior right lumpectomy and radiation treatment. Prior right stereotactic breast biopsy. TECHNIQUE: Digital bilateral breast whitley (3D mammographic acquisition) in the CC and MLO projections. 2-D mediolateral oblique (MLO) and craniocaudad (CC) views of both breasts were obtained. CAD: Full Field Digital Mammography with Computer Added Detection was performed. COMPARISON: Comparison is made with prior study dated 05/11/2020 and 05/10/2019. FINDINGS: Breast Composition: There are scattered areas of fibroglandular density. There are no dominant masses or suspicious calcifications. Once again, focal scarring is seen in the deep upper central portion of the right breast in keeping with prior lumpectomy. Surgical clips is seen in the right axillary region. Stable well-defined 6.3 mm well-defined nodule in the inferior medial aspect of the right breast suggestive of a small lymph node. No other significant abnormalities are identified. There has been no significant change since the prior study. BI/SCRN MAMM (CAD)W/WHITLEY BILAT IMPRESSION: Stable bilateral screening mammogram. Yearly follow-up mammogram recommended. (A) ASSESSMENT CATEGORY: BIRADS Category 2: Benign. A letter regarding these results will be sent to the patient by the facility within 30 days. Approximately 10% of breast cancers are not detected by mammography. A normal mammogram should not delay biopsy of a clinically suspicious abnormality. [id number] Electronically Signed: Ari Ward MD at 8:37 EST , Service support ,
== END 2021-06-25 23:59 | disposition short-term general hospital (02) ==
LOC: OPBI 15:40
PROVIDERS: PCP Internal Medicine; Referring Provider Internal Medicine Medical Oncology; Visit Provider Internal Medicine Medical Oncology
DX: Z12.31 Encounter for screening mammogram for malignant neoplasm of breast (principal); Z85.3 Personal history of malignant neoplasm of breast
CPT/HCPCS: 77063; 77067

== ENCOUNTER 2021-06-26 13:57 | Outpatient (CLI) | payer MEDICARE, OTHER, SELFPAY ==
[2018-08-02 10:59] VITALS: BMI 26.5
--- NOTE | 2021-06-26 14:14 | RAD_ITS ---
STUDY: X-RAY - PELVIS AND RIGHT HIP REASON FOR EXAM: Female, 80 years old. PAIN IN R HIP JOINT TECHNIQUE: 3 views of the pelvis and hip. COMPARISON: None. FINDINGS: There is a non-specific bowel gas pattern. Normal visualized soft tissue structures. Normal bilateral iliac wings, sacroiliac joints and visualized sacrum. Normal bilateral superior and inferior pubic rami. Normal pubic symphysis. Normal bilateral ischial tuberosities. Normal visualized femoral head. Normal acetabulum. Normal hip joint. RAD/HIP, UNI W/ Pelvis 2-3 Views IMPRESSION: Normal x-ray examination of the pelvis and hip. Electronically Signed: Roland Estrada MD at 16:51 EST Tel , Service support ,
== END 2021-06-26 23:59 | disposition short-term general hospital (02) ==
LOC: RAD 14:00
PROVIDERS: PCP Internal Medicine; Referring Provider Nurse Practitioner Family; Visit Provider Nurse Practitioner Family
DX: M25.551 Pain in right hip (principal)
CPT/HCPCS: 73502

== ENCOUNTER → 2022-01-28 | Outpatient (CLI) | payer MEDICARE, OTHER, SELFPAY ==
[2018-08-02 10:59] VITALS: BMI 26.5
--- NOTE | 2022-01-28 14:26 | BI_ITS ---
MAMMOGRAPHY - UNILATERAL DIAGNOSTIC: RIGHT BREAST REASON FOR EXAM: Female, 81 years old. Palpable lump in the right breast. PERTINENT HISTORY: Personal history of breast cancer. Prior right lumpectomy and radiation. Aunt with breast cancer. TECHNIQUE: Digital unilateral breast tracie (3D mammographic acquisition) in the CC and MLO projections. 2-D mediolateral oblique (MLO) and craniocaudad (CC) views of both breasts were obtained. CAD: Full Field Digital Mammography with Computer Added Detection was performed. COMPARISON: Comparison is made with prior study dated 06/25/2021 and 05/11/2020. FINDINGS: Breast Composition: There are scattered areas of fibroglandular density. There are no dominant masses or suspicious calcifications. The patient is status post lumpectomy in the upper the slightly lateral aspect of the right breast with resultant postoperative scarring. There has been no change. Surgical clip is seen in the right axillary region. No other significant abnormalities are identified. There has been no significant change since the prior study. BI/DIAG MAMM W/CAD, UNILAT IMPRESSION: Stable unilateral diagnostic mammogram. With the patient''s history of a palpable lump in the upper deep lateral portion of the right breast, correlation with ultrasound is recommended. ASSESSMENT CATEGORY: BIRADS Category 0: Incomplete. Need additional imaging evaluation. A letter regarding these results will be sent to the patient by the facility within 30 days. Approximately 10% of breast cancers are not detected by mammography. A normal mammogram should not delay biopsy of a clinically suspicious abnormality. Electronically Signed: Ari Ward MD at 15:27 EDT ,
--- NOTE | 2022-01-28 15:07 | US_ITS ---
STUDY: ULTRASOUND BREAST - RIGHT REASON FOR EXAM: Female, 81 years old. Palpable lump in the lateral aspect of the right breast. TECHNIQUE: Axial and longitudinal images of the RIGHT breast were performed with a high resolution ultrasound transducer. # OF IMAGES: 28 COMPARISON: Comparison is made with prior mammogram done earlier in the day. FINDINGS: RIGHT Breast: The lateral half of the right breast was examined with ultrasound. The patient is status post lumpectomy. No sonographic abnormalities seen. US/Breast Limited Unilateral IMPRESSION: No sonographic abnormality is seen. ASSESSMENT CATEGORY: BIRADS Category 2: Benign. A letter regarding these results will be sent to the patient by the facility within 30 days. Electronically Signed: Ari Ward MD at 9:02 EDT ,
== END | disposition home or self-care (01) ==
LOC: OPBI 14:24
PROVIDERS: PCP Internal Medicine; Visit Provider Nurse Practitioner
DX: R92.2 Inconclusive mammogram (principal); C50.111 Malignant neoplasm of central portion of right female breast; N63.13 Unspecified lump in the right breast, lower outer quadrant
CPT/HCPCS: 76642; 77061; 77065; G0279

== ENCOUNTER 2022-04-30 15:29 | Emergency (ER) | payer MEDICARE, OTHER, SELFPAY ==
[2018-08-02 10:59] VITALS: BMI 26.5
[2022-04-30 15:31] VITALS: BP 147/81; PULSE 104; RESP 18; TEMP 36.4; O2SAT 96; BMI 27.6
[2022-04-30 15:34] VITALS: BP 147/81; PULSE 104; RESP 18; TEMP 36.4; O2SAT 96
[2022-04-30 16:04] LABS: Absolute Lymphocyte Count 0.19 X10^3/uL (0.83-4.51); Absolute Neutrophil Count 11.1 X10^3/uL (2.0-7.7); Basophil# 0.02 X10^3/uL; Basophil% 0.2 % (0-1); Hematocrit 45.8 % (37-47); Hemoglobin 14.6 g/dL (12.0-15.0); Lymphocyte # 0.19 X10^3/ul (0.83-4.51); Lymphocyte % 1.6 % (19-41); Mean Corp Hgb Conc 31.9 g/dL (32-36); Mean Corpuscular Hgb 29.9 pg (27.0-32.0); Mean Corpuscular Volume 93.9 fL (81-99); Mean Platelet Vol. 9.7 fl (6.2-12.0); Monocyte# 0.53 X10^3/uL; Monocyte% 4.5 % (0-10); NRBC Flagged by Analyzer 0 % (0-5); Neutrophil # 11.09 X10^3/uL (2.7-7.7); Neutrophil % 93.4 % (47-70); POSITIVE DIFFERENTIAL YES; Platelet Count 323 K/mm3 (150-450); RBC Distribution Width CV 12.5 % (11.6-14.6); RBC Distribution Width SD 43.3 fl (35.1-43.9); Red Blood Count 4.88 M/mm3 (4.2-5.4); White Blood Count 11.9 K/mm3 (4.4-11.0)
[2022-04-30 16:07] LABS: Differential Indicated SCAN CRITERIA MET
[2022-04-30 16:16] LABS: Anion Gap 8 (5-15); BUN 24 mg/dL (7-18); BUN/Creat Ratio 18.8 RATIO (10-20); Calcium,Total 9.1 mg/dL (8.5-10.1); Chloride 105 mmol/L (98-107); Creatinine, Serum 1.28 mg/dL (0.55-1.02); EST Glomerular Filtration Rate 43 mL/min (>60); Est Glom Filt Rate - Afr Amer 52 mL/min (>60); Estimated Creatinine Clearance 27.72 ml/min; Glucose 252 mg/dL (74-106); Potassium 3.8 mmol/L (3.5-5.1); Sodium Level 141 mmol/L (136-145)
[2022-04-30 16:31] LABS: Differential Comment SCANNED
[2022-04-30 16:59] LABS: Lipase 63 U/L (73-393)
[2022-04-30 17:10] LABS: AST(SGOT) 17 U/L (15-37); Alanine Aminotransfer ALT/SGPT 19 U/L (13-56); Albumin, Serum 3.7 g/dL (3.2-5.0); Alkaline Phosphatase 42 U/L (45-117); Bilirubin, Direct 0.18 mg/dL (0.00-0.30); Protein, Total 7.7 g/dL (6.4-8.2)
[2022-04-30] MEDS: Loperamide 2 MG Capsule 4 MG PO (17:29)
[2022-04-30] MEDS: Morphine 2 MG/ML Syringe IV ×2 (17:29→19:49)
[2022-04-30] MEDS: Ondansetron 4 MG/2 ML Vial IV (17:29)
[2022-04-30 17:30] VITALS: BP 137/81; PULSE 95; RESP 15; O2SAT 95
[2022-04-30 17:34] VITALS: BP 137/81; PULSE 95; RESP 15; TEMP 36.2; O2SAT 95
--- NOTE | 2022-04-30 17:40 | EDS_ITS ---
HPI History of Present Illness Chief Complaint: Nausea/Vomiting/Diarrhea Detail of Chief Complaint: Onset 0100 Informant: patient and spouse/S.O. Onset/Context/Timing Onset: Today Context: Sudden Onset Timing: Intermittent and Waxes and wanes Quality: Vomiting 10-15 times and 10 loose watery stools Location: GI Current Severity: Severe Maximum Severity: Severe Worsened by: Attempt to eat or drink anything Relieved by: Nothing Associated Symptoms Associated Symptoms: Dry mouth, thirst, orthostatic symptoms Narrative Narrative: Patient is a 81-year-old woman with multiple medical who presents with nausea, vomiting diarrhea that started at 0100. Patient's vomited numerous times has had numerous loose stools. She has not been on antibiotics last month. She is had no ill contacts. She denies hematemesis, melena or hematochezia. She denies any abdominal pain presently. She denies fever or chills. She denies weight loss. She denies night sweats. Patient has had decreased urine output. Prior similar symptoms: No PFSH PFSH Medical History Abnormal mammogram of right breast Allergic rhinitis Anxiety Apical lung scarring Back pain Benign positional vertigo Bite by animal Breast cancer, right Broken wrist Cancer Closed fracture of left hip requiring operative repair COPD, mild Cracked pelvis Depression Diverticulosis of colon (without mention of hemorrhage) MIRELES (dyspnea on exertion) Essential (primary) hypertension Former smoker Fracture of vertebra Glaucoma Hearing loss, left Hip fracture requiring operative repair Hx of cardiovascular stress test Hyperlipidemia Hypertension Hypothyroidism Loose, teeth MCI (mild cognitive impairment) On home oxygen therapy Osteoarthritis Other disorders of bone and cartilage Pleural effusion Post-menopausal Pure hypercholesterolemia Shortness of breath on exertion Tailbone injury Tobacco dependence in remission Wears glasses Home Medications atorvastatin 20 mg tablet 20 mg PO QHS 09/09/14 [History Last Taken Unknown] levothyroxine 112 mcg tablet 112 mcg PO DAILY 09/09/14 [History Last Taken 10/26/17] sennosides 8.6 mg-docusate sodium 50 mg tablet 1 tab PO BID PRN Constipation 1 07/23/16 [History Last Taken Unknown] hydrocortisone 1 % topical cream (Cortisone (hydrocortisone)) 1 applic topical BID PRN Hemorrhoids 05/14/18 [History Last Taken Unknown] latanoprost 0.005 % eye drops 1 drp ophthalmic (eye) QPM 05/14/18 [History Last Taken Unknown] melatonin 5 mg capsule 10 mg PO QHS PRN Sleep 05/14/18 [History Last Taken Unknown] baclofen 10 mg tablet 10 mg PO TID PRN muscle pain 06/15/18 [History Last Taken Unknown] brimonidine 0.15 % eye drops 1 drp EACH EYE BID 06/15/18 [History Last Taken Unknown] hydrocodone-acetaminophen 5-325mg 5mg-325mg 1 ea PO TID PRN Pain 06/15/18 [History Last Taken Unknown] citalopram 20 mg tablet 20 mg PO DAILY 08/25/18 [History Last Taken Unknown] cholecalciferol (vitamin D3) 50 mcg (2,000 unit) capsule 2,000 unit PO DAILY 01/26/19 [History Last Taken Unknown] spacer #1 ea 08/08/19 [Rx Last Taken Unknown] albuterol sulfate 90 mcg/actuation aerosol inhaler 2 puff inhalation Q4H PRN PRN DYSPNEA/WHEEZING/SOB ##1 03/26/20 [Rx Last Taken Unknown] cyclobenzaprine 10 mg tablet 10 mg PO QHS PRN Muscle relaxer 06/06/20 [History Last Taken Unknown] fluticasone propionate 50 mcg/actuation nasal spray,suspension 2 spray intranasal DAILY #16 grams 10/19/20 [Rx Last Taken Unknown] albuterol sulfate 2.5 mg/3 mL (0.083 %) solution for nebulization 2.5 mg (3 mL) inhalation Q6H PRN COPD J44.9 #120 vials 03/19/21 [Rx Last Taken Unknown] budesonide-formoterol HFA 160 mcg-4.5 mcg/actuation aerosol inhaler 2 puff inhalation BID #3 ea 06/28/21 [Rx Last Taken Unknown] montelukast 10 mg tablet (Singulair) 10 mg PO QDAY #90 tabs 08/09/21 [Rx Last T [employer]ken Unknown] tiotropium bromide 2.5 mcg/actuation mist for inhalation (Spiriva Respimat) 2 puff inhalation QDAY #3 ea 03/14/22 [Rx Last Taken Unknown] loperamide 2 mg capsule (Imodium A-D) 2 mg PO Q4H PRN loose stool #10 caps 04/30/22 [Rx Last Taken Unknown] ondansetron 4 mg disintegrating tablet 4 mg PO Q8H PRN PRN Nausea #10 tabs 04/30/22 [Rx Last Taken Unknown] Allergy/AdvReac Type Severity Reaction Status Date / Time clemastine fumarate Allergy Unknown Verified 04/30/22 15:30 [From Tavist] fosfomycin tromethamine Allergy Unknown Verified 04/30/22 15:30 [From Monurol] pseudoephedrine HCl Allergy Unknown Verified 04/30/22 15:30 [From Tavist] celecoxib [From Celebrex] AdvReac Upset Verified 04/30/22 15:30 Stomach doxycycline AdvReac Other Verified 04/30/22 15:30 simvastatin [From Zocor] AdvReac Pain in Verified 04/30/22 15:30 joints Family History Father Heart disease Myocardial infarction Mother Breast cancer Aunt Breast cancer Daughter Breast cancer Surgical History History of arthroscopic knee surgery History of colonoscopy History of hemorrhoidectomy History of lumpectomy of right breast Status post hip surgery Social History (Updated 04/30/22 @ 17:[address] Cecil Alejandro MD) household members: spouse Smoking Status: Former smoker Tobacco: How many years used: 45 how long ago did patient quit smokin, 1p/day second hand exposure: Yes alcohol intake: current alcohol intake frequency: a few times a month Alcohol type: wine substance use type: does not use ROS ROS ED Constitutional Constitutional ED: Denies chills, fever(s), subjective, sweats or weight loss Eyes Eyes: Denies blurry vision, change in vision or diplopia ENT ENT ED: Denies ear pain, rhinorrhea or sore throat Cardiovascular Cardiovascular: Denies chest pain, orthopnea, palpitations, paroxysmal nocturnal dyspnea or racing heartbeat Respiratory/Chest Respiratory/Chest: Denies cough, dyspnea, dyspnea on exertion, orthopnea or paroxysmal nocturnal dyspnea Gastrointestinal Gastrointestinal: Reports abdominal pain, diarrhea, nausea and vomiting; Denies constipation or melena Genitourinary Genitourinary ED: Denies dysuria, hematuria or urinary frequency Musculoskeletal Musculoskeletal: Denies arthralgias, back pain, myalgias or neck pain Integumentary Denies abscess, Abrasions or rash Neurologic Neurologic: Reports weakness; Denies headache(s) or paresthesias Psychiatric Psychiatric: Denies anxiety or depression Endocrine Endocrinology: Denies cold intolerance, heat intolerance or polydipsia Hematologic/Lymphatic Hematologic/Lymphatic: Reports none EXAM Physical Exam Const Vital Signs: 04/30/22 15:31 04/30/22 15:34 04/30/22 17:30 Temperature 97.5 F L 97.5 F L Temperature Source Temporal Temporal Pulse Rate 104 H 104 H 95 Respiratory Rate 18 18 15 Blood Pressure 147/81 H 147/81 H 137/81 H Blood Pressure Mean 103 103 99 Pulse Ox 96 96 95 Oxygen Delivery Method Nasal Cannula Nasal Cannula Nasal Cannula Oxygen Flow Rate (L/min) 4 4 4 04/30/22 17:34 Temperature 97.2 F L Temperature Source Oral Pulse Rate 95 Respiratory Rate 15 Blood Pressure 137/81 H Blood Pressure Mean 99 Pulse Ox 95 Oxygen Delivery Method Nasal Cannula Oxygen Flow Rate (L/min) 4 Positive well nourished and well developed General Appearance ED: well developed and NAD; Negative for pallor HEENT Reports moist mucous membranes HEENT Narrative: Atraumatic normocephalic. Ears normal. Mucosa is dry. Uvula is midline. Eyes PERRL and EOMs intact bilaterally General Eye ED: Yes pale conjunctiva; Negative for scleral icterus Neck no lymphadenopathy, supple and no JVD Chest Wall inspection of chest normal and palpation of chest normal Resp normal respiratory effort and clear to auscultation bilaterally Cardio regular rhythm, S1 normal heart sound, S2 normal heart sound and no murmurs Rate: tachycardic GI normal to inspection, nondistended, normoactive bowel sounds, non-tender, non- distended, hepatosplenomegaly and no masses Back/Spine no CVA tenderness Cervical Spine: Negative for cervical spine tenderness Thoracic Spine / Upper Back: Negative for thoracic spinal tenderness Lumbar Spine / Lower Back: Negative for lumbar spinal tenderness Extremity normal to inspection General Extremety ED: Negative for edema or tenderness General Extremity: Negative for edema Neuro oriented x3, CN's II-XII intact bilaterally and no sensory deficits noted Sensorium / Orientation: alert Psych mental status grossly normal Skin no rashes or lesions noted, no wounds and No skin turgor normal General Skin Exam: Negative for jaundice or pallor MDM MDM MDM Narrative Medical decision making narrative: Medically patient is dehydrated. Will obtain basic metabolic panel to assess electrolytes, renal function and anion gap. CBC to evaluate for anemia since she appears slightly pale. This may be due to illness. She was treated with Zofran for her nausea and Imodium for her diarrhea. Since she has not been able take her pain medicine for her chronic back pain she was given a low-dose of IV morphine. She also received 1 L of normal saline. Lab Data Attestation: I reviewed the patient's lab results. Lab results narrative: White count is slight elevated. H&H is 14.6 and 45.8. She does have a slight shift. There is no bandemia. Creatinine is slightly elevated 1.28 with a GFR of 43. Labs: Laboratory Results - last 24 hr 04/30/22 04/30/22 04/30/22 15:45 15:45 15:45 WBC 11.9 H RBC 4.88 Hgb 14.6 Hct 45.8 MCV 93.9 MCH 29.9 MCHC 31.9 L RDW Std Deviation 43.3 RDW Coeff of Elías 12.5 Plt Count 323 MPV 9.7 Immature Gran % (Auto) 0.300 Neut % (Auto) 93.4 H Lymph % (Auto) 1.6 L [place] % (Auto) 4.5 Eos % (Auto) 0.0 Baso % (Auto) 0.2 Absolute Neuts (auto) 11.1 H Absolute Lymphs (auto) 0.19 L Nucleated RBC % 0 Differential Comment SCANNED Sodium 141 Potassium 3.8 Chloride 105 Carbon Dioxide 28.0 Anion Gap 8 BUN 24 H Creatinine 1.28 H Estim Creat Clear Calc 27.72 Est GFR (MDRD) Af Amer 52 L Est GFR (MDRD) Non-Af 43 L BUN/Creatinine Ratio 18.8 Glucose 252 H Calcium 9.1 Total Bilirubin 0.80 Direct Bilirubin 0.18 AST 17 ALT 19 Alkaline Phosphatase 42 L Total Protein 7.7 Albumin 3.7 Globulin 4.0 Lipase 04/30/22 15:45 WBC RBC Hgb Hct MCV MCH MCHC RDW Std Deviation RDW Coeff of Elías Plt Count MPV Immature Gran % (Auto) Neut % (Auto) Lymph % (Auto) [place] % (Auto) Eos % (Auto) Baso % (Auto) Absolute Neuts (auto) Absolute Lymphs (auto) Nucleated RBC % Differential Comment Sodium Potassium Chloride Carbon Dioxide Anion Gap BUN Creatinine Estim Creat Clear Calc Est GFR (MDRD) Af Amer Est GFR (MDRD) Non-Af BUN/Creatinine Ratio Glucose Calcium Total Bilirubin Direct Bilirubin AST ALT Alkaline Phosphatase Total Protein Albumin Globulin Lipase 63 L Treatment and Re-Evaluation Narrative: Patient was reassessed at 1926. Patient's had no diarrhea. She vomited once prior to the antiemetic. She has passed p.o. challenge. She be discharged home with prescription for Zofran and Imodium. Discharge Plan Triage Chief Complaint: Nausea/Vomiting/Diarrhea ED Provider: Cecil Alejandro Dx/Rx/DC Orders Clinical Impression: Abdominal pain, vomiting, and diarrhea, Dehydration, mild Instructions: ED Vomiting and Diarrhea ... Prescriptions: New ondansetron [ondansetron] 4 mg tablet,disintegrating 4 mg PO Q8H PRN PRN (Reason: Nausea) Qty: 10 0RF loperamide [Imodium A-D] 2 mg capsule 2 mg PO Q4H PRN (Reason: loose stool) Qty: 10 0RF Rx Instructions: administer after each loose stool until symptoms controlled; do not exceed 8 mg per 24 hrs No Action hydrocortisone 1 % topical cream 1 % cream 1 applic TOPICAL BID PRN (Reason: Hemorrhoids) latanoprost 0.005 % drops 1 drp OPHTHALMIC QPM melatonin 5 mg capsule 5 mg capsule 10 mg PO QHS PRN (Reason: Sleep) (DME) spacer See Rx Instructions .Route .MEDSUPPLY Qty: 1 0RF Rx Instructions: As directed albuterol sulfate 2.5 mg /3 mL (0.083 %) solution for nebulization 2.5 mg INHALATION Q6H PRN (Reason: COPD J44.9) Qty: 120 3RF atorvastatin 20 MG tablet 20 mg PO QHS Label Comments: LOWERS CHOLESTEROL levothyroxine 112 MCG tablet 112 mcg PO DAILY Label Comments: FOR HYPOTHYROID sennosides-docusate sodium 1 TABLET tablet 1 tab PO BID PRN (Reason: Constipation) Label Comments: STOOL SOFTENER hydrocodone-acetaminophen 1 EACH tablet 1 ea PO TID PRN (Reason: Pain) baclofen 10 MG tablet 10 mg PO TID PRN (Reason: muscle pain) brimonidine 1 DROP bottle 1 drp EACH EYE BID citalopram 20 MG tablet 20 mg PO DAILY cholecalciferol (vitamin D3) 2,000 UNIT capsule 2,000 unit PO DAILY cyclobenzaprine 10 MG tablet 10 mg PO QHS PRN (Reason: Muscle relaxer) albuterol sulfate 90 mcg/actuation HFA aerosol inhaler 2 puff INHALATION Q4H PRN PRN (Reason: DYSPNEA/WHEEZING/SOB) Qty: 1 6RF Label Comments: COPD fluticasone propionate 50 mcg/actuation spray,suspension 2 spray INTRANASAL DAILY Qty: 16 3RF budesonide-formoterol 160-4.5 mcg/actuation HFA aerosol inhaler 2 puff INHALATION BID Qty: 3 3RF montelukast [Singulair] 10 mg tablet 10 mg PO QDAY Qty: 90 3RF Spiriva Respimat 2.5 mcg/actuation mist 2 puff INHALATION QDAY Qty: 3 3RF Primary Care Provider: Vivian Aly Referrals: Vivian Aly MD [Primary Care Provider] - 1-2 Days if not improving Disposition Disposition: Home, Self Care
[2022-04-30] MEDS: 0.9% Normal Saline 1,000 ML 1000 ML IV (18:22)
[2022-04-30 19:30] LABS: Mucous, Urine 0 SEEN /hpf (<or=2+); Red Blood Cells-Urine 0 SEEN /hpf (0-5)
[2022-04-30 19:40] LABS: Color, Urine Yellow (Yellow); Glucose, Dipstick 250 mg/dl (Normal); Ketone-Dipstick 5 mg/dl (Negative); Leukocyte Esterase-Dipstick 100 /ul (Negative); Nitrite-Dipstick Negative (Negative); Occult Blood-Urine 25 /ul (Negative); Protein-Dipstick 30 mg/dl (Negative); Specific Gravity, Urine 1.025 (1.002-1.030); Urine Clarity Sl. Cloudy (Clear); Urine Urobilinogen Normal (Normal)
[2022-04-30 19:48] LABS: Squamous Epithelial Cells - UA 0-5 SEEN /hpf (5-10); Urine Bilirubin Dipstick 1 mg/dL (Negative); White Blood Cells 0-5 SEEN /hpf (0-5)
[2022-04-30 19:49] LABS: Bacteria RARE /hpf (None Seen)
[2022-04-30 19:55] VITALS: BP 164/64; PULSE 81; RESP 15; O2SAT 94
== END 2022-04-30 20:52 | disposition home or self-care (01) ==
PROVIDERS: Emergency Medicine; Emergency Provider Emergency Medicine; PCP Internal Medicine; Visit Provider Emergency Medicine
DX: R11.2 Nausea with vomiting, unspecified (principal); J44.9 Chronic obstructive pulmonary disease, unspecified; R19.7 Diarrhea, unspecified; E86.0 Dehydration; I10 Essential (primary) hypertension; G89.29 Other chronic pain; R10.9 Unspecified abdominal pain; E78.5 Hyperlipidemia, unspecified; Z87.891 Personal history of nicotine dependence; M54.9 Dorsalgia, unspecified
CPT/HCPCS: 80048; 80076; 81001; 83690; 85025; 96361; 96374; 96375; 96376; 99285; J7030; J7040; A4216; J2405

== ENCOUNTER 2022-05-28 16:18 | Emergency (ER) | payer MEDICARE, OTHER, SELFPAY ==
[2018-08-02 10:59] VITALS: BMI 26.5
[2022-05-28 16:19] VITALS: PULSE 99; RESP 22; TEMP 36.6; O2SAT 96; BMI 31.0
--- NOTE | 2022-05-28 16:37 | EKG12_ITS ---
Test Reason : SOB Blood Pressure : / mmHG Vent. Rate : 110 BPM Atrial Rate : 110 BPM P-R Int : 188 ms QRS Dur : 082 ms QT Int : 316 ms P-R-T Axes : 052 -33 073 degrees QTc Int : 427 ms Sinus tachycardia Left axis deviation Left ventricular hypertrophy with repolarization abnormality ( R in aVL , Sutton product ) Cannot rule out Septal infarct , age undetermined Abnormal ECG Confirmed by HERNANDEZ VENTURA, YANIQUE ([id number]), state editor JAMES CUELLAR ([id number]) on 05/29/2022 10:43:28 AM Referred By: SILVIANO Confirmed By:YANIQUE NG MD
[2022-05-28 16:47] LABS: Absolute Lymphocyte Count 1.53 X10^3/uL (0.83-4.51); Absolute Neutrophil Count 14.1 X10^3/uL (2.0-7.7); Basophil# 0.06 X10^3/uL; Basophil% 0.3 % (0-1); Eosinophil# 0.09 X10^3/uL; Eosinophils% 0.5 % (0-5); Hematocrit 43.6 % (37-47); Hemoglobin 13.5 g/dL (12.0-15.0); Lymphocyte # 1.53 X10^3/ul (0.83-4.51); Lymphocyte % 8.8 % (19-41); Mean Corpuscular Hgb 29.7 pg (27.0-32.0); Mean Platelet Vol. 10.3 fl (6.2-12.0); Monocyte# 1.46 X10^3/uL; Monocyte% 8.4 % (0-10); NRBC Flagged by Analyzer 0 % (0-5); Neutrophil % 81.5 % (47-70); Platelet Count 305 K/mm3 (150-450); RBC Distribution Width CV 12.1 % (11.6-14.6); RBC Distribution Width SD 43.1 fl (35.1-43.9); Red Blood Count 4.54 M/mm3 (4.2-5.4); White Blood Count 17.3 K/mm3 (4.4-11.0)
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
--- NOTE | 2022-05-28 16:55 | RAD_ITS ---
EXAM: XR RIGHT RIBS AND AP CHEST, 3 OR MORE VIEWS CLINICAL INDICATION: pain TECHNIQUE: Frontal and oblique views of the right ribs and frontal view of the chest. This report was created using TY[employer] report generation technology. COMPARISON: August 25, 2019 FINDINGS: LUNGS AND PLEURAL SPACES: Unremarkable. No consolidation or edema. No pneumothorax. No effusion. HEART: Unremarkable. Cardiac silhouette not enlarged. MEDIASTINUM: Central airways and mediastinal contour are unremarkable. BONES/JOINTS: Unremarkable. No evidence of displaced rib fractures. TUBES, LINES AND DEVICES: Metallic leads in the spinal canal may suggest spinal stimulator leads. RAD/Ribs Uni Min 3V w/PA Chest IMPRESSION: No acute findings in the chest or right ribs. Electronically Signed: Oscar Truong MD at 17:10 EST ,
[2022-05-28 17:11] LABS: Anion Gap 5 (5-15); BUN 16 mg/dL (7-18); BUN/Creat Ratio 13.7 RATIO (10-20); Calcium,Total 9.6 mg/dL (8.5-10.1); Chloride 103 mmol/L (98-107); Creatinine, Serum 1.17 mg/dL (0.55-1.02); EST Glomerular Filtration Rate 47 mL/min (>60); Est Glom Filt Rate - Afr Amer 57 mL/min (>60); Estimated Creatinine Clearance 30.33 ml/min; Glucose 174 mg/dL (74-106); Potassium 3.9 mmol/L (3.5-5.1); Sodium Level 136 mmol/L (136-145); Troponin-I HS (w/2H Reflex) 34 pg/mL (3.0-54.0)
[2022-05-28 17:18] VITALS: RESP 16
[2022-05-28 18:07] VITALS: RESP 16
[2022-05-28 18:43] LABS: Reflex Troponin-HS? (from REC) Y
== END 2022-05-28 18:42 | disposition home or self-care (01) ==
PROVIDERS: Emergency Provider Emergency Medicine; PCP Internal Medicine; Visit Provider Emergency Medicine
DX: S46.911A Strain of unspecified muscle, fascia and tendon at shoulder and upper arm level, right arm, initial encounter (principal); J44.9 Chronic obstructive pulmonary disease, unspecified; M54.6 Pain in thoracic spine; E78.5 Hyperlipidemia, unspecified; M25.511 Pain in right shoulder; I10 Essential (primary) hypertension; Z87.891 Personal history of nicotine dependence; Z99.81 Dependence on supplemental oxygen; X58.XXXA Exposure to other specified factors, initial encounter
CPT/HCPCS: 71101; 80048; 84484; 85025; 93005; 99284

== ENCOUNTER 2022-05-29 12:52 | Emergency (ER) | payer MEDICARE, OTHER, SELFPAY ==
[2018-08-02 10:59] VITALS: BMI 26.5
[2022-05-29 12:54] VITALS: BP 119/106; PULSE 100; RESP 20; TEMP 35.8; O2SAT 94; BMI 28.3
--- NOTE | 2022-05-29 13:26 | RAD_ITS ---
STUDY: X-RAY - LUMBAR SPINE REASON FOR EXAM: Female, 81 years old. Pain/fall TECHNIQUE: 3 view(s) of the lumbar spine were obtained. COMPARISON: Comparison is made with prior study dated January 16 FINDINGS: Normal lumbar lordosis. There is no substantial scoliosis. There is a normal alignment of the vertebrae. There is multilevel endplate spondylosis of the lumbar vertebrae. There is multi-level degenerative disc disease with multi-level disc space narrowing. 40% loss of height of the superior endplate of the L4 and L5 vertebrae. There has been no change. The soft tissue structures are unremarkable. RAD/Lumbar Spine 2 or 3 Views IMPRESSION: Degenerative changes of the spine, as detailed above. Stable loss of height of the superior endplate of the L4 and L5 vertebrae. Electronically Signed: Ari Ward MD at 14:30 EST ,
--- NOTE | 2022-05-29 13:26 | RAD_ITS ---
STUDY: X-RAY - PELVIS REASON FOR EXAM: Female, 81 years old. Pain/fall posteriorly TECHNIQUE: One view of the pelvis was obtained. COMPARISON: None. FINDINGS: There is a non-specific bowel gas pattern. Spinal stimulator device is seen overlying the right hemipelvis. There are atherosclerotic vascular calcifications. There is narrowing with cortical sclerosis and osteophyte formation of the sacroiliac joint consistent with degenerative osteoarthritic changes. Normal visualized bilateral superior and inferior pubic rami. Normal pubic symphysis. Normal ischial tuberosities. Normal visualized right femoral head. Normal right acetabulum. There is moderate articular joint space narrowing of the right hip. The patient is status post open reduction and internal fixation of a left intertrochanteric fracture using kathe and compression screw fixation device. There is healing. Normal left acetabulum. There is moderate articular joint space narrowing of the left hip. RAD/Pelvis 1 or 2 Views IMPRESSION: No acute abnormality is seen. Electronically Signed: Ari Ward MD at 14:29 EST ,
--- NOTE | 2022-05-29 13:28 | ED.VIS.FALL ---
HPI HPI - Fall History of Present Illness Chief Complaint: Fall Informant: patient, spouse/S.O. and family Occured/Mechanism Occurred: Today Mechanism/Context: Yes same level fall Usually ambulates: Cane Pain/Injury Location: buttocks, scraped right forearm which is not hurting Quality of Pain: Aching Current Severity: Moderate Maximum Severity: Severe Worsened by: weight bearing, sitting, moving Relieved by: remaining still lying down Associated Symptoms Associated Symptoms: Negative for Parasthesias, Weakness, Loss of function, Inability to ambulate, Loss of consciousness or Amnesia Narrative Narrative: Patient states she was using her cane to walk from 1 room of her house to the other and she just fell. She had no prodromal symptoms. She fell directly onto her buttocks, and scraped her right forearm on nearby window blinds, her right arm is not hurting, just her buttocks and low back. She has been able to bear weight since then, however it is painful and difficult as a result. This occurred around 3 AM, she presents here around 1300. states that they were here in the ER last night and had a work-up because of pain in her right rib cage/chest, discharged home late, and she is on oxygen chronically for COPD, the suspects something was not hooked up properly to get them home and that she was off of her oxygen for 30 or 60 minutes, and when she got home she was a little loopy and confused, he states that is much better now. Patient denies any other complaints prior to this fall. [facility] Medical History Abnormal mammogram of right breast Allergic rhinitis Anxiety Apical lung scarring Back pain Benign positional vertigo Bite by animal Breast cancer, right Broken wrist Cancer Closed fracture of left hip requiring operative repair COPD, mild Cracked pelvis Depression Diverticulosis of colon (without mention of hemorrhage) MIRELES (dyspnea on exertion) Essential (primary) hypertension Former smoker Fracture of vertebra Glaucoma Hearing loss, left Hip fracture requiring operative repair Hx of cardiovascular stress test Hyperlipidemia Hypertension Hypothyroidism Loose, teeth MCI (mild cognitive impairment) On home oxygen therapy Osteoarthritis Other disorders of bone and cartilage Pleural effusion Post-menopausal Pure hypercholesterolemia Shortness of breath on exertion Tailbone injury Tobacco dependence in remission Wears glasses Home Medications atorvastatin 20 mg tablet 20 mg PO QHS 04/04/15 [History Last Taken Unknown] levothyroxine 112 mcg tablet 112 mcg PO DAILY 09/09/14 [History Last Taken 10/26/17] sennosides 8.6 mg-docusate sodium 50 mg tablet 1 tab PO BID PRN Constipation 05/22/17 [History Last Taken Unknown] hydrocortisone 1 % topical cream (Cortisone (hydrocortisone)) 1 applic topical BID PRN Hemorrhoids 05/14/18 [History Last Taken Unknown] latanoprost 0.005 % eye drops 1 drp ophthalmic (eye) QPM 05/14/18 [History Last Taken Unknown] melatonin 5 mg capsule 10 mg PO QHS PRN Sleep 05/14/18 [History Last Taken Unknown] baclofen 10 mg tablet 10 mg PO TID PRN muscle pain 06/15/18 [History Last Taken Unknown] brimonidine 0.15 % eye drops 1 drp EACH EYE BID 06/15/18 [History Last Taken Unknown] hydrocodone-acetaminophen 5-325mg 5mg-325mg 1 ea PO TID PRN Pain 06/15/18 [History Last Taken Unknown] citalopram 20 mg tablet 20 mg PO DAILY 08/25/18 [History Last Taken Unknown] cholecalciferol (vitamin D3) 50 mcg (2,000 unit) capsule 2,000 unit PO DAILY 01/26/19 [History Last Taken Unknown] spacer #1 ea 08/08/19 [Rx Last Taken Unknown] albuterol sulfate 90 mcg/actuation aerosol inhaler 2 puff inhalation Q4H PRN PRN DYSPNEA/WHEEZING/SOB ##1 03/26/20 [Rx Last Taken Unknown] cyclobenzaprine 10 mg tablet 10 mg PO QHS PRN Muscle relaxer 06/06/20 [History Last Taken Unknown] fluticasone propionate 50 mcg/actuation nasal spray,suspension 2 spray intranasal DAILY #16 grams 10/19/20 [Rx Last Taken Unknown] albuterol sulfate 2.5 mg/3 mL (0.083 %) solution for nebulization 2.5 mg (3 mL) inhalation Q6H PRN COPD J44.9 #120 vials 03/19/21 [Rx Last Taken Unknown] budesonide-formoterol HFA 160 mcg-4.5 mcg/actuation aerosol inhaler 2 puff inhalation BID #3 ea 06/28/21 [Rx Last Taken Unknown] montelukast 10 mg tablet (Singulair) 10 mg PO QDAY #90 tabs 08/09/21 [Rx Last Taken Unknown] tiotropium bromide 2.5 mcg/actuation mist for inhalation (Spiriva Respimat) 2 puff inhalation QDAY #3 ea 03/14/22 [Rx Last Taken Unknown] loperamide 2 mg capsule (Imodium A-D) 2 mg PO Q4H PRN loose stool #10 caps 04/30/22 [Rx Last Taken Unknown] ondansetron 4 mg disintegrating tablet 4 mg PO Q8H PRN PRN Nausea #10 tabs 04/30/22 [Rx Last Taken Unknown] Allergy/AdvReac Type Severity Reaction Status Date / Time clemastine fumarate Allergy Unknown Verified 05/29/22 12:54 [From Tavist] fosfomycin tromethamine Allergy Unknown Verified 05/29/22 12:54 [From Monurol] pseudoephedrine HCl Allergy Unknown Verified 05/29/22 12:54 [From Tavist] celecoxib [From Celebrex] AdvReac Upset Verified 05/29/22 12:54 Stomach doxycycline AdvReac Other Verified 05/29/22 12:54 simvastatin [From Zocor] AdvReac Pain in Verified 05/29/22 12:54 joints Family History Father Heart disease Myocardial infarction Mother Breast cancer Aunt Breast cancer Daughter Breast cancer Surgical History History of arthroscopic knee surgery History of colonoscopy History of hemorrhoidectomy History of lumpectomy of right breast Status post hip surgery Social History household members: spouse Smoking Status: Former smoker Tobacco: How many years used: 45 how long ago did patient quit smokin, 1p/day second hand exposure: Yes alcohol intake: current alcohol intake frequency: a few times a month Alcohol type: wine substance use type: does not use ROS ROS ED Constitutional Constitutional ED: Denies chills or fever(s) Eyes Eyes: Denies change in vision or diplopia ENT ENT ED: Denies ear pain, epistaxis, facial pain or rhinorrhea Cardiovascular Cardiovascular: Denies chest pain or palpitations Respiratory/Chest Respiratory/Chest: Denies cough or dyspnea Gastrointestinal Gastrointestinal: Denies abdominal pain, diarrhea, melena, nausea or vomiting Genitourinary Genitourinary ED: Denies dysuria or hematuria Musculoskeletal Musculoskeletal: Reports as per HPI and back pain; Denies extremity pain or neck pain Integumentary Reports Abrasions and other Details: bruising R forearm ; Denies abscess, laceration or rash Neurologic Neurologic: Denies confusion, headache(s), paresthesias or weakness Hematologic/Lymphatic Hematologic/Lymphatic: Reports easy bleeding and easy bruising EXAM Physical Exam Const Vital Signs: 05/29/22 12:54 Temperature 96.5 F L Temperature Source Temporal Pulse Rate 100 Respiratory Rate 20 H Blood Pressure 119/106 H Blood Pressure Mean 110 Pulse Ox 94 Oxygen Delivery Method Nasal Cannula Oxygen Flow Rate (L/min) 4 Positive well nourished, well developed and obese General Appearance ED: well developed and NAD Nutritional Appearance: obese HEENT Reports TM's clear and nasal mucous membranes and turbinates normal atraumatic Face and Sinus: Negative for facial tenderness Tympanic Membrane ED: Yes TM's clear Eyes PERRL and EOMs intact bilaterally Visual Acuity: other Other Details: no entrapment or pain with extraocular movements Neck full ROM and supple General: Negative for tenderness Chest Wall inspection of chest normal and palpation of chest normal Chest: symmetrical chest wall rise; Negative for crepitus or tenderness Resp normal respiratory effort and clear to auscultation bilaterally Percussion: other equal BS bilat Cardio no murmurs Rate: regular rate Rhythm: regular rhythm GI normal to inspection, nondistended, normoactive bowel sounds, soft to palpation and non-tender Back/Spine Back/Spine Narrative: Lower lumbar spine and sacrum tenderness had a couple of spots but not the entire thing. No step-off. No obvious signs of trauma to the area. Ischial tuberosities are nontender. Pelvis is stable to AP compression without pain. No anterior symphysis pubis or other pelvic bone pain/tenderness. There is some minor tenderness to the pelvic brims posteriorly bilaterally worse on the left. No crepitance. Nontender and without crepitance. No other bony spine or neck tenderness Cervical Spine: Negative for cervical spine tenderness Thoracic Spine / Upper Back: Negative for thoracic spinal tenderness Lumbar Spine / Lower Back: lumbar spinal tenderness Extremity normal to inspection and full ROM Extremity Narrative: Bruising superficially right forearm no bony tenderness no limited range of motion. Full range of motion of both hips without tenderness or groin pain. General Extremety ED: Negative for tenderness Neuro oriented x3, CN's II-XII intact bilaterally, moves all extremities, no focal motor deficits and no sensory deficits noted [place] Coma Scale: document GCS findings Spontaneous Obeys Commands Oriented 15 Sensorium / Orientation: awake and alert Psych mental status grossly normal and thought process normal Skin no wounds Lesions: no lesions Rashes: no rashes MDM MDM MDM Narrative Medical decision making narrative: Obtained x-rays of the pelvis 1 view unremarkable my interpretation, and lumbar spine 3 views of my interpretation showing compression fractures of L4 and L5. These are stable compared with prior x-rays in January according to radiology. Nothing else acute. Patient was given pain medication and afterwards she is able to bear weight and walk fairly well with little pain. She has Nordman at home, it was prescribed recently and she has quite a bit. She is comfortable going home with that and we discussed how she could increase her dose a little if necessary, and given the 's concerns about her being disoriented I checked a urinalysis, it is negative for infection. She did have a bit of a leukocytosis at 17 yesterday, but the rest of her work-up is unremarkable and I do not think that needs to be repeated. While being observed here in emergency department, her mental status improved, and family including her thought she was back to normal so I am okay with her going home. Lab Data Attestation: I reviewed the patient's lab results. Labs: Laboratory Results - last 24 hr 05/29/22 15:45 Urine Color Yellow Urine Clarity Sl. Cloudy Urine pH 6.0 Ur Specific [place] 1.015 Urine Protein 30 H Urine Glucose (UA) 100 H Urine Ketones 5 H Urine Occult Blood Negative Urine Nitrite Negative Urine Bilirubin Negative Urine Urobilinogen 1 H Ur Leukocyte Esterase Negative Urine RBC 0 SEEN Urine WBC 0-5 SEEN Ur Squamous Epith Cells 0-5 SEEN Amorphous Sediment 1+ URATE Urine Bacteria 0 SEEN Urine Mucus 0 SEEN Radiography Diagnostic Testing: Clinical Impression(s) from Imaging Studies Lumbar Spine X-Ray 05/29/22 13:26 IMPRESSION: Degenerative changes of the spine, as detailed above. Stable loss of height of the superior endplate of the L4 and L5 vertebrae. Electronically Signed: Ari Ward MD at 14:30 EST , Pelvis X-Ray 05/29/22 13:26 IMPRESSION: No acute abnormality is seen. Electronically Signed: Ari Ward MD at 14:29 EST , Discharge Plan Triage Chief Complaint: Fall ED Provider: Doni Perez Dx/Rx/DC Orders Clinical Impression: Contusion of lower back, Transient disorientation, Accidental fall Instructions: ED Back Contusion Prescriptions: No Action hydrocortisone 1 % topical cream 1 % cream 1 applic TOPICAL BID PRN (Reason: Hemorrhoids) latanoprost 0.005 % drops 1 drp OPHTHALMIC QPM melatonin 5 mg capsule 5 mg capsule 10 mg PO QHS PRN (Reason: Sleep) (DME) spacer See Rx Instructions .Route .MEDSUPPLY Qty: 1 0RF Rx Instructions: As directed albuterol sulfate 2.5 mg /3 mL (0.083 %) solution for nebulization 2.5 mg INHALATION Q6H PRN (Reason: COPD J44.9) Qty: 120 3RF atorvastatin 20 MG tablet 20 mg PO QHS Label Comments: LOWERS CHOLESTEROL levothyroxine 112 MCG tablet 112 mcg PO DAILY Label Comments: FOR HYPOTHYROID sennosides-docusate sodium 1 TABLET tablet 1 tab PO BID PRN (Reason: Constipation) Label Comments: STOOL SOFTENER hydrocodone-acetaminophen 1 EACH tablet 1 ea PO TID PRN (Reason: Pain) baclofen 10 MG tablet 10 mg PO TID PRN (Reason: muscle pain) brimonidine 1 DROP bottle 1 drp EACH EYE BID citalopram 20 MG tablet 20 mg PO DAILY cholecalciferol (vitamin D3) 2,000 UNIT capsule 2,000 unit PO DAILY cyclobenzaprine 10 MG tablet 10 mg PO QHS PRN (Reason: Muscle relaxer) ondansetron [ondansetron] 4 mg tablet,disintegrating 4 mg PO Q8H PRN PRN (Reason: Nausea) Qty: 10 0RF loperamide [Imodium A-D] 2 mg capsule 2 mg PO Q4H PRN (Reason: loose stool) Qty: 10 0RF Rx Instructions: administer after each loose stool until symptoms controlled; do not exceed 8 mg per 24 hrs albuterol sulfate 90 mcg/actuation HFA aerosol inhaler 2 puff INHALATION Q4H PRN PRN (Reason: DYSPNEA/WHEEZING/SOB) Qty: 1 6RF Label Comments: COPD fluticasone propionate 50 mcg/actuation spray,suspension 2 spray INTRANASAL DAILY Qty: 16 3RF budesonide-formoterol 160-4.5 mcg/actuation HFA aerosol inhaler 2 puff INHALATION BID Qty: 3 3RF montelukast [Singulair] 10 mg tablet 10 mg PO QDAY Qty: 90 3RF Spiriva Respimat 2.5 mcg/actuation mist 2 puff INHALATION QDAY Qty: 3 3RF Primary Care Provider: Vivian Aly Referrals: Vivian Aly MD [Primary Care Provider] - 1 Week if not improving Activity Restrictions/Additional Instructions: May increase her Nordman to 2 tablets at a time every 6 hours if needed. You may also use topicals such as Biofreeze, IcyHot, heating pad or ice pack as needed to the affected area. You have old compression fractures there at L4 and L5, they are unchanged compared with January, it is possible that you simply irritated that and it is hurting, this should go away with time. Follow-up if you are not improving in the next week. Disposition Disposition: Home, Self Care
[2022-05-29] MEDS: Morphine 2 MG/ML Syringe IV ×2 (13:58→17:19)
[2022-05-29] MEDS: Ondansetron 4 MG/2 ML Vial IV (13:58)
[2022-05-29 15:52] LABS: Bacteria 0 SEEN /hpf (None Seen); Mucous, Urine 0 SEEN /hpf (<or=2+); Red Blood Cells-Urine 0 SEEN /hpf (0-5)
[2022-05-29 16:04] LABS: Color, Urine Yellow (Yellow); Glucose, Dipstick 100 mg/dl (Normal); Ketone-Dipstick 5 mg/dl (Negative); Leukocyte Esterase-Dipstick Negative /ul (Negative); Nitrite-Dipstick Negative (Negative); Occult Blood-Urine Negative /ul (Negative); Protein-Dipstick 30 mg/dl (Negative); Specific Gravity, Urine 1.015 (1.002-1.030); Urine Bilirubin Dipstick Negative (Negative); Urine Clarity Sl. Cloudy (Clear); Urine Urobilinogen 1 mg/dl (Normal)
[2022-05-29 16:18] LABS: Amorphous Sediment 1+ URATE; Squamous Epithelial Cells - UA 0-5 SEEN /hpf (5-10); White Blood Cells 0-5 SEEN /hpf (0-5)
[2022-05-29 17:22] VITALS: BP 140/58; PULSE 92; RESP 18; O2SAT 95
== END 2022-05-29 17:31 | disposition home or self-care (01) ==
PROVIDERS: Emergency Provider Emergency Medicine; PCP Internal Medicine; Visit Provider Emergency Medicine
DX: S20.229A Contusion of unspecified back wall of thorax, initial encounter (principal); J44.9 Chronic obstructive pulmonary disease, unspecified; R41.0 Disorientation, unspecified; E78.5 Hyperlipidemia, unspecified; I10 Essential (primary) hypertension; E66.9 Obesity, unspecified; Z87.891 Personal history of nicotine dependence; W18.30XA Fall on same level, unspecified, initial encounter
CPT/HCPCS: 72100; 72170; 81001; 99283; A4216; J2405

== ENCOUNTER → 2022-08-06 | Outpatient (CLI) | payer MEDICARE, OTHER, SELFPAY ==
[2018-08-02 10:59] VITALS: BMI 26.5
--- NOTE | 2022-08-06 14:33 | BI_ITS ---
MAMMOGRAPHY - BILATERAL SCREENING REASON FOR EXAM: Female, 81 years old. Routine annual screening examination. PERTINENT HISTORY: Personal history of breast cancer. Prior right lumpectomy with radiation treatment. Mother with breast cancer. Aunt with breast cancer. TECHNIQUE: Digital bilateral breast whitley (3D mammographic acquisition) in the CC and MLO projections. 2-D mediolateral oblique (MLO) and craniocaudad (CC) views of both breasts were obtained. CAD: Full Field Digital Mammography with Computer Added Detection was performed. COMPARISON: Comparison is made with prior study dated January 28, 2022 and June 25, 2021. FINDINGS: Breast Composition: There are scattered areas of fibroglandular density. There are no dominant masses or suspicious calcifications. The patient is status post lumpectomy in the upper slightly outer aspect of the right breast with resultant postoperative scarring. Surgical clips are also seen in the right axillary region. No other significant abnormalities are identified. There has been no significant change since the prior study. BI/SCRN MAMM (CAD)W/WHITLEY BILAT IMPRESSION: Stable bilateral screening mammogram. Yearly follow-up mammogram recommended. (A) ASSESSMENT CATEGORY: BIRADS Category 2: Benign. A letter regarding these results will be sent to the patient by the facility within 30 days. Approximately 10% of breast cancers are not detected by mammography. A normal mammogram should not delay biopsy of a clinically suspicious abnormality. [id number] Electronically Signed: Ari Ward MD at 8:49 EST ,
== END | disposition home or self-care (01) ==
LOC: OPBI 14:32
PROVIDERS: PCP Internal Medicine; Referring Provider Internal Medicine Medical Oncology; Visit Provider Internal Medicine Medical Oncology
DX: Z12.31 Encounter for screening mammogram for malignant neoplasm of breast (principal)
CPT/HCPCS: 77063; 77067

== ENCOUNTER → 2023-06-27 | Outpatient (CLI) | payer MEDICARE, OTHER, SELFPAY ==
[2018-08-02 10:59] VITALS: BMI 26.5
--- OUTSIDE RECORDS SUMMARY | 2023-06-27 11:08 | XMS RPT_ITS | CCD ---
Author Name Unknown Address [address] [place] [address] Organization [facility] Care Team Providers Care Medicine Tech Name Role Phone Chano Bowman DO Unavailable Yensho AMALGAMATOR, Lissett A Unavailable Unavailab le York, Jessy Dempsey Unavailable Unavailable Yensho AMALGAMATOR, Lissett A Unavailable Unavailab le GESLER, JESSICA Bates Unavailable Unavailable GESLER, JESSICA Bates Unavailable Unavailable CEBUL, DOUG A III Unavailable Unavailable Yensho AMALGAMATOR, Lissett A Unavailable Unavailab le Fahad, Jessy Dempsey Unavailable Unavailable Yensho AMALGAMATOR, Lissett A Unavailable Unavailab Vivian Lemus MD Primary Care Provider [phone] Vivian Mao MD Primary Care Provider [phone] Vivian Mao MD Primary Care Provider OLDER, MERARI Attending Unavailable VIVIAN MAO Primary Care Unavailable OLDER, MERARI Referring Unavailable VIVIAN MAO Primary Care Unavailable VIVIAN MAO Attending Unavailable VIVIAN MAO Primary Care Unavailable Allergies Allergy Classification Reported Allergen(s) Allergy Type Date of Onset Reaction(s) Facility (7 sources) celecoxib drug allergy 7 [facility] Work Phone: (7 sources) doxycycline drug allergy 7 [facility] Work Phone: (7 sources) fosfomycin drug allergy 7 [facility] Work Phone: (7 sources) simvastatin drug allergy 7 [facility] Work Phone: (7 sources) TAVIST ALLERGY drug allergy 7 [facility] Work Phone: (18 sources) celecoxib; Translations: [CELECOXIB] Drug Allergy 5 [facility] (17 sources) Clemastine Drug Allergy 5 [facility] (18 sources) Diclofenac; Translations: [DICLOFENAC] Drug Allergy [address] [facility] (18 sources) Doxycycline; Translations: [DOXYCYCLINE] Drug Allergy [address] [facility] (18 sources) Fosfomycin; Translations: [FOSFOMYCIN TROMETHAMINE] Drug Allergy 5 [facility] (18 sources) Simvastatin; Translations: [SIMVASTATIN] Drug Allergy 5 Other: See Comments [facility] (4 sources) oxyCODONE; Translations: [OXYCODONE] Drug Allergy 3 Other: See Comments [facility] Work Phone: (1 source) OTHER; Translations: [OTHER] Propensity to adverse reactions (disorder) 5 [facility] Medications Completed/Discontinued Medications Medication Drug Class(es) Dates Sig (Normalized) Sig (Original) acetaminophen 325 mg oral capsule (17 sources) acetaminophen (T YLENOL) 325 mg cap Take by mouth. 0 Active Problems Active Problems Problem Classification Problem Date Documented Date Episodic/Chronic Adjustment disorders (20 sources) Adjustment disorder with mixed anxiety and depressed mood; Translations: [Adjustment disorder with mixed anxiety and depressed mood] Onset: 10-11-2013 Chronic Anxiety disorders (19 sources) Mixed anxiety and depressive disorder; Translations: [Other specified anxiety disorders] Onset: 08-03-2018 08-03-2018 Chronic Cancer of breast (18 sources) Malignant tumor of breast ; Translations: [Malignant neoplasm of central portion of right female breast] Onset: 05-28-2018 05-28-2018 Chronic Chronic kidney disease (17 sources) Chronic kidney disease stage 3; Translations: [CKD (chronic kidney disease) stage 3, GFR 30-59 ml/min] Onset: 09-23-2018 09-23-2018 Chronic Chronic obstructive pulmonary disease and bronchiectasis (20 sources) Chronic obstructive lung disease; Translations: [Acute exacerbation of chronic obstructive airways disease] Onset: 04-19-2008 01-29-2017 Chronic Delirium, dementia, and amnestic and other cognitive disorders (17 sources) Mild cognitive disorder ; Translations: [Unspecified mental disorder due to known physiological condition] Onset: 03-25-2018 03-25-2018 Chronic Disorders of lipid metabolism (20 sources) Hyperlipidemia; Translations: [Hyperlipidemia, unspecified] Onset: 03-19-2015 03-19-2015 Chronic Diverticulosis and diverticulitis (20 sources) Diverticulum of large intestine without hemorrhage; Translations: [Diverticulosis of large intestine without perforation or abscess without bleeding] Onset: 10-03-2015 10-03-2015 Chronic Essential hypertension (19 sources) Essential hypertension; Translations: [Essential (primary) hypertension] Onset: 04-14-2016 04-14-2016 Chronic Glaucoma (17 sources) Glaucoma; Translations: [Unspecified glaucoma] Onset: 03-25-2018 03-25-2018 Chronic Immunizations and screening for infectious disease (3 sources) Patient encounter status; Translations: [Encounter for immunization] 04-15-2023 Episodic Malaise and fatigue (4 sources) Fatigue; Translations: [Other fatigue] Onset: 04-15-2023 Episodic Miscellaneous mental health disorders (3 sources) Chronic insomnia; Translations: [Psychophysiologic insomnia] Chronic Nonmalignant breast conditions (1 source) Lump in lower outer quadrant of right breast; Translations: [Unspecified lump in the right breast, lower outer quadrant] Episodic Nutritional deficiencies (18 sources) Vitamin D deficiency; Translations: [Vitamin D deficiency, unspecified] Onset: 06-28-2007 03-19-2015 Chronic Osteoarthritis (17 sources) Osteoarthritis; Translations: [Unspecified osteoarthritis, unspecified site] Onset: 03-25-2018 03-25-2018 Chronic Osteoporosis (17 sources) Osteoporosis; Translations: [Age-related osteoporosis without current pathological fracture] Onset: 06-16-2007 08-21-2015 Chronic Other ear and sense organ disorders (1 source) Sudden hearing loss; Translations: [Sudden idiopathic hearing loss, bilateral] Episodic Other nutritional; endocrine; and metabolic disorders (1 source) Weight gain; Translations: [Abnormal weight gain] 04-15-2023 Episodic Other screening for suspected conditions (not mental disorders or infectious disease) (2 sources) No current problems or disability 01-20-2017 Other upper respiratory disease (6 sources) Allergic rhinitis; Translations: [Allergic rhinitis, unspecified] Onset: 01-29-2017 01-29-2017 Chronic Respiratory failure; insufficiency; arrest (adult) (19 sources) Chronic hypoxemic respiratory failure; Translations: [Chronic respiratory failure with hypoxia] Onset: 08-25-2019 08-25-2019 Chronic Screening or history of mental health and substance abuse (6 sources) Tobacco dependence in remission; Translations: [Nicotine dependence, unspecified, in remission] Onset: 01-29-2017 01-29-2017 Chronic Spondylosis; intervertebral disc disorders; other back problems (20 sources) Degeneration of lumbar intervertebral disc; Translations: [Other intervertebral disc degeneration, lumbar region] Onset: 04-25-2016 04-25-2016 Chronic Thyroid disorders (20 sources) Hypothyroidism; Translations: [Hypothyroidism, unspecified] Onset: 03-19-2015 03-19-2015 Chronic Past or Other Problems Problem Classification Problem Date Documented Da te Episodic/Chronic Conditions associated with dizziness or vertigo (17 sources) Benign paroxysmal positional vertigo; Translations: [Benign paroxysmal vertigo, unspecified ear] Onset: 10-11-2013 10-11-2013 Episodic Diabetes mellitus without complication (17 sources) Impaired fasting glycemia; Translations: [Impaired fasting glucose] Onset: 04-03-2016 04-03-2016 Episodic Fracture of neck of femur (hip) (17 sources) Closed fracture of hip; Translations: [Fracture of unspecified part of neck of unspecified femur, initial encounter for closed fracture] Onset: 03-25-2018 03-25-2018 Episodic Nutritional deficiencies (20 sources) Cobalamin deficiency; Translations: [Deficiency of other specified B group vitamins] Onset: 01-31-2021 01-31-2021 Episodic Other aftercare (17 sources) Prescribed medication regimen behavior finding; Translations: [custodial (current) use of opiate analgesic] Onset: 04-03-2016 04-03-2016 Episodic Other bone disease and musculoskeletal deformities (17 sources) Disorder of skeletal system; Translations: [Disorder of bone, unspecified] Onset: 03-25-2018 03-25-2018 Episodic Other lower respiratory disease (6 sources) Dyspnea on exertion; Translations: [Other forms of dyspnea] Onset: 01-29-2017 01-29-2017 Episodic Other lower respiratory disease (17 sources) Fibrosis of lung; Translations: [Other disorders of lung] Onset: 03-16-2014 03-16-2014 Episodic Residual codes; unclassified (17 sources) Family history of malignant neoplasm of breast in first degree relative; Translations: [Family history of malignant neoplasm of breast] Onset: 08-21-2015 08-21-2015 Episodic Residual codes; unclassified (17 sources) Flushing; Translations: [Flushing] Onset: 11-14-2017 11-14-2017 Episodic Results Test Name Value Interpretation Reference Range Facil ity Vital Signs Date Time Vital Sign Value Performing Clinician Facility 04-15-2023 11:22-0500 Body height 160 cm Merari Older PEDIATRIC NEUROPSYCHOLOGIST.UX DEVELOPER Work Phone: [facility] 04-15-2023 11:22-0500 Body weight 77.11 kg PEDIATRIC NEUROPSYCHOLOGIST.UX DEVELOPER Work Phone: [facility] 04-15-2023 11:22-0500 Diastolic blood pressure 70 mm[Hg] PEDIATRIC NEUROPSYCHOLOGIST.UX DEVELOPER Work Phone: [facility] 04-15-2023 11:22-0500 Heart rate 99 /min Merari PEDIATRIC NEUROPSYCHOLOGIST.UX DEVELOPER Work Phone: [facility] 04-15-2023 11:22-0500 Respiratory rate 18 /min Merari Older PEDIATRIC NEUROPSYCHOLOGIST.UX DEVELOPER Work Phone: [facility] 04-15-2023 11:22-0500 SaO2% (BldA) [Mass fraction] 90 % PEDIATRIC NEUROPSYCHOLOGIST.UX DEVELOPER Work Phone: [facility] 04-15-2023 11:22-0500 Systolic blood pressure 146 mm[Hg] PEDIATRIC NEUROPSYCHOLOGIST.UX DEVELOPER Work Phone: [facility] 08-19-2022 12:22-0400 Diastolic blood pressure 62 mm[Hg] Vivian Mao MD Work Phone: [facility] 08-19-2022 12:22-0400 Systolic blood pressure 158 mm[Hg] Vivian Mao MD Work Phone: [facility] 08-19-2022 11:40-0400 Body height 160 cm Vivian Mao MD Work Phone: [facility] 08-19-2022 11:40-0400 Body temperature 97.39 [degF] Vivian Mao MD Work Phone: [facility] 08-19-2022 11:40-0400 Body weight 74.39 kg Vivian Mao MD Work Phone: [facility] 08-19-2022 11:40-0400 Heart rate 74 /min Vivian Mao MD Work Phone: [facility] 08-19-2022 11:40-0400 Respiratory rate 14 /min Vivian Mao MD Work Phone: [facility] 08-19-2022 11:40-0400 SaO2% (BldA) [Mass fraction] 93 % Vivian Mao MD Work Phone: [facility] 01-17-2022 14:28-0400 Body weight 69.85 kg Merari Older PEDIATRIC NEUROPSYCHOLOGIST.UX DEVELOPER Work Phone: [facility] 01-17-2022 14:28-0400 Diastolic blood pressure 72 mm[Hg] Merari Older PEDIATRIC NEUROPSYCHOLOGIST.UX DEVELOPER Work Phone: [facility] 01-17-2022 14:28-0400 Heart rate 120 /min Merari Older PEDIATRIC NEUROPSYCHOLOGIST.UX DEVELOPER Work Phone: [facility] 01-17-2022 14:28-0400 Respiratory rate 16 /min Merari Older PEDIATRIC NEUROPSYCHOLOGIST.UX DEVELOPER Work Phone: [facility] 01-17-2022 14:28-0400 SaO2% (BldA) [Mass fraction] 93 % Merari Older PEDIATRIC NEUROPSYCHOLOGIST.UX DEVELOPER Work Phone: [facility] 01-17-2022 14:28-0400 Systolic blood pressure 126 mm[Hg] Merari Older PEDIATRIC NEUROPSYCHOLOGIST.UX DEVELOPER Work Phone: [facility] 12-20-2021 10:58-0400 Body weight 69.85 kg Merari Older PEDIATRIC NEUROPSYCHOLOGIST.UX DEVELOPER Work Phone: [facility] 12-20-2021 10:58-0400 Diastolic blood pressure 78 mm[Hg] Merari Older PEDIATRIC NEUROPSYCHOLOGIST.UX DEVELOPER Work Phone: [facility] 12-20-2021 10:58-0400 Heart rate 96 /min Merari Older PEDIATRIC NEUROPSYCHOLOGIST.UX DEVELOPER Work Phone: [facility] 12-20-2021 10:58-0400 Respiratory rate 16 /min Merari Older PEDIATRIC NEUROPSYCHOLOGIST.UX DEVELOPER Work Phone: [facility] 12-20-2021 10:58-0400 SaO2% (BldA) [Mass fraction] 92 % Merari Older PEDIATRIC NEUROPSYCHOLOGIST.UX DEVELOPER Work Phone: [facility] 12-20-2021 10:58-0400 Systolic blood pressure 122 mm[Hg] Merari Older PEDIATRIC NEUROPSYCHOLOGIST.UX DEVELOPER Work Phone: [facility] 03-12-2017 06:32-0400 BMI (Body Mass Index) 27.45 kg/m2 Lissett Jalynho AMALGAMATOR [facility] Work Phone: 03-12-2017 06:32-0400 Body Temperature 97.6 [degF] Lissett Pansho AMALGAMATOR [facility] Work Phone: 03-12-2017 06:32-0400 BP Diastolic 74 mm[Hg] Lissett Yensho AMALGAMATOR [facility] Work Phone: 03-12-2017 06:32-0400 BP Systolic 119 mm[Hg] Lissett Pansho AMALGAMATOR [facility] Work Phone: 03-12-2017 06:32-0400 Height 160.02 cm Lissett Pansho AMALGAMATOR [facility] Work Phone: 03-12-2017 06:32-0400 Pulse (Heart Rate) 64 /min Lissett Pansho AMALGAMATOR [facility] Work Phone: 03-12-2017 06:32-0400 Respiratory Rate 18 /min Lissett Pansho AMALGAMATOR [facility] Work Phone: 03-12-2017 06:32-0400 Weight 70.31 kg Lissett Yensho AMALGAMATOR [facility] Work Phone: 01-29-2017 06:18-0400 BMI (Body Mass Index) 26.92 kg/m2 Lissett Yensho AMALGAMATOR [facility] Work Phone: 01-29-2017 06:18-0400 Body Temperature 97.4 [degF] Lissett Yensho AMALGAMATOR [facility] Work Phone: 01-29-2017 06:18-0400 BP Diastolic 89 mm[Hg] Lissett Yensho AMALGAMATOR [facility] Work Phone: 01-29-2017 06:18-0400 BP Systolic 138 mm[Hg] Lissett Yensho AMALGAMATOR [facility] Work Phone: 01-29-2017 06:18-0400 Height 160.02 cm Lissett Yensho AMALGAMATOR [facility] Work Phone: 01-29-2017 06:18-0400 Pulse (Heart Rate) 79 /min Lissett Yensho AMALGAMATOR [facility] Work Phone: 01-29-2017 06:18-0400 Respiratory Rate 18 /min Lissett Yensho AMALGAMATOR [facility] Work Phone: 01-29-2017 06:18-0400 Weight 68.95 kg Lissett Yensho AMALGAMATOR [facility] Work Phone: Encounters Encounter Date Encounter Type Care Provider Facility Start: 04-20-2023 Telephone encounter Merari Cox APRN.CNP Work Phone: [facility] [place] Procedures Date Procedure Procedure Detail Performing Clinician Start: 04-15-2023 Well COVI D-19 VACCINE ( SEASON) AGE 12+ YR Merari Cox APRN.CNP Work Phone: Start: 04-15-2023 INFLUENZA VACCINE, P RSV FREE, AGE 65+ YR, HIGH DOSE, QUADRIVALENT (FLUZONE HIGH-DOSE) Merari Cox PEDIATRIC NEUROPSYCHOLOGIST.UX DEVELOPER Work Phone: Start: 03-12-2017 End: 04-20-2017 Referral to respiratory physician Chano Isaac Bowman DO Work Phone: Start: 01-29-2017 End: 03-10-2017 Pulmonary Function Test - complete Chano Isaac Colby ALLISON Work Phone: Start: 01-29-2017 End: 03-10-2017 Pulmonary stress test/simple Chano Bowman DO Work Phone: Plan of Treatment Date Care Activity Detail Author Start: 04-07-[address] [facility] Start: 04-15-2026 Diabetes Screening Diabetes Screenca g [facility] Start: 01-08-2025 DIABETES SCREEN DIABETES SCREEN [facility] Start: 01-08-2025 Diabetes Screening Diabetes Screenin [facility] Start: 04-15-2024 RSV Vaccine (1 - 1-d ose 60+ series) RSV Vaccine (1 - 1-dose 60+ series) [facility] Immunizations Immunization Date Immunization Notes Care Provider Sp hester 04-15-2023 COVID-19 vaccine, ag e 12+ yr, season ([employer]) Merari Cox PEDIATRIC NEUROPSYCHOLOGIST.UX DEVELOPER Work Phone: [facility] 04-15-2023 influenza (HD-IIV4) vaccine, age 65+ yr, high dose, quadrivalent, PF (FLUZONE HIGH-DOSE) Merari Cox PEDIATRIC NEUROPSYCHOLOGIST.UX DEVELOPER Work Phone: [facility] 05-20-2022 influenza virus vacc ine, unspecified formulation Merari Cox PEDIATRIC NEUROPSYCHOLOGIST.UX DEVELOPER Work Phone: [facility] 03-25-2018 influenza, high dose seasonal, preservative-free Vivian Mao MD Work Phone: [facility] 04-07-2017 tetanus toxoid, redu colette diphtheria toxoid, and acellular pertussis vaccine, adsorbed Vivian Mao MD Work Phone: [facility] 01-29-2017 influenza, high dose seasonal, preservative-free Vivian Mao MD Work Phone: [facility] 01-29-2017 influenza, injectabl e, madin jamin canine kidney, preservative free [facility] Work Phone: 01-29-2017 influenza, injectabl e, madin jamin canine kidney, preservative free [facility] Work Phone: 04-03-2016 influenza, high dose seasonal, preservative-free Vivian Mao MD Work Phone: [facility] 03-19-2015 pneumococcal conjuga te vaccine, 13 valent Vivian Mao MD Work Phone: [facility] 03-15-2013 zoster vaccine, live Vivian Mao MD Work Phone: [facility] 03-10-2013 influenza virus vacc ine, unspecified formulation Vivian Mao MD Work Phone: [facility] 06-28-2012 influenza virus vacc ine, unspecified formulation Vivian Mao MD Work Phone: [facility] 04-19-2008 pneumococcal polysaccharide vaccine, 23 valent Vivian Mao MD Work Phone: [facility] 08-16-1992 diphtheria and tetan us toxoids, adsorbed for pediatric use Vivian Mao MD Work Phone: [facility] Work Phone: Payers Date Payer Category Payer Medicare [id number] 2013 Private Health Insurance [facility] AARP SUPPLEMENT [id number] 2013-Present [phone] [address] [place] [address] Indemnity [id number] 2013 Private Health Insurance [facility] AARP SUPPLEMENT [id number] 2013-Present [phone] [address] [place] [address] Indemnity [id number] 2013 Unknown [id number] 2006 Medicare MEDICARE MEDICAR E A AND B [id number] 2006-Present [phone] [place] [address] Medicare [id number] 2006 Medicare MEDICARE MEDICAR E A AND B [id number] 2006-Present [phone] [place] [address] Medicare [id number] 2006 Medicare [id number] Social History Date Type Detail Facility Start: 10-13-2014 End: 04-15-2023 Tobacco smoking status NHIS Ex-smoker [facility] Work Phone: End: 09-09-2014 History of tobacco use Current smoker [facility] Work Phone: End: 09-09-2014 History of tobacco use Cigarette Smoker [facility] Work Phone: Start: 10-13-2014 End: 05-13-2020 Cigarettes smoked current (pack per day) - Reported 0.5 [facility] Start: 10-13-2014 End: 04-15-2023 Tobacco use and exposure Smokeless tobacco non-user [facility] Work Phone: Start: 03-06-2021 End: 04-15-2023 Alcohol intake Current drinker of alcohol (finding) [facility] Start: 1940 Sex Assigned At Not on file C [facility] Start: 11-02-2021 End: 11-12-2021 Exposure to SARS-CoV-2 (event) Not sure [facility] Start: 12-10-2021 End: 12-20-2021 Exposure to SARS-CoV-2 (event) Unable to assess [facility] Start: 05-13-2020 End: 01-17-[address] [facility] Adult Depression Screening Assessment 0 [facility] Start: 04-15-2023 Tobacco Comment 4 or 5 cigs qd [facility] Clinical Notes 08-21-2015 to 04-20-2023 Telephone Encounter - Nichole Dixon LPN - 04/20/2023 1:56 PM ESTTelephone Encounter - Patricia Man Ma - 04/20/2023 1:12 PM ESTTelephone Encounter - Merari Cox APRN.CNP - 04/20/2023 12:48 PM EST Note Date & Type Note Facility 04-20-2023 Miscellaneous Notes Pt calls to report that rx for levothyroxine rx went to [facility] instead of [facility]. [facility] reports [facility] Please file rx to go to [facility] Patient has been identified by name and date of : Yes Requested Prescriptions Pending Prescriptions Disp Refills levothyroxine (SYNTHROID) 137 mcg tablet 90 tablet 1 Sig: Take 1 tablet by mouth once daily. Take on empty stomach. For Thyroid. RX INSTRUCTIONS: Patient aware RX will be sent to pharmacy. No need to notify patient. Nichole Dixon LPN documented in this encounter [facility] 04-20-2023 Miscellaneous Notes Patient notified. Increase to 1 tablet daily, new prescription sent to pharmacy. Recheck in 4-6 weeks Merari Cox APRN.CNP Patient states taking medication as prescribed on empty stomach as directed, then at end of call states she had been sick a few weeks back and may have missed some doses but not sure how many? Please advise Please verify patient is taking 137mctg of levothyroxine daily except 1/2 tab on Sundays. Her thyroid is off like she has stopped this and needs dosage increase if she has been taking consistently. Thank you Merari Cox APRN.NEELA documented in this encounter [facility] 04-15-2023 Note HNO ID: [id number] Author: Merari Cox APRN.CNP Service: ? Author Type: Nurse Practitioner Type: Progress Notes Filed: 04/15/2023 3:03 PM Note Text: CC: Patient presents with: Immunizations: Flu vaccination HPI Josette Romero is a 82 year old female who presents today for routine follow up. COPD: On hospice for breathing and currently at [facility] without increase in shortness of breath, cough or wheezing. Is unable to walk long distance because of SOB and is on 02 @4L at all times. Hypothyoridism: takes medication as ordered. Has gained some weight with being on prednisone and is always tired. Has had this for a year without known cause, Also has history of Vitamin 12 deficiency and currently not on any supplement. Gets blood work every 6 months at [facility]. Last drwan in February with hypokalemia. Was started on a potassium supplement for 2 weeks. This was completed and not been rechecked. REVIEW OF SYSTEMS General: no fevers, no chills, no night sweats, no recurrent infections, no change in appetite, and no significant changes in weight Respiratory: See HPI Cardiovascular: no chest pain, no chest pressure, no palpitations, and no swelling Endocrine: no fatigue, no polyuria, no polyphagia, and no polydipsia Neurologic: No headache, weakness, numbness, tingling, dizziness, memory loss, syncope. PAST MEDICAL HISTORY Diagnosis Date Adjustment reaction with anxiety and depression 10/11/2013 Allergic rhinitis Apical lung scarring 03/16/2014 BPV (benign positional vertigo) 10/11/2013 Chronic obstructive pulmonary disease (COPD) (HCC) Disorder of bone and cartilage, unspecified Diverticulosis of colon (without mention of hemorrhage) Essential hypertension 04/14/2016 Estrogen receptor positive status (ER+) 2019 Glaucoma Malignant neoplasm of central portion of right breast (HCC) 2019 Pleural effusion, right 03/16/2014 Pure hypercholesterolemia Tobacco dependence in remission Unspecified hypothyroidism PAST SURGICAL HISTORY Procedure Laterality Date COLONOSCOPY FLX DX W/COLLJ SPEC WHEN PFRMD 06/17/91 Colonoscopy COLONOSCOPY FLX DX W/COLLJ SPEC WHEN PFRMD 08/27/2009 Colonoscopy HEMORRHOIDECTOMY NTRNL AND XTRNL 1 COLUMN/GROUP RADIOFREQUENCY ABLATION Right 10/26/2017 right sided lumbar, medial branch L3, L4, L5, S1 ALLERGIES Celebrex [Celecoxib], Diclofenac, Doxycycline, Monurol [Fosfomycin Tromethamine], Oxycontin [Oxycodone], Tavist D [Other], and Zocor [Simvastatin] MEDICATIONS levothyroxine (SYNTHROID) 137 mcg tablet Take on empty stomach 1 tablet daily, except take 2tablet on Thursday. For Thyroid. mupirocin (BACTROBAN) 2 % ointment Apply to affected area three times daily as needed. busPIRone (BUSPAR) 10 mg tablet Take 1 tablet by mouth three times daily as needed. hydrocortisone (HEMORRHOIDAL HC) 25 mg suppository 1 Suppository by RECTAL route twice daily as needed (Hemmorrhoids/Rectal Pain). acetaminophen (TYLENOL) 325 mg cap Take by mouth. Cholecalciferol, Vitamin D3, 2,000 unit cap Take 1 capsule by mouth once daily. latanoprost (XALATAN) 0.005 % ophthalmic solution 1 Drop daily at bedtime. brimonidine 0.2 % drop, timolol maleate 0.5 % drop 1 Drop once daily. fluticasone (FLONASE) 50 mcg/actuation nasal spray Use 2 Sprays in each nostril once daily. COMPOUNDED PRESCRIPTION Nebulizer supplies: Dx: J44.9 ipratropium-albuterol (DUONEB) 0.5 mg-3 mg(2.5 mg base)/3 mL nebu Inhale 3 mL as instructed four times daily. DX: J44.9 albuterol HFA (PROAIR HFA) 90 mcg/actuation inhaler Inhale 2 Puffs as instructed every 4 hours as needed. For wheezing/shortness of breath. COMPOUNDED PRESCRIPTION 1 Each four times daily. NEBULIZER FOR HOME USE. DX: J44.9 ibuprofen (MOTRIN) 600 mg tablet Take 1 tablet by mouth every 6 hours as needed for Pain. Mirtazapine (REMERON) 7.5 mg tablet Take 1 tablet by mouth daily at bedtime. venlafaxine ER (EFFEXOR XR) 75 mg 24 hr capsule Take 1 capsule by mouth once daily. atorvastatin (LIPITOR) 20 mg tablet Take 1 tablet by mouth once daily. budesonide-formoterol (SYMBICORT) 160-4.5 mcg/actuation inhaler Inhale 2 Puffs as instructed twice daily. tiZANidine (ZANAFLEX) 2 mg tablet montelukast (SINGULAIR) 10 mg tablet Take 1 tablet by mouth daily at bedtime. TIOTROPIUM BROMIDE (SPIRIVA RESPIMAT INHALATION) Inhale as instructed. Bimatoprost (LUMIGAN) 0.01 % OPHTHALMIC Drop 1 drop bith eyes at night. FAMILY HISTORY Problem Relation Age of Onset Breast Cancer Mother Heart Father 54 [place] Breast Cancer Maternal Aunt Breast Cancer Daughter ADOPTED? None Brother None Brother None Brother Social History Tobacco Use Smoking status: Former Packs/day: 0.50 Years: 20.00 Additional pack years: 0.00 Total pack years: 10.00 Types: Cigarettes Quit date: 09/09/2014 Years since quittin.6 Smokeless tobacco: Never Tobacco comments: 4 or 5 cigs qd Substance Use Topics Alcoho (more content not included)... [facility] 04-15-2023 History of Present illness Narrative CC: Patient presents with: Immunizations: Flu vaccination HPI Josette Romero is a 82 year old female who presents today for routine follow up. COPD: On hospice for breathing and currently at [facility] without increase in shortness of breath, cough or wheezing. Is unable to walk long distance because of SOB and is on 02 @4L at all times. Hypothyoridism: takes medication as ordered. Has gained some weight with being on prednisone and is always tired. Has had this for a year without known cause, Also has history of Vitamin 12 deficiency and currently not on any supplement. Gets blood work every 6 months at [facility]. Last drwan in February with hypokalemia. Was started on a potassium supplement for 2 weeks. This was completed and not been rechecked. REVIEW OF SYSTEMS General: no fevers, no chills, no night sweats, no recurrent infections, no change in appetite, and no significant changes in weight Respiratory: See HPI Cardiovascular: no chest pain, no chest pressure, no palpitations, and no swelling Endocrine: no fatigue, no polyuria, no polyphagia, and no polydipsia Neurologic: No headache, weakness, numbness, tingling, dizziness, memory loss, syncope. PAST MEDICAL HISTORY Diagnosis Date Adjustment reaction with anxiety and depression 10/11/2013 Allergic rhinitis Apical lung scarring 03/16/2014 BPV (benign positional vertigo) 10/11/2013 Chronic obstructive pulmonary disease (COPD) (HCC) Disorder of bone and cartilage, unspecified Diverticulosis of colon (without mention of hemorrhage) Essential hypertension 04/14/2016 Estrogen receptor positive status (ER+) 2019 Glaucoma Malignant neoplasm of central portion of right breast (HCC) 2019 Pleural effusion, right 03/16/2014 Pure hypercholesterolemia Tobacco dependence in remission Unspecified hypothyroidism PAST SURGICAL HISTORY Procedure Laterality Date COLONOSCOPY FLX DX W/COLLJ SPEC WHEN PFRMD 06/17/91 Colonoscopy COLONOSCOPY FLX DX W/COLLJ SPEC WHEN PFRMD 08/27/2009 Colonoscopy HEMORRHOIDECTOMY NTRNL & XTRNL 1 COLUMN/GROUP RADIOFREQUENCY ABLATION Right 10/26/2017 right sided lumbar, medial branch L3, L4, L5, S1 ALLERGIES Celebrex [Celecoxib], Diclofenac, Doxycycline, Monurol [Fosfomycin Tromethamine], Oxycontin [Oxycodone], Tavist D [Other], and Zocor [Simvastatin] MEDICATIONS levothyroxine (SYNTHROID) 137 mcg tablet Take on empty stomach 1 tablet daily, except take 2tablet on Thursday. For Thyroid. mupirocin (BACTROBAN) 2 % ointment Apply to affected area three times daily as needed. busPIRone (BUSPAR) 10 mg tablet Take 1 tablet by mouth three times daily as needed. hydrocortisone (HEMORRHOIDAL HC) 25 mg suppository 1 Suppository by RECTAL route twice daily as needed (Hemmorrhoids/Rectal Pain). acetaminophen (TYLENOL) 325 mg cap Take by mouth. Cholecalciferol, Vitamin D3, 2,000 unit cap Take 1 capsule by mouth once daily. latanoprost (XALATAN) 0.005 % ophthalmic solution 1 Drop daily at bedtime. brimonidine 0.2 % drop, timolol maleate 0.5 % drop 1 Drop once daily. fluticasone (FLONASE) 50 mcg/actuation nasal spray Use 2 Sprays in each nostril once daily. COMPOUNDED PRESCRIPTION Nebulizer supplies: Dx: J44.9 ipratropium-albuterol (DUONEB) 0.5 mg-3 mg(2.5 mg base)/3 mL nebu Inhale 3 mL as instructed four times daily. DX: J44.9 albuterol HFA (PROAIR HFA) 90 mcg/actuation inhaler Inhale 2 Puffs as instructed every 4 hours as needed. For wheezing/shortness of breath. COMPOUNDED PRESCRIPTION 1 Each four times daily. NEBULIZER FOR HOME USE. DX: J44.9 ibuprofen (MOTRIN) 600 mg tablet Take 1 tablet by mouth every 6 hours as needed for Pain. Mirtazapine (REMERON) 7.5 mg tablet Take 1 tablet by mouth daily at bedtime. venlafaxine ER (EFFEXOR XR) 75 mg 24 hr capsule Take 1 capsule by mouth once daily. atorvastatin (LIPITOR) 20 mg tablet Take 1 tablet by mouth once daily. budesonide-formoterol (SYMBICORT) 160-4.5 mcg/actuation inhaler Inhale 2 Puffs as instructed twice daily. tiZANidine (ZANAFLEX) 2 mg tablet montelukast (SINGULAIR) 10 mg tablet Take 1 tablet by mouth daily at bedtime. TIOTROPIUM BROMIDE (SPIRIVA RESPIMAT INHALATION) Inhale as instructed. Bimatoprost (LUMIGAN) 0.01 % OPHTHALMIC Drop 1 drop bith eyes at night. FAMILY HISTORY Problem Relation Age of Onset Breast Cancer Mother Heart Father 54 [place] Breast Cancer Maternal Aunt Breast Cancer Daughter ADOPTED? None Brother None Brother None Brother Social History Tobacco Use Smoking status: Former Packs/day: 0.50 Years: 20.00 Additional pack years: 0.00 Total pack years: 10.00 Types: Cigarettes Quit date: 09/09/2014 Years since quittin.6 Smokeless tobacco: Never Tobacco comments: 4 or 5 cigs qd Substance Use Topics Alcohol use: Yes Comment: occasionally Drug use: No PHYSICAL EXAM BP 146/70 (BP Site: Left Arm, BP Position: Sitting, BP Cuff Size: Regular Adult) Pulse 99 Resp 18 Ht 160 cm (5' 3 ) Wt 77.1 kg (170 lb) SpO2 90% BMI 30.11 kg/m General Appearance: well appearing, in no acute distress, alert Pysch: mood and affect broad and appropriate Skin: Skin color, texture, turgor normal for age; Eyes: conjunctiva pink and moist, no icterus, sclera white, non-injected Neck: Thyroid normal size and symmetric without palpable nodules, Neck supple, No adenopathy Lymph nodes: No cervical lymphadenopathy and No supraclavicular lymphadenopathy Lungs: Lungs clear to auscultation. No wheezing, rhonchi, rales. Heart: RRR without murmur, gallop, or rubs. No ectopy Health maintenance reviewed with patient: RSV Vaccine(1 - 1-dose 60+ series) Never done Advance Directive Discussion due on 06/08/2022 Influenza Vaccine(1) due on 02/06/2023 Covid-19 Vaccine( - 2022-24 season) due on 02/06/2023 Diabetes Screening due on 01/08/2025 DTaP,Tdap,Td Vaccine(3 - Td or Tdap) due on 04/07/2027 Bone Density Screening Completed Spirometry Completed Shingrix Vaccine Completed Pneumococcal Vaccine: 65+ Completed HPV Vaccine Aged Out Colorectal Cancer Screening Discontinued DATA REVIEWED: Most recent labs at [facility] ASSESSMENT/PLAN: 1. Other fatigue - ICD9: 780.79, ICD10: R53.83 (primary diagnosis) - will evaluate further - BASIC METABOLIC PNL - CBC + DIFF - TSH BLD - T4 FREE/FREE THYROX - VITAMIN B12 BLOOD 2. Weight gain - ICD9: 783.1, ICD10: R63.5 As above - p[possibly result of chronic prednisone use or other cause 3. Acquired hypothyroidism - ICD9: 244.9, ICD10: E03.9 - TSH BLD - T4 FREE/FREE THYROX 4. Vitamin B12 deficiency - ICD9: 266.2, ICD10: E53.8 - VITAMIN B12 BLOOD 5. Chronic obstructive pulmonary disease, unspecified COPD type (HCC) - ICD9: 496, ICD10: J44.9 - stable on current treatment - continue with home O2 and recommendations by hospice 6. Chronic respiratory failure with hypoxia (HCC) - ICD9: 518.83, 799.02, ICD10: J96.11 As above 7. On home oxygen therapy - ICD9: V46.2, ICD10: Z99.81 See #5 8. Encounter for immunization - ICD9: V03.89, ICD10: Z23 - PFIZER-BIONTECH COVID-19 VACCINE ( SEASON) AGE 12+ YR 9. Need for influenza vaccination - ICD9: V04.81, ICD10: Z23 - INFLUENZA VACCINE, PRSV FREE, AGE 65+ YR, HIGH DOSE, QUADRIVALENT (FLUZONE HIGH-DOSE) Prescription instructions reviewed with patient as applicable. Potential red flag symptoms discussed with the patient. Reviewed appropriate action plan to take if red flag symptoms occur. Patient agreeable to treatment plan. Merari Cox APRN.NEELA documented in this encounter [facility] 03-16-2023 Miscellaneous Notes Patient has been identified by name and date of : No Patient phones for refill(s): Requested Prescriptions Pending Prescriptions Disp Refills levothyroxine (SYNTHROID) 137 mcg tablet 15 tablet 0 Sig: Take on empty stomach 1 tablet daily, except take 1/2tablet on Thursday. For Thyroid. Date of last office visit in primary care: 08/19/22 Last 2 Encounter Wt Readings: Date: Wt: 08/19/2022 74.4 kg (164 lb) 01/17/2022 69.9 kg (154 lb) Previous labs/tests for medication: Thyroid: TSH Date Value 01/08/2022 0.059 mIU/L 06/26/2021 1.310 uU/mL Please advise. Thank you. Nano Orourke Patient has been identified by name and date of : Yes Requested Prescriptions Pending Prescriptions Disp Refills levothyroxine (SYNTHROID) 137 mcg tablet 15 tablet 0 Sig: Take on empty stomach 1 tablet daily, except take 1/2tablet on Thursday. For Thyroid. RX INSTRUCTIONS: Pharmacy initiated this request. No need to notify patient. Diamond Mix documented in this encounter [facility] 02-24-2023 Miscellaneous Notes Patient has been identified by name and date of : No Patient phones for refill(s): Requested Prescriptions Pending Prescriptions Disp Refills levothyroxine (SYNTHROID) 137 mcg tablet [Pharmacy Med Name: LEVOTHYROXINE 137 MCG TABLET] 15 tablet 0 Sig: Take on empty stomach 1 tablet daily, except take 1/2tablet on Thursday. For Thyroid. Date of last office visit in primary care: 08/19/22 Last 2 Encounter Wt Readings: Date: Wt: 08/19/2022 74.4 kg (164 lb) 01/17/2022 69.9 kg (154 lb) Previous labs/tests for medication: Thyroid: TSH Date Value 01/08/2022 0.059 mIU/L 06/26/2021 1.310 uU/mL Please advise. Thank you. Nano Orourke documented in this encounter [facility] 08-19-2022 Note HNO ID: [id number] Author: Vivian Mao MD Service: ? Author Type: Physician Type: Progress Notes Filed: 08/19/2022 5:36 PM Note Text: Reason for Visit Patient presents with: Same Day Appointment: hearing issues since July after bronchitis Josette Romero is a 81 year old female who presents here today for Above Complaints.. Health Maintenance ADVANCE DIRECTIVE DISCUSSION HPI Patient had a bronchitis 3/4 weeks ago, was treated with a zpak. Her bronchitits got better but around 10 days ago she suddenly lost hearing, already had decreased hearing in the right ear but now she notes complete hearing loss. She is on hospice and when hospice came to visit her thenurse asked her to use some peroxide so Raghav has used peroxide as per hospice recommendation for 5 days but that did not help her. She has crackling sounds in the ear near all the time. She is on hospice for end-stage COPD and being oxygen dependent. No problem-specific Assessment AND Plan notes found for this encounter. PAST MEDICAL HISTORY Diagnosis Date Adjustment reaction with anxiety and depression 10/11/2013 Allergic rhinitis Apical lung scarring 03/16/2014 BPV (benign positional vertigo) 10/11/2013 Chronic obstructive pulmonary disease (COPD) (HCC) Disorder of bone and cartilage, unspecified Diverticulosis of colon (without mention of hemorrhage) Essential hypertension 04/14/2016 Estrogen receptor positive status (ER+) 2019 Glaucoma Malignant neoplasm of central portion of right breast (HCC) 2019 Pleural effusion, right 03/16/2014 Pure hypercholesterolemia Tobacco dependence in remission Unspecified hypothyroidism PAST SURGICAL HISTORY Procedure Laterality Date COLONOSCOPY FLX DX W/COLLJ SPEC WHEN PFRMD 06/17/91 Colonoscopy COLONOSCOPY FLX DX W/COLLJ SPEC WHEN PFRMD 08/27/2009 Colonoscopy HEMORRHOIDECTOMY NTRNL AND XTRNL 1 COLUMN/GROUP RADIOFREQUENCY ABLATION Right 10/26/2017 right sided lumbar, medial branch L3, L4, L5, S1 FAMILY HISTORY Problem Relation Age of Onset Breast Cancer Mother Heart Father 54 [place] Breast Cancer Maternal Aunt Breast Cancer Daughter ADOPTED? None Brother None Brother None Brother Social History Tobacco Use Smoking status: Former Packs/day: 0.50 Years: 20.00 Pack years: 10.00 Types: Cigarettes Quit date: 09/09/2014 Years since quittin.9 Smokeless tobacco: Never Tobacco comments: 4 or 5 cigs qd Substance Use Topics Alcohol use: Yes Comment: occasionally Drug use: No Past medical history, appointments, medications, allergies reviewed. Pertinent Lab/Diagnostic Studies are reviewed and discussed today Current Outpatient Medications: levothyroxine (LEVOXYL) 137 mcg tablet mupirocin (BACTROBAN) 2 % ointment busPIRone (BUSPAR) 10 mg tablet Mirtazapine (REMERON) 7.5 mg tablet venlafaxine ER (EFFEXOR XR) 75 mg 24 hr capsule atorvastatin (LIPITOR) 20 mg tablet budesonide-formoterol (SYMBICORT) 160-4.5 mcg/actuation inhaler hydrocortisone (HEMORRHOIDAL HC) 25 mg suppository acetaminophen (TYLENOL) 325 mg cap Cholecalciferol, Vitamin D3, 2,000 unit cap tiZANidine (ZANAFLEX) 2 mg tablet latanoprost (XALATAN) 0.005 % ophthalmic solution brimonidine 0.2 % drop, timolol maleate 0.5 % drop montelukast (SINGULAIR) 10 mg tablet fluticasone (FLONASE) 50 mcg/actuation nasal spray TIOTROPIUM BROMIDE (SPIRIVA RESPIMAT INHALATION) COMPOUNDED PRESCRIPTION ipratropium-albuterol (DUONEB) 0.5 mg-3 mg(2.5 mg base)/3 mL nebu albuterol HFA (PROAIR HFA) 90 mcg/actuation inhaler COMPOUNDED PRESCRIPTION ibuprofen (MOTRIN) 600 mg tablet Bimatoprost (LUMIGAN) 0.01 % OPHTHALMIC Drop Review [...] or numbness of concern. Physical Exam BP 156/62 (BP Site: Left Arm, BP Position: Sitting, BP Cuff Size: Large Adult) Pulse 74 Temp 36.3 ?C (97.4 ?F) Resp 14 Ht 160 cm (5' 3 ) Wt 74.4 kg (164 lb) SpO2 93% BMI 29.05 kg/m? General appearance: Well appearing, alert, in no acute distress, well nourished. Skin: Skin color, texture, turgor normal, no suspicious rashes or lesions Head: Normocephalic, no masses, lesions, tenderness or abnormalities Ears: Both the bilateral ears have some redness in the external auditory meatus and the lower aspect of the tympanic membrane. Also some minor bumps that are seen which unable to describe it. Eyes: Anicteric sclera. Pupils are equally round and reactive to light. Extraocular movements are intact. Lungs: Lungs clear to auscul (more content not included)... [facility] 08-19-2022 History of Present illness Narrative Reason for Visit Patient presents with: Same Day Appointment: hearing issues since July after bronchitis Josette Romero is a 81 year old female who presents here today for Above Complaints.. Health Maintenance ADVANCE DIRECTIVE DISCUSSION HPI Patient had a bronchitis 3/4 weeks ago, was treated with a zpak. Her bronchitits got better but around 10 days ago she suddenly lost hearing, already had decreased hearing in the right ear but now she notes complete hearing loss. She is on hospice and when hospice came to visit her thenurse asked her to use some peroxide so Raghav has used peroxide as per hospice recommendation for 5 days but that did not help her. She has crackling sounds in the ear near all the time. She is on hospice for end-stage COPD and being oxygen dependent. No problem-specific Assessment & Plan notes found for this encounter. PAST MEDICAL HISTORY Diagnosis Date Adjustment reaction with anxiety and depression 10/11/2013 Allergic rhinitis Apical lung scarring 03/16/2014 BPV (benign positional vertigo) 10/11/2013 Chronic obstructive pulmonary disease (COPD) (HCC) Disorder of bone and cartilage, unspecified Diverticulosis of colon (without mention of hemorrhage) Essential hypertension 04/14/2016 Estrogen receptor positive status (ER+) 2018 Glaucoma Malignant neoplasm of central portion of right breast (HCC) 2019 Pleural effusion, right 03/16/2014 Pure hypercholesterolemia Tobacco dependence in remission Unspecified hypothyroidism PAST SURGICAL HISTORY Procedure Laterality Date COLONOSCOPY FLX DX W/COLLJ SPEC WHEN PFRMD 06/17/91 Colonoscopy COLONOSCOPY FLX DX W/COLLJ SPEC WHEN PFRMD 08/27/2009 Colonoscopy HEMORRHOIDECTOMY NTRNL & XTRNL 1 COLUMN/GROUP RADIOFREQUENCY ABLATION Right 10/26/2017 right sided lumbar, medial branch L3, L4, L5, S1 FAMILY HISTORY Problem Relation Age of Onset Breast Cancer Mother Heart Father 54 [place] Breast Cancer Maternal Aunt Breast Cancer Daughter ADOPTED? None Brother None Brother None Brother Social History Tobacco Use Smoking status: Former Packs/day: 0.50 Years: 20.00 Pack years: 10.00 Types: Cigarettes Quit date: 09/09/2014 Years since quittin.9 Smokeless tobacco: Never Tobacco comments: 4 or 5 cigs qd Substance Use Topics Alcohol use: Yes Comment: occasionally Drug use: No Past medical history, appointments, medications, allergies reviewed. Pertinent Lab/Diagnostic Studies are reviewed and discussed today Current Outpatient Medications: levothyroxine (LEVOXYL) 137 mcg tablet mupirocin (BACTROBAN) 2 % ointment busPIRone (BUSPAR) 10 mg tablet Mirtazapine (REMERON) 7.5 mg tablet venlafaxine ER (EFFEXOR XR) 75 mg 24 hr capsule atorvastatin (LIPITOR) 20 mg tablet budesonide-formoterol (SYMBICORT) 160-4.5 mcg/actuation inhaler hydrocortisone (HEMORRHOIDAL HC) 25 mg suppository acetaminophen (TYLENOL) 325 mg cap Cholecalciferol, Vitamin D3, 2,000 unit cap tiZANidine (ZANAFLEX) 2 mg tablet latanoprost (XALATAN) 0.005 % ophthalmic solution brimonidine 0.2 % drop, timolol maleate 0.5 % drop montelukast (SINGULAIR) 10 mg tablet fluticasone (FLONASE) 50 mcg/actuation nasal spray TIOTROPIUM BROMIDE (SPIRIVA RESPIMAT INHALATION) COMPOUNDED PRESCRIPTION ipratropium-albuterol (DUONEB) 0.5 mg-3 mg(2.5 mg base)/3 mL nebu albuterol HFA (PROAIR HFA) 90 mcg/actuation inhaler COMPOUNDED PRESCRIPTION ibuprofen (MOTRIN) 600 mg tablet Bimatoprost (LUMIGAN) 0.01 % OPHTHALMIC Drop Review [...] or numbness of concern. Physical Exam BP 156/62 (BP Site: Left Arm, BP Position: Sitting, BP Cuff Size: Large Adult) Pulse 74 Temp 36.3 C (97.4 F) Resp 14 Ht 160 cm (5' 3 ) Wt 74.4 kg (164 lb) SpO2 93% BMI 29.05 kg/m General appearance: Well appearing, alert, in no acute distress, well nourished. Skin: Skin color, texture, turgor normal, no suspicious rashes or lesions Head: Normocephalic, no masses, lesions, tenderness or abnormalities Ears: Both the bilateral ears have some redness in the external auditory meatus and the lower aspect of the tympanic membrane. Also some minor bumps that are seen which unable to describe it. Eyes: Anicteric sclera. Pupils are equally round and reactive to light. Extraocular movements are intact. Lungs: Lungs clear to auscultation. No wheezing, rhonchi, rales Heart: RRR without murmur, gallop, or rubs. ASSESSMENT/PLAN: 1. Sudden hearing loss of both ears - ICD9: 388.2, ICD10: H91.23 - CONSULT TO ENT - CONSULT TO ENT Vivian Mao MD documented in this encounter [facility] 08-13-2022 Miscellaneous Notes Placard mailed as requested and rx to pharmacy. Patient's line busy on several attempts. If patient calls please advise. Josette Romero is calling Vivian Mao MD today to request two different items on this phone encounter. Patient requesting a new handicap letter to take to the [facility] for a 5 year renewal. Please mail to patient when provider completes that letter. Patient is asking for a RX which does not appear on current medication list: Mupirocin ointment 2%, please send to [facility] pharmacy Patient has been identified by name and birthdate. Duration of symptoms: N/A Person calling: self Call patient at: at home [phone] (home) Was an appointment scheduled: No Closing statement: Results or non-symptom based questions: Thank you for calling [facility], your call will be returned within the next business day. inexioseFindersfee documented in this encounter [facility] 08-13-2022 Miscellaneous Notes Patient has been identified by name and date of : No Patient phones for refill(s): Requested Prescriptions Pending Prescriptions Disp Refills levothyroxine (LEVOXYL) 137 mcg tablet 90 tablet 3 Sig: Take on empty stomach 1 tablet daily, except take 1/2 tablet on Thursday. For Thyroid. Date of last office visit in primary care: 01/17/22 Last 2 Encounter Wt Readings: Date: Wt: 01/17/2022 69.9 kg (154 lb) 12/20/2021 69.9 kg (154 lb) Previous labs/tests for medication: Thyroid: TSH Date Value 01/08/2022 0.059 mIU/L 06/26/2021 1.310 uU/mL Please advise. Thank you. Nano Dunaway LPN Patient has been identified by name and date of : Yes Requested Prescriptions Pending Prescriptions Disp Refills levothyroxine (LEVOXYL) 137 mcg tablet 90 tablet 3 Sig: Take on empty stomach 1 tablet daily, except take 1/2 tablet on Thursday. For Thyroid. RX INSTRUCTIONS: Patient aware RX will be sent to pharmacy. No need to notify patient. Zhane ChaneyDecalog [employer] documented in this encounter [facility] 05-06-2022 Miscellaneous Notes Patient last visit 01/17/22 Follow up appointment scheduled none Vee Denton Ma documented in this encounter [facility] 04-30-2022 Miscellaneous Notes Protocol recommends ER Now or pcp triage. agreeable to take patient to ER. Reason for Disposition [1] MODERATE vomiting (e.g., 3 - 5 times/day) AND [2] age > 60 years Answer Assessment - Initial Assessment Questions 1. VOMITING SEVERITY: called in-Reports patient started vomiting and diarrhea at 1 am today. Has had about 5-6 episodes so far-maybe more. Unable to keep medications down. Has COPD and struggling to keep oxygen on due to frequent trips to bathroom. 2. ONSET: 1 am today 3. FLUIDS: Sipping on sprite and 7 up, and pedialyte, very little amount. Unable to keep down. 4. ABDOMINAL PAIN: Has abdominal pain from vomiting- hard on muscles. 5. DIARRHEA: 5-6 x's- maybe more since 1 am. 6. CONTACTS: No 7. CAUSE: No idea 8. HYDRATION STATUS: Per patient a little of dryness. Sipping on pedialyte. Urinating. Patient unable to talk to nurse due to frequent trips to bathroom with vomiting/diarrhea. 9. OTHER SYMPTOMS: Patient states she feels extremely weak and having abdominal pain. No fever- KHANNA- or dizziness, Not vomiting blood, No recent head injury. 10. : No. Protocols used: [id number] documented in this encounter [facility] 02-20-2022 Miscellaneous Notes Patient has been identified by name and date of : Yes Patient phones for refill(s): Requested Prescriptions Pending Prescriptions Disp Refills levothyroxine (LEVOXYL) 137 mcg tablet 30 tablet 1 Sig: Take on empty stomach 1 tablet daily, except take 1/2 tablet on Thursday. For Thyroid. Mirtazapine (REMERON) 7.5 mg tablet 30 tablet 1 Sig: Take 1 tablet by mouth daily at bedtime. Date of last office visit in primary care: 01/17/2022 3 month follow-up: 04/21/2022 Last 2 Encounter Wt Readings: Date: Wt: 01/17/2022 69.9 kg (154 lb) 12/20/2021 69.9 kg (154 lb) Previous labs/tests for medication: Thyroid: TSH Date Value 01/08/2022 0.059 mIU/L 06/26/2021 1.310 uU/mL Please advise. Thank you. Georgina Monge LPN Patient has been identified by name and date of : Yes Requested Prescriptions Pending Prescriptions Disp Refills levothyroxine (LEVOXYL) 137 mcg tablet 30 tablet 1 Sig: Take on empty stomach 1 tablet daily, except take 1/2 tablet on Thursday. For Thyroid. Mirtazapine (REMERON) 7.5 mg tablet 30 tablet 1 Sig: Take 1 tablet by mouth daily at bedtime. RX INSTRUCTIONS: Patient aware RX will be sent to pharmacy. No need to notify patient. Marianne Garcia documented in this encounter [facility] 01-17-2022 History of Present illness Narrative CC: Patient presents with: Recheck: 4 week follow up, review labs HPI Josette Romero is a 81 year old female who presents today for follow up and to review lab work HLD: Ms. Romero denies headache, chest pain, palpitations, dyspnea, and peripheral edema. Patient denies any side effects of her medication(s) and is compliant with their regimen. She does check BP's away from this office with average BP's in the 120s/70s range. Josette denies regular aerobic exercise. She watches her diet for sodium, low fat and low cholesterol generally not very much. Last 3 Encounter BP Readings: Date: BP: 01/17/2022 126/72 12/20/2021 122/78 03/06/2021 98/60[lower forearm[ Has chronic fatigue for the past few years and is very frustrated with it. Lab work did not indicate any obvious cause so patient feels maybe depression might be the cause. Did have an elevated B12, so is going to hold daily supplement Depression and Anxiety Sleep: is described as normal amount of sleep with mirtazapine but sometimes takes a while to fall asleep. When she does fall asleep it is for about 7 hours of sleep. Alcohol use: does not drink any alcohol Drug use: No Appetite: varies Stresses: Denies any major stressor, except is sad she is unable to travel as much as before. Suicidal Thoughts: No suicidal ideation, intent or plan Support: Comes from multiple sources including Counseling: No History of Right breast lumpectomy: last mammogram was about 8 months ago and negative for concern. Has notice a recent change to her right breast that the skin feels like a washboard . Denies nipple changes, nipple drainage or pain. REVIEW OF SYSTEMS General: no fevers, no chills, no night sweats, no recurrent infections, no change in appetite, no change in energy, and no significant changes in weight Respiratory: no cough, no wheezing, no increase in shortness of breath, no hemoptysis Cardiovascular: no chest pain, no chest pressure, no palpitations, and no swelling Endocrine: no weight gain, no weight loss, no hair loss, no dry skin, no cold intolerance, no heat intolerance, no neck pain/pressure, no polyuria, no polyphagia, and no polydipsia Neurologic: No headache, weakness, numbness, tingling, dizziness, syncope. PAST MEDICAL HISTORY Diagnosis Date Adjustment reaction with anxiety and depression 10/11/2013 Allergic rhinitis Apical lung scarring 03/16/2014 BPV (benign positional vertigo) 10/11/2013 Chronic obstructive pulmonary disease (COPD) (HCC) Disorder of bone and cartilage, unspecified Diverticulosis of colon (without mention of hemorrhage) Essential hypertension 04/14/2016 Estrogen receptor positive status (ER+) 2018 Glaucoma Malignant neoplasm of central portion of right breast (HCC) 2019 Pleural effusion, right 03/16/2014 Pure hypercholesterolemia Tobacco dependence in remission Unspecified hypothyroidism PAST SURGICAL HISTORY Procedure Laterality Date COLONOSCOP W/ OR W/O [facility] SPE[facility] 06/17/91 Colonoscopy COLONOSCOP W/ OR W/O [facility] SPE[facility] 08/27/2009 Colonoscopy HEMORRHOIDECT INTER/EXTER SIMP RADIOFREQUENCY ABLATION Right 10/26/2017 right sided lumbar, medial branch L3, L4, L5, S1 ALLERGIES Celebrex [Celecoxib], Diclofenac, Doxycycline, Monurol [Fosfomycin Tromethamine], Tavist D [Other], and Zocor [Simvastatin] MEDICATIONS levothyroxine (LEVOXYL) 137 mcg tablet Take on empty stomach 1 tablet daily, except take 1/2 tablet on Thursday. For Thyroid. atorvastatin (LIPITOR) 20 mg tablet Take 1 tablet by mouth once daily. venlafaxine ER (EFFEXOR XR) 37.5 mg 24 hr capsule Take 1 capsule by mouth once daily. mirtazapine (REMERON) 7.5 mg tablet Take 1 tablet by mouth daily at bedtime. budesonide-formoterol (SYMBICORT) 160-4.5 mcg/actuation inhaler Inhale 2 Puffs as instructed twice daily. busPIRone (BUSPAR) 10 mg tablet Take 1 tablet by mouth three times daily as needed. hydrocortisone (HEMORRHOIDAL HC) 25 mg suppository 1 Suppository by RECTAL route twice daily as needed (Hemmorrhoids/Rectal Pain). acetaminophen (TYLENOL) 325 mg cap Take by mouth. cyanocobalamin (VITAMIN B-12) 1,000 mcg tab Take 1 tablet by mouth once daily. Cholecalciferol, Vitamin D3, 2,000 unit cap Take 1 capsule by mouth once daily. tiZANidine (ZANAFLEX) 2 mg tablet latanoprost (XALATAN) 0.005 % ophthalmic solution 1 Drop daily at bedtime. brimonidine 0.2 % drop, timolol maleate 0.5 % drop 1 Drop once daily. montelukast (SINGULAIR) 10 mg tablet Take 1 tablet by mouth daily at bedtime. fluticasone (FLONASE) 50 mcg/actuation nasal spray Use 2 Sprays in each nostril once daily. TIOTROPIUM BROMIDE (SPIRIVA RESPIMAT INHALATION) Inhale as instructed. COMPOUNDED PRESCRIPTION Nebulizer supplies: Dx: J44.9 ipratropium-albuterol (DUONEB) 0.5 mg-3 mg(2.5 mg base)/3 mL nebu Inhale 3 mL as instructed four times daily. DX: J44.9 albuterol HFA (PROAIR HFA) 90 mcg/actuation inhaler Inhale 2 Puffs as instructed every 4 hours as needed. For wheezing/shortness of breath. COMPOUNDED PRESCRIPTION 1 Each four times daily. NEBULIZER FOR HOME USE. DX: J44.9 ibuprofen (MOTRIN) 600 mg tablet Take 1 tablet by mouth every 6 hours as needed for Pain. Bimatoprost (LUMIGAN) 0.01 % OPHTHALMIC Drop 1 drop bith eyes at night. FAMILY HISTORY Problem Relation Age of Onset Breast Cancer Mother Heart Father 54 [place] Breast Cancer Maternal Aunt Breast Cancer Daughter ADOPTED? None Brother None Brother None Brother Social History Tobacco Use Smoking status: Former Packs/day: 0.50 Years: 20.00 Pack years: 10.00 Types: Cigarettes Quit date: 09/09/2014 Years since quittin.3 Smokeless tobacco: Never Tobacco comments: 4 or 5 cigs qd Substance Use Topics Alcohol use: Yes Comment: occasionally Drug use: No PHYSICAL EXAM BP 126/72 Pulse 120 Resp 16 Wt 69.9 kg (154 lb) SpO2 93% BMI 27.28 kg/m General Appearance: well appearing, in no acute distress, alert Pysch: mood and affect broad and appropriate Skin: Skin color, texture, turgor normal for age; Eyes: conjunctiva pink and moist, no icterus, sclera white, non-injected Neck: Thyroid normal size and symmetric without palpable nodules, No adenopathy Lymph nodes: No cervical lymphadenopathy and No supraclavicular lymphadenopathy Lungs: Lungs clear to auscultation. No wheezing, rhonchi, rales. Heart: RRR without murmur, gallop, or rubs. No ectopy Breast: no skin or nipple changes, no axillary adenopathy, small lump noted to lower outer edge of right breast. Patient unsure if that is new. Does have slightly darkened skin and dryness to outside of right breast. Health maintenance reviewed with patient: ADVANCE DIRECTIVE DISCUSSION Never done SHINGRIX VACCINE(2 of 3) due on 12/20/2022 INFLUENZA(1) due on 02/06/2022 ANNUAL PCP TEAM CHRONIC DISEASE VISIT due on 12/20/2022 BP CONTROLLED (<130/80) due on 12/20/2022 SERUM CREATININE due on 01/08/2023 HEMOGLOBIN/HEMATOCRIT due on 01/08/2023 DIABETES SCREEN due on 01/08/2025 DTAP,TDAP,TD(3 - Td or Tdap) due on 04/07/2027 BONE DENSITY Completed SPIROMETRY Completed COVID-19 VACCINE Completed PNEUMOCOCCAL: 65+ Completed DATA REVIEWED: Most recent labs ASSESSMENT/PLAN: 1. Anxiety with depression - ICD9: 300.4, ICD10: F41.8 (primary diagnosis) Possible cause of fatigue. Patient feel anxiety is controlled. Will increase effexor since she has been on this for 3 years and tolerated well. - Reviewed concept of neurochemical imbalance wth depression/anxiety, treatment options and benefits of counseling in combination with medication. Also reviewed benefits of sleep hygeine, diet and exercise - Instructed patient to contact office or [id number] after-hours promptly should condition worsen or any new symptoms appear. - [facility] and after hours crisis line 2. Hypothyroidism, unspecified type - ICD9: 244.9, ICD10: E03.9 TSH below normal so levothyroxine decreased -tsh in 6 weeks 3. Other fatigue - ICD9: 780.79, ICD10: R53.83 - possibly related to depression, but with patients respiratory issues sleep apnea cannot be excluded. Patient declined screening for FERNANDA at this time 4. Chronic insomnia - ICD9: 780.52, ICD10: F51.04 Continue with current medications will re-evaluate at next appointment. Do not want to increase effexor and mirtazapine at this time 5. Mass of lower outer quadrant of right breast - ICD9: 611.72, ICD10: N63.13 - skin change appears to be a small patch of dry skin at this time. With her breast cancer history and her uncertainty if lump is new, will evaluate further - [facility] 6. Malignant neoplasm of central portion of right breast (HCC) - ICD9: 174.1, ICD10: C50.111 As above - [facility] 7. Vitamin B12 deficiency - ICD9: 266.2, ICD10: E53.8 - hold Vit B12 supplement at this time. 8. Essential hypertension - ICD9: 401.9, ICD10: I10 - good control - Recommended regular aerobic exercise. - Recommend home blood pressure monitoring, to bring results in on next visit - Goal of BP <130/80 9. Pure hypercholesterolemia - ICD9: 272.0, ICD10: E78.00 Controlled at this time Recommend regular exercise and low fat low salt diet. Prescription instructions reviewed with patient as applicable. Potential red flag symptoms discussed with the patient. Reviewed appropriate action plan to take if red flag symptoms occur. Patient agreeable to treatment plan. Merari Cox APRN.NEELA documented in this encounter [facility] 12-25-2021 Miscellaneous Notes Last seen NUTRITIONAL HEALTH COACH 12/20/21. 4 week follow up arranged for 01/17/22 Patient has been identified by name and date of : Yes Pending Prescriptions Disp Refills LEVOTHYROXINE 137 MCG TABLET 30 tablet 5 Sig: Take 1 tablet by mouth once daily. Take on empty stomach. For Thyroid. ROMMEL: No RX INSTRUCTIONS: Patient aware RX will be sent to pharmacy. No need to notify patient. Maranda Mohr Pss documented in this encounter [facility] 12-20-2021 History of Present illness Narrative CC: Patient presents with: Recheck: Follow up HPI Josette Romero is a 81 year old female who presents today for routine follow up, but patient is concerned she is always tired. Is very frustrated by this and really wants to get this fixed. Also states she is in a hurry because she is on home oxygen and only has an hour left to last for this appointment, to got to the pharmacy, and to get home which is 15 minutes away. Has difficulty falling asleep and has had this issue for many years. Was started on trazadone a few months ago, but this has not been helping. Has also tried melatonin as well which is not helpful. Has an abnormal sleep schedule that she stays up until 3 am and then sleeps all day. Has forced herself to get up at a decent hour and not nap during the day , but feels she is then over tired and it makes her insomnia worse. Used to take ativan many years ago, but is on chronic pain medication from pain mgmt and is unable to get any controlled substances outside of what is prescribed by them. REVIEW OF SYSTEMS General: no fevers, no chills, no night sweats, no recurrent infections, no change in appetite, no change in energy and no significant changes in weight Respiratory: no increase is chronic cough and shortness of breath related to COPD Cardiovascular: no chest pain, no chest pressure, no palpitations and no swelling CP PHQ9 12/20/2021 Little interest or pleasure 2 - More than half the days Feeling down, depressed, hopeless 2 - More than half the days Trouble falling or staying asleep, sleeping too much 3 - nearly every day Feeling tired, having little energy 3 - Nearly every day Poor appetite or overeating 1 - Several days Feeling bad about yourself, failure or you have let yourself/family down 0 - Not at all Trouble concentrating on things 0 - Not at all Moving or speaking so slowly, or fidgety or restless 0 - Not at all Thoughts that you would be better off , or of hurting yourself in some way 0 - Not at all How difficult have these problems made things Very difficult Interpretation of Total Score 10-14 Moderate depression JAIDEN-7 ANXIETY SCALE 12/20/2021 FEELING NERVOUS,ANXIOUS,OR ON EDGE 1 Several days NOT BEING ABLE TO STOP OR CONTROL WORRYING 1 Several days WORRYING TOO MUCH ABOUT DIFFERENT THINGS 1 Several days TROUBLE RELAXING 0 Not at all sure BEING SO RESTLESS THAT IT'S HARD TO SIT STILL 0 Not at all sure BEING EASILY ANNOYED OR IRRITABLE 0 Not at all sure FEELING AFRAID IF SOMETHING AWFUL MIGHT HAPPEN 0 Not at all sure GAD7 SCORE 3 IF YOU CHECKED OFF ANY PROBLEMS Not difficult at all PAST MEDICAL HISTORY Diagnosis Date Adjustment reaction with anxiety and depression 10/11/2013 Allergic rhinitis Apical lung scarring 03/16/2014 BPV (benign positional vertigo) 10/11/2013 Chronic obstructive pulmonary disease (COPD) (HCC) Disorder of bone and cartilage, unspecified Diverticulosis of colon (without mention of hemorrhage) Essential hypertension 04/14/2016 Estrogen receptor positive status (ER+) 2018 Glaucoma Malignant neoplasm of central portion of right breast (HCC) 2019 Pleural effusion, right 03/16/2014 Pure hypercholesterolemia Tobacco dependence in remission Unspecified hypothyroidism PAST SURGICAL HISTORY Procedure Laterality Date COLONOSCOP W/ OR [facility] SPEC 06/17/91 Colonoscopy COLONOSCOP W/ OR W/[facility] SPE[facility] 08/27/2009 Colonoscopy HEMORRHOIDECT INTER/EXTER SIMP RADIOFREQUENCY ABLATION Right 10/26/2017 right sided lumbar, medial branch L3, L4, L5, S1 ALLERGIES Celebrex [Celecoxib], Diclofenac, Doxycycline, Monurol [Fosfomycin Tromethamine], Tavist D [Other], and Zocor [Simvastatin] MEDICATIONS budesonide-formoterol (SYMBICORT) 160-4.5 mcg/actuation inhaler Inhale 2 Puffs as instructed twice daily. busPIRone (BUSPAR) 10 mg tablet Take 1 tablet by mouth three times daily as needed. traZODone (DESYREL) 100 mg tablet Take 1 tablet by mouth daily at bedtime. as needed for sleep venlafaxine ER (EFFEXOR XR) 37.5 mg 24 hr capsule Take 1 capsule by mouth once daily. atorvastatin (LIPITOR) 20 mg tablet Take 1 tablet by mouth once daily. hydrocortisone (HEMORRHOIDAL HC) 25 mg suppository 1 Suppository by RECTAL route twice daily as needed (Hemmorrhoids/Rectal Pain). predniSONE (DELTASONE) 20 mg tablet Take 1 tablet by mouth as directed. levothyroxine (LEVOXYL) 137 mcg tablet Take 1 tablet by mouth once daily. Take on empty stomach. For Thyroid. acetaminophen (TYLENOL) 325 mg cap Take by mouth. mupirocin (BACTROBAN) 2 % ointment Apply to affected area three times daily as needed. cyanocobalamin (VITAMIN B-12) 1,000 mcg tab Take 1 tablet by mouth once daily. Cholecalciferol, Vitamin D3, 2,000 unit cap Take 1 capsule by mouth once daily. anastrozole (ARIMIDEX) 1 mg tablet Take 1 tablet by mouth once daily. medroxyPROGESTERone (PROVERA, CYCRIN) 2.5 mg tablet Take 1 tablet by mouth once daily. hydrocortisone (PROCTOCORT) 1 % crpe 1 application by RECTAL route twice daily as needed. tiZANidine (ZANAFLEX) 2 mg tablet latanoprost (XALATAN) 0.005 % ophthalmic solution 1 Drop daily at bedtime. brimonidine 0.2 % drop, timolol maleate 0.5 % drop 1 Drop once daily. montelukast (SINGULAIR) 10 mg tablet Take 1 tablet by mouth daily at bedtime. fluticasone (FLONASE) 50 mcg/actuation nasal spray Use 2 Sprays in each nostril once daily. Melatonin 5 mg tab 5 [...] hours as needed. For wheezing/shortness of breath. COMPOUNDED PRESCRIPTION 1 Each four times daily. NEBULIZER FOR HOME USE. DX: J44.9 ibuprofen (MOTRIN) 600 mg tablet Take 1 tablet by mouth every 6 hours as needed for Pain. Bimatoprost (LUMIGAN) 0.01 % OPHTHALMIC Drop 1 drop bith eyes at night. FAMILY HISTORY Problem Relation Age of Onset Breast Cancer Mother Heart Father 54 [place] Breast Cancer Maternal Aunt Breast Cancer Daughter ADOPTED? None Brother None Brother None Brother Social History Tobacco Use Smoking status: Former Smoker Packs/day: 0.50 Years: 20.00 Pack years: 10.00 Types: Cigarettes Quit date: 09/09/2014 Years since quittin.2 Smokeless tobacco: Never Used Tobacco comment: 4 or 5 cigs qd Substance Use Topics Alcohol use: Yes Comment: occasionally Drug use: No PHYSICAL EXAM BP 122/78 Pulse 96 Resp 16 Wt 69.9 kg (154 lb) SpO2 92% BMI 27.28 kg/m General Appearance: well appearing, in no acute distress, alert Pysch: mood and affect broad and appropriate Skin: Skin color, texture, turgor normal for age; Eyes: conjunctiva pink and moist, no icterus, sclera white, non-injected Lungs: Lungs clear to auscultation. No wheezing, rhonchi, rales. Heart: RRR without murmur, gallop, or rubs. No ectopy Health maintenance reviewed with patient: ADVANCE DIRECTIVE DISCUSSION Never done SHINGRIX VACCINE(1 of 2) due on 12/20/2022 SERUM CREATININE due on 01/25/2022 INFLUENZA(1) due on 02/06/2022 ANNUAL PCP TEAM CHRONIC DISEASE VISIT due on 03/06/2022 BP CONTROLLED (<130/80) due on 03/06/2022 COVID-19 VACCINE(5 - Booster for Moderna series) due on 04/12/2022 HEMOGLOBIN/HEMATOCRIT due on 04/24/2022 DIABETES SCREEN due on 01/26/2024 DTAP,TDAP,TD(3 - Td or Tdap) due on 04/07/2027 BONE DENSITY Completed SPIROMETRY Completed PNEUMOCOCCAL: 65+ Completed DATA REVIEWED: No new labs ASSESSMENT/PLAN: 1. Chronic insomnia - ICD9: 780.52, ICD10: F51.04 (primary diagnosis) - with depression not very well controlled, will stop the trazadone and start mirtazapine at a low dose in hopes this will help both issues. - follow up in 4 weeks 2. Anxiety with depression - ICD9: 300.4, ICD10: F41.8 as above 3. Other fatigue - ICD9: 780.79, ICD10: R53.83 - possibly from insomnia , uncontrolled hypothyroidism, or her B12 deficiency. Will try to improve insomnia and check lab work 4. Pure hypercholesterolemia - ICD9: 272.0, ICD10: E78.00 - needs to follow up to review chronic conditions since unable to review during visit. - COMP METABOLIC PANEL - LIPID PANEL BASIC 5. Essential hypertension - ICD9: 401.9, ICD10: I10 - needs to follow up to review chronic conditions since unable to review during visit - COMP METABOLIC PANEL - CBC + DIFF 6. Vitamin B 12 deficiency - ICD9: 266.2, ICD10: E53.8 - VITAMIN B12 BLOOD 7. Vitamin D deficiency - ICD9: 268.9, ICD10: E55.9 - VITAMIN D 25 HYDROXY 8. Acquired hypothyroidism - ICD9: 244.9, ICD10: E03.9 - TSH BLD Prescription instructions reviewed with patient as applicable. Potential red flag symptoms discussed with the patient. Reviewed appropriate action plan to take if red flag symptoms occur. Patient agreeable to treatment plan. Merari Cox APRN.CNP documented in this encounter [facility] 11-29-2021 Miscellaneous Notes Patient notified. Unfortunately outside of the COVID vaccine, there is no preventative treatment. Continue with trying to isolate from , use good hand hygiene, and wearing masks when needed. If she gets symptomatic she will need to be evaluated. Thank you Merari Cox APRN.NEELA Pt called in and reports her tested positive for Covid on Thursday. She states she tested last night and was still negative. She states she has COPD and is on O2. She was asking if there was anything that the provider could prescribe to her to help her get through in case she get Covid. I told her there are things they could order, but she would have to test positive and have a VV with the providers. She asked can't they just give me Prednisone or something. Pt reports she doesn't have a fever. States she always has a cough from her COPD. She says she is extremely tired, but doesn't know if that is from the stress of her being sick. I told her they need to make sure to isolate from one another and clean well after themselves. She reports they are sleeping in different bedrooms and using different bathrooms, but her isn't the best at cleaning the doorknobs and such. Please call and advise. documented in this encounter [facility] 11-21-2021 History of Present illness Narrative POPULATION HEALTH NAVIGATION OUTREACH Action/ Patient Outreach: [facility] Support - Pt has currently been scheduled and seen for PCP follow up visit. Pt identified by name and : NO Outreach Outcome/Action Unable to reach patient: Phone number not valid / voicemail full Did you use a PCP flex slot to schedule this appointment? No Reason for Outreach Care Gap or Scheduling/Wellness visits Payer: Payor: MEDICARE / Plan: MEDICARE A AND B / Product Type: Medicare / Care Gap Reviewed:: Follow-up appointment Reminder: Reminder note to check Health Maintenance for items below Health Maintenance items due: SHINGRIX VACCINE(1 of 2) due on 05/10/2013 ADVANCE DIRECTIVE DISCUSSION Never done COVID-19 VACCINE(4 - Booster for Moderna series) due on 07/24/2021 Message Sent to Practice: No Navigation Signature: Gianna Mix November 21, 2021 4:00 PM documented in this encounter [facility] 09-25-2021 Miscellaneous Notes KRISTY: 03/06/2021 NOV: none scheduled. Patient has been identified by name and date of : Yes Pending Prescriptions Disp Refills BUDESONIDE-FORMOTEROL HFA 160 MCG-4.5 MCG/ACTUATION AEROSOL INHALER 0 Sig: Inhale 2 Puffs as instructed twice daily. ROMMEL: No BUSPIRONE 10 MG TABLET 90 tablet 3 Sig: Take 1 tablet by mouth three times daily as needed. ROMMEL: No TRAZODONE 100 MG TABLET 30 tablet 1 Sig: Take 1 tablet by mouth daily at bedtime. as needed for sleep ROMMEL: No RX INSTRUCTIONS: Patient aware RX will be sent to pharmacy. No need to notify patient. Diamond Mehta Pss documented in this encounter [facility] documented as of this encounter (statuses as of 09/25/2021) [facility] History of Past illness Narrative* Problem Noted Date Resolved Date Vertebral compression fracture 08/21/2015 0 11/11/2016 Pleural effusion, right 03/16/2014 07/04/19 17 documented as of this encounter (statuses as of 11/21/2021) [facility] of Past illness Narrative* Problem Noted Date Resolved Date Vertebral compression fracture 08/21/2015 0 11/11/2016 Pleural effusion, right 03/16/2014 07/04/19 17 documented as of this encounter (statuses as of 11/29/2021) [facility] History of Past illness Narrative* Problem Noted Date Resolved Date Vertebral compression fracture 08/21/2015 0 11/11/2016 Pleural effusion, right 03/16/2014 07/04/19 17 documented as of this encounter (statuses as of 12/20/2021) [facility] History of Past illness Narrative* Problem Noted Date Resolved Date Vertebral compression fracture 08/21/2015 0 11/11/2016 Pleural effusion, right 03/16/2014 07/04/19 17 documented as of this encounter (statuses as of 12/25/2021) [facility] History of Past illness Narrative* Problem Noted Date Resolved Date Vertebral compression fracture 08/21/2015 0 11/11/2016 Pleural effusion, right 03/16/2014 07/04/19 17 documented as of this encounter (statuses as of 01/17/2022) [facility] of Past illness Narrative* Problem Noted Date Resolved Date Vertebral compression fracture 08/21/2015 0 11/11/2016 Pleural effusion, right 03/16/2014 07/04/19 17 documented as of this encounter (statuses as of 02/21/2022) [address]15-2016 History of Past illness Narrative* Problem Noted Date Resolved Date Vertebral compression fracture 08/21/2015 0 11/11/2016 Pleural effusion, right 03/16/2014 07/04/19 17 documented as of this encounter (statuses as of 05/07/2022) [address]15-2016 History of Past illness Narrative* Problem Noted Date Resolved Date Vertebral compression fracture 08/21/2015 0 11/11/2016 Pleural effusion, right 03/16/2014 07/04/19 17 documented as of this encounter (statuses as of 08/13/2022) [address]15-2016 History of Past illness Narrative* Problem Noted Date Resolved Date Vertebral compression fracture 08/21/2015 0 11/11/2016 Pleural effusion, right 03/16/2014 07/04/19 17 documented as of this encounter (statuses as of 08/14/2022) [address]2016 History of Past illness Narrative* Problem Noted Date Resolved Date Vertebral compression fracture 08/21/2015 0 11/11/2016 Pleural effusion, right 03/16/2014 07/04/19 17 documented as of this encounter (statuses as of 08/20/2022) [address]15[address]2016 History of Past illness Narrative* Problem Noted Date Resolved Date Vertebral compression fracture 08/21/2015 0 11/11/2016 Pleural effusion, right 03/16/2014 07/04/19 17 documented as of this encounter (statuses as of 10/02/2022) [address]2016 History of Past illness Narrative* Problem Noted Date Diagnosed Date Resolved Date Vertebral compression fracture 08/21/2015 11/11/2016 Pleural effusion, right 03/16/201406/09 documented as of this encounter (statuses as of 02/25/2023) [address]2016 History of Past illness Narrative* Problem Noted Date Diagnosed Date Resolved Date Vertebral compression fracture 08/21/2015 11/11/2016 Pleural effusion, right 03/16/201406/09 documented as of this encounter (statuses as of 03/17/2023) [address]2016 History of Past illness Narrative* Problem Noted Date Diagnosed Date Resolved Date Vertebral compression fracture 08/21/2015 11/11/2016 Pleural effusion, right 03/16/201406/09 documented as of this encounter (statuses as of 04/16/2023) [facility]2016 History of Past illness Narrative* Problem Noted Date Diagnosed Date Resolved Date Vertebral compression fracture 08/21/2015 11/11/2016 Pleural effusion, right 03/16/201406/09 documented as of this encounter (statuses as of 04/20/2023) [place] [address]-15-2016 History of Past illness Narrative* Problem Noted Date Diagnosed Date Resolved Date Vertebral compression fracture 08/21/2015 11/11/2016 Pleural effusion, right 03/16/201406/09 documented as of this encounter (statuses as of 04/22/2023) [facility] note* Diagnosis Adjustment reaction with anxiety and depression Adjustment disorder with mixed anxiety and depressed mood Chronic insomnia Insomnia, unspecified [facility] Diagnosis Chronic insomnia- Primary Insomnia, unspecified Anxiety with depression Other fatigue Pure hypercholesterolemia Essential hypertension Unspecified essential hypertension Vitamin B 12 deficiency Other B-complex deficiencies Vitamin D deficiency Unspecified vitamin D deficiency Acquired hypothyroidism Unspecified hypothyroidism [facility] this [facility] Diagnosis Hypothyroidism, unspecified type [facility] this [facility] Diagnosis Anxiety with depression- Primary Hypothyroidism, unspecified type Other fatigue Chronic insomnia Insomnia, unspecified Mass of lower outer quadrant of right breast Malignant neoplasm of central portion of right breast (HCC) Vitamin B12 deficiency Other B-complex deficiencies Essential hypertension Unspecified essential hypertension Pure hypercholesterolemia [facility] this [facility] Diagnosis Hypothyroidism, unspecified type documented [facility] this [facility] Diagnosis Hypothyroidism, unspecified type documented [facility] this [facility] Diagnosis Sudden hearing loss of both ears- Primary documented [facility] this [facility] Diagnosis Hypothyroidism, unspecified type documented [facility] this [facility] Diagnosis Hypothyroidism, unspecified type documented [facility] this [facility] Diagnosis Other fatigue- Primary Weight gain Abnormal weight gain Acquired hypothyroidism Unspecified hypothyroidism Vitamin B12 deficiency Other B-complex deficiencies Chronic obstructive pulmonary disease, unspecified COPD type (HCC) Chronic respiratory failure with hypoxia (HCC) Chronic respiratory failure On home oxygen therapy Dependence on supplemental oxygen Encounter for immunization Need for other specified prophylactic vaccination against single bacterial disease Need for influenza vaccination Need for prophylactic vaccination and inoculation against influenza [facility] Diagnosis Medication management- Primary Encounter for long-term (current) use of other medications Hypothyroidism, unspecified type [facility] Diagnosis Hypothyroidism, unspecified type [facility] Diagnostic Procedure Only (Routine) - Pending Review Specialty Diagnoses / Procedures Referred By Logan alvarez Referred To Contact [facility] Diagnoses Mass of lower outer quadrant of right breast Malignant neoplasm of central portion of right breast (HCC) Procedures [facility] RT DIAGNOSTIC MAMMOGRAPHY COMPUTER-AIDED DETCJ Merari Almanzar APRN.CNP [address] [place] [address] [facility] [address] [place] [address] Referral ID Status Reason Start Date Expiration Date Visits Requested Visits Authorized [id number] Pending Review Auto-Generat ed Referral 01/17/2022 02/16/[address] [facility] Summary Purpose Family History No Family History Records FoundNo Family History Records Found Advance Directives Documents on File Type Date Recorded Patient [employer]ker [employer] Expl anation Advance Directive(s) 05/19/2016 8:55 AM Advance Directive(s) 03/03/2016 3:05 PM Advance Directive(s) 02/26/2016 5:16 PM Reason for Referral Specialty Diagnoses / Procedures Referred By Logan t Referred To Contact Ent - Otolaryngology Diagnoses Sudden hearing loss of both ears Procedures CONSULT TO ENT OFFICE/OUTPATIENT [facility] MDM 60-74 MINUTES Vivian Mao MD [address] [place] [address] Referral ID Status Reason Start Date Expiration Date Visits Requested Visits Authorized [id number] Authorized PCP Requested Referral 08/19/2022 08/19/2023 1 1 Referral ID Status Reason Start Date Expiration Date Visits Requested Visits Authorized [id number] Authorized PCP Requested Referral 08/19/2022 08/19/2023 1 1 Additional Source Comments INFORMATION SOURCE (unrecogn ized section and content) DATE CREATED AUTHOR AUTHOR'S JAMES ATION 04/21/2023 [facility] Source Comments (unrecognize d section and content) In the event this informatio n is protected by the Federal Confidentiality of Alcohol and Drug Abuse Patient Records regulations: The Federal rules restrict any use of the information to criminally investigate or prosecute any alcohol or drug abuse patient.[facility] the event this information is protected by the Federal Confidentiality of Alcohol and Drug Abuse Patient Records regulations: The Federal rules restrict any use of the information to criminally investigate or prosecute any alcohol or drug abuse patient.[facility] the event this information is protected by the Federal Confidentiality of Alcohol and Drug Abuse Patient Records regulations: The Federal rules restrict any use of the information to criminally investigate or prosecute any alcohol or drug abuse patient.[facility] the event this information is protected by the Federal Confidentiality of Alcohol and Drug Abuse Patient Records regulations: The Federal rules restrict any use of the information to criminally investigate or prosecute any alcohol or drug abuse patient.[facility] the event this information is protected by the Federal Confidentiality of Alcohol and Drug Abuse Patient Records regulations: The Federal rules restrict any use of the information to criminally investigate or prosecute any alcohol or drug abuse patient.[facility] the event this information is protected by the Federal Confidentiality of Alcohol and Drug Abuse Patient Records regulations: The Federal rules restrict any use of the information to criminally investigate or prosecute any alcohol or drug abuse patient.[facility] the event this information is protected by the Federal Confidentiality of Alcohol and Drug Abuse Patient Records regulations: The Federal rules restrict any use of the information to criminally investigate or prosecute any alcohol or drug abuse patient.[facility] the event this information is protected by the Federal Confidentiality of Alcohol and Drug Abuse Patient Records regulations: The Federal rules restrict any use of the information to criminally investigate or prosecute any alcohol or drug abuse patient.[facility] the event this information is protected by the Federal Confidentiality of Alcohol and Drug Abuse Patient Records regulations: The Federal rules restrict any use of the information to criminally investigate or prosecute any alcohol or drug abuse patient.[facility] the event this information is protected by the Federal Confidentiality of Alcohol and Drug Abuse Patient Records regulations: The Federal rules restrict any use of the information to criminally investigate or prosecute any alcohol or drug abuse patient.[facility] the event this information is protected by the Federal Confidentiality of Alcohol and Drug Abuse Patient Records regulations: The Federal rules restrict any use of the information to criminally investigate or prosecute any alcohol or drug abuse patient.[facility] the event this information is protected by the Federal Confidentiality of Alcohol and Drug Abuse Patient Records regulations: The Federal rules restrict any use of the information to criminally investigate or prosecute any alcohol or drug abuse patient.[facility] the event this information is protected by the Federal Confidentiality of Alcohol and Drug Abuse Patient Records regulations: The Federal rules restrict any use of the information to criminally investigate or prosecute any alcohol or drug abuse patient.[facility] the event this information is protected by the Federal Confidentiality of Alcohol and Drug Abuse Patient Records regulations: The Federal rules restrict any use of the information to criminally investigate or prosecute any alcohol or drug abuse patient.[facility] the event this information is protected by the Federal Confidentiality of Alcohol and Drug Abuse Patient Records regulations: The Federal rules restrict any use of the information to criminally investigate or prosecute any alcohol or drug abuse patient.[facility] the event this information is protected by the Federal Confidentiality of Alcohol and Drug Abuse Patient Records regulations: The Federal rules restrict any use of the information to criminally investigate or prosecute any alcohol or drug abuse patient.[facility] the event this information is protected by the Federal Confidentiality of Alcohol and Drug Abuse Patient Records regulations: The Federal rules restrict any use of the information to criminally investigate or prosecute any alcohol or drug abuse patient.[facility] Reason for Visit (unrecogniz ed section and content) Reason Comments Patient Question Medication Request Reason Comments Recheck Follow up Reason Onset Date Comments Refill Request 12/25/2021 Reason Comments Recheck 4 week follow up, re view labs Reason Onset Date Comments Refill Request 02/20/2022 Reason Comments Refill Request Reason Comments Patient Question Handicap letter and an ointment to be sent to pharmacy not on med list Reason Comments Same Day Appointment hearing issues sinc e July after bronchitis Reason Comments Vomiting Reason Onset Date Comments Refill Request 03/16/2023 Reason Onset Date Comments Immunizations 04/15/2023 Flu vaccination Reason Comments Results Reason Onset Date Comments Medication Problem 04/20/2023 Care Teams (unrecognized sec tion and content) Medicine Tech Relationship Specialty Start Date End Date Vivian Mao MD [address] [place], [place] [id number] PCP - General Internal Medicine 01/31/21 Medicine Tech Relationship Specialty Start Date End Date Vivian Mao MD [address] [facility] [place] [address] PCP - General Internal Medicine 01/31/21 Medicine Tech Relationship Specialty Start Date End Date Vivian Mao MD [address] [place] [place] [address] PCP - General Internal Medicine 01/31/21 Medicine Tech Relationship Specialty Start Date End Date Vivian Mao MD [address] [place] [place] [address] PCP - General Internal Medicine 01/31/21 Medicine Tech Relationship Specialty Start Date End Date Vviian Mao MD [address] [place] [place] [address] PCP - General Internal Medicine 01/31/21 Medicine Tech Relationship Specialty Start Date End Date Vivian Mao MD [address] [facility] [place] [address] PCP - General Internal Medicine 01/31/21 Medicine Tech Relationship Specialty Start Date End Date Vivian Mao MD [address] [place] [place] [address] PCP - General Internal Medicine 01/31/21 Medicine Tech Relationship Specialty Start Date End Date Vivian Mao MD [address] [place] [place] [address] PCP - General Internal Medicine 01/31/21 Medicine Tech Relationship Specialty Start Date End Date Vivian Mao MD [address] [place] [place] [address] PCP - General Internal Medicine 01/31/21 Medicine Tech Relationship Specialty Start Date End Date Vivian Mao MD [address] [place] [address] PCP - General Internal Medicine 01/31/21 Medicine Tech Relationship Specialty Start Date End Date Vivian Mao MD [address] [facility] [place] [address] PCP - General Internal Medicine 01/31/21 Medicine Tech Relationship Specialty Start Date End Date Vivian Mao MD [address] [facility] [place] [address] PCP - General Internal Medicine 01/31/21 Medicine Tech Relationship Specialty Start Date End Date Vivian Mao MD [address] [facility] [place] [address] PCP - General Internal Medicine 01/31/21 Medicine Tech Relationship Specialty Start Date End Date Vivian Mao MD [address] [facility] [place] [address] PCP - General Internal Medicine 01/31/21 Medicine Tech Relationship Specialty Start Date End Date Vivian Mao MD [address] [facility] [place] [address] PCP - General Internal Medicine 01/31/21 Medicine Tech Relationship Specialty Start Date End Date Vivian Mao MD [address] [place] [place] [address] PCP - General Internal Medicine 01/31/21 FOR RECORDS PERTAINING TO PATIENTS WHO ARE OR HAVE BEEN ENROLLED IN A CHEMICAL DEPENDENCY/SUBSTANCEABUSE PROGRAM, SOME INFORMATION MAY BE OMITTED. This clinical summary was aggregated from multiple sources. Caution should be exercised in using it in the provision of clinical care. This summary normalizes information from multiple sources, and as a consequence, information in this document may materially change the coding, format and clinical context of patient data. In addition, data may be omitted in some cases. CLINICAL DECISIONS SHOULD BE BASED ON THE PRIMARY CLINICAL RECORDS. [employer] [facility]. provides no warranty or guarantee of the accuracy or completeness of information in this document.
[2023-06-27 11:11] LABS: Bacteria 0 SEEN /hpf (None Seen); Mucous, Urine 0 SEEN /hpf (<or=2+); Red Blood Cells-Urine 0 SEEN /hpf (0-5)
[2023-06-27 11:20] LABS: Color, Urine Yellow (Yellow); Glucose, Dipstick 100 mg/dl (Normal); Ketone-Dipstick Negative (Negative); Leukocyte Esterase-Dipstick Negative /ul (Negative); Nitrite-Dipstick Negative (Negative); Occult Blood-Urine 10 /ul (Negative); Protein-Dipstick 30 mg/dl (Negative); Urine Bilirubin Dipstick Negative (Negative); Urine Clarity Clear (Clear); Urine Urobilinogen Normal (Normal)
[2023-06-27 11:41] LABS: Squamous Epithelial Cells - UA 0-5 SEEN /hpf (5-10); White Blood Cells 0-5 SEEN /hpf (0-5)
== END | disposition home or self-care (01) ==
LOC: LABSPEC 11:06
PROVIDERS: PCP Internal Medicine; Referring Provider Family Medicine; Visit Provider Family Medicine
DX: J44.9 Chronic obstructive pulmonary disease, unspecified (principal); J96.10 Chronic respiratory failure, unspecified whether with hypoxia or hypercapnia; F41.9 Anxiety disorder, unspecified
CPT/HCPCS: 81001